=== PATIENT | female | born 1965 | race Caucasian/White ===

== ENCOUNTER 2020-06-28 11:23 | Outpatient (REF) | payer OTHER, SELFPAY ==
[2020-06-28 11:50] LABS: COVID-19 Test Negative (Negative)
== END 2020-06-28 11:24 | disposition home or self-care (01) ==
LOC: HO.LAB 11:23
PROVIDERS: Visit Provider Internal Medicine
DX: Z20.828 Contact with and (suspected) exposure to other viral communicable diseases (principal)
CPT/HCPCS: 87635

== ENCOUNTER 2020-08-03 06:21 | Outpatient (REF) | payer OTHER, SELFPAY | END 2020-08-03 06:22 | disposition home or self-care (01) | LOC: HO.LAB 06:21 | PROVIDERS: Visit Provider Internal Medicine | DX: Z20.828 Contact with and (suspected) exposure to other viral communicable diseases (principal) | CPT/HCPCS: C9803; U0003 ==

== ENCOUNTER 2020-08-16 11:28 | Outpatient (REF) | payer OTHER, SELFPAY ==
[2020-08-16 13:51] LABS: COVID-19 Test Negative (Negative)
== END 2020-08-16 11:29 | disposition home or self-care (01) ==
LOC: HO.EMPCOV 11:28
PROVIDERS: Visit Provider Internal Medicine
DX: Z20.828 Contact with and (suspected) exposure to other viral communicable diseases (principal)
CPT/HCPCS: 87635; C9803

== ENCOUNTER 2020-10-10 07:47 | Outpatient (REF) | payer OTHER, SELFPAY ==
[2020-10-10 08:05] LABS: COVID-19 Test Negative (Negative)
== END 2020-10-10 07:48 | disposition home or self-care (01) ==
LOC: HO.EMPCOV 07:47
PROVIDERS: Visit Provider Internal Medicine
DX: Z20.822 Contact with and (suspected) exposure to COVID-19 (principal)
CPT/HCPCS: 36415; 87635; C9803

== ENCOUNTER 2021-10-22 00:56 | Inpatient (IN) | payer OTHER, SELFPAY ==
[2021-10-22] VITALS (18 sets, daily range): BP systolic 96–176; BP diastolic 54–102; PULSE 72–120; RESP 18–28; TEMP 36.7–38.3; O2SAT 92–98; BMI 34.9
--- NOTE | 2021-10-22 01:08 | PC.NURSE ---
sports instructor notified that pt fits sepsis criteria.
[2021-10-22] MEDS: Ondansetron ODT 4 MG TAB.RAPDIS TRANSLINGU (01:10)
[2021-10-22] MEDS: Acetaminophen 325 MG TABLET 650 MG PO ×2 (01:16→17:25)
[2021-10-22 01:36] LABS: COVID-19 Test Negative (Negative)
[2021-10-22 01:52] LABS: MANUAL DIFF FLAG NO
[2021-10-22 01:55] LABS: Basophils Percent Auto 0.1 % (0-2); Eosinophils Percent Auto 0.4 % (0-4); Hematocrit 41.1 % (37.0-47.0); Hemoglobin 14.2 g/dl (12.0-16.0); Imm Gran Abs Auto 0.03 X10*3/uL (0.00-0.03); Imm Gran Pct Auto 0.3 % (0.0-0.4); Lymphocytes Absolute Auto 0.7 X10*3/uL (1.2-4.9); Lymphocytes Percent Auto 7.2 % (20-40); Mean Corpuscular HGB Conc 34.5 g/dl (31.0-35.0); Mean Corpuscular Hemoglobin 27.7 pg (27.0-33.0); Mean Corpuscular Volume 80.3 fL (80.0-98.0); Mean Platelet Volume 9.6 fL (9.4-12.3); Monocytes Absolute Auto 0.6 X10*3/uL (0.1-1.2); Monocytes Percent Auto 6.6 % (2-11); Neutrophils Absolute Auto 8.2 x10*3/uL (2.0-8.3); Neutrophils Percent Auto 85.4 % (45-73); Platelet Count 100 X10*3/uL (160-400); Red Blood Count 5.12 X10*6/uL (4.20-5.50); Red Cell Distribution Width 15.2 % (11.0-16.0); White Blood Count 9.6 X10*3/uL (4.8-10.8)
[2021-10-22] MEDS: oxyCODONE HCl Immed Release 5 MG TABLET 10 MG PO (02:04)
[2021-10-22] MEDS: Ketorolac Tromethamine 15 MG/ML VIAL IVPUSH (02:04)
[2021-10-22 02:05] LABS: Lactic Acid 1.4 mmol/L (0.5-2.0)
[2021-10-22 02:10] LABS: Alanine Aminotransferase 27 U/L (0-31); Albumin Level 3.1 g/dL (3.5-5.0); Alkaline Phosphatase 176 U/L (39-117); Anion Gap 11 (12-20); Aspartate Amino Transferase 50 U/L (5-31); Bilirubin Total 1.8 mg/dL (0.0-1.0); Blood Urea Nitrogen 5 mg/dL (9-16); Calcium 8.6 mg/dL (8.4-10.2); Carbon Dioxide 20 mmol/L (22-29); Chloride 107 mmol/L (96-108); Creatinine Clr Calc Pharmacy 104.6; Estimated Glomerular Filt Rate > 60; Glucose Random 114 mg/dL (60-115); Potassium 3.3 mmol/L (3.3-5.1); Sodium 135 mmol/L (135-145); Total Protein 7.5 g/dL (6.5-8.0)
--- NOTE | 2021-10-22 02:43 | ED.GENADULT ---
HPI - General Adult General Chief complaint: Skin/Abscess/Foreign Body Stated complaint: general medical Time Seen by Provider: 10/22/21 01:20 Source: patient Mode of arrival: ambulatory Limitations: no limitations History of Present Illness HPI narrative: 55-year-old female who presents emergency department for evaluation of possible cellulitis of her abdominal wall. Patient states that she has had at least 16 admissions over the last 10 years for abdominal wall cellulitis. She states that her symptoms often, suddenly. She states she was feeling well until 21:30 hours when she developed chills. She took some Tylenol. She states that around 23:00 hours she felt hot but did not have a thermometer. She then developed uncontrollable shaking chills. She then noted pain in her abdomen. She describes the pain as a constant, soreness with a tingling, burning, viral like sensation over her skin which is 9/10 at its worst. She then looked at her abdomen and she had developed new erythema with increased warmth over her skin. She states that her cellulitis are most likely caused by her psoriasis. She states that she has seen at an infectious disease doctor and an flight engineer helicopter with a negative workup. She states she has had sepsis in the past as well. Onset (ago): hour(s) (3) Location: abdomen Radiation: non-radiation Severity: severe Severity scale (1-10): 9 Quality: burning and other (Tingling, fire sensation) Pain Consistency: constant Relieving factors: none Exacerbating factors: none Associated symptoms: rash Treatments prior to arrival: none Related Data Allergies Allergy/AdvReac Type Severity Reaction Status Date / Time Penicillins Allergy Unknown Verified 10/22/21 01:07 Review of Systems Review of Systems: Yes all other systems are reviewed and are negative [facility] Past Medical History Medical History (Updated 10/22/21 @ 03:08 by Naeem Saenz MD) Cellulitis Psoriasis Social History Social History Advance Directives: No Patient : No Physical Exam ED Vital Signs: Vital Signs - 24 hr 10/22/21 01:00 10/22/21 01:15 10/22/21 02:11 Temperature 100.7 F H 101 F H Pulse Rate 120 H 104 H Respiratory Rate 20 18 Blood Pressure 176/102 H 169/98 H Pulse Oximetry 97 96 10/22/21 02:20 10/22/21 02:29 10/22/21 03:04 Temperature 99.9 F 99 F Pulse Rate 104 H 102 H Respiratory Rate 18 20 Blood Pressure 161/89 H 153/88 H Pulse Oximetry 96 95 10/22/21 04:00 10/22/21 04:28 Temperature Pulse Rate 99 99 Respiratory Rate 20 18 Blood Pressure 113/64 106/62 Pulse Oximetry 95 93 BMI result Body Mass Index 34.9 Const Other: Awake, alert, female patient, very pleasant and cooperative, she is diaphoretic, she does appear to be anxious, she answers all questions appropriately [facility] Head: Yes normal to inspection, Yes normocephalic and Yes atraumatic Ears: external ears normal General nose exam: Normal external nose present Face and sinus: Yes normal facial exam Mouth: Normal oral and palatal mucosa present Throat: Yes posterior oropharynx normal Eyes General: appearance normal, both eyes and all related structures Pupils: Equal, round and reactive pupils present Neck Neck: Yes normal visual inspection, Yes no lymphadenopathy, Yes trachea midline and Yes supple Chest Chest palpation & inspection: normal inspection of the chest and normal palpation of entire chest wall Resp Effort & Inspection: normal respiratory effort and able to speak in complete sentences Auscultation: clear to auscultation bilaterally Cardio Rate: regular rate Rhythm: regular rhythm Heart sounds: S1 normal heart sound present, S2 normal heart sound present and no murmurs GI Inspection: Yes normal to inspection Palpation (GI): Soft to palpation, Tenderness to palpation present (GI) (Moderate diffuse tenderness) and no guarding Auscultation: normal bowel sounds General: Yes no CVA tenderness Back/Spine/Pelvis Back: no CVA tenderness Skin Other: The patient has erythema that is warm to the touch and does marissa slightly over her entire anterior abdomen, there is a well-demarcated line just below the breasts, there has 2 patches erythema over the patient's breasts medially that the patient states is more consistent with her psoriasis. Neuro Cranial nerves: Yes CN's II-XII intact bilaterally and Yes Equal, round and reactive pupils present Cognition (Neuro): normal cognition Motor exam (neuro): 5/5 motor strength present throughout Extrem General: Yes normal to inspection Psych Appearance: grossly normal Speech and movement: Normal speech and movement present Affect: normal affect Attitude: cooperative Thought process: Normal thought process present Thought content: Normal thought content present Course Course Course Narrative: 55-year-old female with history of recurrent cellulitis of her abdominal wall possibly secondary to her psoriasis who presents emergency department for evaluation sudden onset subjective fever at 21:30 hours with sudden onset shaking chills (rigors) at 23:00 hours with diffuse erythema but then developed over her abdominal wall. Patient states that she has had at least 16 episodes abdominal wall cellulitis in the past with multiple hospitalizations and several episodes of sepsis. Patient's vital signs on presentation did meet SIRS criteria with a pulse of 120 and a temperature of 100.7 degrees F. patient had no hypotensive with a blood pressure of 176/102 and O2 saturation of 97% on room air. Physical examination did reveal diffuse erythema with increased warmth over her abdominal wall consistent with cellulitis. She has 2 patches of erythema on her lower breasts which may be consistent with her psoriasis and this could be the source for her cellulitis. Patient was ordered to get a normal saline fluid bolus of 30 cc/kilogram based on her ideal weight (BMI 34.9). Patient was also ordered to get Ancef 2 g IV and vancomycin 1250 mg IV. Patient's pain was treated with Tylenol 650 mg orally, oxycodone 10 mg orally and Zofran 4 mg IV for her nausea. I will discuss admission with the covering hospitalist. Medical Decision Making Lab Data Result diagrams: 10/22/21 01:47 10/22/21 01:47 Labs: Lab Results 10/22/21 10/22/21 10/22/21 Range/Units 01:14 01:47 01:47 WBC 9.6 (4.8-10.8) X10*3/uL RBC 5.12 (4.20-5.50) X10*6/uL Hgb 14.2 (12.0-16.0) g/dl Hct 41.1 (37.0-47.0) % MCV 80.3 (80.0-98.0) fL MCH 27.7 (27.0-33.0) pg MCHC 34.5 (31.0-35.0) g/dl RDW 15.2 (11.0-16.0) % Plt Count 100 L (160-400) X10*3/uL MPV 9.6 (9.4-12.3) fL Immature Gran % (Auto) 0.3 (0.0-0.4) % Neut % (Auto) 85.4 H (45-73) % Lymph % (Auto) 7.2 L (20-40) % [place] % (Auto) 6.6 (2-11) % Eos % (Auto) 0.4 (0-4) % Baso % (Auto) 0.1 (0-2) % Lymph # (Auto) 0.7 L (1.2-4.9) X10*3/uL [place] # (Auto) 0.6 (0.1-1.2) X10*3/uL Eos # (Auto) 0.0 (0.0-0.4) X10*3/uL Baso # (Auto) 0.0 (0.0-0.2) X10*3/uL Abs Immat Gran (auto) 0.03 (0.00-0.03) X10*3/uL Absolute Neuts (auto) 8.2 (2.0-8.3) x10*3/uL Absolute Nucleated RBC 0.000 (0.0-0.012) X10*3/uL Nucleated RBC % (auto) 0.0 (0.0-0.2) /100WBC Sodium 135 (135-145) mmol/L Potassium 3.3 (3.3-5.1) mmol/L Chloride 107 (96-108) mmol/L Carbon Dioxide 20 L (22-29) mmol/L Anion Gap 11 L (12-20) BUN 5 L (9-16) mg/dL Creatinine 0.71 (0.5-1.4) mg/dL Estim Creat Clear Calc 104.6 Estimated GFR > 60 Random Glucose 114 (60-115) mg/dL Lactic Acid (0.5-2.0) mmol/L Calcium 8.6 (8.4-10.2) mg/dL Total Bilirubin 1.8 H (0.0-1.0) mg/dL AST 50 H (5-31) U/L ALT 27 (0-31) U/L Alkaline Phosphatase 176 H (39-117) U/L Total Protein 7.5 (6.5-8.0) g/dL Albumin 3.1 L (3.5-5.0) g/dL COVID-19 ([facility]) Negative (Negative) COVID-19 Clin Com See Note 10/22/21 Range/Units 01:47 WBC (4.8-10.8) X10*3/uL RBC (4.20-5.50) X10*6/uL Hgb (12.0-16.0) g/dl Hct (37.0-47.0) % MCV (80.0-98.0) fL MCH (27.0-33.0) pg MCHC (31.0-35.0) g/dl RDW (11.0-16.0) % Plt Count (160-400) X10*3/uL MPV (9.4-12.3) fL Immature Gran % (Auto) (0.0-0.4) % Neut % (Auto) (45-73) % Lymph % (Auto) (20-40) % [place] % (Auto) (2-11) % Eos % (Auto) (0-4) % Baso % (Auto) (0-2) % Lymph # (Auto) (1.2-4.9) X10*3/uL [place] # (Auto) (0.1-1.2) X10*3/uL Eos # (Auto) (0.0-0.4) X10*3/uL Baso # (Auto) (0.0-0.2) X10*3/uL Abs Immat Gran (auto) (0.00-0.03) X10*3/uL Absolute Neuts (auto) (2.0-8.3) x10*3/uL Absolute Nucleated RBC (0.0-0.012) X10*3/uL Nucleated RBC % (auto) (0.0-0.2) /100WBC Sodium (135-145) mmol/L Potassium (3.3-5.1) mmol/L Chloride (96-108) mmol/L Carbon Dioxide (22-29) mmol/L Anion Gap (12-20) BUN (9-16) mg/dL Creatinine (0.5-1.4) mg/dL Estim Creat Clear Calc Estimated GFR Random Glucose (60-115) mg/dL Lactic Acid 1.4 (0.5-2.0) mmol/L Calcium (8.4-10.2) mg/dL Total Bilirubin (0.0-1.0) mg/dL AST (5-31) U/L ALT (0-31) U/L Alkaline Phosphatase (39-117) U/L Total Protein (6.5-8.0) g/dL Albumin (3.5-5.0) g/dL COVID-19 ([facility]) (Negative) COVID-19 Clin Com Discharge Plan Discharge Clinical Impression: Cellulitis, Fever, Rigor Patient Disposition: Admitted As Inpatient
[2021-10-22] MEDS: vancomycin HCL 1,250 MG in 0.9 % Sodium Chloride 250 ML 166.67 MG IV (02:57)
--- NOTE | 2021-10-22 06:19 | PM.IMHP ---
History of Present Illness Date of Service: 10/22/21 Chief Complaint: Abdominal wall cellulitis This is a 55-year-old female with past medical history of psoriasis who presents to the hospital with complaints of chills, abdominal wall cellulitis. Patient reports history of abdominal wall cellulitis, she reports that around 21:00 she started developing chills, and 2 hours later her whole abdomen became red, and warm therefore she decided to come to the hospital. She otherwise denies any fever, no abdominal pain, she has had nausea vomiting, no diarrhea constipation, no urinary symptoms and no lower extremity edema. On arrival to the ED patient's vitals are significant for temp of a 100.7 degrees, heart rate of 120, blood pressure 176/102, Labs are significant for WBC count 9.6, BUN of 5, total bili of 1.8, AST of 50, alk-phos of 176, otherwise unremarkable. Patient will be admitted for further management Review of Systems Review of Systems: Yes all other systems are reviewed and are negative REPLACED BY [facility] Medical History (Updated 10/22/21 @ 06:24 by Yee Mohan MD) Cellulitis Psoriasis Family History (Updated 10/22/21 @ 06:22 by Yee Mohan MD) Other No family history of coronary artery disease Surgical History (Updated 10/22/21 @ 06:23 by Yee Mohan MD) History of cholecystectomy Hx of breast reduction, elective Social History (Updated 10/22/21 @ 06:23 by Yee Mohan MD) Alcohol intake: never Patient Tobacco Use Status: Never used Tobacco Use of substances other than those prescribed or required for medical reasons: No Advance Directives: No Patient : No Meds Allergies Allergy/AdvReac Type Severity Reaction Status Date / Time Penicillins Allergy Unknown Verified 10/22/21 01:07 Active Medications: Current Medications Acetaminophen (Acetaminophen 325 Mg Tablet) 650 mg PO Q6H PRN PRN Reason: Pain, Mild (Pain Scale 1-3) Enoxaparin Sodium (Enoxaparin Sodium 40 Mg/0.4 Ml Syringe) 40 mg SUBCUT Q24H [facility] Cefazolin Sodium/Dextrose (Ancef) 2 gm in 50 mls @ 100 mls/hr IV Q8H [facility] Ondansetron HCl (Ondansetron Hcl 4 Mg/2 Ml Vial) 4 mg IVPUSH Q8H PRN PRN Reason: Nausea and Vomiting Oxycodone HCl (Oxycodone Hcl Immed Release 5 Mg Tablet) 5 mg PO Q6H PRN PRN Reason: Pain, Severe (Pain Scale 7-10) Pharmacy Consult (Consult Rx Vancomycin Dosing) 1 each MISCELLANE DAILY PRN PRN Reason: Consult order Sodium Chloride (0.9 % Sodium Chloride Flush 3 Ml Syringe) 3 ml IVFLUSH QSHIFT [facility] Home Medications Medication Instructions Recorded Confirmed Last Taken Type guselkumab 100 mg/mL subcutaneous 100 mg SUBCUT 10/22/21 Unknown History auto-injector (Tremfya) Physical Exam Vital Signs and Narrative: Vital Signs: Last Vital Signs Temp 98.1 F 10/22/21 05:58 Pulse 96 10/22/21 05:58 Resp 18 10/22/21 05:58 BP 114/63 10/22/21 05:58 Pulse Ox 95 10/22/21 05:58 BMI result Body Mass Index 34.9 Const: General: cooperative and no acute distress Orientation/consciousness: patient oriented x3 Eyes: General: appearance normal, both eyes and all related structures Pupils: Equal, round and reactive pupils present Resp: Effort & Inspection: normal respiratory effort Auscultation: clear to auscultation bilaterally Cardio: Rate: regular rate Rhythm: regular rhythm GI: Other: Significant diffuse Abdominal wall tenderness, erythema, warmth, Palpation (GI): Soft to palpation Auscultation: normal bowel sounds Skin: General skin exam: no rashes or lesions noted Neuro: General: patient oriented x3 Cranial nerves: Yes Equal, round and reactive pupils present Cognition (Neuro): normal cognition Extrem: General: Yes normal to inspection and Yes no pedal edema Results Labs CBC and Chem 7: 10/22/21 01:47 10/22/21 01:47 Labs: Laboratory Results - last 24 hr 10/22/21 10/22/21 10/22/21 01:14 01:47 01:47 MCV 80.3 MCH 27.7 MCHC 34.5 RDW 15.2 Plt Count 100 L MPV 9.6 Immature Gran % (Auto) 0.3 Neut % (Auto) 85.4 H Lymph % (Auto) 7.2 L [place] % (Auto) 6.6 Eos % (Auto) 0.4 Baso % (Auto) 0.1 Lymph # (Auto) 0.7 L [place] # (Auto) 0.6 Eos # (Auto) 0.0 Baso # (Auto) 0.0 Abs Immat Gran (auto) 0.03 Absolute Neuts (auto) 8.2 Absolute Nucleated RBC 0.000 Nucleated RBC % (auto) 0.0 Anion Gap 11 L Estim Creat Clear Calc 104.6 Estimated GFR > 60 Random Glucose 114 Lactic Acid Calcium 8.6 Total Bilirubin 1.8 H AST 50 H ALT 27 Alkaline Phosphatase 176 H Total Protein 7.5 Albumin 3.1 L COVID-19 ([facility]) Negative COVID-19 Clin Com See Note 10/22/21 01:47 MCV MCH MCHC RDW Plt Count MPV Immature Gran % (Auto) Neut % (Auto) Lymph % (Auto) [place] % (Auto) Eos % (Auto) Baso % (Auto) Lymph # (Auto) [place] # (Auto) Eos # (Auto) Baso # (Auto) Abs Immat Gran (auto) Absolute Neuts (auto) Absolute Nucleated RBC Nucleated RBC % (auto) Anion Gap Estim Creat Clear Calc Estimated GFR Random Glucose Lactic Acid 1.4 Calcium Total Bilirubin AST ALT Alkaline Phosphatase Total Protein Albumin COVID-19 ([facility]) COVID-19 Clin Com Assessment and Plan (1) SIRS (systemic inflammatory response syndrome): Status: Acute (2) Cellulitis: Qualifiers: Site of cellulitis: trunk Site of cellulitis of trunk: abdominal wall Qualified Code(s): L03.311 - Cellulitis of abdominal wall Status: Acute Plan 55-year-old female with past medical history of psoriasis presents to the hospital with complaints of abdominal wall redness found to have abdominal cellulitis # SIRS - has tachycardia, tachypnea, likely secondary to abdominal wall cellulitis - normal lactic acid, no leukocytosis - will treat with IV antibiotics - follow cultures # abdominal wall cellulitis - acute - diffuse - given the large area of cellulitis as well as it significant progress over the past few hours, patient will be admitted and treated with IV antibiotics - follow cultures # psoriasis - continue home Tremfya # insomnia - patient reports that she becomes insomniac at the hospital and request something for sleep hospital - Amadeo [email or web address] ordered DVT prophylaxis: Lovenox Quality Stroke Does the patient have a stroke diagnosis?: No VTE Prior VTE?: No VTE Risk Level:: Medical - moderate - high VTE Device Contraindication: Treatment Not Indicated VTE Drug Contraindication: N/A - Med Ordered
[2021-10-22] MEDS: Enoxaparin Sodium 40 MG/0.4 ML SYRINGE SUBCUT (06:50)
[2021-10-22] MEDS: oxyCODONE HCl Immed Release 5 MG TABLET PO ×2 (06:55→15:51)
[2021-10-22 07:19] LABS: Basophils Percent Auto 0.1 % (0-2); Eosinophils Percent Auto 0.1 % (0-4); Hematocrit 37.5 % (37.0-47.0); Hemoglobin 12.9 g/dl (12.0-16.0); Imm Gran Abs Auto 0.05 X10*3/uL (0.00-0.03); Imm Gran Pct Auto 0.5 % (0.0-0.4); Lymphocytes Absolute Auto 0.5 X10*3/uL (1.2-4.9); Lymphocytes Percent Auto 4.9 % (20-40); MANUAL DIFF FLAG SCAN; Mean Corpuscular HGB Conc 34.4 g/dl (31.0-35.0); Mean Corpuscular Volume 81.5 fL (80.0-98.0); Mean Platelet Volume 9.8 fL (9.4-12.3); Monocytes Absolute Auto 0.4 X10*3/uL (0.1-1.2); Monocytes Percent Auto 4.3 % (2-11); Neutrophils Absolute Auto 9.1 x10*3/uL (2.0-8.3); Neutrophils Percent Auto 90.1 % (45-73); Platelet Count 89 X10*3/uL (160-400); Red Cell Distribution Width 15.3 % (11.0-16.0); SCAN SMEAR FLAG 1; White Blood Count 10.1 X10*3/uL (4.8-10.8)
[2021-10-22 07:37] LABS: SLIDE REVIEW VERIFIED
[2021-10-22 07:39] LABS: Anion Gap 9 (12-20); Blood Urea Nitrogen 6 mg/dL (9-16); Carbon Dioxide 21 mmol/L (22-29); Chloride 109 mmol/L (96-108); Creatinine Clr Calc Pharmacy 103.1; Estimated Glomerular Filt Rate > 60; Glucose Random 158 mg/dL (60-115); Potassium 3.4 mmol/L (3.3-5.1); Sodium 136 mmol/L (135-145)
--- NOTE | 2021-10-22 08:37 | PHA.MEDREC ---
Pharmacy Consult ? Medication Reconciliation Pharmacy has completed the medication reconciliation. SPOKE WITH PT. SHE IS OVERDUE FOR HER TREMFYA. SHE IS WAITING FOR IT TO COME IN
--- NOTE | 2021-10-22 09:42 | PHA.PROG ---
Admission Date/Time: October 22, 2021 05:17 Indication: Weight in k.254 kg Adjusted body weight in K.3 KG [place] body weight in K KG Obesity Dosing Indication % IBW: Serum Creatinine - Last 168 Hours 10/22/21 10/22/21 01:47 07:01 Creatinine 0.71 0.72 Estimated CrCl and GFR - Last 168 Hours 10/22/21 10/22/21 01:47 07:01 Estim Creat Clear Calc 104.6 103.1 Estimated GFR > 60 > 60 Vancomycin Loading Dose: 1250 MG Current Vancomycin Dosing Regimen:1000 MG Q12 Vancomycin Monitoring using AUC goal of 400 - 600 range with trough as surrogate marker: 518, 15.2 TROUGH Date and Time for next Vancomycin Level to be drawn:10/23@1300 Pharmacist Comments on Vancomycin Plan:used obese model since pt is 20% > than ideal body weight Vancomycin dosing will take advantage of Motion [employer] as a clinical decision support tool that uses Bayesian modeling to calculate individual patient's pharmacokinetic parameters and forecast the patient's drug concentration time course with the target goal AUC 24 range of 400 - 600 mg/L/hr.
--- NOTE | 2021-10-22 10:16 | MHC.CM.PN ---
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 D/C PLAN: HOME W/NO SERVICES W/BF FOR TRANSPORT.
[2021-10-22] MEDS: ceFAZolin Sodium/Dextrose,Iso 2 GM/50 ML PIGGYBACK IV ×2 (10:38→18:49)
[2021-10-22] MEDS: Lactated Ringers 1,000 ML 100 ML IVCONT ×2 (12:05→20:16)
--- NOTE | 2021-10-22 12:09 | PC.NURSE ---
patient a&ox3, vitals stable, library monitor nsr 80s, ivf started per order, pt states she hs 7/10 pain-refusing tylenol for pain at this time, call jorge within reach, will continue to monitor.
--- NOTE | 2021-10-22 13:17 | PM.EVENT ---
Event Note Date of Service: 10/23/21 Event Note: This patient is seen and examined this morning by hospitalist service. fevers and tachycardia improving mild tachypnea Physical exam: Unchanged from H&P. Agree with the plan in addition: patient has reccurrent abd wall cellulitis sirs/abd wall cellulitis -added vanco/cefzolin moniter vanco trough Id eval
[2021-10-22] MEDS: vancomycin HCL 1,000 MG in 0.9 % Sodium Chloride 250 ML 270 MG IV (15:37)
--- NOTE | 2021-10-22 15:52 | PC.NURSE ---
pt a&ox3, vss, pt requesting pain meds (04/18 pain), medicated per provider order.
--- NOTE | 2021-10-22 17:26 | PC.NURSE ---
pt medicated per order
--- NOTE | 2021-10-22 19:47 | PC.NURSE ---
pt requested gabriel winkler around 2300.
[2021-10-22] MEDS: ondansetron HCL 4 MG/2 ML VIAL IVPUSH (20:17)
--- NOTE | 2021-10-22 20:50 | PC.NURSE ---
floor to call back to get report
--- NOTE | 2021-10-22 21:15 | PC.NURSE ---
report given to floor pt to be transported by tech
[2021-10-22] MEDS: 0.9 % Sodium Chloride Flush 3 ML SYRINGE IVFLUSH (23:28)
[2021-10-22] MEDS: Zolpidem Tartrate 5 MG TABLET PO (23:31)
[2021-10-23] VITALS: BP 94/55; PULSE 72; RESP 18; TEMP 36.4; O2SAT 94
[2021-10-23] MEDS: ceFAZolin Sodium/Dextrose,Iso 2 GM/50 ML PIGGYBACK IV ×3 (01:57→19:23)
[2021-10-23] MEDS: vancomycin HCL 1,000 MG in 0.9 % Sodium Chloride 250 ML 270 MG IV (03:49)
[2021-10-23 04:00] VITALS: BP 100/57; PULSE 66; RESP 18; TEMP 36.3; O2SAT 97
[2021-10-23] MEDS: Enoxaparin Sodium 40 MG/0.4 ML SYRINGE SUBCUT (05:38)
[2021-10-23 06:07] LABS: Anion Gap 7 (12-20); Blood Urea Nitrogen 9 mg/dL (9-16); Calcium 7.5 mg/dL (8.4-10.2); Carbon Dioxide 24 mmol/L (22-29); Chloride 109 mmol/L (96-108); Creatinine Clr Calc Pharmacy 100.3; Estimated Glomerular Filt Rate > 60; Glucose Random 87 mg/dL (60-115); Potassium 3.4 mmol/L (3.3-5.1); Sodium 137 mmol/L (135-145)
[2021-10-23 07:39] VITALS: BP 100/54; PULSE 75; RESP 20; TEMP 36.9; O2SAT 93
[2021-10-23 08:20] LABS: Alanine Aminotransferase 20 U/L (0-31); Albumin Level 2.5 g/dL (3.5-5.0); Alkaline Phosphatase 106 U/L (39-117); Aspartate Amino Transferase 45 U/L (5-31); Bilirubin Direct 0.6 mg/dL (0.0-0.5)
[2021-10-23] MEDS: 0.9 % Sodium Chloride Flush 3 ML SYRINGE IVFLUSH (08:25)
[2021-10-23 11:34] VITALS: BP 127/64; PULSE 79; RESP 20; TEMP 36.9; O2SAT 95
--- NOTE | 2021-10-23 12:52 | HO.PM.IMPN ---
Subjective Subjective Date of Service: 10/23/21 Interval History: abd wall cellulitis Review of Systems Denies any chest pain or shortness of breath fever or chills or nausea vomiting. still has significant abdominal soreness in cellulitis area. Physical Exam Vital Signs: Vital Signs: Last Vital Signs Temp 98.4 F 10/23/21 11:34 Pulse 79 10/23/21 11:34 Resp 20 10/23/21 11:34 BP 127/64 10/23/21 11:34 Pulse Ox 95 10/23/21 11:34 BMI result Body Mass Index 34.9 Appearance: Alert.? Oriented X3.? not in distress.? Eyes: Pupils equal, round and reactive to light.? Sclera nonicteric.? ENT: Pharynx normal.? Moist mucous membranes. cvs: rrr, [id number] , no murmur res: clear to auscultation ,no rhonchii or wheezing abd: no rebound or guarding , significant soreness and redness of mid to lower abdomen, bs present. ext pulses present , no cyanosis . neuro: axo3 , nonfocal. Objective Data Active Medications Acetaminophen (Acetaminophen 325 Mg Tablet) 650 mg PO Q6H PRN PRN Reason: Pain, Mild (Pain Scale 1-3) Last Admin: 10/22/21 17:25 Dose: 650 mg Documented by: ATIF Enoxaparin Sodium (Enoxaparin Sodium 40 Mg/0.4 Ml Syringe) 40 mg SUBCUT Q24H [facility] Last Admin: 10/23/21 05:38 Dose: 40 mg Documented by: PIA Cefazolin Sodium/Dextrose (Ancef) 2 gm in 50 mls @ 100 mls/hr IV Q8H [facility] Last Infusion: 10/23/21 10:25 Dose: 0 mls/hr Documented by: TATIANA Vancomycin HCl 1,000 mg/ (Sodium Chloride) 270 mls @ 270 mls/hr IV Q12H [facility] Last Infusion: 10/23/21 05:08 Dose: 0 mls/hr Documented by: PIA Lactated Ringer's (Lr) 1,000 mls @ 100 mls/hr IVCONT .Q10H [facility] Last Admin: 10/22/21 20:16 Dose: 100 mls/hr Documented by: ATIF Ondansetron HCl (Ondansetron Hcl 4 Mg/2 Ml Vial) 4 mg IVPUSH Q8H PRN PRN Reason: Nausea and Vomiting Last Admin: 10/22/21 20:17 Dose: 4 mg Documented by: ATIF Oxycodone HCl (Oxycodone Hcl Immed Release 5 Mg Tablet) 5 mg PO Q6H PRN PRN Reason: Pain, Severe (Pain Scale 7-10) Last Admin: 10/22/21 15:51 Dose: 5 mg Documented by: ATIF Pharmacy Consult (Consult Rx Vancomycin Dosing) 1 each MISCELLANE DAILY PRN PRN Reason: Consult order Pharmacy Consult (Consult Rx Vancomycin Dosing) 1 each MISCELLANE DAILY PRN PRN Reason: Consult order Sodium Chloride (0.9 % Sodium Chloride Flush 3 Ml Syringe) 3 ml IVFLUSH [facility] Last Admin: 10/23/21 08:25 Dose: 3 ml Documented by: TATIANA Zolpidem Tartrate (Zolpidem Tartrate 5 Mg Tablet) 5 mg PO BEDTIME PRN PRN Reason: Insomnia Last Admin: 10/22/21 23:31 Dose: 5 mg Documented by: PIA Labs CBC & Chem 7: 10/22/21 07:01 10/23/21 05:16 Labs: Laboratory Results - last 24 hr 10/23/21 05:16 Anion Gap 7 L Estim Creat Clear Calc 100.3 Estimated GFR > 60 Random Glucose 87 Calcium 7.5 L D Total Bilirubin 1.0 Direct Bilirubin 0.6 H AST 45 H ALT 20 Alkaline Phosphatase 106 D Total Protein 6.0 L Albumin 2.5 L Microbiology Microbiology Results: Microbiology 10/22/21 02:01 Blood Culture - Preliminary Blood - Venous No growth after 24 hours. 10/22/21 01:47 Blood Culture - Preliminary Blood - Venous No growth after 24 hours. Assessment and Plan (1) Cellulitis: Status: Acute Plan 55-year-old female with past medical history of psoriasis presents to the hospital with complaints of abdominal wall redness found to have abdominal cellulitis 1. SIRS: seems improved. - has tachycardia, tachypnea seems improved likely secondary to abdominal wall cellulitis - normal lactic acid, no leukocytosis continue with IV antibiotics - follow cultures 2. abdominal wall cellulitis - acute, diffuse - given the large area of cellulitis as well as it significant progress over the past few hours, patient will be admitted and treated with IV antibiotics blod cultures fu continue vanco and cefzolin day2 id eval 3. psoriasis- continue home Tremfya. 4. insomnia - patient reports that she becomes insomniac at the hospital and request something for sleep [facility] - Amadeo hayes ordered DVT prophylaxis: Lovenox Quality Stroke Does the patient have a stroke diagnosis?: No VTE Prior VTE?: No VTE Risk Level:: Medical - moderate - high VTE Device Contraindication: Treatment Not Indicated VTE Drug Contraindication: N/A - Med Ordered
[2021-10-23 13:27] LABS: Vancomycin Trough 9.4 mcg/mL (10.0-20.0)
[2021-10-23] MEDS: Lactated Ringers 1,000 ML 100 ML IVCONT ×2 (13:49→23:58)
--- NOTE | 2021-10-23 14:26 | HE.PHANOTE ---
VANCOMYCIN DOSING ADDENDUM BASED ON TROUGH OF 9.4 DOSE INCREASED TO [id number]. NEXT TROUGH 10/23 @ 1300
[2021-10-23] MEDS: vancomycin HCL 1,250 MG in 0.9 % Sodium Chloride 250 ML 166.67 MG IV (15:21)
[2021-10-23] MEDS: oxyCODONE HCl Immed Release 5 MG TABLET PO ×2 (15:31→22:57)
[2021-10-23 16:00] VITALS: BP 117/66; PULSE 83; RESP 18; TEMP 37.2; O2SAT 94
--- NOTE | 2021-10-23 16:07 | W.PM.IDCN ---
History of Present Illness Data of Consult Service Date: 10/23/21 Requesting physician: Michelle Chavez Primary Care Provider: Eliseo Cast III, MD HPI Reason for consult: sepsis,skin source She presents with chills two nights ago and abdominal discomfort and axillary swelling. She had this happen at 1045 pm About 1115 pm after taking Tylenol she noticed abdominal redness and swelling. She has psoriasis and takes Tremfya and missed last dose. She has long history of psoriasis and abdominal cellulitis,recurrent and hasnt had one in twenty one months. I have seen her and she has seen Dermatology and had rather nonrevealing skin biopsy as well. Review of Systems Review of Systems: Yes all other systems are reviewed and are negative [facility] Past Medical History Medical History Cellulitis Psoriasis Family History Family History Other No family history of coronary artery disease Family history: reviewed and not pertinent Surgical History Surgical History History of cholecystectomy Hx of breast reduction, elective Social History Social History Household Members: Significant Other Housing: House Do you presently have visiting nurse or other home services: No Alcohol intake: never Patient Tobacco Use Status: Never used Tobacco service: No Current occupational status: employed Meds Allergies Allergy/AdvReac Type Severity Reaction Status Date / Time Penicillins Allergy Unknown Verified 10/22/21 01:07 Active Medications: Current Medications Acetaminophen (Acetaminophen 325 Mg Tablet) 650 mg PO Q6H PRN PRN Reason: Pain, Mild (Pain Scale 1-3) Last Admin: 10/22/21 17:25 Dose: 650 mg Documented by: Enoxaparin Sodium (Enoxaparin Sodium 40 Mg/0.4 Ml Syringe) 40 mg SUBCUT Q24H [facility] Last Admin: 10/23/21 05:38 Dose: 40 mg Documented by: Cefazolin Sodium/Dextrose (Ancef) 2 gm in 50 mls @ 100 mls/hr IV Q8H [facility] Last Infusion: 10/23/21 10:25 Dose: Infused Documented by: Lactated Ringer's (Lr) 1,000 mls @ 100 mls/hr IVCONT .Q10H [facility] Last Admin: 10/23/21 13:49 Dose: 100 mls/hr Documented by: Vancomycin HCl 1,250 mg/ (Sodium Chloride) 250 mls @ 166.667 mls/hr IV Q12H [facility] Last Admin: 10/23/21 15:21 Dose: 166.67 mls/hr Documented by: Ondansetron HCl (Ondansetron Hcl 4 Mg/2 Ml Vial) 4 mg IVPUSH Q8H PRN PRN Reason: Nausea and Vomiting Last Admin: 10/22/21 20:17 Dose: 4 mg Documented by: Oxycodone HCl (Oxycodone Hcl Immed Release 5 Mg Tablet) 5 mg PO Q6H PRN PRN Reason: Pain, Severe (Pain Scale 7-10) Last Admin: 10/23/21 15:31 Dose: 5 mg Documented by: Pharmacy Consult (Consult Rx Vancomycin Dosing) 1 each MISCELLANE DAILY PRN PRN Reason: Consult order Pharmacy Consult (Consult Rx Vancomycin Dosing) 1 each MISCELLANE DAILY PRN PRN Reason: Consult order Sodium Chloride (0.9 % Sodium Chloride Flush 3 Ml Syringe) 3 ml IVFLUSH QSHIFT [facility] Last Admin: 10/23/21 15:28 Dose: Not Given Documented by: Zolpidem Tartrate (Zolpidem Tartrate 5 Mg Tablet) 5 mg PO BEDTIME PRN PRN Reason: Insomnia Last Admin: 10/22/21 23:31 Dose: 5 mg Documented by: Home Medications Medication Instructions Recorded Confirmed Last Taken Type guselkumab 100 mg/mL subcutaneous 100 mg SUBCUT [id number] 10/22/21 10/22/21 Unknown History auto-injector (Tremfya) Physical Exam Vital Signs: Vital Signs: Last Vital Signs Temp 98.4 F 10/23/21 11:34 Pulse 79 10/23/21 11:34 Resp 20 10/23/21 11:34 BP 127/64 10/23/21 11:34 Pulse Ox 95 10/23/21 11:34 BMI result Body Mass Index 34.9 Const: General: cooperative HENMT: Head: Yes normal to inspection Mouth: Normal oral and palatal mucosa present Eyes: General: appearance normal, both eyes and all related structures Pupils: Equal, round and reactive pupils present Resp: Effort & Inspection: normal respiratory effort Cardio: Rate: regular rate Rhythm: regular rhythm GI: Palpation (GI): Soft to palpation and Tenderness to palpation present (GI) (redness across abdomen) Neuro: Cranial nerves: Yes Equal, round and reactive pupils present Results Labs CBC & Chem 7: 10/22/21 07:01 10/23/21 05:16 Labs: BMP 10/23/21 05:16 Sodium 137 Potassium 3.4 Chloride 109 H Carbon Dioxide 24 BUN 9 Creatinine 0.74 Calcium 7.5 L D Liver Function 10/23/21 Range/Units 05:16 Total Bilirubin 1.0 (0.0-1.0) mg/dL Direct Bilirubin 0.6 H (0.0-0.5) mg/dL AST 45 H (5-31) U/L ALT 20 (0-31) U/L Alkaline Phosphatase 106 D (39-117) U/L Albumin 2.5 L (3.5-5.0) g/dL Microbiology Microbiology Results: Microbiology 10/22/21 02:01 Blood - Venous Blood Culture - Preliminary No growth after 24 hours. 10/22/21 01:47 Blood - Venous Blood Culture - Preliminary No growth after 24 hours. Assessment and Plan (1) Sepsis: Status: Acute There is erythema and possibly staph or strep She has no inciting factor and psoriasis is unremarkable (2) Cellulitis: Qualifiers: Site of cellulitis: trunk Site of cellulitis of trunk: abdominal wall Qualified Code(s): L03.311 - Cellulitis of abdominal wall Status: Acute Plan Await blood cultures Two or three days of Vancomycin and Kefzol and probably home with Doxycycline or Keflex for a week Follow Dermatology
[2021-10-23 20:00] VITALS: BP 145/80; PULSE 81; RESP 18; TEMP 36.6; O2SAT 91
[2021-10-23] MEDS: Zolpidem Tartrate 5 MG TABLET PO (22:57)
[2021-10-24] VITALS: BP 148/84; PULSE 83; RESP 14; TEMP 36.9; O2SAT 95
[2021-10-24] MEDS: ceFAZolin Sodium/Dextrose,Iso 2 GM/50 ML PIGGYBACK IV ×2 (02:38→08:45)
[2021-10-24] MEDS: vancomycin HCL 1,250 MG in 0.9 % Sodium Chloride 250 ML 166.67 MG IV (03:10)
[2021-10-24 04:00] VITALS: BP 158/75; PULSE 80; RESP 20; TEMP 36.3; O2SAT 92
[2021-10-24] MEDS: Enoxaparin Sodium 40 MG/0.4 ML SYRINGE SUBCUT (05:59)
[2021-10-24 06:17] LABS: Anion Gap 9 (12-20); Blood Urea Nitrogen 6 mg/dL (9-16); Calcium 7.8 mg/dL (8.4-10.2); Carbon Dioxide 25 mmol/L (22-29); Chloride 109 mmol/L (96-108); Creatinine Clr Calc Pharmacy 107.6; Estimated Glomerular Filt Rate > 60; Glucose Random 108 mg/dL (60-115); Potassium 3.2 mmol/L (3.3-5.1); Sodium 140 mmol/L (135-145)
[2021-10-24 07:38] VITALS: BP 121/59; PULSE 77; RESP 18; TEMP 37.2; O2SAT 94
[2021-10-24] MEDS: ondansetron HCL 4 MG/2 ML VIAL IVPUSH (08:45)
[2021-10-24] MEDS: 0.9 % Sodium Chloride Flush 3 ML SYRINGE IVFLUSH (08:45)
--- NOTE | 2021-10-24 11:01 | P.DS_ITS ---
DS: Providers Provider Date of Service: 10/24/21 Date of admission: 10/22/21 05:17 Primary care physician: Eliseo Cast III, MD Consults: 10/22/21 10:51 Consult to Infectious Diseases Routine Consulting Provider: Ciarra Olivo Reason for consultation: sirs sec to abd wall celulitis Has provider been notified: No DS: Diagnosis Discharge Diagnosis (1) Sepsis: Status: Acute (2) Cellulitis: Status: Acute DS: Summary Hospital Course Hospital Course: Chief Complaint: Abdominal wall cellulitis This is a 55-year-old female with past medical history of psoriasis who presents to the hospital with complaints of chills, abdominal wall cellulitis.? Patient reports history of abdominal wall cellulitis, she reports that around 21:00 she started developing chills, and 2 hours later her whole abdomen became red, and warm therefore she decided to come to the hospital.? She otherwise denies any fever, no abdominal pain, she has had nausea vomiting, no diarrhea constipation, no urinary symptoms and no lower extremity edema.? On arrival to the ED patient's vitals are significant for temp of a 100.7 degrees, heart rate of 120, blood pressure 176/102, Labs are significant for WBC count 9.6, BUN of 5, total bili of 1.8, AST of 50, alk-phos of 176, otherwise unremarkable.? Patient will be admitted for further management. Hospital course: Patient was treated for abdominal wall cellulitis with IV Vancomycin and Kefzol with over 2 days with improvment, she was seen by ID and recommended to transitioned to oral Doxycyline once improved. Blood cultures are negative, Cellulitis has signficantly improved and therefore will change to oral Doxycyline one 1 week and to follow up with Dermatology on outpatient basis. . psoriasis- to notify treating provider of recent infection before resuming Tremfya. Time Spent with Patient Time attestation: Total time spent providing and/or coordinating discharge services: Discharge coordination time: Greater than 30 minutes Quality: Stroke Does the patient have a stroke diagnosis?: No Physical Exam Vital Signs: Vital Signs: Last Vital Signs Temp 98.9 F 10/24/21 07:38 Pulse 77 10/24/21 07:38 Resp 18 10/24/21 07:38 BP 121/59 L 10/24/21 07:38 Pulse Ox 94 10/24/21 07:38 BMI result Body Mass Index 34.9 Const: Other: General: AO X 3, no acute distress Resp: normal effort Skin: Minimal redness of lower abdomen, n tenderness Neuro: motor grossly intact Psych: appropriate affect DS: Data Data Completed and Pending Labs on day of discharge: Laboratory Results - last 24 hr 10/23/21 10/24/21 12:56 05:26 Sodium 140 Potassium 3.2 L Chloride 109 H Carbon Dioxide 25 Anion Gap 9 L BUN 6 L Creatinine 0.69 Estim Creat Clear Calc 107.6 Estimated GFR > 60 Random Glucose 108 Calcium 7.8 L Vancomycin Trough 9.4 L Preliminary micro results at discharge 10/22/21 02:01 Blood Culture - Preliminary Blood - Venous No growth after 48 hours. 10/22/21 01:47 Blood Culture - Preliminary Blood - Venous No growth after 48 hours. Discharge Plan Discharge Anticipated Discharge Date/Time: 10/24/21 10:58 Patient Disposition: Home, Self-Care Discharge Diagnosis: Abdominal wall cellulitis Referrals: Eliseo Cast III, MD [Primary Care Provider] - 1 Week Discharge Medications: New doxycycline hyclate 100 mg tablet 100 mg PO BID 14 Days Qty: 13 0RF Continued Tremfya 100 mg/mL auto-injector 100 mg subcut [id number] Rx Instructions: 1 dose every 8 weeks (PT IS OVERDUE TODAY 10/22/21) Discharge Orders: Discharge Order (Routine); Ordered 10/24/21 Ordered By: Fabien Capellan Diet: advance to usual diet Activity on Discharge: As tolerated Stand Alone Forms: Patient Portal Discharge page Care Plan Goals: Full recovery from Cellulitis Health Concerns: Cellulitis of abdominal wall Plan of Treatment: Take Doxycyline as recommended and follow up with your Doctor in a week. Tell your Psoriasis doctor that you have been sick in the hospital with abdominal wall infection before restarting Tremfya--it may be better to wait until after infection is all resolved. 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
--- NOTE | 2021-10-24 11:20 | MHC.CM.PN ---
PATIENT IS DC TO HOME - SELF CARE SHE IS NOT INTERESTED IN COMPLETING A HCP RN AWARE OF PLAN.
[2021-10-24 11:31] VITALS: BP 148/79; PULSE 80; RESP 18; TEMP 36.4; O2SAT 97
[2021-10-24 13:45] LABS: Vancomycin Trough 12.1 mcg/mL (10.0-20.0)
== END 2021-10-24 15:00 | disposition home or self-care (01) | DRG 872 ==
LOC: HO.ED 03:24 → HO.EDOVER 05:46 → HO.S3 20:32
PROVIDERS: Internal Medicine; Admitting Provider Internal Medicine; Emergency Provider Emergency Medicine Emergency Medical Services; PCP Internal Medicine; Visit Provider Internal Medicine
DX: A41.9 Sepsis, unspecified organism (principal); L03.311 Cellulitis of abdominal wall; G47.00 Insomnia, unspecified; L40.9 Psoriasis, unspecified; Z20.822 Contact with and (suspected) exposure to COVID-19; Z88.0 Allergy status to penicillin; Z79.899 Other long term (current) drug therapy
CPT/HCPCS: 36415; 80048; 80053; 80076; 80202; 83605; 85025; 87040; 87635; 96365; 96367; 96375; 99285; J0690; J1650; J1885; J2405; J3370

== ENCOUNTER 2021-10-31 18:53 | Inpatient (IN) | payer OTHER, SELFPAY ==
[2021-10-31 19:10] VITALS: BP 178/93; PULSE 92; RESP 22; TEMP 36.6; O2SAT 98; BMI 36.1
[2021-10-31] MEDS: LORazepam 1 MG TABLET 2 MG PO (19:33)
[2021-10-31 19:45] VITALS: BP 165/94; PULSE 87; RESP 16; TEMP 37.1; O2SAT 98
[2021-10-31] MEDS: vancomycin HCL 1,250 MG in 0.9 % Sodium Chloride 250 ML 166.67 MG IV (20:00)
[2021-10-31 20:36] LABS: Basophils Percent Auto 0.2 % (0-2); Eosinophils Absolute Auto 0.1 X10*3/uL (0.0-0.4); Hematocrit 42.7 % (37.0-47.0); Imm Gran Abs Auto 0.03 X10*3/uL (0.00-0.03); Imm Gran Pct Auto 0.3 % (0.0-0.4); MANUAL DIFF FLAG SCAN; Neutrophils Percent Auto 86.7 % (45-73); PLT CLUMP 1; Red Cell Distribution Width 15.5 % (11.0-16.0); SCAN SMEAR FLAG 1
[2021-10-31 20:38] LABS: Hemoglobin 14.7 g/dl (12.0-16.0); Lymphocytes Absolute Auto 0.9 X10*3/uL (1.2-4.9); Mean Corpuscular HGB Conc 34.4 g/dl (31.0-35.0); Mean Corpuscular Hemoglobin 28.1 pg (27.0-33.0); Mean Corpuscular Volume 81.6 fL (80.0-98.0); Mean Platelet Volume 10.2 fL (9.4-12.3); Monocytes Absolute Auto 0.4 X10*3/uL (0.1-1.2); Monocytes Percent Auto 3.8 % (2-11); Neutrophils Absolute Auto 9.7 x10*3/uL (2.0-8.3); Red Blood Count 5.23 X10*6/uL (4.20-5.50)
[2021-10-31] MEDS: Ketorolac Tromethamine 15 MG/ML VIAL IVPUSH (20:38)
[2021-10-31] MEDS: oxyCODONE HCl Immed Release 5 MG TABLET 10 MG PO (20:38)
[2021-10-31] MEDS: 0.9 % Sodium Chloride 1,000 ML 999 ML IV (20:39)
[2021-10-31 20:58] LABS: Alanine Aminotransferase 24 U/L (0-31); Albumin Level 3.4 g/dL (3.5-5.0); Alkaline Phosphatase 176 U/L (39-117); Anion Gap 13 (12-20); Aspartate Amino Transferase 52 U/L (5-31); Bilirubin Total 2.1 mg/dL (0.0-1.0); Blood Urea Nitrogen 7 mg/dL (9-16); C Reactive Protein 0.79 mg/dL (< or = 0.50); Calcium 9.1 mg/dL (8.4-10.2); Carbon Dioxide 21 mmol/L (22-29); Chloride 109 mmol/L (96-108); Creatinine Clr Calc Pharmacy 106.4; Estimated Glomerular Filt Rate > 60; Glucose Random 91 mg/dL (60-115); Lipase 88 U/L (8-78); Potassium 3.6 mmol/L (3.3-5.1); Sodium 139 mmol/L (135-145); Total Protein 8.2 g/dL (6.5-8.0)
[2021-10-31 20:59] LABS: Platelet Count 124 X10*3/uL (160-400); SLIDE REVIEW VERIFIED; White Blood Count 11.2 X10*3/uL (4.8-10.8)
--- NOTE | 2021-10-31 21:11 | ED_ITS ---
HPI - Skin/Abscess/Foreign Bdy General Chief complaint: Abdominal Pain Stated complaint: abd wall cellulitis Time Seen by Provider: 10/31/21 19:21 Source: patient Mode of arrival: ambulatory Limitations: no limitations History of Present Illness HPI narrative: 55-year-old female who presents emergency department for evaluation of pain, redness and possible cellulitis of her abdominal wall. The patient has had mu ltiple episodes of abdominal wall cellulitis. She was recently admitted on 10/22/2021 until 10/24/2021 for abdominal wall cellulitis treated with vancomycin and cefazolin IV. She was discharged home on doxycycline twice a day. She states she completed the doxycycline yesterday. She states that today she took a shower between 15 30 and 16:00 hours. When she got out of the shower she developed shaking chills. She then developed redness of her abdominal wall which rapidly spreading cover the entire abdomen. At 16:30 hours she states that she had a temperature of 101 degrees F took some Tylenol orally. She states that the rash is painful. She describes the pain as a constant, stinging sensation which is 9/10. The patient does have a history of psoriasis underneath her breasts. She was taking the biologic agent Tremfia which was an ejection every 8 weeks however she states that she is overdue for this injection and did not receive her last dose. Related Data Home Medications Medication Instructions Recorded Confirmed guselkumab 100 mg/mL subcutaneous 100 mg SUBCUT [id number] 10/22/21 10/22/21 auto-injector (Tremfya) Previous Rx's Medication Instructions Recorded doxycycline hyclate 100 mg tablet 100 mg PO BID 14 Days #13 tab 10/24/21 ondansetron 4 mg disintegrating 4 mg PO Q8H PRN 4 Days #12 tab 10/24/21 tablet Allergies Allergy/AdvReac Type Severity Reaction Status Date / Time Penicillins Allergy Unknown Verified 10/31/21 19:10 Review of Systems Review of Systems: Yes all other systems are reviewed and are negative [facility] Past Medical History [facility] Narrative: Past medical history: Multiple episodes of abdominal cellulitis, psoriasis, fatty liver. Past surgical history: Panniculectomy secondary to psoriasis, breast reduction secondary to psoriasis, cholecystectomy. Social history: She denies tobacco, alcohol and drug use. Medical History Cellulitis Psoriasis Surgical History History of cholecystectomy Hx of breast reduction, elective Family History Family History Other No family history of coronary artery disease Social History Social History Household Members: Significant Other Housing: House Do you presently have visiting nurse or other home services: No Alcohol intake: never Patient Tobacco Use Status: Never used Tobacco Advance Directives: No Advance Directives Information Provided: No service: No Current occupational status: employed Physical Exam Vital Signs: Vital Signs: Last Vital Signs Temp 98.8 F 10/31/21 19:45 Pulse 87 10/31/21 19:45 Resp 16 10/31/21 19:45 BP 165/94 H 10/31/21 19:45 Pulse Ox 98 10/31/21 19:45 BMI result Body Mass Index 36.1 Const: Other: Awake, alert, female patient, very pleasant cooperative, patient appears to be very anxious, she is also in distress secondary to the pain in her abdomen caused by her cellulitis. HENMT: Head: Yes normal to inspection, Yes normocephalic and Yes atraumatic Ears: external ears normal General nose exam: Normal external nose present Face and sinus: Yes normal facial exam Mouth: Normal oral and palatal mucosa present Throat: Yes posterior oropharynx normal Eyes: General: appearance normal, both eyes and all related structures Pupils: Equal, round and reactive pupils present Neck: Neck: Yes normal visual inspection, Yes no lymphadenopathy, Yes trachea midline and Yes supple Chest: Chest palpation & inspection: normal inspection of the chest and normal palpation of entire chest wall Resp: Effort & Inspection: normal respiratory effort and able to speak in complete sentences Auscultation: clear to auscultation bilaterally Cardio: Rate: regular rate Rhythm: regular rhythm Heart sounds: S1 normal heart sound present, S2 normal heart sound present and no murmurs GI: Inspection: Yes other (Extensive cellulitis see skin exam) Palpation (GI): Soft to palpation, Tenderness to palpation present (GI) (Mild diffuse tenderness) and no guarding Auscultation: normal bowel sounds : General: Yes no CVA tenderness Back/Spine/Pelvis: Back: no CVA tenderness Skin: Other: The patient has chronic lesions underneath her breast which are consistent with her psoriasis. She also has erythema from her upper to lower abdomen which is warm to the touch she is consistent with cellulitis. This is similar to her previous exam when she was recently admitted. Neuro: Cranial nerves: Yes CN's II-XII intact bilaterally and Yes Equal, round and reactive pupils present Cognition (Neuro): normal cognition Motor exam (neuro): 5/5 motor strength present throughout Extrem: General: Yes normal to inspection Psych: Appearance: grossly normal Speech and movement: Normal speech and movement present Affect: normal affect Attitude: cooperative Thought process: Normal thought process present Thought content: Normal thought content present Course Course Course Narrative: 55-year-old male with a history of recurrent cellulitis to abdominal wall, possibly secondary to her psoriasis who presents emergency department for evaluation of shaking chills, fever at home of 101 degrees F and rapidly progressive rash over her abdomen. Patient was recently hospitalized from 10/22/2021 until 10/24/2021 for similar presentation in treated with cefazolin and vancomycin IV. She was discharged home with doxycycline twice a day and completed her course yesterday. Vital signs revealed an elevated blood pressure of 164/94, otherwise were unremarkable. Abdominal exam is consistent with recur rence of her cellulitis. Laboratory evaluation was ordered. Patient was ordered to get vancomycin and cefazolin IV. She is also ordered to get normal saline x1 L. The patient was very anxious on presentation was given Ativan 2 mg orally, Tylenol 975 mg and oxycodone 10 mg orally for her pain . 2121: Patient's laboratory [place] [address]. Low platelet count of a 442179 which is chronic patient has an elevated AST and ALT which is most likely secondary to her fatty liver. Bilirubin is elevated 2.1 but I believe that this is chronic and not related to sepsis. Patient's lactic acid was not elevated at 1.0. I will discuss admission with the covering hospitalist. MDM - Skin/Abscess/Foreign Bdy Lab Data Result diagrams: 10/31/21 20:21 10/31/21 20:21 Labs: Lab Results 10/31/21 10/31/21 10/31/21 Range/Units 20:21 20:21 20:21 WBC 11.2 H (4.8-10.8) X10*3/uL RBC 5.23 (4.20-5.50) X10*6/uL Hgb 14.7 (12.0-16.0) g/dl Hct 42.7 (37.0-47.0) % MCV 81.6 (80.0-98.0) fL MCH 28.1 (27.0-33.0) pg MCHC 34.4 (31.0-35.0) g/dl RDW 15.5 (11.0-16.0) % Plt Count 124 L D (160-400) X10*3/uL MPV 10.2 (9.4-12.3) fL Immature Gran % (Auto) 0.3 (0.0-0.4) % Neut % (Auto) 86.7 H (45-73) % Lymph % (Auto) 8.0 L (20-40) % [place] % (Auto) 3.8 (2-11) % Eos % (Auto) 1.0 (0-4) % Baso % (Auto) 0.2 (0-2) % Lymph # (Auto) 0.9 L (1.2-4.9) X10*3/uL [place] # (Auto) 0.4 (0.1-1.2) X10*3/uL Eos # (Auto) 0.1 (0.0-0.4) X10*3/uL Baso # (Auto) 0.0 (0.0-0.2) X10*3/uL Abs Immat Gran (auto) 0.03 (0.00-0.03) X10*3/uL Absolute Neuts (auto) 9.7 H (2.0-8.3) x10*3/uL Absolute Nucleated RBC 0.000 (0.0-0.012) X10*3/uL Nucleated RBC % (auto) 0.0 (0.0-0.2) /100WBC Smear Tech's Comments VERIFIED Sodium 139 (135-145) mmol/L Potassium 3.6 (3.3-5.1) mmol/L Chloride 109 H (96-108) mmol/L Carbon Dioxide 21 L (22-29) mmol/L Anion Gap 13 (12-20) BUN 7 L (9-16) mg/dL Creatinine 0.71 (0.5-1.4) mg/dL Estim Creat Clear Calc 106.4 Estimated GFR > 60 Random Glucose 91 (60-115) mg/dL Lactic Acid 1.0 (0.5-2.0) mmol/L Calcium 9.1 D (8.4-10.2) mg/dL Total Bilirubin 2.1 H (0.0-1.0) mg/dL AST 52 H (5-31) U/L ALT 24 (0-31) U/L Alkaline Phosphatase 176 H D (39-117) U/L C-Reactive Protein 0.79 H (< or = 0.50) mg/dL Total Protein 8.2 H D (6.5-8.0) g/dL Albumin 3.4 L D (3.5-5.0) g/dL Lipase 88 H (8-78) U/L Discharge Plan Discharge Prescriptions: No Action Tremfya 100 mg/mL auto-injector 100 mg subcut [id number] 0RF Rx Instructions: 1 dose every 8 weeks (PT IS OVERDUE TODAY 10/22/21) doxycycline hyclate 100 mg tablet 100 mg PO BID 14 Days Qty: 13 0RF ondansetron 4 mg tablet,disintegrating 4 mg PO Q8H PRN (Reason: nausea and vomiting) 4 Days Qty: 12 0RF
--- NOTE | 2021-10-31 21:12 | PHA.MEDREC ---
Pharmacy Consult ? Medication Reconciliation Pharmacy has completed the medication reconciliation.
[2021-10-31 21:19] LABS: Erythrocyte Sedimentation Rate 26 MM/HR (0-20)
[2021-10-31 21:30] LABS: Bilirubin Direct 0.9 mg/dL (0.0-0.5)
--- NOTE | 2021-10-31 22:10 | PM.IMHP ---
History of Present Illness Date of Service: 10/31/21 Chief Complaint: abd cellulitis This is a 55-year-old female with past medical history of psoriasis on a biologic who presents to the hospital with complaints of chills, and abdominal wall cellulitis. Patient has had over 18 episodes of recurrent cellulitis on her abdomen. She was recently discharged from the hospital on 10/24 after being managed for cellulitis of the abdominal wall. She was discharged on doxycycline. She reports she completed her course the day prior to presentation, but developed symptoms immediately the day after. She is complaining of abdominal wall redness, significant pain, and warmth. She reports a fever of 101 at home. She denies having any chest pain, no nausea or vomiting, no diarrhea constipation, no urinary symptoms and no lower extremity edema. Of note patient was also evaluated by Infectious Disease on previous admission in only recommended to be on doxycycline. Which patient completed. On arrival to the ED patient hemodynamically stable with no significant abnormal vitals Labs are significant for WBC count of 11.2, ESR of 26, total bili of 2.1, direct of 0.9, AST of 52, alk-phos of 176, CRP of 0.79, patient has significant cellulitis of abdominal wall and will be admitted for treatment with IV antibiotics Review of Systems Review of Systems: Yes all other systems are reviewed and are negative [facility] Medical History Cellulitis Fever Psoriasis Rigor Family History Other No family history of coronary artery disease Surgical History History of cholecystectomy Hx of breast reduction, elective Social History Household Members: Significant Other Housing: House Do you presently have visiting nurse or other home services: No Alcohol intake: never Patient Tobacco Use Status: Never used Tobacco Advance Directives: No Advance Directives Information Provided: No service: No Current occupational status: employed Meds Allergies Allergy/AdvReac Type Severity Reaction Status Date / Time Penicillins Allergy Unknown Verified 10/31/21 19:10 Active Medications: Current Medications Acetaminophen (Acetaminophen 325 Mg Tablet) 650 mg PO Q6H PRN PRN Reason: Pain, Mild (Pain Scale 1-3) Docusate Sodium (Docusate Sodium 100 Mg Capsule) 100 mg PO DAILY PRN PRN Reason: Constipation Enoxaparin Sodium (Enoxaparin Sodium 40 Mg/0.4 Ml Syringe) 40 mg SUBCUT Q24H [facility] Vancomycin HCl 1,250 mg/ (Sodium Chloride) 250 mls @ 166.667 mls/hr IV Q12H [facility] Ondansetron HCl (Ondansetron Hcl 4 Mg/2 Ml Vial) 4 mg IVPUSH Q8H PRN PRN Reason: Nausea and Vomiting Oxycodone HCl (Oxycodone Hcl Immed Release 5 Mg Tablet) 5 mg PO Q6H PRN PRN Reason: Pain, Severe (Pain Scale 7-10) Pharmacy Consult (Consult Rx Perform Med Rec) 1 each MISCELLANE ONCE PRN PRN Reason: Consult order Pharmacy Consult (Consult Rx Vancomycin Dosing) 1 each MISCELLANE DAILY PRN PRN Reason: Consult order Sodium Chloride (0.9 % Sodium Chloride Flush 3 Ml Syringe) 3 ml IVFLUSH QSHIFT [facility] Home Medications Medication Instructions Recorded Confirmed Last Taken Type guselkumab 100 mg/mL subcutaneous 100 mg SUBCUT [id number] 10/22/21 10/31/21 Unknown History auto-injector (Tremfya) Physical Exam Vital Signs and Narrative: Vital Signs: Last Vital Signs Temp 98.8 F 10/31/21 19:45 Pulse 87 10/31/21 19:45 Resp 16 10/31/21 19:45 BP 165/94 H 10/31/21 19:45 Pulse Ox 98 10/31/21 19:45 BMI result Body Mass Index 36.1 Const: General: cooperative and no acute distress Orientation/consciousness: patient oriented x3 Eyes: General: appearance normal, both eyes and all related structures Pupils: Equal, round and reactive pupils present Resp: Effort & Inspection: normal respiratory effort Auscultation: clear to auscultation bilaterally Cardio: Rate: regular rate Rhythm: regular rhythm GI: Other: no rebound or guarding, diffuse abdominal tenderness Palpation (GI): Soft to palpation Auscultation: normal bowel sounds Skin: Other: significant abdominal wall tenderness diffuse, erythema, warmth, General skin exam: no rashes or lesions noted Neuro: General: patient oriented x3 Cranial nerves: Yes Equal, round and reactive pupils present Cognition (Neuro): normal cognition Extrem: General: Yes normal to inspection and Yes no pedal edema Results Labs CBC and Chem 7: 10/31/21 20:21 10/31/21 20:21 Labs: Laboratory Results - last 24 hr 10/31/21 10/31/21 10/31/21 20:21 20:21 20:21 MCV 81.6 MCH 28.1 MCHC 34.4 RDW 15.5 Plt Count 124 L D MPV 10.2 Immature Gran % (Auto) 0.3 Neut % (Auto) 86.7 H Lymph % (Auto) 8.0 L [place] % (Auto) 3.8 Eos % (Auto) 1.0 Baso % (Auto) 0.2 Lymph # (Auto) 0.9 L [place] # (Auto) 0.4 Eos # (Auto) 0.1 Baso # (Auto) 0.0 Abs Immat Gran (auto) 0.03 Absolute Neuts (auto) 9.7 H Absolute Nucleated RBC 0.000 Nucleated RBC % (auto) 0.0 Smear Tech's Comments VERIFIED ESR 26 H Anion Gap 13 Estim Creat Clear Calc 106.4 Estimated GFR > 60 Random Glucose 91 Lactic Acid Calcium 9.1 D Total Bilirubin 2.1 H Direct Bilirubin 0.9 H AST 52 H ALT 24 Alkaline Phosphatase 176 H D C-Reactive Protein 0.79 H Total Protein 8.2 H D Albumin 3.4 L D Lipase 88 H 10/31/21 20:21 MCV MCH MCHC RDW Plt Count MPV Immature Gran % (Auto) Neut % (Auto) Lymph % (Auto) [place] % (Auto) Eos % (Auto) Baso % (Auto) Lymph # (Auto) [place] # (Auto) Eos # (Auto) Baso # (Auto) Abs Immat Gran (auto) Absolute Neuts (auto) Absolute Nucleated RBC Nucleated RBC % (auto) Smear Tech's Comments ESR Anion Gap Estim Creat Clear Calc Estimated GFR Random Glucose Lactic Acid 1.0 Calcium Total Bilirubin Direct Bilirubin AST ALT Alkaline Phosphatase C-Reactive Protein Total Protein Albumin Lipase Assessment and Plan (1) Abdominal wall cellulitis: Status: Acute Plan 55-year-old female with past medical history of psoriasis presents to the hospital with complaints of abdominal wall redness found to have abdominal cellulites # abdominal wall cellulitis - recurrent , with reported over 15 episodes - acute - diffuse - given the large area of cellulitis as well as it significant progress over the past few hours, patient will be admitted and treated with IV antibiotics - follow cultures - ID consulted # psoriasis - continue home Tremfya DVT ppx: lovenox Quality Stroke Does the patient have a stroke diagnosis?: No VTE Prior VTE?: No VTE Risk Level:: Medical - moderate - high VTE Device Contraindication: Treatment Not Indicated VTE Drug Contraindication: N/A - Med Ordered
[2021-10-31 22:31] LABS: COVID-19 Test Negative (Negative)
--- NOTE | 2021-10-31 22:34 | PHA.PROG ---
Admission Date/Time: October 31, 2021 22:02 Indication: SKIN/SKIN STRUCTURE INFECTION Weight in k.43 kg Adjusted body weight in K.6 KG [place] body weight in K KG Obesity Dosing Indication % IBW: Serum Creatinine - Last 168 Hours 10/31/21 20:21 Creatinine 0.71 Estimated CrCl and GFR - Last 168 Hours 10/31/21 20:21 Estim Creat Clear Calc 106.4 Estimated GFR > 60 Vancomycin Loading Dose: 1250 ( DOSED IN ED) Current Vancomycin Dosing Regimen: 1000 MG Q12H Vancomycin Monitoring using AUC goal of 400 - 600 range with trough as surrogate marker: PREDICTED AUC 503, TROUGH 14.5 Date and Time for next Vancomycin Level to be drawn: 11/02/21 @0600 Pharmacist Comments on Vancomycin Plan: OBESITY MODEL Vancomycin dosing will take advantage of [employer] as a clinical decision support tool that uses Bayesian modeling to calculate individual patient's pharmacokinetic parameters and forecast the patient's drug concentration time course with the target goal AUC 24 range of 400 - 600 mg/L/hr.
[2021-11-01] VITALS (7 sets, daily range): BP systolic 112–149; BP diastolic 57–86; PULSE 70–83; RESP 12–24; TEMP 36.7–37.2; O2SAT 93–99
--- NOTE | 2021-11-01 | ECG_ITS ---
Test Reason : CHEST PAIN Blood Pressure : / mmHG Vent. Rate : 068 BPM Atrial Rate : 068 BPM P-R Int : 138 ms QRS Dur : 106 ms QT Int : 414 ms P-R-T Axes : 002 003 -04 degrees QTc Int : 440 ms Normal sinus rhythm Nonspecific T wave abnormality Abnormal ECG No previous ECGs available Referred By: Yee Mohan Electronically Signed By:MADI GONG
[2021-11-01] MEDS: Enoxaparin Sodium 40 MG/0.4 ML SYRINGE SUBCUT (00:30)
--- NOTE | 2021-11-01 02:27 | PC.NURSE ---
pt sleeping in NAD. pt awaiting for further order, will continue to monitor pt.
--- NOTE | 2021-11-01 04:19 | PC.NURSE ---
PT SLEEPING IN NAD, NO CHG IN PT'S CONDITION.
[2021-11-01 07:21] LABS: MANUAL DIFF FLAG NO
[2021-11-01 07:28] LABS: Basophils Percent Auto 0.1 % (0-2); Eosinophils Absolute Auto 0.1 X10*3/uL (0.0-0.4); Eosinophils Percent Auto 1.3 % (0-4); Hematocrit 37.6 % (37.0-47.0); Hemoglobin 12.8 g/dl (12.0-16.0); Imm Gran Abs Auto 0.02 X10*3/uL (0.00-0.03); Imm Gran Pct Auto 0.3 % (0.0-0.4); Lymphocytes Percent Auto 13.7 % (20-40); Mean Corpuscular Hemoglobin 28.2 pg (27.0-33.0); Mean Corpuscular Volume 82.8 fL (80.0-98.0); Mean Platelet Volume 10.1 fL (9.4-12.3); Monocytes Absolute Auto 0.4 X10*3/uL (0.1-1.2); Monocytes Percent Auto 6.2 % (2-11); Neutrophils Absolute Auto 5.5 x10*3/uL (2.0-8.3); Neutrophils Percent Auto 78.4 % (45-73); Platelet Count 101 X10*3/uL (160-400); Red Blood Count 4.54 X10*6/uL (4.20-5.50); Red Cell Distribution Width 15.6 % (11.0-16.0)
[2021-11-01 07:48] LABS: Anion Gap 9 (12-20); Blood Urea Nitrogen 9 mg/dL (9-16); Carbon Dioxide 22 mmol/L (22-29); Chloride 111 mmol/L (96-108); Creatinine Clr Calc Pharmacy 114.4; Estimated Glomerular Filt Rate > 60; Glucose Random 95 mg/dL (60-115); Potassium 3.6 mmol/L (3.3-5.1); Sodium 138 mmol/L (135-145)
[2021-11-01] MEDS: vancomycin HCL 1,000 MG in 0.9 % Sodium Chloride 250 ML 270 MG IV ×2 (08:08→20:42)
[2021-11-01] MEDS: 0.9 % Sodium Chloride Flush 3 ML SYRINGE IVFLUSH (08:09)
--- NOTE | 2021-11-01 08:17 | PHA.PROG ---
Admission Date/Time: October 31, 2021 22:02 Indication: Abdominal Wall Cellulitis Weight in k.43 kg Adjusted body weight in K.6 KG [place] body weight in K KG Obesity Dosing Indication % IBW:172% Serum Creatinine - Last 168 Hours 10/31/21 11/01/21 20:21 06:55 Creatinine 0.71 0.66 Estimated CrCl and GFR - Last 168 Hours 10/31/21 11/01/21 20:21 06:55 Estim Creat Clear Calc 106.4 114.4 Estimated GFR > 60 > 60 Vancomycin Loading Dose: 1250 mg Current Vancomycin Dosing Regimen: 1000 mg Q12H Date and Time for next Vancomycin Level to be drawn: 11/02 @ 0600 Pharmacist Comments on Vancomycin Plan: Renal function is stabled Expected AUC 469 with a trough if 13.2. Continue same regimen Trough to be drawn before 4th dose Pharmacy will continue to monitor renal function daily Ketty Almazan PharmD Vancomycin dosing will take advantage of [employer] as a clinical decision support tool that uses Bayesian modeling to calculate individual patient's pharmacokinetic parameters and forecast the patient's drug concentration time course with the target goal AUC 24 range of 400 - 600 mg/L/hr.
--- NOTE | 2021-11-01 09:11 | MHC.CM.PN ---
Patient lives in an apartment with her Significant Other/Helio and her adult Son and she is functionally independent and working. Home/no services vs new VNA(Cellulitis) is the goal for dc and CM has initiated and will follow for dc planning. Patient has received the [employer] covid vax and Moderna Booster. Patient's PCP is DR. Eliseo Cast.
--- NOTE | 2021-11-01 13:04 | PC.NURSE ---
Pt A&Ox3, pain 12/17, refused pain medication at this time, states Ill deal with it, it upsets my stomach even offered Tylenol. Pt is aware pain medication is available if she would like it. Call jorge within reach. Will continue to monitor.
--- NOTE | 2021-11-01 14:31 | HO.PM.IMPN ---
Subjective Subjective Date of Service: 11/01/21 Interval History: abd wall cellulitis Review of Systems seems erythema and pain similar to yesterday Denies any chest pain or shortness of breath or fever or chills or cough or phlegm. Physical Exam Vital Signs: Vital Signs: Last Vital Signs Temp 98.8 F 11/01/21 11:20 Pulse 78 11/01/21 13:12 Resp 16 11/01/21 13:12 BP 124/70 11/01/21 13:12 Pulse Ox 98 11/01/21 13:12 BMI result Body Mass Index 36.1 Appearance: Alert.? Oriented X3.? not in distress.? Eyes: Pupils equal, round and reactive to light.? Sclera nonicteric.? ENT: Pharynx normal.? Moist mucous membranes. cvs: rrr, [id number] , no murmur res: clear to auscultation ,no rhonchii or wheezing abd: no rebound or guarding , erythema significant specially in the lower abdominal area similar to last admission bs present. ext pulses present , no cyanosis . neuro: axo3 , nonfocal. Objective Data Active Medications Acetaminophen (Acetaminophen 325 Mg Tablet) 650 mg PO Q6H PRN PRN Reason: Pain, Mild (Pain Scale 1-3) Docusate Sodium (Docusate Sodium 100 Mg Capsule) 100 mg PO DAILY PRN PRN Reason: Constipation Enoxaparin Sodium (Enoxaparin Sodium 40 Mg/0.4 Ml Syringe) 40 mg SUBCUT Q24H [facility] Last Admin: 11/01/21 00:30 Dose: 40 mg Documented by: JAMES Vancomycin HCl 1,000 mg/ (Sodium Chloride) 270 mls @ 270 mls/hr IV Q12H [facility] Last Infusion: 11/01/21 09:11 Dose: 0 mls/hr Documented by: BRUNO Ondansetron HCl (Ondansetron Hcl 4 Mg/2 Ml Vial) 4 mg IVPUSH Q8H PRN PRN Reason: Nausea and Vomiting Oxycodone HCl (Oxycodone Hcl Immed Release 5 Mg Tablet) 5 mg PO Q6H PRN PRN Reason: Pain, Severe (Pain Scale 7-10) Pharmacy Consult (Consult Rx Perform Med Rec) 1 each MISCELLANE ONCE PRN PRN Reason: Consult order Pharmacy Consult (Consult Rx Vancomycin Dosing) 1 each MISCELLANE DAILY PRN PRN Reason: Consult order Sodium Chloride (0.9 % Sodium Chloride Flush 3 Ml Syringe) 3 ml IVFLUSH QSHIFT [facility] Last Admin: 11/01/21 08:09 Dose: 3 ml Documented by: BRUNO Labs CBC & Chem 7: 11/01/21 06:55 11/01/21 06:55 Labs: Laboratory Results - last 24 hr 10/31/21 10/31/21 10/31/21 20:21 20:21 20:21 MCV 81.6 MCH 28.1 MCHC 34.4 RDW 15.5 Plt Count 124 L D MPV 10.2 Immature Gran % (Auto) 0.3 Neut % (Auto) 86.7 H Lymph % (Auto) 8.0 L [place] % (Auto) 3.8 Eos % (Auto) 1.0 Baso % (Auto) 0.2 Lymph # (Auto) 0.9 L [place] # (Auto) 0.4 Eos # (Auto) 0.1 Baso # (Auto) 0.0 Abs Immat Gran (auto) 0.03 Absolute Neuts (auto) 9.7 H Absolute Nucleated RBC 0.000 Nucleated RBC % (auto) 0.0 Smear Tech's Comments VERIFIED ESR 26 H Anion Gap 13 Estim Creat Clear Calc 106.4 Estimated GFR > 60 Random Glucose 91 Lactic Acid Calcium 9.1 D Total Bilirubin 2.1 H Direct Bilirubin 0.9 H AST 52 H ALT 24 Alkaline Phosphatase 176 H D C-Reactive Protein 0.79 H Total Protein 8.2 H D Albumin 3.4 L D Lipase 88 H COVID-19 ([facility]) COVID-19 Clin Com 10/31/21 10/31/21 11/01/21 20:21 22:10 06:55 MCV 82.8 MCH 28.2 MCHC 34.0 RDW 15.6 Plt Count 101 L MPV 10.1 Immature Gran % (Auto) 0.3 Neut % (Auto) 78.4 H Lymph % (Auto) 13.7 L [place] % (Auto) 6.2 Eos % (Auto) 1.3 Baso % (Auto) 0.1 Lymph # (Auto) 1.0 L [place] # (Auto) 0.4 Eos # (Auto) 0.1 Baso # (Auto) 0.0 Abs Immat Gran (auto) 0.02 Absolute Neuts (auto) 5.5 Absolute Nucleated RBC 0.000 Nucleated RBC % (auto) 0.0 Smear Tech's Comments ESR Anion Gap Estim Creat Clear Calc Estimated GFR Random Glucose Lactic Acid 1.0 Calcium Total Bilirubin Direct Bilirubin AST ALT Alkaline Phosphatase C-Reactive Protein Total Protein Albumin Lipase COVID-19 ([facility]) Negative COVID-19 Clin Com See Note 11/01/21 06:55 MCV MCH MCHC RDW Plt Count MPV Immature Gran % (Auto) Neut % (Auto) Lymph % (Auto) [place] % (Auto) Eos % (Auto) Baso % (Auto) Lymph # (Auto) [place] # (Auto) Eos # (Auto) Baso # (Auto) Abs Immat Gran (auto) Absolute Neuts (auto) Absolute Nucleated RBC Nucleated RBC % (auto) Smear Tech's Comments ESR Anion Gap 9 L Estim Creat Clear Calc 114.4 Estimated GFR > 60 Random Glucose 95 Lactic Acid Calcium 8.0 L D Total Bilirubin Direct Bilirubin AST ALT Alkaline Phosphatase C-Reactive Protein Total Protein Albumin Lipase COVID-19 ([facility]) COVID-19 Clin Com Assessment and Plan (1) Abdominal wall cellulitis: Status: Acute Plan 55-year-old female with past medical history of psoriasis presents to the hospital with complaints of abdominal wall redness found to have abdominal cellulites 1. abdominal wall cellulitis - recurrent , with reported over 15 episodes - acute - diffuse - given the large area of cellulitis as well as it significant progress over the past few hours, patient will be admitted and treated with IV antibiotics-vanco and zosyn vanco trough - follow cultures - ID consulted 2.psoriasis - continue home Tremfya DVT ppx: lovenox Quality Stroke Does the patient have a stroke diagnosis?: No VTE Prior VTE?: No VTE Risk Level:: Medical - moderate - high VTE Device Contraindication: Treatment Not Indicated VTE Drug Contraindication: N/A - Med Ordered
--- NOTE | 2021-11-01 16:37 | W.PM.IDCN ---
History of Present Illness Data of Consult Service Date: 11/01/21 Requesting physician: Michelle Chavez Primary Care Provider: Eliseo Cast III, MD HPI Reason for consult: recurrent redness abdomen She presents with recurrent redness of abdomen and fever. She was admitted 10/22-10/24 for similar problem. She received Vancomycin and then six days of po Doxycycline. She took last dose Doxycycline two days ago and then yesterday morning redness reappeared with fever. Review of Systems Review of Systems: Yes all other systems are reviewed and are negative PMF Past Medical History Medical History Cellulitis Fever Psoriasis Rigor Family History Family History Other No family history of coronary artery disease Family history: reviewed and not pertinent Surgical History Surgical History History of cholecystectomy Hx of breast reduction, elective Social History Social History Household Members: Family Housing: House Do you presently have visiting nurse or other home services: No Alcohol intake: never Patient Tobacco Use Status: Never used Tobacco service: No Current occupational status: employed Meds Allergies Allergy/AdvReac Type Severity Reaction Status Date / Time Penicillins Allergy Unknown Verified 10/31/21 19:10 Active Medications: Current Medications Acetaminophen (Acetaminophen 325 Mg Tablet) 650 mg PO Q6H PRN PRN Reason: Pain, Mild (Pain Scale 1-3) Docusate Sodium (Docusate Sodium 100 Mg Capsule) 100 mg PO DAILY PRN PRN Reason: Constipation Enoxaparin Sodium (Enoxaparin Sodium 40 Mg/0.4 Ml Syringe) 40 mg SUBCUT Q24H [facility] Last Admin: 11/01/21 00:30 Dose: 40 mg Documented by: Vancomycin HCl 1,000 mg/ (Sodium Chloride) 270 mls @ 270 mls/hr IV Q12H [facility] Last Infusion: 11/01/21 09:11 Dose: Infused Documented by: Ondansetron HCl (Ondansetron Hcl 4 Mg/2 Ml Vial) 4 mg IVPUSH Q8H PRN PRN Reason: Nausea and Vomiting Oxycodone HCl (Oxycodone Hcl Immed Release 5 Mg Tablet) 5 mg PO Q6H PRN PRN Reason: Pain, Severe (Pain Scale 7-10) Pharmacy Consult (Consult Rx Perform Med Rec) 1 each MISCELLANE ONCE PRN PRN Reason: Consult order Pharmacy Consult (Consult Rx Vancomycin Dosing) 1 each MISCELLANE DAILY PRN PRN Reason: Consult order Sodium Chloride (0.9 % Sodium Chloride Flush 3 Ml Syringe) 3 ml IVFLUSH [facility] Last Admin: 11/01/21 08:09 Dose: 3 ml Documented by: Home Medications Medication Instructions Recorded Confirmed Last Taken Type guselkumab 100 mg/mL subcutaneous 100 mg SUBCUT [id number] 10/22/21 10/31/21 Unknown History auto-injector (Jaret) Physical Exam Vital Signs: Vital Signs: Last Vital Signs Temp 98.8 F 11/01/21 11:20 Pulse 78 11/01/21 13:12 Resp 16 11/01/21 13:12 BP 124/70 11/01/21 13:12 Pulse Ox 98 11/01/21 13:12 BMI result Body Mass Index 36.1 Const: General: cooperative HENMT: Head: Yes normal to inspection Mouth: Normal oral and palatal mucosa present Resp: Effort & Inspection: normal respiratory effort Cardio: Rate: regular rate Rhythm: regular rhythm GI: Palpation (GI): Soft to palpation, Tenderness to palpation present (GI) and Other GI palpation findings present (redness around abdomen) Skin: General skin exam: no rashes or lesions noted Results Labs CBC & Chem 7: 11/01/21 06:55 11/04/21 05:47 Labs: Short CBC 10/31/21 11/01/21 Range/Units 20:21 06:55 WBC 11.2 H 7.0 (4.8-10.8) X10*3/uL Hgb 14.7 12.8 (12.0-16.0) g/dl Hct 42.7 37.6 (37.0-47.0) % Plt Count 124 L D 101 L (160-400) X10*3/uL BMP 10/31/21 11/01/21 20:21 06:55 Sodium 139 138 Potassium 3.6 3.6 Chloride 109 H 111 H Carbon Dioxide 21 L 22 BUN 7 L 9 Creatinine 0.71 0.66 Calcium 9.1 D 8.0 L D Liver Function 10/31/21 Range/Units 20:21 Total Bilirubin 2.1 H (0.0-1.0) mg/dL Direct Bilirubin 0.9 H (0.0-0.5) mg/dL AST 52 H (5-31) U/L ALT 24 (0-31) U/L Alkaline Phosphatase 176 H D (39-117) U/L Albumin 3.4 L D (3.5-5.0) g/dL Assessment and Plan (1) Abdominal wall cellulitis: Status: Acute She has redness ,possibly still cellulitis,staph or strep. She may have some psoriasis contribution (2) Cellulitis: Status: Acute Plan Vancomycin for two to three weeks IV through PICC line at home if causes resolution of symptoms here and consider po prevention possibly after
[2021-11-01] MEDS: oxyCODONE HCl Immed Release 5 MG TABLET PO (18:30)
[2021-11-01] MEDS: Zolpidem Tartrate 5 MG TABLET PO (23:06)
[2021-11-02] MEDS: 0.9 % Sodium Chloride Flush 3 ML SYRINGE IVFLUSH ×2 (00:16→21:31)
[2021-11-02 00:51] VITALS: BP 140/76; PULSE 73; RESP 18; O2SAT 99
[2021-11-02 06:08] VITALS: BP 126/71; PULSE 70; RESP 14; O2SAT 90
[2021-11-02 07:46] LABS: Creatinine Clr Calc Pharmacy 116.2; Estimated Glomerular Filt Rate > 60
[2021-11-02 07:48] LABS: Anion Gap 10 (12-20); Blood Urea Nitrogen 8 mg/dL (9-16); Calcium 7.9 mg/dL (8.4-10.2); Carbon Dioxide 22 mmol/L (22-29); Chloride 109 mmol/L (96-108); Creatinine Clr Calc Pharmacy 111.1; Estimated Glomerular Filt Rate > 60; Glucose Random 102 mg/dL (60-115); Potassium 3.5 mmol/L (3.3-5.1); Sodium 137 mmol/L (135-145)
[2021-11-02 08:00] LABS: Vancomycin Trough 6.9 mcg/mL (10.0-20.0)
--- NOTE | 2021-11-02 08:30 | PHA.PROG ---
Admission Date/Time: October 31, 2021 22:02 Indication: Abdominal Wall Cellulitis Weight in k.43 kg Adjusted body weight in K.6 KG [place] body weight in K KG Obesity Dosing Indication % IBW:172% Serum Creatinine - Last 168 Hours 10/31/21 11/01/21 11/02/21 20:21 06:55 07:20 Creatinine 0.71 0.66 0.65 11/02/21 07:20 Creatinine 0.68 Estimated CrCl and GFR - Last 168 Hours 10/31/21 11/01/21 11/02/21 20:21 06:55 07:20 Estim Creat Clear Calc 106.4 114.4 116.2 Estimated GFR > 60 > 60 > 60 11/02/21 07:20 Estim Creat Clear Calc 111.1 Estimated GFR > 60 Vancomycin Loading Dose: 1250 mg (12mg/kg) Current Vancomycin Dosing Regimen: 1000 mg Q12H Vancomycin Trough 6.9 mcg/mL (10.0-20.0) L 11/02/21 07:20 Pharmacist Comments on Vancomycin Plan: Renal function is stabled Tough is subtheraputic at 6.9. If regimen was continue the AUC would be < 400 Will increase vanco to 1500 mg Q12H. Expected AUC 506. Will give 2 dose then re-evaluate will a trough to morning. Patient is obese therefore vancomycin may be absorbed in the tissues. Dose may need to be decrease tomorrow. Pharmacy will continue to monitor renal function daily. Ketty Almazan, Jaclyn Vancomycin dosing will take advantage of [employer] as a clinical decision support tool that uses Bayesian modeling to calculate individual patient's pharmacokinetic parameters and forecast the patient's drug concentration time course with the target goal AUC 24 range of 400 - 600 mg/L/hr.
[2021-11-02] MEDS: vancomycin HCL 1,500 MG in 0.9 % Sodium Chloride 500 ML 333.33 MG IV (08:42)
[2021-11-02 09:55] VITALS: BP 124/64; PULSE 68; RESP 17; TEMP 36.5; O2SAT 98
--- NOTE | 2021-11-02 13:47 | PC.NURSE ---
Pt resting in hospital bed, IV wrapped so pt could shower today. Pt offering no complaints of pain or discomfort at this time. Pt ambulates independently around the unit. at bedside at this time. Call jorge and belongings within reach.
--- NOTE | 2021-11-02 17:15 | P.PNIM_ITS ---
Subjective Subjective Date of Service: 11/02/21 Interval History: abd cellulitis Review of Systems still has abd soarness and erythema most on lateral sides , denies any shortness of breath or fever chills or cough or phlegm or nausea vomiting Physical Exam Vital Signs: Vital Signs: Last Vital Signs Temp 97.7 F 11/02/21 09:55 Pulse 68 11/02/21 09:55 Resp 17 11/02/21 09:55 BP 124/64 11/02/21 09:55 Pulse Ox 98 11/02/21 09:55 BMI result Body Mass Index 36.1 Appearance: Alert.? Oriented X3.? not in distress.? Eyes: Pupils equal, round and reactive to light.? Sclera nonicteric.? ENT: Pharynx normal.? Moist mucous membranes. cvs: rrr, [id number] , no murmur res: clear to auscultation ,no rhonchii or wheezing abd: no rebound or guarding , erythema significant -please see above. ext pulses present , no cyanosis . neuro: axo3 , nonfocal. Objective Data Active Medications Acetaminophen (Acetaminophen 325 Mg Tablet) 650 mg PO Q6H PRN PRN Reason: Pain, Mild (Pain Scale 1-3) Docusate Sodium (Docusate Sodium 100 Mg Capsule) 100 mg PO DAILY PRN PRN Reason: Constipation Enoxaparin Sodium (Enoxaparin Sodium 40 Mg/0.4 Ml Syringe) 40 mg SUBCUT Q24H [facility] Last Admin: 11/01/21 20:41 Dose: Not Given Documented by: TORSTEN Non-Admin Reason: Patient Refused Vancomycin HCl 1,500 mg/ (Sodium Chloride) 500 mls @ 333.333 mls/hr IV Q12H [facility] Last Infusion: 11/02/21 10:32 Dose: 0 mls/hr Documented by: ESTRELLA Ondansetron HCl (Ondansetron Hcl 4 Mg/2 Ml Vial) 4 mg IVPUSH Q8H PRN PRN Reason: Nausea and Vomiting Oxycodone HCl (Oxycodone Hcl Immed Release 5 Mg Tablet) 5 mg PO Q6H PRN PRN Reason: Pain, Severe (Pain Scale 7-10) Last Admin: 11/01/21 18:30 Dose: 5 mg Documented by: JOSE L Pharmacy Consult (Consult Rx Perform Med Rec) 1 each MISCELLANE ONCE PRN PRN Reason: Consult order Pharmacy Consult (Consult Rx Vancomycin Dosing) 1 each MISCELLANE DAILY PRN PRN Reason: Consult order Sodium Chloride (0.9 % Sodium Chloride Flush 3 Ml Syringe) 3 ml IVFLUSH QSHIFT [facility] Last Admin: 11/02/21 15:41 Dose: Not Given Documented by: ESTRELLA Non-Admin Reason: Med Not Available Labs CBC & Chem 7: 11/01/21 06:55 11/02/21 07:20 Labs: Laboratory Results - last 24 hr 11/02/21 11/02/21 11/02/21 07:20 07:20 07:20 Anion Gap 10 L Estim Creat Clear Calc 116.2 111.1 Estimated GFR > 60 > 60 Random Glucose 102 Calcium 7.9 L Vancomycin Trough 6.9 L Microbiology Microbiology Results: Microbiology 10/31/21 20:21 Blood Culture - Preliminary Blood - Venous No growth after 24 hours. 10/31/21 20:21 Blood Culture - Preliminary Blood - Venous No growth after 24 hours. Assessment and Plan (1) Abdominal wall cellulitis: Status: Acute Plan 55-year-old female with past medical history of psoriasis presents to the hospital with complaints of abdominal wall redness found to have abdominal cellulites 1. abdominal wall cellulitis - recurrent , with reported over 15 episodes - acute - diffuse - given the large area of cellulitis as well as it significant progress over the past few hours, patient will be admitted and treated with IV antibiotics-vanco and zosyn vanco trough-6.9 today - follow cultures blood neg @ 24 hrs - ID consulted: May need 2-3 week of IV vanco, plan is to put PICC line once the blood culture negative at 48 hour. 2.psoriasis - continue home Tremfya DVT ppx: lovenox Quality Stroke Does the patient have a stroke diagnosis?: No VTE Prior VTE?: No VTE Risk Level:: Medical - moderate - high VTE Device Contraindication: Treatment Not Indicated VTE Drug Contraindication: N/A - Med Ordered
[2021-11-02 20:00] VITALS: BP 166/87; PULSE 78; RESP 17; TEMP 36.6; O2SAT 97
[2021-11-02] MEDS: vancomycin HCL 1,500 MG in 0.9 % Sodium Chloride 500 ML 333 MG IV (21:30)
[2021-11-02] MEDS: Zolpidem Tartrate 5 MG TABLET PO (21:58)
[2021-11-03] VITALS (7 sets, daily range): BP systolic 141–167; BP diastolic 76–92; PULSE 70–84; RESP 17–18; TEMP 36.8–37.1; O2SAT 95–97
[2021-11-03 06:49] LABS: Vancomycin Trough 13.9 mcg/mL (10.0-20.0)
[2021-11-03 06:57] LABS: Anion Gap 8 (12-20); Blood Urea Nitrogen 5 mg/dL (9-16); Calcium 7.7 mg/dL (8.4-10.2); Carbon Dioxide 23 mmol/L (22-29); Chloride 111 mmol/L (96-108); Creatinine Clr Calc Pharmacy 114.4; Estimated Glomerular Filt Rate > 60; Glucose Random 94 mg/dL (60-115); Potassium 3.4 mmol/L (3.3-5.1); Sodium 139 mmol/L (135-145)
--- NOTE | 2021-11-03 07:25 | HE.PHANOTE ---
Vancomycin dosing addendum Trough is 13.9mg/L on 11/03/21@0600, renal function stable. Next trough to be drawn 11/04/21@0600 after two more doses.
[2021-11-03] MEDS: vancomycin HCL 1,500 MG in 0.9 % Sodium Chloride 500 ML 333 MG IV (07:38)
[2021-11-03] MEDS: 0.9 % Sodium Chloride Flush 3 ML SYRINGE IVFLUSH ×2 (07:38→20:22)
[2021-11-03 09:50] LABS: INTERNATIONAL NORM RATIO 1.3 (0.9-1.1); Prothrombin Time 15.1 SEC (9.9-13.0)
[2021-11-03] MEDS: LORazepam 2 MG/ML VIAL 1 MG IVPUSH (10:42)
--- NOTE | 2021-11-03 11:36 | P.DS_ITS ---
DS: Providers Provider Date of Service: 11/03/21 Date of admission: 10/31/21 22:02 Primary care physician: Eliseo Cast III, MD Consults: 10/31/21 22:08 Consult to Infectious Diseases Routine Consulting Provider: Ciarra Olivo Reason for consultation: recurrent cellulitis Has provider been notified: No DS: Diagnosis Discharge Diagnosis (1) Abdominal wall cellulitis: Status: Acute DS: Summary Hospital Course Hospital Course: 55-year-old female with past medical history of psoriasis? on a biologic who presents to the hospital with complaints of chills,? and abdominal wall cellulitis.? Patient has had over 18 episodes of recurrent cellulitis on her abdomen.? She was recently discharged from the hospital on 10/24 after being managed for cellulitis of the abdominal wall.? She was discharged on doxycycline.? She reports she completed her course the day prior to presentation, but developed symptoms immediately the day after.? She is complaining of abdominal wall redness, significant pain, and warmth.? She? reports a fever of 101 at home.? She denies having any chest pain, no nausea or vomiting, no diarrhea constipation, no urinary symptoms and no lower extremity edema. ? Of note patient was also evaluated by Infectious Disease on previous admission in only recommended to be on doxycycline.? Which patient completed. ? On arrival to the ED patient hemodynamically stable with no significant abnormal vitals Labs are significant for WBC count of 11.2, ESR of 26, total bili of 2.1, direct of 0.9, AST of 52, alk-phos of 176, CRP of 0.79, ?patient has significant cellulitis of abdominal wall and will be admitted for treatment with IV antibiotics. Hospital course: Patient came to the hospital because of abdominal cellulitis, patient had multiple recurrent episodes of cellulitis. Was recently discharged on p.o. antibiotic but failed are p.o. antibiotics-with IV antibiotics now seems to be improving, seen by infectious disease and recommended 3 weeks of IV antibiotics- switched from vancomycin to daptomycin due to easy use -end date 11/21. Monitor vanco trough, CBC, LFT, BMP Q weekly while on IV antibiotics, next lab check should be coming Saturday on . Further management out patiently with PCP. Above management discussed with the patient in detail length she understand and in agreement with the above plan, time spent 50 minutes and 50% time spent on counseling. Significant findings: As above. Procedures performed: None. Treatment and response: As above. Complications: None. Time Spent with Patient Time attestation: Total time spent providing and/or coordinating discharge services: Discharge coordination time: Greater than 30 minutes Quality: Stroke Does the patient have a stroke diagnosis?: No Physical Exam Vital Signs: Vital Signs: Last Vital Signs Temp 98.3 F 11/03/21 07:42 Pulse 72 11/03/21 07:42 Resp 17 11/03/21 07:42 BP 148/82 H 11/03/21 07:42 Pulse Ox 97 11/03/21 07:42 BMI result Body Mass Index 36.1 Appearance: Alert.? Oriented X3.? not in distress.? Eyes: Pupils equal, round and reactive to light.? Sclera nonicteric.? ENT: Pharynx normal.? Moist mucous membranes. cvs: rrr, [id number] . res: clear to auscultation ,no rhonchii or wheezing abd: no rebound or guarding ,nt, bs present. ext pulses present , no cyanosis ,Gait well balanced well coordinated. neuro: axo3 , nonfocal. DS: Data Data Completed and Pending Labs on day of discharge: Laboratory Results - last 24 hr 11/03/21 11/03/21 11/03/21 06:03 06:03 06:03 PT INR Sodium 139 Potassium 3.4 Chloride 111 H Carbon Dioxide 23 Anion Gap 8 L BUN 5 L Creatinine Cancelled 0.66 Estim Creat Clear Calc Cancelled 114.4 Estimated GFR Cancelled > 60 Random Glucose 94 Calcium 7.7 L Vancomycin Trough 13.9 11/03/21 09:15 PT 15.1 H INR 1.3 H Sodium Potassium Chloride Carbon Dioxide Anion Gap BUN Creatinine Estim Creat Clear Calc Estimated GFR Random Glucose Calcium Vancomycin Trough Preliminary micro results at discharge 10/31/21 20:21 Blood Culture - Preliminary Blood - Venous No growth after 48 hours. 10/31/21 20:21 Blood Culture - Preliminary Blood - Venous No growth after 48 hours. Discharge Plan Discharge Patient Disposition: Home Health Service Discharge Diagnosis: abd cellulitis Referrals: [facility] [Other] - 1 Day ([facility] WILL PROVIDE NURSING AND START OF CARE WILL BE Saturday. A NURSE WILL BE REACHING OUT TO YOU TO SET UP THE TIME. ) Eliseo Cast III, MD [Primary Care Provider] - 1 Week Discharge Medications: New daptomycin 500 mg Recon Soln 440 mg IV Q24H Qty: 18 0RF Continued Tremfya 100 mg/mL auto-injector 100 mg subcut [id number] Rx Instructions: 1 dose every 8 weeks (PT IS OVERDUE TODAY 10/31/21) ondansetron 4 mg tablet,disintegrating 4 mg PO Q8H PRN (Reason: nausea and vomiting) 4 Days Qty: 12 0RF Discontinued doxycycline hyclate 100 mg tablet 100 mg PO BID 14 Days Qty: 13 0RF Discharge Orders: Discharge Order (Routine); Ordered 11/04/21 Ordered By: Michelle Chavez Diet: advance to usual diet Activity on Discharge: As tolerated Stand Alone Forms: Patient Portal Discharge page, Work/School Release Other Ambulatory Orders: Basic Metabolic Panel (Routine) Timeframe: [id number] Facility: [facility] - Location: Laboratory Ordered By: Michelle Chavez Complete Blood Count no Diff (Routine) Timeframe: 20211106 Facility: [facility] - Location: Laboratory Ordered By: Michelle Chavez Creatine Kinase Total (Routine) Timeframe: 20211106 Facility: [facility] - Location: Laboratory Ordered By: Michelle Chavez Liver Panel (Routine) Timeframe: 20211106 Facility: [facility] - Location: Laboratory Ordered By: Michelle Chavez Care Plan Goals: Patient came to the hospital because of abdominal cellulitis, patient had multiple recurrent episodes of cellulitis. Was recently discharged on p.o. antibiotic but failed are p.o. antibiotics-with IV antibiotics now seems to be improving, seen by infectious disease and recommended 3 weeks of IV vancomycin. Vanco trough is today 13.6 Monitor vanco trough, CBC, LFT, BMP , cpk Q weekly while on IV antibiotics, next lab check should be coming Saturday on . Further management out patiently with PCP. Health Concerns: As above. Plan of Treatment: As above. Assessment: As above.
--- NOTE | 2021-11-03 12:30 | HO.PICC ---
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 Following completion of Williams Protocol the skin and soft tissues were anesthetized with 1% Lidocaine plain. Using ultrasound guidance, BASILIC vein access was obtained IN SINGLE ATTEMPT BY THIS RN. Over an 0.018 wire through peel-away sheath, a SINGLE LUMEN, 4-BAHAMIAN, PASV PICC line was positioned. Catheter length is 47 CM internal length, 0 CM external length, for a total trimmed length of 47 CM. The procedure was performed in S-272. Tip verification was performed by Cindy Medellin with Gia 3CG. Tip located in SVC. Ultrasound was used to document vein patency and for needle entry. A formal ultrasound picture and cardiac rhythm strip was recorded. [facility] Mounter has released the line for use and it is currently dressed with a StatLock, Tegaderm, and CHG disc. Verification has been performed for blood return and line patency. Arm Circumference: 33 CM Equipment: [employer] POWERPICC SOLO Catheter Type: SINGLE LUMEN, 4-BAHAMIAN, PASV Lot #: [id number]
--- NOTE | 2021-11-03 12:43 | MHC.CM.PN ---
PT CLEARED FOR D/C HOME W/IV ABX HOWEVER CM STILL WORKING ON [facility] AND [facility] REFERRALS, CM AWAITING TO HEAR IF [facility] IS COVERED BY INSURANCE THEY CAN PROVIDE A NURSE FOR IV ABX IF THAT IS THE ONLY NURSING NEED PT HAS, CM CONFIRMED W/HOSPITALIST [facility] IS NEEDED FOR IV ABX ONLY. CM AWAITING RESPONSE FROM [facility].
--- NOTE | 2021-11-03 13:32 | HO.PM.IMPN ---
Subjective Subjective Date of Service: 11/03/21 Interval History: Abdominal cellulitis Review of Systems Seems improved Denies any chest pain shortness breath or abdominal pain or fever chills Physical Exam Vital Signs: Vital Signs: Last Vital Signs Temp 98.2 F 11/03/21 12:00 Pulse 75 11/03/21 12:00 Resp 18 11/03/21 12:00 BP 167/82 H 11/03/21 12:00 Pulse Ox 95 11/03/21 12:00 BMI result Body Mass Index 36.1 Appearance: Alert.? Oriented X3.? not in distress.? Eyes: Pupils equal, round and reactive to light.? Sclera nonicteric.? ENT: Pharynx normal.? Moist mucous membranes. cvs: rrr, [id number] . res: clear to auscultation ,no rhonchii or wheezing abd: no rebound or guarding ,nt, bs present. ext pulses present , no cyanosis ,Gait well balanced well coordinated. neuro: axo3 , nonfocal. Objective Data Active Medications Acetaminophen (Acetaminophen 325 Mg Tablet) 650 mg PO Q6H PRN PRN Reason: Pain, Mild (Pain Scale 1-3) Docusate Sodium (Docusate Sodium 100 Mg Capsule) 100 mg PO DAILY PRN PRN Reason: Constipation Enoxaparin Sodium (Enoxaparin Sodium 40 Mg/0.4 Ml Syringe) 40 mg SUBCUT Q24H [facility] Last Admin: 11/02/21 21:30 Dose: Not Given Documented by: PIA Non-Admin Reason: Patient Refused Vancomycin HCl 1,500 mg/ (Sodium Chloride) 500 mls @ 333.333 mls/hr IV Q12H [facility] Last Infusion: 11/03/21 09:50 Dose: 0 mls/hr Documented by: JOSELIN Ondansetron HCl (Ondansetron Hcl 4 Mg/2 Ml Vial) 4 mg IVPUSH Q8H PRN PRN Reason: Nausea and Vomiting Oxycodone HCl (Oxycodone Hcl Immed Release 5 Mg Tablet) 5 mg PO Q6H PRN PRN Reason: Pain, Severe (Pain Scale 7-10) Last Admin: 11/01/21 18:30 Dose: 5 mg Documented by: JOSE L Pharmacy Consult (Consult Rx Perform Med Rec) 1 each MISCELLANE ONCE PRN PRN Reason: Consult order Pharmacy Consult (Consult Rx Vancomycin Dosing) 1 each MISCELLANE DAILY PRN PRN Reason: Consult order Sodium Chloride (0.9 % Sodium Chloride Flush 3 Ml Syringe) 3 ml IVFLUSH QSHIFT [facility] Last Admin: 11/03/21 07:38 Dose: 3 ml Documented by: JOSELIN Sodium Chloride (0.9 % Sodium Chloride Flush 10 Ml Syringe) 5 ml IVFLUSH TID [facility] Zolpidem Tartrate (Zolpidem Tartrate 5 Mg Tablet) 5 mg PO BEDTIME PRN PRN Reason: Insomnia Last Admin: 11/02/21 21:58 Dose: 5 mg Documented by: PIA Labs CBC & Chem 7: 11/01/21 06:55 11/03/21 06:03 Labs: Laboratory Results - last 24 hr 11/03/21 11/03/21 11/03/21 06:03 06:03 06:03 PT INR Anion Gap 8 L Estim Creat Clear Calc Cancelled 114.4 Estimated GFR Cancelled > 60 Random Glucose 94 Calcium 7.7 L Vancomycin Trough 13.9 11/03/21 09:15 PT 15.1 H INR 1.3 H Anion Gap Estim Creat Clear Calc Estimated GFR Random Glucose Calcium Vancomycin Trough Microbiology Microbiology Results: Microbiology 10/31/21 20:21 Blood Culture - Preliminary Blood - Venous No growth after 48 hours. 10/31/21 20:21 Blood Culture - Preliminary Blood - Venous No growth after 48 hours. Assessment and Plan (1) Abdominal wall cellulitis: Status: Acute Plan 55-year-old female with past medical history of psoriasis presents to the hospital with complaints of abdominal wall redness found to have abdominal cellulites 1. abdominal wall cellulitis - recurrent , with reported over 15 episodes - acute - diffuse - given the large area of cellulitis as well as it significant progress over the past few hours, patient will be admitted and treated with IV antibiotics-vanco and zosyn vanco trough-13.6 today - follow cultures blood neg @ 24 hrs - ID consulted:? May need 2-3 week of IV vanco, plan is to put PICC line once the blood culture negative at 48 hour. PICC line placed, patient daptomycin home delivery needs to be arranged with [facility]-possible in the morning. 2.psoriasis - continue home Tremfya DVT ppx: lovenox Quality Stroke Does the patient have a stroke diagnosis?: No VTE Prior VTE?: No VTE Risk Level:: Medical - moderate - high VTE Device Contraindication: Treatment Not Indicated VTE Drug Contraindication: N/A - Med Ordered
--- NOTE | 2021-11-03 14:08 | MHC.CM.PN ---
Addendum entered by Esme Moyer RN 11/03/21 15:25: PT WILL NEED RETURN TO WORK NOTE. Addendum entered by Esme Moyer RN 11/03/21 15:21: LIAISON FROM [facility] IN TO DO TEACH W/PT TODAY AND PT DID VERY WELL, NO CONCERNS. Original Note: DUE TO NSG AVAILABILITY PT WILL D/C TOMORROW MORNING AFTER DOSE OF DAPTOMYCIN W/[facility] FOR HIS AND [facility] WILL PROVIDE NSG FOR PT WELL.
[2021-11-03] MEDS: 0.9 % Sodium Chloride Flush 10 ML SYRINGE 5 ML IVFLUSH ×2 (15:26→20:21)
[2021-11-03] MEDS: Zolpidem Tartrate 5 MG TABLET PO (22:34)
[2021-11-04 04:00] VITALS: BP 145/81; PULSE 79; RESP 18; TEMP 36.8; O2SAT 96
[2021-11-04 06:52] LABS: Creatinine Clr Calc Pharmacy 114.4; Estimated Glomerular Filt Rate > 60
[2021-11-04 06:57] LABS: Vancomycin Trough 5.6 mcg/mL (10.0-20.0)
[2021-11-04 07:52] VITALS: BP 142/81; PULSE 74; RESP 18; TEMP 36.6; O2SAT 95
--- NOTE | 2021-11-04 08:58 | MHC.CM.PN ---
Addendum entered by Yaneth Dorantes 11/04/21 11:53: CM SPOKE TO CATIE AT [facility], SHE CONFIRMS THEY PLAN TO SEE PT TOMORROW AND DELIVER ALL SUPPLIES/MEDS AT THAT TIME. SHE ALSO ASKED THAT PTS CK LABS BE FAXED TO HER AT [phone]. LABS FAXED PT WILL BE DISCHARGED THIS AFTERNOON FOLLOWING ADMINISTRATION OF HER IV MEDS FAMILY TO TRANSPORT Original Note: PER CM NOTES, PT TO DC HOME TODAY WITH [facility] SUPPLIES/MEDS AND NURSING SERVICES. MESSAGE SENT TO [facility] TO CONFIRM DC AND PLAN. AWAITING RESPONSE
[2021-11-04 12:00] VITALS: BP 134/85; PULSE 78; RESP 18; TEMP 37.1; O2SAT 95
[2021-11-04] MEDS: 0.9 % Sodium Chloride Flush 10 ML SYRINGE 5 ML IVFLUSH (14:57)
== END 2021-11-04 16:47 | disposition home health service (06) | DRG 603 ==
LOC: HO.ED 19:22 → HO.EDOVER 11-01 07:12 → HO.S3 11-02 19:34
PROVIDERS: Admitting Provider Internal Medicine; Emergency Provider Emergency Medicine Emergency Medical Services; PCP Internal Medicine; Visit Provider Internal Medicine
DX: L03.311 Cellulitis of abdominal wall (principal); L40.9 Psoriasis, unspecified; Z91.14 Patient's other noncompliance with medication regimen; Z20.822 Contact with and (suspected) exposure to COVID-19; Z88.0 Allergy status to penicillin; Z79.899 Other long term (current) drug therapy
CPT/HCPCS: 36415; 36573; 80048; 80053; 80202; 82248; 82550; 82565; 83605; 83690; 85025; 85610; 85652; 86140; 87040; 87635; 93005; 96361; 96374; 96375; 99285; C1751; J0690; J0878; J1650; J1885; J2060; J3370

== ENCOUNTER 2022-03-04 05:49 | Inpatient (IN) | payer OTHER, SELFPAY ==
[2022-03-04] VITALS (14 sets, daily range): BP systolic 110–144; BP diastolic 41–84; PULSE 99–115; RESP 16–109; TEMP 36.9–37.6; O2SAT 95–100; BMI 36.0
--- NOTE | ~2022-03-04 | XR_ITS ---
EXAMINATION: XR CHEST CLINICAL INFORMATION: Triple-lumen catheter placement. COMPARISON: Chest radiograph earlier today. TECHNIQUE: Frontal view of the chest was obtained. FINDINGS: Left IJ triple-lumen catheter has its tip in the SVC. No pneumothorax is seen. Exam is otherwise unremarkable. No infiltrates, effusions or lung masses. XR/XR chest 1V IMPRESSION: Triple-lumen catheter with tip in SVC.
--- NOTE | ~2022-03-04 | XR_ITS ---
EXAMINATION: XR CHEST CLINICAL INFORMATION: Chest pain. COMPARISON: Chest done on 02/24/2016. TECHNIQUE: Frontal view of the chest was obtained. FINDINGS: No significant abnormality is noted involving the heart, lungs, mediastinum, bony thorax or soft tissues. XR/XR chest 1V IMPRESSION: Unremarkable examination.
--- NOTE | ~2022-03-04 | CT_ITS ---
EXAMINATION: CT ABDOMEN AND PELVIS WITHOUT CONTRAST CLINICAL INFORMATION: Abdominal pain. Vomiting blood. COMPARISON: None TECHNIQUE: Multidetector volumetric imaging was performed from the superior aspect of the liver through the pubic symphysis. Sagittal and coronal reformatted images were obtained on the technologist's workstation. This CT examination was performed using dose optimization techniques as appropriate, variously including the following: *Automated exposure control *Adjustment of mA and/or kV according to patient size (this includes techniques or standardized protocols for targeted exams where dose is matched to indication/reason for exam; i.e. extremities or head) *Use of iterative reconstruction technique DLP: 908 mGy-cm FINDINGS: LUNG BASES: Mild bibasilar atelectasis. Normal heart size. No pericardial or pleural effusion. LIVER, GALLBLADDER, AND BILIARY TREE: There is nodular contour to the surface of the liver, raising concern for cirrhosis. No obvious lesion is evident on this noncontrast study. No intrahepatic biliary duct dilatation. Status postcholecystectomy. The CBD is not dilated. PANCREAS: Unremarkable. No significant inflammatory changes seen. SPLEEN: Measures 12.3 cm transverse. No focal lesions. ADRENAL GLANDS: Unremarkable. KIDNEYS AND URETERS: No renal or ureteral calculi. No hydronephrosis. BLADDER: Nondistended, not evaluated. GASTROINTESTINAL TRACT: The distal esophagus is nondistended. No significant hiatal hernia is appreciated. Stomach is distended. There is heterogeneous density of the contents within the stomach, with intermingled air. This could reflect complex contents, with hemorrhagic/blood products as part of the contents are not excluded. There is nondependent air along the anterior wall of the stomach. Areas of ulceration cannot be excluded. Limited evaluation of the stomach wall thickness in this noncontrast study. No dilated small bowel loops. Sigmoid diverticulosis. No findings to suggest definite diverticulitis. Nonobstructive bowel gas pattern. Appendix appears unremarkable. No free fluid. No free air. Surgical clip in the left lower abdomen. ABDOMINAL WALL: No significant hernia is appreciated. LYMPH NODES: No bulky lymphadenopathy seen. There are subcentimeter retroperitoneal lymph nodes. VASCULAR: Normal caliber aorta. PELVIC VISCERA: Uterus is anteverted, appearing bulky, with lobulated contour of the fundus, which could represent an indeterminate exophytic lesions. No adnexal masses appreciated. OSSEOUS STRUCTURES: No evidence of acute or suspicious osseous abnormality. Mild degenerative changes spine. CT/CT abdomen pelvis wo con IMPRESSION: 1. Stomach is distended, with heterogeneous density of the contents of the stomach, which could represent complex contents, with hemorrhagic/blood products as part of the contents are not excluded. Evaluation is limited in this noncontrast study. Gastric ulcers/lesions cannot be excluded. Further evaluation with follow-up CT with contrast, endoscopy, upper GI series as clinically warranted. 2. Nodular contour of the liver suggesting cirrhosis. Further evaluation with MRI as clinically warranted. 3. Status postcholecystectomy. 4. Sigmoid diverticulosis without diverticulitis. 5. Slightly bulky uterus, with nodular contour raising the possibility of lesions. This can be further evaluated with pelvic ultrasound. Fleischner guidelines were followed.
--- NOTE | 2022-03-04 07:10 | ECG_ITS ---
Test Reason : NAUSEA/VOMITTIING Blood Pressure : / mmHG Vent. Rate : 099 BPM Atrial Rate : 099 BPM P-R Int : 106 ms QRS Dur : 096 ms QT Int : 392 ms P-R-T Axes : -14 -02 012 degrees QTc Int : 503 ms Sinus rhythm with short RI Prolonged QT Abnormal ECG When compared with ECG of 01-NOV-2021 21:46, RI interval has decreased Nonspecific T wave abnormality no longer evident in Lateral leads QT has lengthened Referred By: Naeem Saenz Electronically Signed By:JAD PEARSON MD
--- NOTE | 2022-03-04 07:12 | ED.NAVMDI ---
HPI - Nausea/Vomiting/Diarrhea General Chief complaint: Nausea/Vomiting/Diarrhea Stated complaint: n/v weakness Time Seen by Provider: 03/04/22 08:10 Source: patient and other (Fiancee) Mode of arrival: EMS Limitations: no limitations History of Present Illness HPI Narrative: 56-year-old female who presents emergency department for evaluation of abdominal pain nausea, vomiting, weakness and syncope. The patient states she has been sick for 2 days. She states that she has had constant nausea with multiple episodes of vomiting. She complains lower abdominal/suprapubic abdominal pain. She describes the pain as a pressure pain that makes her nauseous and causes her to vomit. She states that when she vomits the pain is relieved. She states that the pain is 6/10 at its worst. She states that over the past 2 days whenever she vomits she passes out. She apparently has passed out 3 times. She also complains of fever, chills, rhinorrhea, palpitations and a nonproductive cough. She denied frequency but has noted some slight dysuria at the end of urination. The patient called an ambulance and EN route she did vomit and there was bright red blood in the emesis. MD elicited complaint: nausea, vomiting and diarrhea Onset (ago): day(s) (2) Description of vomiting: watery and bloody (Just prior to coming to the emergency depart) Associated nausea: Yes Associated abdominal pain: Yes Location of pain: RLQ, LLQ and suprapubic Pain consistency: constant Severity: moderate Pain scale (0-10): 6 Quality: cramping (Associated with nausea) Exacerbating factors: eating Relieving factors: none Associated symptoms: cough (Nonproductive), fever/chills, nausea/vomiting, weakness, fatigue and other (Syncope x3 after vomiting) Treatment prior to arrival: other (Zofran ODT with no relief) Related Data Home Medications Medication Instructions Recorded Confirmed guselkumab 100 mg/mL subcutaneous 100 mg subcut [id number] 10/22/21 10/31/21 auto-injector (Tremfya) norethindrone (contraceptive) 0.35 1 tab PO DAILY 03/04/22 mg tablet Allergies Allergy/AdvReac Type Severity Reaction Status Date / Time Penicillins Allergy Unknown Verified 10/31/21 19:10 Review of Systems Review of Systems: Yes all other systems are reviewed and are negative Gastrointestinal: Gastrointestinal: Reports nausea [facility] Past Medical History [facility] Narrative: Past medical history: Reviewed below, patient also has had recurrent lower abdominal wall cellulitis requiring hospitalization. Social history: She denies tobacco, alcohol and drug use. Medical History Cellulitis Fever Psoriasis Rigor Surgical History History of cholecystectomy Hx of breast reduction, elective Family History Family History Other No family history of coronary artery disease Social History Social History Household Members: Family Housing: House Do you presently have visiting nurse or other home services: No Alcohol intake: never Patient Tobacco Use Status: Never used Tobacco Advance Directives: Yes Advance Directives on File: Yes Advance Directives Date on File: 11/01/21 service: No Current occupational status: employed Physical Exam Vital Signs: Vital Signs: Last Vital Signs Temp 98.6 F 03/04/22 05:57 Pulse 107 H 03/04/22 08:16 Resp 18 03/04/22 08:16 BP 134/76 03/04/22 08:16 Pulse Ox 99 03/04/22 08:16 O2 Del Method 03/04/22 08:16 BMI result Body Mass Index 36.0 Const: Other: Lethargic but able to answer questions, pleasant and cooperative, has nausea with dry heaves while I was examining her, there is small amount of red blood in the emesis bag that was given to her by the paramedics HEENT: Head: Yes normal to inspection, Yes normocephalic and Yes atraumatic Ears: external ears normal General nose exam: Normal external nose present Face and sinus: Yes normal facial exam Mouth: Normal oral and palatal mucosa present Throat: Yes posterior oropharynx normal Eyes: General: appearance normal, both eyes and all related structures Pupils: Equal, round and reactive pupils present Neck: Neck: Yes normal visual inspection, Yes no lymphadenopathy, Yes trachea midline and Yes supple Chest: Chest palpation & inspection: normal inspection of the chest and normal palpation of entire chest wall Resp: Effort & Inspection: normal respiratory effort and able to speak in complete sentences Auscultation: clear to auscultation bilaterally Cardio: Rate: regular rate Rhythm: regular rhythm Heart sounds: S1 normal heart sound present, S2 normal heart sound present and no murmurs GI: Other: Patient's abdomen is obese, the skin of the abdominal wall is normal with no evidence of cellulitis, the patient has mild epigastric tenderness and moderate lower abdominal tenderness with increased tenderness over the suprapubic area, she has normoactive bowel sounds : General: Yes no CVA tenderness Back/Spine/Pelvis: Back: no CVA tenderness Skin: General skin exam: no rashes or lesions noted Neuro: Cranial nerves: Yes CN's II-XII intact bilaterally and Yes Equal, round and reactive pupils present Cognition (Neuro): normal cognition Motor exam (neuro): 5/5 motor strength present throughout Extrem: General: Yes normal to inspection Psych: Appearance: grossly normal Speech and movement: Normal speech and movement present Affect: normal affect Attitude: cooperative Thought process: Normal thought process present Thought content: Normal thought content present Course Course Course Narrative: 56-year-old female who was been sick for approximately 2 days who presents emergency department for evaluation of nausea, vomiting, cough, abdominal pain, fatigue and several episodes of syncope after vomiting. Initial vital signs revealed an elevated pulse of 100 for an elevated respiratory rate of 24 otherwise were normal. Examination did reveal lethargic appearing woman but she was able to answer all questions. She does have epigastric and lower abdominal tenderness. I ordered a laboratory evaluation to CBC, BMP, liver panel, troponin, lactate, blood cultures x2, urinalysis, lipase. I will also obtain an EKG and a chest x-ray. Patient's nausea, vomiting abdominal pain was treated with Reglan 10 mg IV, Benadryl 50 mg IV and Toradol 15 mg IV. Patient was ordered to get normal saline x1 L. 0944: This patient was also seen by the nurse practitioner, Jada Gregory assumed care of the patient. MDM - Nausea/Vomiting/Diarrhea Lab Data Result diagrams: 03/04/22 07:36 03/04/22 07:35 Labs: Lab Results 03/04/22 03/04/22 03/04/22 Range/Units 07:35 07:35 07:36 WBC 10.1 (4.8-10.8) X10*3/uL RBC 2.88 L D (4.20-5.50) X10*6/uL Hgb 6.4 L* D (12.0-16.0) g/dl Hct 21.3 L D (37.0-47.0) % MCV 74.0 L (80.0-98.0) fL MCH 22.2 L (27.0-33.0) pg MCHC 30.0 L (31.0-35.0) g/dl RDW 17.9 H (11.0-16.0) % Plt Count 209 D (160-400) X10*3/uL MPV 9.9 (9.4-12.3) fL Immature Gran % (Auto) 0.4 (0.0-0.4) % Neut % (Auto) 78.2 H (45-73) % Lymph % (Auto) 17.7 L (20-40) % [place] % (Auto) 3.5 (2-11) % Eos % (Auto) 0.1 (0-4) % Baso % (Auto) 0.1 (0-2) % Lymph # (Auto) 1.8 (1.2-4.9) X10*3/uL [place] # (Auto) 0.4 (0.1-1.2) X10*3/uL Eos # (Auto) 0.0 (0.0-0.4) X10*3/uL Baso # (Auto) 0.0 (0.0-0.2) X10*3/uL Abs Immat Gran (auto) 0.04 H (0.00-0.03) X10*3/uL Absolute Neuts (auto) 7.9 (2.0-8.3) x10*3/uL Absolute Nucleated RBC 0.000 (0.0-0.012) X10*3/uL Nucleated RBC % (auto) 0.0 (0.0-0.2) /100WBC PT (9.9-13.0) SEC INR (0.9-1.1) Sodium 139 (135-145) mmol/L Potassium 4.0 (3.3-5.1) mmol/L Chloride 113 H (96-108) mmol/L Carbon Dioxide 17 L (22-29) mmol/L Anion Gap 13 (12-20) BUN 25 H D (9-16) mg/dL Creatinine 0.77 (0.5-1.4) mg/dL Estim Creat Clear Calc 93.5 Estimated GFR > 60 Random Glucose 152 H (60-115) mg/dL Lactic Acid (0.5-2.0) mmol/L Calcium 7.5 L (8.4-10.2) mg/dL Total Bilirubin (0.0-1.0) mg/dL Direct Bilirubin (0.0-0.5) mg/dL AST (5-31) U/L ALT (0-31) U/L Alkaline Phosphatase (39-117) U/L Troponin I High Sens 27.9 H (<3.5-17.0) ng/L Total Protein (6.5-8.0) g/dL Albumin (3.5-5.0) g/dL Lipase 45 (8-78) U/L COVID-19 ([facility]) (Negative) COVID-19 Clin Com Influenza Type A (NARINDER) (Negative) Influenza Type B (NARINDER) (Negative) Influenza A & B Note 03/04/22 03/04/22 03/04/22 Range/Units 07:36 07:36 08:09 WBC (4.8-10.8) X10*3/uL RBC (4.20-5.50) X10*6/uL Hgb (12.0-16.0) g/dl Hct (37.0-47.0) % MCV (80.0-98.0) fL MCH (27.0-33.0) pg MCHC (31.0-35.0) g/dl RDW (11.0-16.0) % Plt Count (160-400) X10*3/uL MPV (9.4-12.3) fL Immature Gran % (Auto) (0.0-0.4) % Neut % (Auto) (45-73) % Lymph % (Auto) (20-40) % [place] % (Auto) (2-11) % Eos % (Auto) (0-4) % Baso % (Auto) (0-2) % Lymph # (Auto) (1.2-4.9) X10*3/uL [place] # (Auto) (0.1-1.2) X10*3/uL Eos # (Auto) (0.0-0.4) X10*3/uL Baso # (Auto) (0.0-0.2) X10*3/uL Abs Immat Gran (auto) (0.00-0.03) X10*3/uL Absolute Neuts (auto) (2.0-8.3) x10*3/uL Absolute Nucleated RBC (0.0-0.012) X10*3/uL Nucleated RBC % (auto) (0.0-0.2) /100WBC PT 19.2 H (9.9-13.0) SEC INR 1.7 H (0.9-1.1) Sodium (135-145) mmol/L Potassium (3.3-5.1) mmol/L Chloride (96-108) mmol/L Carbon Dioxide (22-29) mmol/L Anion Gap (12-20) BUN (9-16) mg/dL Creatinine (0.5-1.4) mg/dL Estim Creat Clear Calc Estimated GFR Random Glucose (60-115) mg/dL Lactic Acid 4.0 H* (0.5-2.0) mmol/L Calcium (8.4-10.2) mg/dL Total Bilirubin 1.4 H (0.0-1.0) mg/dL Direct Bilirubin 0.7 H (0.0-0.5) mg/dL AST 28 D (5-31) U/L ALT 16 (0-31) U/L Alkaline Phosphatase 98 D (39-117) U/L Troponin I High Sens (<3.5-17.0) ng/L Total Protein 5.7 L D (6.5-8.0) g/dL Albumin 2.4 L D (3.5-5.0) g/dL Lipase (8-78) U/L COVID-19 ([facility]) (Negative) COVID-19 Clin Com Influenza Type A (NARINDER) (Negative) Influenza Type B (NARINDER) (Negative) Influenza A & B Note 03/04/22 03/04/22 Range/Units 08:50 08:50 WBC (4.8-10.8) X10*3/uL RBC (4.20-5.50) X10*6/uL Hgb (12.0-16.0) g/dl Hct (37.0-47.0) % MCV (80.0-98.0) fL MCH (27.0-33.0) pg MCHC (31.0-35.0) g/dl RDW (11.0-16.0) % Plt Count (160-400) X10*3/uL MPV (9.4-12.3) fL Immature Gran % (Auto) (0.0-0.4) % Neut % (Auto) (45-73) % Lymph % (Auto) (20-40) % [place] % (Auto) (2-11) % Eos % (Auto) (0-4) % Baso % (Auto) (0-2) % Lymph # (Auto) (1.2-4.9) X10*3/uL [place] # (Auto) (0.1-1.2) X10*3/uL Eos # (Auto) (0.0-0.4) X10*3/uL Baso # (Auto) (0.0-0.2) X10*3/uL Abs Immat Gran (auto) (0.00-0.03) X10*3/uL Absolute Neuts (auto) (2.0-8.3) x10*3/uL Absolute Nucleated RBC (0.0-0.012) X10*3/uL Nucleated RBC % (auto) (0.0-0.2) /100WBC PT (9.9-13.0) SEC INR (0.9-1.1) Sodium (135-145) mmol/L Potassium (3.3-5.1) mmol/L Chloride (96-108) mmol/L Carbon Dioxide (22-29) mmol/L Anion Gap (12-20) BUN (9-16) mg/dL Creatinine (0.5-1.4) mg/dL Estim Creat Clear Calc Estimated GFR Random Glucose (60-115) mg/dL Lactic Acid (0.5-2.0) mmol/L Calcium (8.4-10.2) mg/dL Total Bilirubin (0.0-1.0) mg/dL Direct Bilirubin (0.0-0.5) mg/dL AST (5-31) U/L ALT (0-31) U/L Alkaline Phosphatase (39-117) U/L Troponin I High Sens (<3.5-17.0) ng/L Total Protein (6.5-8.0) g/dL Albumin (3.5-5.0) g/dL Lipase (8-78) U/L COVID-19 ([facility]) Negative (Negative) COVID-19 Clin Com See Note Influenza Type A (NARINDER) Negative (Negative) Influenza Type B (NARINDER) Negative (Negative) Influenza A & B Note See Note Discharge Plan Discharge Clinical Impression: Acute gastrointestinal bleeding Patient Disposition: Admitted As Inpatient Prescriptions: No Action norethindrone (contraceptive) 0.35 mg tablet 1 tab PO DAILY Tremfya 100 mg/mL auto-injector 100 mg subcut [id number] Rx Instructions: 1 dose every 8 weeks (PT IS OVERDUE TODAY 10/31/21)
[2022-03-04] MEDS: 0.9 % Sodium Chloride 1,000 ML 999 ML IV ×2 (07:41→09:33)
[2022-03-04] MEDS: Ketorolac Tromethamine 15 MG/ML VIAL IVPUSH (07:57)
[2022-03-04] MEDS: diphenhydrAMINE HCL 50 MG/ML VIAL IVPUSH (07:58)
[2022-03-04] MEDS: Metoclopramide HCl 10 MG/2 ML VIAL IVPUSH ×2 (07:58→13:07)
[2022-03-04 08:02] LABS: Anion Gap 13 (12-20); Blood Urea Nitrogen 25 mg/dL (9-16); Calcium 7.5 mg/dL (8.4-10.2); Carbon Dioxide 17 mmol/L (22-29); Chloride 113 mmol/L (96-108); Creatinine Clr Calc Pharmacy 93.5; Estimated Glomerular Filt Rate > 60; Glucose Random 152 mg/dL (60-115); Lipase 45 U/L (8-78); Sodium 139 mmol/L (135-145)
[2022-03-04 08:08] LABS: Troponin-I High Sensitivity 27.9 ng/L (<3.5-17.0)
[2022-03-04 08:16] LABS: MANUAL DIFF FLAG NO
--- NOTE | 2022-03-04 08:18 | ED_ITS ---
HPI - Nausea/Vomiting/Diarrhea General Chief complaint: Nausea/Vomiting/Diarrhea Stated complaint: n/v weakness Time Seen by Provider: 03/04/22 08:10 Source: patient and other (Fiancee) Mode of arrival: EMS Limitations: no limitations History of Present Illness HPI Narrative: 56-year-old female with a history of psoriasis on a biologic here with reports of the vomiting, abdominal discomfort since Saturday. Patient reports last night she was finally able to hold down some sips of lisa yesenia. Continued intermitte nt vomiting. Today patient tells me she was vomiting coffee ground emesis. No black or bloody stools. Patient reports subjective fevers and chills since Saturday. She reports she has had several episodes of feeling lightheaded and dizzy with loss of consciousness while she has been in the bathroom. She denies any head strike or injuries. Patient is not on any anticoagulation. No aspirin use. No history of GI bleed Description of vomiting: watery and bloody (Just prior to coming to the emergency depart) Associated nausea: Yes Severity: moderate Exacerbating factors: eating Relieving factors: none Associated symptoms: cough (Nonproductive), fever/chills, nausea/vomiting, weakness, fatigue and other (Syncope x3 after vomiting) Related Data Home Medications Medication Instructions Recorded Confirmed guselkumab 100 mg/mL subcutaneous 100 mg subcut [id number] 10/22/21 03/04/22 auto-injector (Tremfya) norethindrone (contraceptive) 0.35 1 tab PO DAILY 03/04/22 03/04/22 mg tablet Allergies Allergy/AdvReac Type Severity Reaction Status Date / Time Penicillins Allergy Unknown Verified 10/31/21 19:10 Review of Systems Review of Systems: Yes all other systems are reviewed and are negative Constitutional: Constitutional: Reports no additional constitutional complaints, Reports body ache(s), Reports chills, Reports fever(s), Denies headache(s) and Denies weakness Eyes: Eyes: Reports no additional eye complaints and Denies change in vision ENT: Reports system reviewed and no additional complaints, except as documented, Reports dizziness, Denies headache(s), Denies nasal congestion, Denies nasal discharge and Denies neck pain Cardiovascular: Cardiovascular: Reports no additional cardiovascular complaints, Denies chest pain, Reports syncope, Denies leg edema and Denies dyspnea Respiratory: Respiratory: Reports no additional respiratory complaints, Denies cough and Denies dyspnea Gastrointestinal: Gastrointestinal: Reports no additional gastrointestinal complaints, Reports abdominal pain, Denies diarrhea, Reports nausea, Reports vomiting and Reports hematemesis Genitourinary: Genitourinary: Reports no additional female genitourinary complaints and Denies urinary incontinence Musculoskeletal: Musculoskeletal: Reports no additional musculoskeletal complaints, Denies back pain, Denies arthralgias, Denies joint swelling, Denies neck pain, Denies numbness and Denies tingling Integumentary/Breasts: Skin/Breast: Reports system reviewed and no additional complaints, except as docu and Denies rash Neurologic: Reports system reviewed and no additional complaints, except as documented, Denies Abnormal speech present, Reports dizziness, Reports syncope, Denies headache(s), Denies numbness, Denies tingling and Denies weakness PMFSH Past Medical History Attestation statement: The following information was validated with the patient. Source: old records reviewed and nursing notes reviewed Medical History Cellulitis Fever Psoriasis Rigor Surgical History History of cholecystectomy Hx of breast reduction, elective Family History Family History Other No family history of coronary artery disease Social History Social History Household Members: Family Housing: House Do you presently have visiting nurse or other home services: No Alcohol intake: never Patient Tobacco Use Status: Never used Tobacco Advance Directives: Yes Advance Directives on File: Yes Advance Directives Date on File: 11/01/21 service: No Current occupational status: employed Physical Exam Vital Signs: Vital Signs: Last Vital Signs Temp 98.6 F 03/04/22 05:57 Pulse 110 H 03/04/22 14:00 Resp 109 H 03/04/22 14:00 BP 122/66 03/04/22 14:00 Pulse Ox 100 03/04/22 14:00 O2 Del Method 03/04/22 14:00 O2 Flow Rate 2 03/04/22 14:00 BMI result Body Mass Index 36.0 Const: General: cooperative, healthy appearing, comfortable and no acute distress Orientation/consciousness: patient oriented x3 Limitations: no limitations HEENT: Other: Pale mucous membranes and perioral area Head: Yes normal to inspection Ears: hearing grossly normal bilaterally General nose exam: Normal external nose present Face and sinus: Yes normal facial exam Mouth: Normal oral and palatal mucosa present Throat: Yes posterior oropharynx normal Eyes: General: appearance normal, both eyes and all related structures Pupils: Equal, round and reactive pupils present Neck: Neck: Yes normal visual inspection and Yes full ROM Chest: Chest palpation & inspection: normal inspection of the chest Resp: Effort & Inspection: normal respiratory effort Auscultation: clear to auscultation bilaterally Cardio: Rate: regular rate Rhythm: regular rhythm Peripheral pulses: Peripheral pulses 2+ throughout GI: Inspection: Yes normal to inspection Palpation (GI): Soft to palpation and Tenderness to palpation present (GI) (Mild diffuse with no rebound or guarding) Auscultation: normal bowel sounds Back/Spine/Pelvis: Thoracic/Lumbar Spine: thoracic and lumbar spine normal to inspection Skin: General skin exam: no rashes or lesions noted Neuro: General: patient oriented x3, no focal motor deficits and normal sensation to monofilament Cranial nerves: Yes Equal, round and reactive pupils present Cognition (Neuro): normal cognition Speech: No Abnormal speech present Gait exam (Neuro): Normal gait present Motor exam (neuro): 5/5 motor strength present throughout Extrem: General: Yes normal to inspection, Yes no pedal edema and Yes no calf tenderness Course Course Course Narrative: 0845-lactic acid is 4.0. This is from dehydration and GI bleed and not from infection. Reevaluation(s) Reevaluation #1: 0900-hemoglobin is 6.4. Hematocrit 21.3. Last CBC October 2021 shows hemoglobin 12.8 hematocrit 37.6. Type and screen ordered. I went to consent the patient for blood and she tells me that she is a [employer] and will not agree to receive blood products. She is aware that she has an upper GI bleed likely and she refuses to accept blood products she may worsen and . Patient is aware she is critically ill. I will speak to GI. I did attempt to do a occult stool test but I was unable to get any stool on stool card. Call out to GI Reevaluation #2: 0930-Spoke to patient again but she is still declining blood products aware she is critically ill. Reevaluation #3: 0940-Spoke to Dr Hoff who will consult on patient. Recommended repeat cbc now. Continue PPI, fluids. Additional Reevaluation(s): 50-spoke to Medicine Dr. Mcgowan. The accepted admission but would like a CT of the abdomen and pelvis. Patient has elevated INR, this is been seen on previous coags. Patient has elevated total bilirubin, direct bilirubin with normal AST and ALT which is been seen on previous chemistries. She has low protein and albumin 0 which is slightly worsened from her baseline but has been seen previously. She denies any history of liver disease. No history of alcohol abuse. 1030-repeat hgb 5.5, hct 17.7. Patient continues to declined transfusion. Both GI and Medicine or updated. GI would like a PPI infusion which was ordered. Will speak to ICU. 2nd IV placed by nursing. VSS. 1100-spoke to Dr. Brown who accepted admission 1220-there will be a delay in the patient having an endoscopy as they are attempting to get equipment and ordered to give the patient an auto blood transfusion. Therefore Dr Hoff is requesting with start Oceotride. The order was placed. However the patient has an ICU bed prior to the medication being available and therefore we did not delay transfer. MDM - Nausea/Vomiting/Diarrhea MDM Narrative Medical decision making narrative: 56-year-old female with a history of psoriasis on a modulator here with reports of intermittent vomiting with subjective fevers and chills since Saturday evening with inability to tolerate p.o.. Patient also reports syncopal episodes which have occurred at home while she has been in the bathroom. Patient is concerned because today she noticed that when she was vomiting the emesis was coffee ground. No black or bloody stools. Does report some generalized abdominal discomfort. Will obtain labs including blood cultures lactic acid, COVID and flu testing, UA, EKG, occult stool Differential Diagnosis Differential diagnosis: Likely gastroenteritis Medical Records Attestation: I reviewed the patient's medical records. Lab Data Attestation: I reviewed the patient's lab results. Result diagrams: 03/04/22 14:37 03/04/22 07:35 Labs: Lab Results 06/26/22 06/26/22 06/26/22 Range/Units 07:35 07:35 07:36 WBC 10.1 (4.8-10.8) X10*3/uL RBC 2.88 L D (4.20-5.50) X10*6/uL Hgb 6.4 L* D (12.0-16.0) g/dl Hct 21.3 L D (37.0-47.0) % MCV 74.0 L (80.0-98.0) fL MCH 22.2 L (27.0-33.0) pg MCHC 30.0 L (31.0-35.0) g/dl RDW 17.9 H (11.0-16.0) % Plt Count 209 D (160-400) X10*3/uL MPV 9.9 (9.4-12.3) fL Immature Gran % (Auto) 0.4 (0.0-0.4) % Neut % (Auto) 78.2 H (45-73) % Lymph % (Auto) 17.7 L (20-40) % [place] % (Auto) 3.5 (2-11) % Eos % (Auto) 0.1 (0-4) % Baso % (Auto) 0.1 (0-2) % Lymph # (Auto) 1.8 (1.2-4.9) X10*3/uL [place] # (Auto) 0.4 (0.1-1.2) X10*3/uL Eos # (Auto) 0.0 (0.0-0.4) X10*3/uL Baso # (Auto) 0.0 (0.0-0.2) X10*3/uL Abs Immat Gran (auto) 0.04 H (0.00-0.03) X10*3/uL Absolute Neuts (auto) 7.9 (2.0-8.3) x10*3/uL Absolute Nucleated RBC 0.000 (0.0-0.012) X10*3/uL Nucleated RBC % (auto) 0.0 (0.0-0.2) /100WBC PT (9.9-13.0) SEC INR (0.9-1.1) Sodium 139 (135-145) mmol/L Potassium 4.0 (3.3-5.1) mmol/L Chloride 113 H (96-108) mmol/L Carbon Dioxide 17 L (22-29) mmol/L Anion Gap 13 (12-20) BUN 25 H D (9-16) mg/dL Creatinine 0.77 (0.5-1.4) mg/dL Estim Creat Clear Calc 93.5 Estimated GFR > 60 Random Glucose 152 H (60-115) mg/dL Lactic Acid (0.5-2.0) mmol/L Lactic Acid F/U @ 2Hr (0.5-2.0) mmol/L Calcium 7.5 L (8.4-10.2) mg/dL Total Bilirubin (0.0-1.0) mg/dL Direct Bilirubin (0.0-0.5) mg/dL AST (5-31) U/L ALT (0-31) U/L Alkaline Phosphatase (39-117) U/L Troponin I High Sens 27.9 H (<3.5-17.0) ng/L Total Protein (6.5-8.0) g/dL Albumin (3.5-5.0) g/dL Lipase 45 (8-78) U/L Urine Color Urine Appearance Urine pH (5.0-8.0) Ur Specific [place] (1.005-1.025) Urine Protein (NEG-TRACE) MG/DL Urine Glucose (UA) (NEG) MG/DL Urine Ketones (NEG) MG/DL Urine Blood (NEG) Urine Nitrite (NEG) Ur Leukocyte Esterase (NEG) Stool Occult Blood (NEGATIVE) COVID-19 (NORA) (Negative) COVID-19 Clin Com Influenza Type A (NARINDER) (Negative) Influenza Type B (NARINDER) (Negative) Influenza A & B Note Blood Type Antibody Screen 03/04/22 03/04/22 03/04/22 Range/Units 07:36 07:36 08:09 WBC (4.8-10.8) X10*3/uL RBC (4.20-5.50) X10*6/uL Hgb (12.0-16.0) g/dl Hct (37.0-47.0) % MCV (80.0-98.0) fL MCH (27.0-33.0) pg MCHC (31.0-35.0) g/dl RDW (11.0-16.0) % Plt Count (160-400) X10*3/uL MPV (9.4-12.3) fL Immature Gran % (Auto) (0.0-0.4) % Neut % (Auto) (45-73) % Lymph % (Auto) (20-40) % [place] % (Auto) (2-11) % Eos % (Auto) (0-4) % Baso % (Auto) (0-2) % Lymph # (Auto) (1.2-4.9) X10*3/uL [place] # (Auto) (0.1-1.2) X10*3/uL Eos # (Auto) (0.0-0.4) X10*3/uL Baso # (Auto) (0.0-0.2) X10*3/uL Abs Immat Gran (auto) (0.00-0.03) X10*3/uL Absolute Neuts (auto) (2.0-8.3) x10*3/uL Absolute Nucleated RBC (0.0-0.012) X10*3/uL Nucleated RBC % (auto) (0.0-0.2) /100WBC PT 19.2 H (9.9-13.0) SEC INR 1.7 H (0.9-1.1) Sodium (135-145) mmol/L Potassium (3.3-5.1) mmol/L Chloride (96-108) mmol/L Carbon Dioxide (22-29) mmol/L Anion Gap (12-20) BUN (9-16) mg/dL Creatinine (0.5-1.4) mg/dL Estim Creat Clear Calc Estimated GFR Random Glucose (60-115) mg/dL Lactic Acid 4.0 H* (0.5-2.0) mmol/L Lactic Acid F/U @ 2Hr (0.5-2.0) mmol/L Calcium (8.4-10.2) mg/dL Total Bilirubin 1.4 H (0.0-1.0) mg/dL Direct Bilirubin 0.7 H (0.0-0.5) mg/dL AST 28 D (5-31) U/L ALT 16 (0-31) U/L Alkaline Phosphatase 98 D (39-117) U/L Troponin I High Sens (<3.5-17.0) ng/L Total Protein 5.7 L D (6.5-8.0) g/dL Albumin 2.4 L D (3.5-5.0) g/dL Lipase (8-78) U/L Urine Color Urine Appearance Urine pH (5.0-8.0) Ur Specific [place] (1.005-1.025) Urine Protein (NEG-TRACE) MG/DL Urine Glucose (UA) (NEG) MG/DL Urine Ketones (NEG) MG/DL Urine Blood (NEG) Urine Nitrite (NEG) Ur Leukocyte Esterase (NEG) Stool Occult Blood (NEGATIVE) COVID-19 (NORA) (Negative) COVID-19 Clin Com Influenza Type A (NARINDER) (Negative) Influenza Type B (NARINDER) (Negative) Influenza A & B Note Blood Type Antibody Screen 03/04/22 03/04/22 03/04/22 Range/Units 08:50 08:50 09:40 WBC (4.8-10.8) X10*3/uL RBC (4.20-5.50) X10*6/uL Hgb (12.0-16.0) g/dl Hct (37.0-47.0) % MCV (80.0-98.0) fL MCH (27.0-33.0) pg MCHC (31.0-35.0) g/dl RDW (11.0-16.0) % Plt Count (160-400) X10*3/uL MPV (9.4-12.3) fL Immature Gran % (Auto) (0.0-0.4) % Neut % (Auto) (45-73) % Lymph % (Auto) (20-40) % [place] % (Auto) (2-11) % Eos % (Auto) (0-4) % Baso % (Auto) (0-2) % Lymph # (Auto) (1.2-4.9) X10*3/uL [place] # (Auto) (0.1-1.2) X10*3/uL Eos # (Auto) (0.0-0.4) X10*3/uL Baso # (Auto) (0.0-0.2) X10*3/uL Abs Immat Gran (auto) (0.00-0.03) X10*3/uL Absolute Neuts (auto) (2.0-8.3) x10*3/uL Absolute Nucleated RBC (0.0-0.012) X10*3/uL Nucleated RBC % (auto) (0.0-0.2) /100WBC PT (9.9-13.0) SEC INR (0.9-1.1) Sodium (135-145) mmol/L Potassium (3.3-5.1) mmol/L Chloride (96-108) mmol/L Carbon Dioxide (22-29) mmol/L Anion Gap (12-20) BUN (9-16) mg/dL Creatinine (0.5-1.4) mg/dL Estim Creat Clear Calc Estimated GFR Random Glucose (60-115) mg/dL Lactic Acid (0.5-2.0) mmol/L Lactic Acid F/U @ 2Hr (0.5-2.0) mmol/L Calcium (8.4-10.2) mg/dL Total Bilirubin (0.0-1.0) mg/dL Direct Bilirubin (0.0-0.5) mg/dL AST (5-31) U/L ALT (0-31) U/L Alkaline Phosphatase (39-117) U/L Troponin I High Sens (<3.5-17.0) ng/L Total Protein (6.5-8.0) g/dL Albumin (3.5-5.0) g/dL Lipase (8-78) U/L Urine Color Urine Appearance Urine pH (5.0-8.0) Ur Specific [place] (1.005-1.025) Urine Protein (NEG-TRACE) MG/DL Urine Glucose (UA) (NEG) MG/DL Urine Ketones (NEG) MG/DL Urine Blood (NEG) Urine Nitrite (NEG) Ur Leukocyte Esterase (NEG) Stool Occult Blood NEGATIVE (NEGATIVE) COVID-19 (NORA) Negative (Negative) COVID-19 Clin Com See Note Influenza Type A (NARINDER) Negative (Negative) Influenza Type B (NARINDER) Negative (Negative) Influenza A & B Note See Note Blood Type Antibody Screen 03/04/22 03/04/22 03/04/22 Range/Units 10:12 10:14 11:06 WBC 11.2 H (4.8-10.8) X10*3/uL RBC 2.38 L (4.20-5.50) X10*6/uL Hgb 5.5 L* (12.0-16.0) g/dl Hct 17.7 L* (37.0-47.0) % MCV 74.4 L (80.0-98.0) fL MCH 23.1 L (27.0-33.0) pg MCHC 31.1 (31.0-35.0) g/dl RDW 17.8 H (11.0-16.0) % Plt Count 195 (160-400) X10*3/uL MPV 10.1 (9.4-12.3) fL Immature Gran % (Auto) 0.6 H (0.0-0.4) % Neut % (Auto) 70.1 (45-73) % Lymph % (Auto) 22.8 (20-40) % [place] % (Auto) 6.3 (2-11) % Eos % (Auto) 0.0 (0-4) % Baso % (Auto) 0.2 (0-2) % Lymph # (Auto) 2.6 (1.2-4.9) X10*3/uL [place] # (Auto) 0.7 (0.1-1.2) X10*3/uL Eos # (Auto) 0.0 (0.0-0.4) X10*3/uL Baso # (Auto) 0.0 (0.0-0.2) X10*3/uL Abs Immat Gran (auto) 0.07 H (0.00-0.03) X10*3/uL Absolute Neuts (auto) 7.9 (2.0-8.3) x10*3/uL Absolute Nucleated RBC 0.000 (0.0-0.012) X10*3/uL Nucleated RBC % (auto) 0.0 (0.0-0.2) /100WBC PT (9.9-13.0) SEC INR (0.9-1.1) Sodium (135-145) mmol/L Potassium (3.3-5.1) mmol/L Chloride (96-108) mmol/L Carbon Dioxide (22-29) mmol/L Anion Gap (12-20) BUN (9-16) mg/dL Creatinine (0.5-1.4) mg/dL Estim Creat Clear Calc Estimated GFR Random Glucose (60-115) mg/dL Lactic Acid (0.5-2.0) mmol/L Lactic Acid F/U @ 2Hr (0.5-2.0) mmol/L Calcium (8.4-10.2) mg/dL Total Bilirubin (0.0-1.0) mg/dL Direct Bilirubin (0.0-0.5) mg/dL AST (5-31) U/L ALT (0-31) U/L Alkaline Phosphatase (39-117) U/L Troponin I High Sens (<3.5-17.0) ng/L Total Protein (6.5-8.0) g/dL Albumin (3.5-5.0) g/dL Lipase (8-78) U/L Urine Color YELLOW Urine Appearance HAZY Urine pH 6.0 (5.0-8.0) Ur Specific [place] 1.025 (1.005-1.025) Urine Protein NEG (NEG-TRACE) MG/DL Urine Glucose (UA) NEG (NEG) MG/DL Urine Ketones NEG (NEG) MG/DL Urine Blood NEG (NEG) Urine Nitrite NEG (NEG) Ur Leukocyte Esterase NEG (NEG) Stool Occult Blood (NEGATIVE) COVID-19 (NORA) (Negative) COVID-19 Clin Com Influenza Type A (NARINDER) (Negative) Influenza Type B (NARINDER) (Negative) Influenza A & B Note Blood Type B Positive Antibody Screen NEGATIVE 03/04/22 Range/Units 11:57 WBC (4.8-10.8) X10*3/uL RBC (4.20-5.50) X10*6/uL Hgb (12.0-16.0) g/dl Hct (37.0-47.0) % MCV (80.0-98.0) fL MCH (27.0-33.0) pg MCHC (31.0-35.0) g/dl RDW (11.0-16.0) % Plt Count (160-400) X10*3/uL MPV (9.4-12.3) fL Immature Gran % (Auto) (0.0-0.4) % Neut % (Auto) (45-73) % Lymph % (Auto) (20-40) % [place] % (Auto) (2-11) % Eos % (Auto) (0-4) % Baso % (Auto) (0-2) % Lymph # (Auto) (1.2-4.9) X10*3/uL [place] # (Auto) (0.1-1.2) X10*3/uL Eos # (Auto) (0.0-0.4) X10*3/uL Baso # (Auto) (0.0-0.2) X10*3/uL Abs Immat Gran (auto) (0.00-0.03) X10*3/uL Absolute Neuts (auto) (2.0-8.3) x10*3/uL Absolute Nucleated RBC (0.0-0.012) X10*3/uL Nucleated RBC % (auto) (0.0-0.2) /100WBC PT (9.9-13.0) SEC INR (0.9-1.1) Sodium (135-145) mmol/L Potassium (3.3-5.1) mmol/L Chloride (96-108) mmol/L Carbon Dioxide (22-29) mmol/L Anion Gap (12-20) BUN (9-16) mg/dL Creatinine (0.5-1.4) mg/dL Estim Creat Clear Calc Estimated GFR Random Glucose (60-115) mg/dL Lactic Acid (0.5-2.0) mmol/L Lactic Acid F/U @ 2Hr 4.2 H* (0.5-2.0) mmol/L Calcium (8.4-10.2) mg/dL Total Bilirubin (0.0-1.0) mg/dL Direct Bilirubin (0.0-0.5) mg/dL AST (5-31) U/L ALT (0-31) U/L Alkaline Phosphatase (39-117) U/L Troponin I High Sens (<3.5-17.0) ng/L Total Protein (6.5-8.0) g/dL Albumin (3.5-5.0) g/dL Lipase (8-78) U/L Urine Color Urine Appearance Urine pH (5.0-8.0) Ur Specific [place] (1.005-1.025) Urine Protein (NEG-TRACE) MG/DL Urine Glucose (UA) (NEG) MG/DL Urine Ketones (NEG) MG/DL Urine Blood (NEG) Urine Nitrite (NEG) Ur Leukocyte Esterase (NEG) Stool Occult Blood (NEGATIVE) COVID-19 (NORA) (Negative) COVID-19 Clin Com Influenza Type A (NARINDER) (Negative) Influenza Type B (NARINDER) (Negative) Influenza A & B Note Blood Type Antibody Screen Imaging Data Chest x-ray: Attestation: I personally reviewed and interpreted this imaging study as follows: Radiologist's impression: [address] [address] XRay Report Signed Patient: Teresa Canela MR#: [id number] : 1965 Acct:[id number] Age/Sex: 56 / F ADM Date: 03/04/22 Loc: HO.ED Attending Dr: Ordering Physician: Naeem Saenz MD Date of Service: 03/04/22 Procedure(s): XR chest 1V Accession Number(s): [id number] cc: Naeem Saenz MD~ EXAMINATION: XR CHEST CLINICAL INFORMATION: Chest pain. COMPARISON: Chest done on 02/24/2016. TECHNIQUE: Frontal view of the chest was obtained. FINDINGS: No significant abnormality is noted involving the heart, lungs, mediastinum, bony thorax or soft tissues. XR/XR chest 1V IMPRESSION: Unremarkable examination. ? CT scan - abdomen: Attestation: I personally reviewed and interpreted this imaging study as follows: Radiologist's impression: [address] [address] [address] Scan Report Signed Patient: Teresa Canela MR#: [id number] : 1965 Acct:[id number] Age/Sex: 56 / F ADM Date: 03/04/22 Loc: HO.ICU 259-[address]: Jaciel Brown MD Ordering Physician: Jessica Palma NP Date of Service: 03/04/22 Procedure(s): CT abdomen pelvis wo con Accession Number(s): [id number] cc: Jessica Palma DIETARY AIDE TEACHER~ EXAMINATION: CT ABDOMEN AND PELVIS WITHOUT CONTRAST? CLINICAL INFORMATION: Abdominal pain. Vomiting blood.? COMPARISON: None? TECHNIQUE: Multidetector volumetric imaging was performed from the superior aspect of the liver through the pubic symphysis. Sagittal and coronal reformatted images were obtained on the technologist's workstation.? This CT examination was performed using dose optimization techniques as appropriate, variously including the following: *Automated exposure control *Adjustment of mA and/or kV according to patient size (this includes techniques or standardized protocols for targeted exams where dose is matched to indication/reason for exam; i.e. extremities or head) *Use of iterative reconstruction technique DLP: 908 mGy-cm FINDINGS: LUNG BASES: Mild bibasilar atelectasis. Normal heart size. No pericardial or pleural effusion.? LIVER, GALLBLADDER, AND BILIARY TREE: There is nodular contour to the surface of the liver, raising concern for cirrhosis. No obvious lesion is evident on this noncontrast study. No intrahepatic biliary duct dilatation. Status postcholecystectomy. The CBD is not dilated.? PANCREAS: Unremarkable. No significant inflammatory changes seen.? SPLEEN: Measures 12.3 cm transverse. No focal lesions.? ADRENAL GLANDS: Unremarkable.? KIDNEYS AND URETERS: No renal or ureteral calculi. No hydronephrosis.? BLADDER: Nondistended, not evaluated.? GASTROINTESTINAL TRACT: The distal esophagus is nondistended. No significant hiatal hernia is appreciated. Stomach is distended. There is heterogeneous density of the contents within the stomach, with intermingled air. This could reflect complex contents, with hemorrhagic/blood products as part of the contents are not excluded. There is nondependent air along the anterior wall of the stomach. Areas of ulceration cannot be excluded. Limited evaluation of the stomach wall thickness in this noncontrast study. No dilated small bowel loops. Sigmoid diverticulosis. No findings to suggest definite diverticulitis. Nonobstructive bowel gas pattern. Appendix appears unremarkable. No free fluid. No free air. Surgical clip in the left lower abdomen. ABDOMINAL WALL: No significant hernia is appreciated.? LYMPH NODES: No bulky lymphadenopathy seen. There are subcentimeter retroperitoneal lymph nodes. VASCULAR: Normal caliber aorta. PELVIC VISCERA: Uterus is anteverted, appearing bulky, with lobulated contour of the fundus, which could represent an indeterminate exophytic lesions. No adnexal masses appreciated.? OSSEOUS STRUCTURES: No evidence of acute or suspicious osseous abnormality. Mild degenerative changes spine.? CT/CT abdomen pelvis wo con IMPRESSION: 1. Stomach is distended, with heterogeneous density of the contents of the stomach, which could represent complex contents, with hemorrhagic/blood products as part of the contents are not excluded. Evaluation is limited in this noncontrast study. Gastric ulcers/lesions cannot be excluded. Further evaluation with follow-up CT with contrast, endoscopy, upper GI series as clinically warranted. ? 2. Nodular contour of the liver suggesting cirrhosis. Further evaluation with MRI as clinically warranted. ? 3. Status postcholecystectomy. ? 4. Sigmoid diverticulosis without diverticulitis. ? 5. Slightly bulky uterus, with nodular contour raising the possibility of lesions. This can be further evaluated with pelvic ultrasound.? ? ECG Data Attestation: I personally reviewed and interpreted this ECG as follows: ECG interpretation date: 03/04/22 ECG interpretation time: 07:46 Interpretation: Sinus rhythm with a rate of 99, normal QRS, prolonged QT 503 Critical Care Time Critical Care Time Critical Care Time: Yes Total Critical Care Time: 90 Attestation: Re-evaluations for blood pressure, patient's symptoms of nausea and abdominal pain. Discussion with GI. Discussion with sheeter operator. Spoke with family Discharge Plan Discharge Clinical Impression: Acute gastrointestinal bleeding, Anemia Patient Disposition: Admitted As Inpatient
[2022-03-04 08:28] LABS: Basophils Percent Auto 0.1 % (0-2); Eosinophils Percent Auto 0.1 % (0-4); Hematocrit 21.3 % (37.0-47.0); Imm Gran Abs Auto 0.04 X10*3/uL (0.00-0.03); Imm Gran Pct Auto 0.4 % (0.0-0.4); Lymphocytes Absolute Auto 1.8 X10*3/uL (1.2-4.9); Lymphocytes Percent Auto 17.7 % (20-40); Mean Corpuscular Hemoglobin 22.2 pg (27.0-33.0); Mean Platelet Volume 9.9 fL (9.4-12.3); Monocytes Absolute Auto 0.4 X10*3/uL (0.1-1.2); Monocytes Percent Auto 3.5 % (2-11); Neutrophils Absolute Auto 7.9 x10*3/uL (2.0-8.3); Neutrophils Percent Auto 78.2 % (45-73); Platelet Count 209 X10*3/uL (160-400); Red Blood Count 2.88 X10*6/uL (4.20-5.50); Red Cell Distribution Width 17.9 % (11.0-16.0); White Blood Count 10.1 X10*3/uL (4.8-10.8)
[2022-03-04 08:32] LABS: Alanine Aminotransferase 16 U/L (0-31); Albumin Level 2.4 g/dL (3.5-5.0); Alkaline Phosphatase 98 U/L (39-117); Aspartate Amino Transferase 28 U/L (5-31); Bilirubin Direct 0.7 mg/dL (0.0-0.5); Bilirubin Total 1.4 mg/dL (0.0-1.0); Total Protein 5.7 g/dL (6.5-8.0)
[2022-03-04 08:50] LABS: Hemoglobin 6.4 g/dl (12.0-16.0)
[2022-03-04 08:58] LABS: INTERNATIONAL NORM RATIO 1.7 (0.9-1.1); Prothrombin Time 19.2 SEC (9.9-13.0)
[2022-03-04 09:13] LABS: COVID-19 Test Negative (Negative); IDNOW Serial# 16C4AD1C; Influenza A Negative (Negative); Influenza B2 Negative (Negative)
--- NOTE | 2022-03-04 09:21 | PC.NURSE ---
pt is a difficult lab draw. Phlebotomy has been called to draw labs.
[2022-03-04] MEDS: Pantoprazole Sodium 40 MG/10 ML VIAL IVPUSH (09:30)
[2022-03-04 09:54] LABS: OBS Int Ctl Valid YES; OBS1 NEGATIVE (NEGATIVE)
--- NOTE | 2022-03-04 10:01 | PHA.MEDREC ---
Pharmacy Consult ? Medication Reconciliation Pharmacy has completed the medication reconciliation. Pt stated that she last got her Tremfya injection in the third week of January. Also stated that she takes her norethindrone 0.35mg tablet when she remembers.
[2022-03-04 10:14] LABS: Reflex Lactate? Lactic Acid Added
[2022-03-04 10:16] LABS: MANUAL DIFF FLAG NO
--- NOTE | 2022-03-04 10:17 | P.CNGI_ITS ---
History of Present Illness Data of Consult Service Date: 03/04/22 Requesting physician: Jessica Palma Primary Care Provider: Unknown Physician HPI Reason for consult: Upper GI bleed 56 YF with a history of psoriasis (on Guelkumab 100 mg every 8 weeks) came to [facility] ED this morning with nausea, vomiting, abdominal discomfort since Saturday.? Pt is a Restoration and is refusing blood transfusions. Pt reports having nausea with 5-6 episodes of dark emesis since yesterday morning followed by upper abdominal discomfort. Pt went to work from 7 am to 3 pm at [employer] since she was unable to find a replacement. She has been taking a sleep aid for the past few days due to difficulty sleeping.l Patient reports last night she was finally able to hold down some sips of lisa yesenia.? Continued intermittent vomiting.? Stool have been dark in color. Description of vomiting: watery and bloody (Just prior to coming to the emergency depart) She had 2 episodes of coffee ground emesis today (one enroute to the hospital).? Her boy friend found her passed out in the bathroom and called EMS. Patient reports subjective fevers and chills since Saturday.? She reports she has had several episodes of feeling lightheaded and dizzy with loss of consciousness while she has been in the bathroom.? She denies any head strike or injuries. Patient is not on any anticoagulation.? No aspirin use.? She admits to taking Alleve last 2-3 days when she had a fever. Pt gives a remote hx of PUD and denies history of GI bleed Associated symptoms: cough (Nonproductive), fever/chills, nausea/vomiting, weakness, fatigue and other (Syncope x3 after vomiting) Pt lives with her boyfriend and has a son in his 20's. Review of Systems Review of Systems: Yes all other systems are reviewed and are negative Constitutional: Constitutional: Reports no additional constitutional complaints, Reports body ache(s), Reports chills, Reports fever(s), Denies headache(s) and Denies weakness Eyes: Eyes: Reports no additional eye complaints and Denies change in vision ENT: Reports system reviewed and no additional complaints, except as documented, Reports dizziness, Denies headache(s), Denies nasal congestion, Denies nasal discharge and Denies neck pain Cardiovascular: Cardiovascular: Reports no additional cardiovascular compl aints, Denies chest pain, Reports syncope, Denies leg edema and Denies dyspnea Respiratory: Respiratory: Reports no additional respiratory complaints, Denies cough and Denies dyspnea Gastrointestinal: Gastrointestinal: Reports no additional gastrointestinal complaints, Reports abdominal pain, Denies diarrhea, Reports nausea, Reports vomiting and Reports hematemesis Genitourinary: Genitourinary: Reports no additional female genitourinary complaints and Denies urinary incontinence Musculoskeletal: Musculoskeletal: Reports no additional musculoskeletal complaints, Denies back pain, Denies arthralgias, Denies joint swelling, Denies neck pain, Denies numbness and Denies tingling Integumentary/Breasts: Skin/Breast: Reports system reviewed and no additional complaints, except as docu and Denies rash Neurologic: Reports system reviewed and no additional complaints, except as documented, Denies Abnormal speech present, Reports dizziness, Reports syncope, Denies headache(s), Denies numbness, Denies tingling and Denies weakness PMFSH Past Medical History Medical History Cellulitis Fever Psoriasis Rigor Family History Family History Other No family history of coronary artery disease Surgical History Surgical History History of cholecystectomy Hx of breast reduction, elective Social History Social History Household Members: Significant Other and Children Housing: Apartment Do you presently have visiting nurse or other home services: No Alcohol intake: never Patient Tobacco Use Status: Never used Tobacco Substance Use Type: Sedatives Advance Directives Date on File: 11/01/21 service: No Current occupational status: employed Meds Allergies Allergy/AdvReac Type Severity Reaction Status Date / Time Penicillins AdvReac Intermediate Unknown Verified 03/04/22 21:15 Active Medications: Current Medications Pharmacy Consult (Consult Rx Perform Med Rec) 1 each MISCELLANE ONCE PRN PRN Reason: Consult order Home Medications Medication Instructions Recorded Confirmed Last Taken Type guselkumab 100 mg/mL subcutaneous 100 mg subcut [id number] 10/22/21 03/04/22 01/24/22 History auto-injector (Tremfya) norethindrone (contraceptive) 0.35 1 tab PO DAILY 03/04/22 03/04/22 Unknown History mg tablet Physical Exam Vital Signs: Vital Signs: Last Vital Signs Temp 98.6 F 03/04/22 05:57 Pulse 107 H 03/04/22 08:16 Resp 18 03/04/22 08:16 BP 134/76 03/04/22 08:16 Pulse Ox 99 03/04/22 08:16 O2 Del Method 03/04/22 08:16 BMI result Body Mass Index 36.0 Const: General: no acute distress, anxious and ill appearing Nutritional Appearance: obese Orientation/consciousness: patient oriented x3 Limitations: no limitations HEENT: Head: Yes normal to inspection Ears: hearing grossly normal bilaterally Mouth: Normal oral and palatal mucosa present Eyes: Sclerae: sclerae normal Pupils: Equal, round and reactive pupils present Neck: Neck: Yes normal visual inspection Chest: Chest palpation & inspection: normal inspection of the chest Resp: Effort & Inspection: normal respiratory effort Auscultation: clear to auscultation bilaterally Cardio: Palpation: normal PMI Rate: regular rate Rhythm: regular rhythm Heart sounds: S1 normal heart sound present, S2 normal heart sound present and no murmurs GI: Inspection: Yes obesity Palpation (GI): Soft to palpation, Tenderness to palpation present (GI) (minimal epigastric tenderness without rebound) and No hepatosplenomegaly present Auscultation: normal bowel sounds Rectal Exam - Female: deferred Skin: General skin exam: no rashes or lesions noted Neuro: General: patient oriented x3, gait normal and moves all extremities Cranial nerves: Yes Equal, round and reactive pupils present Speech: No Abnormal speech present Psych: Appearance: grossly normal Mental Status: mental status grossly normal Results Labs CBC & Chem 7: 03/04/22 22:00 03/04/22 19:36 Labs: Short CBC 03/04/22 Range/Units 07:36 WBC 10.1 (4.8-10.8) X10*3/uL Hgb 6.4 L* D (12.0-16.0) g/dl Hct 21.3 L D (37.0-47.0) % Plt Count 209 D (160-400) X10*3/uL BMP 03/04/22 07:35 Sodium 139 Potassium 4.0 Chloride 113 H Carbon Dioxide 17 L BUN 25 H D Creatinine 0.77 Calcium 7.5 L Liver Function 03/04/22 Range/Units 07:36 Total Bilirubin 1.4 H (0.0-1.0) mg/dL Direct Bilirubin 0.7 H (0.0-0.5) mg/dL AST 28 D (5-31) U/L ALT 16 (0-31) U/L Alkaline Phosphatase 98 D (39-117) U/L Albumin 2.4 L D (3.5-5.0) g/dL Assessment and Plan (1) Acute gastrointestinal bleeding: Status: Acute Plan 56 YF with a history of psoriasis (on Guelkumab 100 mg every 8 weeks) came to [facility] ED this morning with nausea, vomiting, abdominal discomfort since Saturday.? Pt is a Restoration and is refusing blood transfusions. She reports she has had several episodes of feeling lightheaded and dizzy with loss of consciousness while she was in the bathroom.? UGI bleeding likely from PUD, erosive esophagitis, MW tear or UGI AVM. RECOMMENDATIONS: 1. Follow CBC Q 6 hourly 2. IV PPI infusion. 3. Proceed with urgent EGD today. Procedure and potential complications including bleeding, perforation, reaction to anesthetics and aspiration were reviewed with the patient. 4. Since pt is refusing blood transfusions, she can be treated with IV iron infusion after EGD for anemia. ADDENDUM: EGD was performed after making arrangements with the [place] [place] for the intraoperative blood salvage machine ( cell saver ) to be in the operating room. Pt agreed to being transfused her own blood. The machine separates, washes, and concentrates salvaged RBCs. Several steps are involved, including suctioning of shed blood from the surgical field, addition of an anticoagulant, separation and washing of RBCs (to remove the anticoagulant, free hemoglobin molecules, activated thrombogenic substances, and cellular stroma), concentration of the blood, and eventual reinfusion to the patient Procedures Date of Service Date of Service: 03/04/22
[2022-03-04 10:21] LABS: Basophils Percent Auto 0.2 % (0-2); Imm Gran Abs Auto 0.07 X10*3/uL (0.00-0.03); Imm Gran Pct Auto 0.6 % (0.0-0.4); Lymphocytes Absolute Auto 2.6 X10*3/uL (1.2-4.9); Lymphocytes Percent Auto 22.8 % (20-40); Mean Corpuscular HGB Conc 31.1 g/dl (31.0-35.0); Mean Corpuscular Hemoglobin 23.1 pg (27.0-33.0); Mean Corpuscular Volume 74.4 fL (80.0-98.0); Mean Platelet Volume 10.1 fL (9.4-12.3); Monocytes Absolute Auto 0.7 X10*3/uL (0.1-1.2); Monocytes Percent Auto 6.3 % (2-11); Neutrophils Absolute Auto 7.9 x10*3/uL (2.0-8.3); Neutrophils Percent Auto 70.1 % (45-73); Platelet Count 195 X10*3/uL (160-400); Red Blood Count 2.38 X10*6/uL (4.20-5.50); Red Cell Distribution Width 17.8 % (11.0-16.0); White Blood Count 11.2 X10*3/uL (4.8-10.8)
[2022-03-04 10:22] LABS: Appearance Urine HAZY; Color Urine YELLOW; Glucose Urine UA NEG (NEG); Leukocyte Esterase Urine NEG (NEG); Nitrite Urine NEG (NEG); Specific Gravity - Urine 1.025 (1.005-1.025); Urine Blood NEG (NEG); Urine Ketones NEG (NEG); Urine Protein NEG (NEG-TRACE)
[2022-03-04 10:24] LABS: Hematocrit 17.7 % (37.0-47.0); Hemoglobin 5.5 g/dl (12.0-16.0)
--- NOTE | 2022-03-04 10:26 | PC.NURSE ---
Pt H&H low, pt is refusing blood products. Provider aware. will continue to patient education on risk vs benefits of blood products.
[2022-03-04] MEDS: ondansetron HCL 4 MG/2 ML VIAL IVPUSH ×4 (11:14→22:45)
--- NOTE | 2022-03-04 11:17 | P.CONAN_ITS ---
HPI - Anesthesia Eval Consult details Narrative: GI bleeding,Severe acute hemorrhagic anemia PMFSH Active Problems Active Problems: All Active Problems (Updated 03/04/22 @ 09:46 by Naeem Saenz MD) Acute gastrointestinal bleeding (Acute) Abdominal wall cellulitis (Acute) Cellulitis (Acute) Past Medical History Medical History Cellulitis Fever Psoriasis Rigor Family History Family History Other No family history of coronary artery disease Family history of problems with anesthesia: No Surgical History Surgical History History of cholecystectomy Hx of breast reduction, elective History of Problems with Anesthesia: No Social History Social History Household Members: Family Housing: House Do you presently have visiting nurse or other home services: No Alcohol intake: never Patient Tobacco Use Status: Never used Tobacco Advance Directives: Yes Advance Directives on File: Yes Advance Directives Date on File: 11/01/21 service: No Current occupational status: employed Meds Allergies Allergy/AdvReac Type Severity Reaction Status Date / Time Penicillins Allergy Unknown Verified 10/31/21 19:10 Active Medications: Current Medications Pantoprazole Sodium 80 mg/ (Sodium Chloride) 100 mls @ 10 mls/hr IV .Q10H [facility] Pharmacy Consult (Consult Rx Perform Med Rec) 1 each MISCELLANE ONCE PRN PRN Reason: Consult order Home Medications Medication Instructions Recorded Confirmed Last Taken Type guselkumab 100 mg/mL subcutaneous 100 mg subcut [id number] 10/22/21 03/04/22 01/24/22 History auto-injector (Tremfya) norethindrone (contraceptive) 0.35 1 tab PO DAILY 03/04/22 03/04/22 Unknown History mg tablet Exam Exam Date and Time: March 04, 2022 1117 Height,Weight and Vital Signs: Height 5 ft 4 in Weight 95.254 kg Last Vital Signs Temp 98.6 F 03/04/22 05:57 Pulse 110 H 03/04/22 10:00 Resp 25 H 03/04/22 10:00 BP 120/66 03/04/22 10:00 Pulse Ox 97 03/04/22 10:00 O2 Del Method 03/04/22 10:00 Pertinent Lab Results Pertinent Lab Results: Laboratory Tests 03/04/22 03/04/22 03/04/22 07:35 07:35 07:36 WBC 10.1 RBC 2.88 L D Hgb 6.4 L* D Hct 21.3 L D MCV 74.0 L MCH 22.2 L MCHC 30.0 L RDW 17.9 H Plt Count 209 D MPV 9.9 Immature Gran % (Auto) 0.4 Neut % (Auto) 78.2 H Lymph % (Auto) 17.7 L [place] % (Auto) 3.5 Eos % (Auto) 0.1 Baso % (Auto) 0.1 Lymph # (Auto) 1.8 [place] # (Auto) 0.4 Eos # (Auto) 0.0 Baso # (Auto) 0.0 Abs Immat Gran (auto) 0.04 H Absolute Neuts (auto) 7.9 Absolute Nucleated RBC 0.000 Nucleated RBC % (auto) 0.0 PT INR Sodium 139 Potassium 4.0 Chloride 113 H Carbon Dioxide 17 L Anion Gap 13 BUN 25 H D Creatinine 0.77 Estim Creat Clear Calc 93.5 Estimated GFR > 60 Random Glucose 152 H Lactic Acid Calcium 7.5 L Total Bilirubin Direct Bilirubin AST ALT Alkaline Phosphatase Troponin I High Sens 27.9 H Total Protein Albumin Lipase 45 Urine Color Urine Appearance Urine pH Ur Specific [place] Urine Protein Urine Glucose (UA) Urine Ketones Urine Blood Urine Nitrite Ur Leukocyte Esterase Stool Occult Blood COVID-19 (NORA) COVID-19 Clin Com Influenza Type A (NARINDER) Influenza Type B (NARINDER) Influenza A & B Note 03/04/22 03/04/22 03/04/22 07:36 07:36 08:09 WBC RBC Hgb Hct MCV MCH MCHC RDW Plt Count MPV Immature Gran % (Auto) Neut % (Auto) Lymph % (Auto) [place] % (Auto) Eos % (Auto) Baso % (Auto) Lymph # (Auto) [place] # (Auto) Eos # (Auto) Baso # (Auto) Abs Immat Gran (auto) Absolute Neuts (auto) Absolute Nucleated RBC Nucleated RBC % (auto) PT 19.2 H INR 1.7 H Sodium Potassium Chloride Carbon Dioxide Anion Gap BUN Creatinine Estim Creat Clear Calc Estimated GFR Random Glucose Lactic Acid 4.0 H* Calcium Total Bilirubin 1.4 H Direct Bilirubin 0.7 H AST 28 D ALT 16 Alkaline Phosphatase 98 D Troponin I High Sens Total Protein 5.7 L D Albumin 2.4 L D Lipase Urine Color Urine Appearance Urine pH Ur Specific [place] Urine Protein Urine Glucose (UA) Urine Ketones Urine Blood Urine Nitrite Ur Leukocyte Esterase Stool Occult Blood COVID-19 (NORA) COVID-19 Clin Com Influenza Type A (NARINDER) Influenza Type B (NARINDER) Influenza A & B Note 03/04/22 03/04/22 03/04/22 08:50 08:50 09:40 WBC RBC Hgb Hct MCV MCH MCHC RDW Plt Count MPV Immature Gran % (Auto) Neut % (Auto) Lymph % (Auto) [place] % (Auto) Eos % (Auto) Baso % (Auto) Lymph # (Auto) [place] # (Auto) Eos # (Auto) Baso # (Auto) Abs Immat Gran (auto) Absolute Neuts (auto) Absolute Nucleated RBC Nucleated RBC % (auto) PT INR Sodium Potassium Chloride Carbon Dioxide Anion Gap BUN Creatinine Estim Creat Clear Calc Estimated GFR Random Glucose Lactic Acid Calcium Total Bilirubin Direct Bilirubin AST ALT Alkaline Phosphatase Troponin I High Sens Total Protein Albumin Lipase Urine Color Urine Appearance Urine pH Ur Specific [place] Urine Protein Urine Glucose (UA) Urine Ketones Urine Blood Urine Nitrite Ur Leukocyte Esterase Stool Occult Blood NEGATIVE COVID-19 (NORA) Negative COVID-19 Clin Com See Note Influenza Type A (NARINDER) Negative Influenza Type B (NARINDER) Negative Influenza A & B Note See Note 03/04/22 03/04/22 10:12 10:14 WBC 11.2 H RBC 2.38 L Hgb 5.5 L* Hct 17.7 L* MCV 74.4 L MCH 23.1 L MCHC 31.1 RDW 17.8 H Plt Count 195 MPV 10.1 Immature Gran % (Auto) 0.6 H Neut % (Auto) 70.1 Lymph % (Auto) 22.8 [place] % (Auto) 6.3 Eos % (Auto) 0.0 Baso % (Auto) 0.2 Lymph # (Auto) 2.6 [place] # (Auto) 0.7 Eos # (Auto) 0.0 Baso # (Auto) 0.0 Abs Immat Gran (auto) 0.07 H Absolute Neuts (auto) 7.9 Absolute Nucleated RBC 0.000 Nucleated RBC % (auto) 0.0 PT INR Sodium Potassium Chloride Carbon Dioxide Anion Gap BUN Creatinine Estim Creat Clear Calc Estimated GFR Random Glucose Lactic Acid Calcium Total Bilirubin Direct Bilirubin AST ALT Alkaline Phosphatase Troponin I High Sens Total Protein Albumin Lipase Urine Color YELLOW Urine Appearance HAZY Urine pH 6.0 Ur Specific [place] 1.025 Urine Protein NEG Urine Glucose (UA) NEG Urine Ketones NEG Urine Blood NEG Urine Nitrite NEG Ur Leukocyte Esterase NEG Stool Occult Blood COVID-19 (NORA) COVID-19 Clin Com Influenza Type A (NARINDER) Influenza Type B (NARINDER) Influenza A & B Note Airway Mallampati Class: II TM Dist: >3cm Neck ROM: Full Loose/Missing/Broken Teeth: No Heart: RRR Lungs: CTA Assessment and Plan Assessment Anesthesia Assessment: Anesthesia Plan Discussed and Chart Reviewed Final Anesthetic Review Family History of Problems with Anesthesia: No History of Problems with Anesthesia: No NPO: No ASA Class: IV and Emergency Final Preanesthetic Review: No Changes in Pt Med Stat, Meds/Allgs Chart Reviewed and Consent Obtained/Reviewed Patient Risk: High Procedure Risk: Low Anesthetic Plan Anesthetic Plan: MAC: Disposition: Inp. Admit - ICU
[2022-03-04] MEDS: Pantoprazole Sodium 80 MG in 0.9 % Sodium Chloride 80 ML 10 MG IV (12:08)
[2022-03-04 12:40] LABS: ~Lactic Acid-LAB USE ONLY 4.2 mmol/L (0.5-2.0)
[2022-03-04] MEDS: Octreotide Acetate 100 MCG/ML AMPUL IVPUSH (13:33)
[2022-03-04] MEDS: ALBUMIN HUMAN 25% IV (13:46)
[2022-03-04 13:59] LABS: Reflex Lactate? 2 Y
--- NOTE | 2022-03-04 14:40 | P.HPCC_ITS ---
History of Present Illness Date of Service: 03/04/22 Attending physician on admission: Jaciel Brown Chief Complaint: UGI bleed Mrs. Canela was admitted to the ICU with hemorrhagic shock and severe anemia 2? UGI bleed. The patient is a 56 yo F with PMHx of obesity, psoriasis (on Guelkumab 100 mg every 8 weeks).? 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 She was BIBA to the ED this morning b/o nausea, vomiting, abdominal discomfort since Saturday. ?Since yesterday morning, had 5-6 episodes of dark emesis, followed by upper abdominal discomfort.? Last night she was finally able to hold down some sips of lisa yesenia, but has had continued intermittent vomiting.? Stool has been dark in color.? She reports she has had several episodes of feeling lightheaded and dizzy with loss of consciousness while she has been in the bathroom. ?Her boyfriend found her passed out in the bathroom and called EMS.? She had 2 episodes of coffee ground emesis today (one enroute to the hospital). ?The patient also reported subjective fevers and chills since Saturday. The Patient is not on any anticoagulation.? No aspirin use.? She admits to taking Alleve last 2-3 days when she had a fever.? Pt gives a remote hx of PUD and denies history of GI bleed. In the ED she was lethargic, HR was 107, BP 134/76.? She was breathing easy with sat of 99% on room air.? Temperature was 98.6 degrees.? She had some nausea and dry heaves in the ED.? She had mild epigastric and lower abdom tenderness.? Labs notable for hemoglobin of 6.4 (was 12.8 on November 01), white count 10.1, Plat 209K, PT 19/1.7, BUN/creatinine 25/0.7, bicarb 17, potassium 4.0, albumin 2.4, lactic acid 4.? Tbili 1.4, normal transamin. The patient was given a liter of IVF and PPI infusion.? The patient was seen by Dr. Hoff who booked her for EGD F/U Hb was 5.5.? The patient was admitted to ICU while the OR was readied.? On my exam, she was awake but a bit sluggish, able to easily answer any of my questions.? Heart rate was about 110, [id number] rhythm.? Blood pressure was in the 120s.? She was breathing easy with sat of 100% on oxygen 4 L nasal cannula.? Chest was clear to auscultation, with normal expiratory phase.? Heart rate and rhythm are regular, soft heart tones.? I heard no murmur or gallops.? The abdomen is obese, but benign. LABORATORY DATA:? F/U labs at 14:30:? Lactate 4.4, Hb 4.8, CVBG 7.45/28/93%/-3 IMPRESSION: 1. UGI bleed.? Ulcer vs varices vs Jael-Vallejo tear.? I note that the patient was vomiting for three day, but no mention of dark vomitus till today or yesterday.? We?re giving her PPI infusion and octreotide. 2. Hemorrhagic shock. 3. Jahova?s witness.? I spoke to her at some length and told her concretely that she could , and asked her what if she was dying and needed blood.? She told me that she had to abide by her gabriela and even if she was dying, she would not want to be given blood.? But she was willing to take blood from the Cell Saver and she was willing to be given albumin.? She told Dr. Silver (the anesthesiologist) the same thing. 4. Severe anemia.? We?ll give her IV iron, Epo, and supplemental oxygen. 5. Severe hypoalbuminemia. I put a CVL in for access, and her CVP was very low.? Lactate still positive.? Continue vol resusc with 1L crystalloid and 200 cc albumin.? We put a Locke in to monitor u/o.? Imperative to avoid blood draws as much as possible.? (We don?t have pediatric tubes here.)? Prognosis is guarded. ADDENDUM:? At EGD, found a non-obstructing Schatzki's ring at the GE junction; a Grade 2 esoph varix without recent stigmata of bleeding; a 0.5 to 0.7 cm ulcer at the GE junction - likely a lealing MW tear; a 0.6 to 0.8 mm non-bleeding ulcer in the gastric antrum without high risk stigmata for bleeding. ?Overall conclusion is that UGI bleeding was likely from a healing MW tear.? No blood or active bleeding was seen in the UGI tract during EGD. The patient was returned to the ICU clinically stable.? Next lab draw at 9pm.? Continue all the above.? Change PPI to 40mg bid. Critical care time (excluding procedures): 80 minutes. [facility] Past Medical History Medical History Cellulitis Fever Psoriasis Rigor Family History Family History Other No family history of coronary artery disease Surgical History Surgical History History of cholecystectomy Hx of breast reduction, elective Social History Social History Household Members: Family Housing: House Do you presently have visiting nurse or other home services: No Alcohol intake: never Patient Tobacco Use Status: Never used Tobacco Advance Directives Date on File: 11/01/21 service: No Current occupational status: employed Meds Allergies Allergy/AdvReac Type Severity Reaction Status Date / Time Penicillins Allergy Unknown Verified 10/31/21 19:10 Active Medications: Current Medications Acetaminophen (Acetaminophen 325 Mg Tablet) 650 mg PO ONCE ONE Stop: 03/04/22 14:01 Acetaminophen (Acetaminophen 325 Mg Tablet) 650 mg PO Q6H PRN PRN Reason: Pain, aches and/or fevers Stop: 03/06/22 22:00 Diphenhydramine HCl (Diphenhydramine Hcl 25 Mg Tablet) 50 mg PO ONCE ONE Stop: 03/04/22 14:01 Diphenhydramine HCl (Diphenhydramine Hcl 50 Mg/Ml Vial) 50 mg IVPUSH ONCE PRN PRN Reason: REACTION TO IRON DEXTRAN Hydrocortisone Sodium Succinate (Hydrocortisone Sod Succ/Pf 100 Mg Vial) 100 mg IVPUSH ONCE PRN PRN Reason: Reaction to Iron Dextran Pantoprazole Sodium 80 mg/ (Sodium Chloride) 100 mls @ 10 mls/hr IV .Q10H NAEEM Last Admin: 03/04/22 12:08 Dose: 8 mg/hr, 10 mls/hr Octreotide Acetate 500 mcg/ (Sodium Chloride) 501 mls @ 25.05 mls/hr IVCONT .Q20H NAEEM Iron Dextran 1,470 mg/ Sodium (Chloride) 529.4 mls @ 132.35 mls/hr IV ONCE ONE Stop: 03/04/22 17:59 Pharmacy Consult (Consult Rx Perform Med Rec) 1 each MISCELLANE ONCE PRN PRN Reason: Consult order Home Medications Medication Instructions Recorded Confirmed Last Taken Type guselkumab 100 mg/mL subcutaneous 100 mg subcut [id number] 10/22/21 03/04/22 01/24/22 History auto-injector (Tremfya) norethindrone (contraceptive) 0.35 1 tab PO DAILY 03/04/22 03/04/22 Unknown History mg tablet Physical Exam Vital Signs: Vital Signs: Last Vital Signs Temp 98.6 F 03/04/22 05:57 Pulse 110 H 03/04/22 14:00 Resp 109 H 03/04/22 14:00 BP 122/66 03/04/22 14:00 Pulse Ox 100 03/04/22 14:00 O2 Del Method 03/04/22 14:00 O2 Flow Rate 2 03/04/22 14:00 BMI result Body Mass Index 36.0 Results Labs CBC and Chem 7: 03/04/22 14:37 03/04/22 07:35 Labs: Laboratory Results - last 24 hr 03/04/22 03/04/22 03/04/22 07:35 07:35 07:36 MCV 74.0 L MCH 22.2 L MCHC 30.0 L RDW 17.9 H Plt Count 209 D MPV 9.9 Immature Gran % (Auto) 0.4 Neut % (Auto) 78.2 H Lymph % (Auto) 17.7 L Shannon % (Auto) 3.5 Eos % (Auto) 0.1 Baso % (Auto) 0.1 Lymph # (Auto) 1.8 Shannon # (Auto) 0.4 Eos # (Auto) 0.0 Baso # (Auto) 0.0 Abs Immat Gran (auto) 0.04 H Absolute Neuts (auto) 7.9 Absolute Nucleated RBC 0.000 Nucleated RBC % (auto) 0.0 PT INR Anion Gap 13 Estim Creat Clear Calc 93.5 Estimated GFR > 60 Random Glucose 152 H Lactic Acid Lactic Acid F/U @ 2Hr Calcium 7.5 L Total Bilirubin Direct Bilirubin AST ALT Alkaline Phosphatase Troponin I High Sens 27.9 H Total Protein Albumin Lipase 45 Urine Color Urine Appearance Urine pH Ur Specific [place] Urine Protein Urine Glucose (UA) Urine Ketones Urine Blood Urine Nitrite Ur Leukocyte Esterase Stool Occult Blood COVID-19 (NORA) COVID-19 Clin Com Influenza Type A (NARINDER) Influenza Type B (NARINDER) Influenza A & B Note Blood Type Antibody Screen 03/04/22 03/04/22 03/04/22 07:36 07:36 08:09 MCV MCH MCHC RDW Plt Count MPV Immature Gran % (Auto) Neut % (Auto) Lymph % (Auto) Shannon % (Auto) Eos % (Auto) Baso % (Auto) Lymph # (Auto) Shannon # (Auto) Eos # (Auto) Baso # (Auto) Abs Immat Gran (auto) Absolute Neuts (auto) Absolute Nucleated RBC Nucleated RBC % (auto) PT 19.2 H INR 1.7 H Anion Gap Estim Creat Clear Calc Estimated GFR Random Glucose Lactic Acid 4.0 H* Lactic Acid F/U @ 2Hr Calcium Total Bilirubin 1.4 H Direct Bilirubin 0.7 H AST 28 D ALT 16 Alkaline Phosphatase 98 D Troponin I High Sens Total Protein 5.7 L D Albumin 2.4 L D Lipase Urine Color Urine Appearance Urine pH Ur Specific [place] Urine Protein Urine Glucose (UA) Urine Ketones Urine Blood Urine Nitrite Ur Leukocyte Esterase Stool Occult Blood COVID-19 (NORA) COVID-19 Clin Com Influenza Type A (NARINDER) Influenza Type B (NARINDER) Influenza A & B Note Blood Type Antibody Screen 03/04/22 03/04/22 03/04/22 08:50 08:50 09:40 MCV MCH MCHC RDW Plt Count MPV Immature Gran % (Auto) Neut % (Auto) Lymph % (Auto) Shannon % (Auto) Eos % (Auto) Baso % (Auto) Lymph # (Auto) Shannon # (Auto) Eos # (Auto) Baso # (Auto) Abs Immat Gran (auto) Absolute Neuts (auto) Absolute Nucleated RBC Nucleated RBC % (auto) PT INR Anion Gap Estim Creat Clear Calc Estimated GFR Random Glucose Lactic Acid Lactic Acid F/U @ 2Hr Calcium Total Bilirubin Direct Bilirubin AST ALT Alkaline Phosphatase Troponin I High Sens Total Protein Albumin Lipase Urine Color Urine Appearance Urine pH Ur Specific [place] Urine Protein Urine Glucose (UA) Urine Ketones Urine Blood Urine Nitrite Ur Leukocyte Esterase Stool Occult Blood NEGATIVE COVID-19 (NORA) Negative COVID-19 Clin Com See Note Influenza Type A (NARINDER) Negative Influenza Type B (NARINDER) Negative Influenza A & B Note See Note Blood Type Antibody Screen 03/04/22 03/04/22 03/04/22 10:12 10:14 11:06 MCV 74.4 L MCH 23.1 L MCHC 31.1 RDW 17.8 H Plt Count 195 MPV 10.1 Immature Gran % (Auto) 0.6 H Neut % (Auto) 70.1 Lymph % (Auto) 22.8 Shannon % (Auto) 6.3 Eos % (Auto) 0.0 Baso % (Auto) 0.2 Lymph # (Auto) 2.6 Shannon # (Auto) 0.7 Eos # (Auto) 0.0 Baso # (Auto) 0.0 Abs Immat Gran (auto) 0.07 H Absolute Neuts (auto) 7.9 Absolute Nucleated RBC 0.000 Nucleated RBC % (auto) 0.0 PT INR Anion Gap Estim Creat Clear Calc Estimated GFR Random Glucose Lactic Acid Lactic Acid F/U @ 2Hr Calcium Total Bilirubin Direct Bilirubin AST ALT Alkaline Phosphatase Troponin I High Sens Total Protein Albumin Lipase Urine Color YELLOW Urine Appearance HAZY Urine pH 6.0 Ur Specific [place] 1.025 Urine Protein NEG Urine Glucose (UA) NEG Urine Ketones NEG Urine Blood NEG Urine Nitrite NEG Ur Leukocyte Esterase NEG Stool Occult Blood COVID-19 (NORA) COVID-19 Clin Com Influenza Type A (NARINDER) Influenza Type B (NARINDER) Influenza A & B Note Blood Type B Positive Antibody Screen NEGATIVE 03/04/22 11:57 MCV MCH MCHC RDW Plt Count MPV Immature Gran % (Auto) Neut % (Auto) Lymph % (Auto) Shannon % (Auto) Eos % (Auto) Baso % (Auto) Lymph # (Auto) Shannon # (Auto) Eos # (Auto) Baso # (Auto) Abs Immat Gran (auto) Absolute Neuts (auto) Absolute Nucleated RBC Nucleated RBC % (auto) PT INR Anion Gap Estim Creat Clear Calc Estimated GFR Random Glucose Lactic Acid Lactic Acid F/U @ 2Hr 4.2 H* Calcium Total Bilirubin Direct Bilirubin AST ALT Alkaline Phosphatase Troponin I High Sens Total Protein Albumin Lipase Urine Color Urine Appearance Urine pH Ur Specific [place] Urine Protein Urine Glucose (UA) Urine Ketones Urine Blood Urine Nitrite Ur Leukocyte Esterase Stool Occult Blood COVID-19 (NORA) COVID-19 Clin Com Influenza Type A (NARINDER) Influenza Type B (NARINDER) Influenza A & B Note Blood Type Antibody Screen Imaging Radiologist's Impressions: Impressions Chest X-Ray 03/04/22 08:35 IMPRESSION: Unremarkable examination. Critical Care Time Critical Care Time (minutes): 90
[2022-03-04] MEDS: Octreotide Acetate 500 MCG in 0.9 % Sodium Chloride 500 ML 25.05 MCG IVCONT (14:41)
--- NOTE | 2022-03-04 14:41 | P.PCNCC_ITS ---
Procedures Date of Service Date of Service: 03/04/22 Central Line Placement Left IJ: Central Line Comments: PROCEDURE:? Insertion left internal jugular triple lumen central venous catheter. INDICATION:? Hemorrhagic shock, for venous access. ANESTHESIA:? Local. PROCEDURE:? Vascular ultrasound was used to examine the left neck.? A medium sized compressible internal jugular vein was noted, superomedial to the carotid artery. The left neck was widely prepped and draped in full sterile fashion.? Local anesthesia was applied to the IJV insertion site, approached via the medial supraclavicular fossa.? Under US guidance, the IJ vein was cannulated on the 2nd pass of the 18 g thin wall needle, w return of dark, non-pulsatile blood.? The wire was threaded without incident.? The 16cm x 7 [place] triple-lumen CVC was advanced into the vein up to the 15cm nghia via the Seldinger technique without incident.? The CVP was noted to be very low, with blood sucked in through the needle during inspiration. There was good blood return x3.? The catheter was sutured x3 and a Biopatch and dry sterile dressing were applied. Postop chest x-ray showed the line in good position with no pneumothorax.? The patient tolerated the procedure well w no complications. Consent for Procedure: Elective - informed consent obtained
[2022-03-04 14:50] LABS: VBG Base Excess -3.7 mmol/L; VBG HCO3 19 mmol/L (22-26); VBG pCO2 28 mmHg; VBG pH 7.45 (7.32-7.43); VBG pO2 68 mmHg
[2022-03-04 14:53] LABS: Hemoglobin 4.8 g/dl (12.0-16.0)
[2022-03-04 15:23] LABS: Lactic Acid 4.4 mmol/L (0.5-2.0)
--- NOTE | 2022-03-04 15:30 | PM.OP ---
Brief Operative Note Date of Service: 03/04/22 Pre-op diagnosis: UGI bleeding Post-op diagnosis: other (Hiatal hernia, healing Jael-Vallejo tear, Schatzki's ring, gastric ulcer, esophageal varix) Procedure: FLEXIBLE TRANSORAL UPPER GASTROINTESTINAL ENDOSCOPY WITH BIOPSIES ? EGD was performed after making arrangements with the [place] [place] for the intraoperative blood salvage machine to be in the operating room. (commonly referred to as a cell saver ) separates, washes, and concentrates salvaged RBCs. Several steps are involved, including suctioning of shed blood from the surgical field, addition of an anticoagulant, separation and washing of RBCs (to remove the anticoagulant, free hemoglobin molecules, activated thrombogenic substances, and cellular stroma), concentration of the blood, and eventual reinfusion to the patient Consent: Indications for the procedure and potential complications of bleeding, perforation, reaction to medications and missed diagnosis were discussed with the patient and informed consent was obtained. Instrument: Olympus GIF H 190 mid size upper endoscope Monitoring: Vital signs and clinical assessment, continuous EKG monitoring, Pulse oximetry, Carbon Dioxide monitoring and blood pressure monitoring were done throughout the procedure. Procedure: The patient was placed in the left lateral decubitis position and pre-procedure medications were administered and a bite block was placed. The endoscope was inserted into the mouth and advanced under direct vision to the third part of duodenum. A careful inspection was made as the upper endoscope was withdrawn including a retroflexed examination of the proximal stomach; Findings and interventions are described below. Findings: Larynx: Normal Esophagus: GE junction at 34 cms, small hiatal hernia 34 to 37 cms. A non-obstructing Schatzki's ring at the GE junction. A Grade 2 varix without recent stigmata of bleeding from 32 to 34 cms. A 0.5 to 0.7 ulcer at the GE junction - likely a lealing MW tear. No esophagitis or Sales's. Stomach: Mild gastric erythema. A 0.6 to 0.8 mm non-bleeding ulcer in the antrum without high risk stigmata for bleeding. No biopsies were obtained since INR was 1.7 with a low H & H. No gastric varices and grade 2 flap valve on retroflexed examination of the cardia. Duodenum: Normal bulb and descending duodenum Intervention: Biopsies as noted above Impression and Post Procedure Diagnosis: Endoscopy Findings: ESOPHAGUS: A non-obstructing Schatzki's ring at the GE junction. A Grade 2 varix without recent stigmata of bleeding from 32 to 34 cms. A 0.5 to 0.7 ulcer at the GE junction - likely a lealing MW tear. STOMACH: A 0.6 to 0.8 mm non-bleeding ulcer in the antrum without high risk stigmata for bleeding. UGI bleeding likely from a healing MW tear. No blood or active bleeding seen in the UGI tract during EGD. Plan: Octreotide infusion at 50 mcg/m x 72 hrs OK to change PPI infusion to IV PPI twice daily. Check H Pylori antibody, Hep B and C serologies - order placed with with am labs. Abdominal US in the am to check for liver disease. Proceed with IV iron as planned. Patient to schedule a FU appointment in the GI Clinic with Nicholas Hoff M.D after discharge. She will be scheduled for a colonoscopy as an outpatient in 4 to 6 weeks once H& H has improved. Above findings were reviewed with the patient, her boyfriend, brother and son. Surgeon: Nicholas Hoff MD Anesthesia: MAC (Dr Silver) Was an Sales Performance Analyst used for this Procedure?: No Sales Performance Analyst: Liam Walton Estimated blood loss (mL): 0 Pathology: none sent Condition: stable Disposition: ICU
--- NOTE | 2022-03-04 15:43 | P.OP_ITS ---
Operative Note Operative Note Date of Service: 03/04/22 Narrative: Pre-op diagnosis: UGI bleeding Post-op diagnosis:?other (Hiatal hernia, healing Jael-Vallejo tear, Schatzki's ring, gastric ulcer, esophageal varix) Procedure: FLEXIBLE TRANSORAL UPPER GASTROINTESTINAL ENDOSCOPY WITH BIOPSIES ? EGD was performed after making arrangements with the [employer] [place] for the intraoperative blood salvage machine to be in the operating room. (commonly referred to as a cell saver ) separates, washes, and concentrates salvaged RBCs. Several steps are involved, including suctioning of shed blood from the surgical field, addition of an anticoagulant, separation and washing of RBCs (to remove the anticoagulant, free hemoglobin molecules, activated thrombogenic substances, and cellular stroma), concentration of the blood, and eventual reinfusion to the patient Consent:?Indications for the procedure and potential complications of bleeding, perforation, reaction to medications and missed diagnosis were discussed with the patient and informed consent was obtained. Instrument:?Olympus GIF H 190 mid size upper endoscope Monitoring: Vital signs and clinical assessment, continuous EKG monitoring, Pulse oximetry, Carbon Dioxide monitoring and blood pressure monitoring were done throughout the procedure. Procedure:?The patient was placed in the left lateral decubitis position and pre-procedure medications were administered and a bite block was placed. The endoscope was inserted into the mouth and advanced under direct vision to the third part of duodenum. A careful inspection was made as the upper endoscope was withdrawn including a retroflexed examination of the proximal stomach; Findings and interventions are described below. Findings: Larynx:? Normal Esophagus: GE junction at 34 cms, small hiatal hernia 34 to 37 cms. A non- obstructing Schatzki's ring at the GE junction.? A Grade 2 varix without recent stigmata of bleeding from 32 to 34 cms.? A 0.5 to 0.7 ulcer at the GE junction - likely a lealing MW tear.? No esophagitis or Sales's. Stomach: Mild gastric erythema. A 0.6 to 0.8 mm non-bleeding ulcer in the antrum without high risk stigmata for bleeding.? No biopsies were obtained since INR was 1.7 with a low H & H.? No gastric varices and grade 2 flap valve on retroflexed examination of the cardia. Duodenum: Normal bulb and descending duodenum Intervention: Biopsies as noted above Impression and Post Procedure Diagnosis: Endoscopy Findings: ESOPHAGUS: A non-obstructing Schatzki's ring at the GE junction.? A Grade 2 varix without recent stigmata of bleeding from 32 to 34 cms.? A 0.5 to 0.7 ulcer at the GE junction - likely a lealing MW tear. STOMACH: A 0.6 to 0.8 mm non-bleeding ulcer in the antrum without high risk stigmata for bleeding.? UGI bleeding likely from a healing MW tear.? No blood or active bleeding seen in the UGI tract during EGD. Plan: Octreotide infusion at 50 mcg/m x 72 hrs OK to change PPI infusion to IV PPI twice daily. Check H Pylori antibody, Hep B and C serologies - order placed with with am labs. Abdominal US in the am to check for liver disease. Proceed with IV iron as planned. Patient to schedule a FU appointment in the GI Clinic with Nicholas Hoff M.D after discharge.? She will be scheduled for a colonoscopy as an outpatient once H& H has improved. Above findings were reviewed with the patient, her boyfriend, brother and son. Surgeon: Nicholas Hoff MD Anesthesia:?MAC (Dr Silver) Was an Automotive Tire Testing Supervisor used for this Procedure?:?Yes Automotive Tire Testing Supervisor:?Liam Walton Estimated blood loss (mL):?0 Pathology:?none sent Condition:?stable Disposition:?ICU
[2022-03-04] MEDS: Lactated Ringers 1,000 ML 999 ML IV (16:00)
[2022-03-04] MEDS: Iron Dextran Complex 25 MG in 0.9 % Sodium Chloride 50 ML 202 MG IV (16:00)
[2022-03-04 16:03] LABS: Cancel Lactic Acid Canceled
[2022-03-04] MEDS: Lactated Ringers 1,000 ML 60 ML IVCONT (16:06)
[2022-03-04] MEDS: Acetaminophen 325 MG TABLET 650 MG PO (16:17)
[2022-03-04] MEDS: diphenhydrAMINE HCL 25 MG TABLET 50 MG PO (16:18)
[2022-03-04] MEDS: Phytonadione (Vit K1) 10 MG in 0.9 % Sodium Chloride 50 ML 51 MG IV ×2 (16:59→20:20)
[2022-03-04 18:31] LABS: Venous Blood Gas Refer to POC result
[2022-03-04 19:50] LABS: Hemoglobin 4.1 g/dl (12.0-16.0)
[2022-03-04 19:51] LABS: Hematocrit 13.7 % (37.0-47.0)
[2022-03-04 20:11] LABS: Albumin Level 2.9 g/dL (3.5-5.0); Anion Gap 12 (12-20); Blood Urea Nitrogen 31 mg/dL (9-16); Calcium 7.5 mg/dL (8.4-10.2); Carbon Dioxide 21 mmol/L (22-29); Chloride 112 mmol/L (96-108); Creatinine Clr Calc Pharmacy 87.8; Estimated Glomerular Filt Rate > 60; Glucose Random 127 mg/dL (60-115); Magnesium 1.6 mg/dL (1.6-2.6); Phosphorus 3.3 mg/dL (2.7-4.5); Potassium 4.1 mmol/L (3.3-5.1); Sodium 141 mmol/L (135-145)
[2022-03-04 20:19] LABS: Lactic Acid 3.4 mmol/L (0.5-2.0)
--- NOTE | 2022-03-04 20:22 | P.DS_ITS ---
DS: Providers Provider Date of Service: 03/04/22 Date of admission: 03/04/22 12:29 Date of discharge: 03/04/22 Primary care physician: Unknown Physician Admitting clinician: Jaciel Brown Attending physician on admission: Jaciel Brown Consults: 03/04/22 11:37 Consult to Critical Care Stat Consulting Provider: Jaciel Brown Reason for consultation: UGI bleed in Jahova's witness Has provider been notified: Yes Dr. Luis Eduardo Peterson ( OBSTETRICS GYNECOLOGY PHYSICIAN) Attending physician on discharge: Jaciel Brown Discharging clinician: Nader Corbett DS: Transfer Hospital Acceptance Reason for Transfer: Hemorrhagic shock, upper GI bleed patient is a Mormon, refusing transfusion in need of services such as interventional radiology embolization and Cell Saver autologous blood transfusion not available at out facility Name of Facility: [address] Accepting Provider: Dr. Pettit ( Material Handling Warehouse Supervisor ) DS: Diagnosis Discharge Diagnosis (1) Acute gastrointestinal bleeding: Status: Acute DS: Summary Hospital Course Hospital Course: ADMISSION/DISCHARGE DIAGNOSIS 1.??? HEMORRHAGIC SHOCK DUE TO UPPER GI BLEED LIKELY FROM HEALING MARISA-ANDREWS TEAR 2.??? GASTRIC ULCER AND GRADE 2 ESOPHAGEAL VARIX WITHOUT STIGMATA OF BLEEDING 3.??? QUAKER 4.??? SEVERE ANEMIA DUE ACUTE BLOOD LOSS 5.??? SEVERE HYPOALBUMINEMIA 6.??? REACTIVE TACHYCARDIA 7.??? LACTIC ACIDOSIS DUE TO HYPOPERFUSION 8.??? REACTIVE LEUKOCYTOSIS WITHOUT EVIDENCE OF INFECTION 9.??? HYPERCOAGULABLE STATE WITH INR 1.7 STATUS POST VITAMIN K (NOT ON ANTICOAGULATION THERAPY) BUT TAKING NSAIDS Comorbidities and past medical history: Psoriasis Cellulitis Cholecystectomy Elective breast reduction surgery Vital signs at discharge BP 107/55, heart rate 109, respirations 22, O2 sat 99% on 2L HPI/HOSPITAL COURSE: Mrs. Canela was admitted to the ICU with hemorrhagic shock and severe anemia 2? UGI bleed. The patient is a 56 yo F with PMHx of obesity, psoriasis (on Guelkumab 100 mg every 8 weeks).? She is a Mormon.She was BIBA to the ED this morning b/o nausea, vomiting, abdominal discomfort since Saturday. ?Since yesterday morning, had 5-6 episodes of dark emesis, followed by upper abdominal discomfort.? Last night she was finally able to hold down some sips of lisa yesenia, but has had continued intermittent vomiting.? Stool has been dark in color.? She reports she has had several episodes of feeling lightheaded and dizzy with loss of consciousness while she has been in the bathroom. ?Her boyfriend found her passed out in the bathroom and called EMS.? She had 2 episodes of coffee ground emesis today (one enroute to the hospital). ?The patient also reported subjective fevers and chills since Saturday. The Patient is not on any anticoagulation.? No aspirin use.? She admits to taking Aleve last 2-3 days when she had a fever.? Pt gives a remote hx of PUD and denies history of GI bleed. In the ED she was lethargic, HR was 107, BP 134/76.? She was breathing easy with sat of 99% on room air.? Temperature was 98.6 degrees.? She had some nausea and dry heaves in the ED.? She had mild epigastric and lower abdom tenderness.? Labs notable for hemoglobin of 6.4 (was 12.8 on November 01), white count 10.1, Plat 209K, PT 19/1.7, BUN/creatinine 25/0.7, bicarb 17, potassium 4.0, albumin 2.4, lactic acid 4.? Tbili 1.4, normal transamin. The patient was given a liter of IVF and PPI infusion.? The patient was seen by Dr. Hoff who booked her for EGD F/U Hb was 5.5.? The patient was admitted to ICU while the OR was readied.? On initial exam, she was awake but a bit sluggish, able to easily answer any of my questions.? Heart rate was about 110, [id number] rhythm.? Blood pressure was in the 120s.? She was breathing easy with sat of 100% on oxygen 4 L nasal cannula.? Chest was clear to auscultation, with normal expiratory phase.? Heart rate and rhythm are regular, soft heart tones.? I heard no murmur or gallops.? The abdomen is obese, but benign. At 19:00 I received a sign-out from Dr. Brown and during rounds, as I walked close to her room there was that distinct smell of a bloody stooling, nursing personnel was alerted, the patient was noted to be diaphoretic, pale, tachycardic with heart rate of 120, tachypneic with respiratory rate of 28 for the 1st time became hypotensive with blood pressure of 97/42. ?Nursing personnel reports maroon/black large amount of a stooling on the bed. ?By now, the patient had received 200 mL of albumin, Epogen, IV iron, octreotide drip and IV ppi.? Spoke to patient in Mongolian in she reiterated to stick to gabriela and believes therefore no transfusion will be administer under any circumstance unless this is autologous blood, she had agreed however to receive albumin. Patient received 2 g of IV ceftriaxone x1. The patient will be volume resuscitated as needed, the case was discussed with Dr. Brown who also discussed the case with our family medicine resident Dr. Luis Eduardo Peterson; both advised that the patient with continue with ICU supportive care until we were able to transfer the patient as was possible to another hospital where interventional radiology services may be available perhaps for embolization as well as on the spot Cell Saver blood administration; or TIPS procedure capability; neither of these services are available in our facility at this point. Stat H&H done now it is 4.1 and 13.7 respectively down from this morning on admission 6.4 and 21.3 and from her baseline 4 months ago of 14.7 and 42.7 respectively. After discussing the case in looking for placement at 5 different facilities, the patient has been kindly accepted at the [facility] in [place] by the farm facility manager Dr. Pettit, patient will be transported via ALS if this is not possible we might have to fly her, unfortunately given her refusal for blood products the only thing we might be able to use for hemodynamic stability is crystalloids as well as albumin, vasopressors (this last have not been required yet). Upper GI INTRAOPERATIVE FINDINGS Esophagus: GE junction at 34 cms, small hiatal hernia 34 to 37 cms. A non- obstructing Schatzki's ring at the GE junction.? A Grade 2 varix without recent stigmata of bleeding from 32 to 34 cms.? A 0.5 to 0.7 ulcer at the GE junction - likely a lealing MW tear.? No esophagitis or Sales's. Stomach: Mild gastric erythema. A 0.6 to 0.8 mm non-bleeding ulcer in the antrum without high risk stigmata for bleeding.? No biopsies were obtained since INR was 1.7 with a low H & H.? No gastric varices and grade 2 flap valve on retroflexed examination of the cardia. Duodenum: Normal bulb and descending duodenum Intervention: Biopsies as noted above Impression and Post Procedure Diagnosis: Endoscopy Findings: ESOPHAGUS: A non-obstructing Schatzki's ring at the GE junction.? A Grade 2 varix without recent stigmata of bleeding from 32 to 34 cms.? A 0.5 to 0.7 ulcer at the GE junction - likely a lealing MW tear. STOMACH: A 0.6 to 0.8 mm non-bleeding ulcer in the antrum without high risk stigmata for bleeding.? UGI bleeding likely from a healing MW tear.? No blood or active bleeding seen in the UGI tract during EGD. ?CXR IMPRESSION: Unremarkable examination. ? REPEAT CXR POST CENTRAL LINE FINDINGS: Left IJ triple-lumen catheter has its tip in the SVC. No pneumothorax is seen. Exam is otherwise unremarkable. No infiltrates, effusions or lung masses. Triple-lumen catheter with tip in SVC. CT ABDOMEN AND PELVIS WITHOUT CONTRAST IMPRESSION: 1. Stomach is distended, with heterogeneous density of the contents of the stomach, which could represent complex contents, with hemorrhagic/blood products as part of the contents are not excluded. Evaluation is limited in this noncontrast study. Gastric ulcers/lesions cannot be excluded. Further evaluation with follow-up CT with contrast, endoscopy, upper GI series as clinically warranted. 2. Nodular contour of the liver suggesting cirrhosis. Further evaluation with MRI as clinically warranted. 3. Status postcholecystectomy. 4. Sigmoid diverticulosis without diverticulitis. 5. Slightly bulky uterus, with nodular contour raising the possibility of lesions. This can be further evaluated with pelvic ultrasound.? Time Spent with Patient Time attestation: Total time spent providing and/or coordinating discharge services: Discharge coordination time: Greater than 30 minutes Quality: Safe Use of Opioids Does Pt have an Active Cancer Diagnosis on the Problem List?: No Quality: Stroke Does the patient have a stroke diagnosis?: No Physical Exam Vital Signs: Vital Signs: Last Vital Signs Temp 99.7 F 03/04/22 20:00 Pulse 109 H 03/04/22 20:00 Resp 26 H 03/04/22 20:00 BP 123/55 L 03/04/22 20:00 Pulse Ox 98 03/04/22 20:00 O2 Del Method 03/04/22 20:00 O2 Flow Rate 4 03/04/22 20:00 BMI result Body Mass Index 36.0 DS: Data Data Completed and Pending Completed studies during hospitalization [Text1]: Procedures Insertion of Infusion Device into Superior Vena Cava, Percutaneous Approach (10/31/21) Labs on day of discharge: Laboratory Results - last 24 hr 03/04/22 03/04/22 03/04/22 07:35 07:35 07:36 WBC 10.1 RBC 2.88 L D Hgb 6.4 L* D Hct 21.3 L D MCV 74.0 L MCH 22.2 L MCHC 30.0 L RDW 17.9 H Plt Count 209 D MPV 9.9 Immature Gran % (Auto) 0.4 Neut % (Auto) 78.2 H Lymph % (Auto) 17.7 L Sandoval % (Auto) 3.5 Eos % (Auto) 0.1 Baso % (Auto) 0.1 Lymph # (Auto) 1.8 Sandoval # (Auto) 0.4 Eos # (Auto) 0.0 Baso # (Auto) 0.0 Abs Immat Gran (auto) 0.04 H Absolute Neuts (auto) 7.9 Absolute Nucleated RBC 0.000 Nucleated RBC % (auto) 0.0 PT INR VBG pH VBG pCO2 VBG pO2 VBG HCO3 VBG O2 Saturation VBG Base Excess Sodium 139 Potassium 4.0 Chloride 113 H Carbon Dioxide 17 L Anion Gap 13 BUN 25 H D Creatinine 0.77 Estim Creat Clear Calc 93.5 Estimated GFR > 60 Random Glucose 152 H Lactic Acid Lactic Acid F/U @ 2Hr Calcium 7.5 L Phosphorus Magnesium Total Bilirubin Direct Bilirubin AST ALT Alkaline Phosphatase Troponin I High Sens 27.9 H Total Protein Albumin Lipase 45 Urine Color Urine Appearance Urine pH Ur Specific [place] Urine Protein Urine Glucose (UA) Urine Ketones Urine Blood Urine Nitrite Ur Leukocyte Esterase Stool Occult Blood COVID-19 (NORA) COVID-19 Clin Com Influenza Type A (NARINDER) Influenza Type B (NARINDER) Influenza A & B Note Blood Type Antibody Screen 03/04/22 03/04/22 03/04/22 07:36 07:36 08:09 WBC RBC Hgb Hct MCV MCH MCHC RDW Plt Count MPV Immature Gran % (Auto) Neut % (Auto) Lymph % (Auto) Sandoval % (Auto) Eos % (Auto) Baso % (Auto) Lymph # (Auto) [place] # (Auto) Eos # (Auto) Baso # (Auto) Abs Immat Gran (auto) Absolute Neuts (auto) Absolute Nucleated RBC Nucleated RBC % (auto) PT 19.2 H INR 1.7 H VBG pH VBG pCO2 VBG pO2 VBG HCO3 VBG O2 Saturation VBG Base Excess Sodium Potassium Chloride Carbon Dioxide Anion Gap BUN Creatinine Estim Creat Clear Calc Estimated GFR Random Glucose Lactic Acid 4.0 H* Lactic Acid F/U @ 2Hr Calcium Phosphorus Magnesium Total Bilirubin 1.4 H Direct Bilirubin 0.7 H AST 28 D ALT 16 Alkaline Phosphatase 98 D Troponin I High Sens Total Protein 5.7 L D Albumin 2.4 L D Lipase Urine Color Urine Appearance Urine pH Ur Specific [place] Urine Protein Urine Glucose (UA) Urine Ketones Urine Blood Urine Nitrite Ur Leukocyte Esterase Stool Occult Blood COVID-19 (NORA) COVID-19 Clin Com Influenza Type A (NARINDER) Influenza Type B (NARINDER) Influenza A & B Note Blood Type Antibody Screen 03/04/22 03/04/22 03/04/22 08:50 08:50 09:40 WBC RBC Hgb Hct MCV MCH MCHC RDW Plt Count MPV Immature Gran % (Auto) Neut % (Auto) Lymph % (Auto) Sandoval % (Auto) Eos % (Auto) Baso % (Auto) Lymph # (Auto) [place] # (Auto) Eos # (Auto) Baso # (Auto) Abs Immat Gran (auto) Absolute Neuts (auto) Absolute Nucleated RBC Nucleated RBC % (auto) PT INR VBG pH VBG pCO2 VBG pO2 VBG HCO3 VBG O2 Saturation VBG Base Excess Sodium Potassium Chloride Carbon Dioxide Anion Gap BUN Creatinine Estim Creat Clear Calc Estimated GFR Random Glucose Lactic Acid Lactic Acid F/U @ 2Hr Calcium Phosphorus Magnesium Total Bilirubin Direct Bilirubin AST ALT Alkaline Phosphatase Troponin I High Sens Total Protein Albumin Lipase Urine Color Urine Appearance Urine pH Ur Specific [place] Urine Protein Urine Glucose (UA) Urine Ketones Urine Blood Urine Nitrite Ur Leukocyte Esterase Stool Occult Blood NEGATIVE COVID-19 (NORA) Negative COVID-19 Clin Com See Note Influenza Type A (NARINDER) Negative Influenza Type B (NARINDER) Negative Influenza A & B Note See Note Blood Type Antibody Screen 03/04/22 03/04/22 03/04/22 10:12 10:14 11:06 WBC 11.2 H RBC 2.38 L Hgb 5.5 L* Hct 17.7 L* MCV 74.4 L MCH 23.1 L MCHC 31.1 RDW 17.8 H Plt Count 195 MPV 10.1 Immature Gran % (Auto) 0.6 H Neut % (Auto) 70.1 Lymph % (Auto) 22.8 Sandoval % (Auto) 6.3 Eos % (Auto) 0.0 Baso % (Auto) 0.2 Lymph # (Auto) 2.6 Sand[place] # (Auto) 0.7 Eos # (Auto) 0.0 Baso # (Auto) 0.0 Abs Immat Gran (auto) 0.07 H Absolute Neuts (auto) 7.9 Absolute Nucleated RBC 0.000 Nucleated RBC % (auto) 0.0 PT INR VBG pH VBG pCO2 VBG pO2 VBG HCO3 VBG O2 Saturation VBG Base Excess Sodium Potassium Chloride Carbon Dioxide Anion Gap BUN Creatinine Estim Creat Clear Calc Estimated GFR Random Glucose Lactic Acid Lactic Acid F/U @ 2Hr Calcium Phosphorus Magnesium Total Bilirubin Direct Bilirubin AST ALT Alkaline Phosphatase Troponin I High Sens Total Protein Albumin Lipase Urine Color YELLOW Urine Appearance HAZY Urine pH 6.0 Ur Specific [place] 1.025 Urine Protein NEG Urine Glucose (UA) NEG Urine Ketones NEG Urine Blood NEG Urine Nitrite NEG Ur Leukocyte Esterase NEG Stool Occult Blood COVID-19 (NORA) COVID-19 Clin Com Influenza Type A (NARINDER) Influenza Type B (NARINDER) Influenza A & B Note Blood Type B Positive Antibody Screen NEGATIVE 03/04/22 03/04/22 03/04/22 11:57 14:37 14:37 WBC RBC Hgb 4.8 L* Hct 16.0 L* MCV MCH MCHC RDW Plt Count MPV Immature Gran % (Auto) Neut % (Auto) Lymph % (Auto) Sand[place] % (Auto) Eos % (Auto) Baso % (Auto) Lymph # (Auto) [place] # (Auto) Eos # (Auto) Baso # (Auto) Abs Immat Gran (auto) Absolute Neuts (auto) Absolute Nucleated RBC Nucleated RBC % (auto) PT INR VBG pH VBG pCO2 VBG pO2 VBG HCO3 VBG O2 Saturation VBG Base Excess Sodium Potassium Chloride Carbon Dioxide Anion Gap BUN Creatinine Estim Creat Clear Calc Estimated GFR Random Glucose Lactic Acid 4.4 H* Lactic Acid F/U @ 2Hr 4.2 H* Calcium Phosphorus Magnesium Total Bilirubin Direct Bilirubin AST ALT Alkaline Phosphatase Troponin I High Sens Total Protein Albumin Lipase Urine Color Urine Appearance Urine pH Ur Specific [place] Urine Protein Urine Glucose (UA) Urine Ketones Urine Blood Urine Nitrite Ur Leukocyte Esterase Stool Occult Blood COVID-19 (NORA) COVID-19 Clin Com Influenza Type A (NARINDER) Influenza Type B (NARINDER) Influenza A & B Note Blood Type Antibody Screen 03/04/22 03/04/22 03/04/22 14:45 19:36 19:36 WBC RBC Hgb 4.1 L* Hct 13.7 L* MCV MCH MCHC RDW Plt Count MPV Immature Gran % (Auto) Neut % (Auto) Lymph % (Auto) Sand[place] % (Auto) Eos % (Auto) Baso % (Auto) Lymph # (Auto) [place] # (Auto) Eos # (Auto) Baso # (Auto) Abs Immat Gran (auto) Absolute Neuts (auto) Absolute Nucleated RBC Nucleated RBC % (auto) PT INR VBG pH 7.45 H VBG pCO2 28 VBG pO2 68 VBG HCO3 19 L VBG O2 Saturation 93.0 VBG Base Excess -3.7 Sodium 141 Potassium 4.1 Chloride 112 H Carbon Dioxide 21 L Anion Gap 12 BUN 31 H Creatinine 0.82 Estim Creat Clear Calc 87.8 Estimated GFR > 60 Random Glucose 127 H Lactic Acid Lactic Acid F/U @ 2Hr Calcium 7.5 L Phosphorus 3.3 Magnesium 1.6 Total Bilirubin Direct Bilirubin AST ALT Alkaline Phosphatase Troponin I High Sens Total Protein Albumin 2.9 L D Lipase Urine Color Urine Appearance Urine pH Ur Specific [place] Urine Protein Urine Glucose (UA) Urine Ketones Urine Blood Urine Nitrite Ur Leukocyte Esterase Stool Occult Blood COVID-19 (NORA) COVID-19 Clin Com Influenza Type A (NARINDER) Influenza Type B (NARINDER) Influenza A & B Note Blood Type Antibody Screen 03/04/22 19:36 WBC RBC Hgb Hct MCV MCH MCHC RDW Plt Count MPV Immature Gran % (Auto) Neut % (Auto) Lymph % (Auto) [place] % (Auto) Eos % (Auto) Baso % (Auto) Lymph # (Auto) [place] # (Auto) Eos # (Auto) Baso # (Auto) Abs Immat Gran (auto) Absolute Neuts (auto) Absolute Nucleated RBC Nucleated RBC % (auto) PT INR VBG pH VBG pCO2 VBG pO2 VBG HCO3 VBG O2 Saturation VBG Base Excess Sodium Potassium Chloride Carbon Dioxide Anion Gap BUN Creatinine Estim Creat Clear Calc Estimated GFR Random Glucose Lactic Acid 3.4 H* Lactic Acid F/U @ 2Hr Calcium Phosphorus Magnesium Total Bilirubin Direct Bilirubin AST ALT Alkaline Phosphatase Troponin I High Sens Total Protein Albumin Lipase Urine Color Urine Appearance Urine pH Ur Specific [place] Urine Protein Urine Glucose (UA) Urine Ketones Urine Blood Urine Nitrite Ur Leukocyte Esterase Stool Occult Blood COVID-19 (NORA) COVID-19 Clin Com Influenza Type A (NARINDER) Influenza Type B (NARINDER) Influenza A & B Note Blood Type Antibody Screen Discharge Plan Discharge Patient Disposition: Xfer Acute Care Hospital Discharge Diagnosis: HEMORRHAGIC SHOCK UPPER GI BLEED Referrals: Physician,Francie J [Primary Care Provider] - 1 Week Discharge Medications: Discontinued norethindrone (contraceptive) 0.35 mg tablet 1 tab PO DAILY Tremfya 100 mg/mL auto-injector 100 mg subcut [id number] Rx Instructions: 1 dose every 8 weeks (PT IS OVERDUE TODAY 10/31/21) Discharge Orders: Discharge Order (Routine); Ordered 03/04/22 Ordered By: Nader Corbett Activity on Discharge: 30 degrees Stand Alone Forms: Patient Portal Discharge page Care Plan Goals: To tertiary facility Health Concerns: Uncontrollable bleeding hemorrhagic shock Plan of Treatment: Patient will be transferred to the ICU at the [facility] Assessment: As above Discharge Date/Time: 03/04/22 23:00
[2022-03-04] MEDS: cefTRIAXone sodium 2 GM in 0.9 % Sodium Chloride 50 ML IV (21:38)
[2022-03-04 21:41] LABS: Reflex Lactate? Lactic Acid Added
[2022-03-04 22:21] LABS: Hematocrit 12.9 % (37.0-47.0); Hemoglobin 3.9 g/dl (12.0-16.0)
[2022-03-04 23:14] LABS: Cancel Lactic Acid Canceled
--- NOTE | 2022-03-04 23:53 | PC.NURSE ---
Assumed care at 12:00. Patient was alert, fatigued, oriented x4. initially with dry heaving, reglan 10 mg IV x1, then zofran 4 mg IV x1 with good effect, no further nausea or vomiting, but patient did report anxiety about car/air sickness when eventually being due for transfer by life-flight, and was given another dose of IV zofran about 22:40. Patient had TLC placed by MD in afternoon, and then went to the OR for upper endoscopy under MAC, where no active bleeding was found, but a nerissa wharton tear was found along with an esophageal varix and a Schatzki's ring. Patient returned from OR with plan for possible outpatient colonoscopy, but was found to then have recurring dark tarry stools of blackberry jam-like texture x 4 one large and 3 small BMs. Patient was initially kept on clear liquids after surgery but then was kept NPO. Patient with relatively stable vital signs, afebrile, BP was mostly in 110's systolically and had 2 -3 lower values that appeared to be positional, PA aware; Sinus tachycardia in 110's. 100% on 4 LPM, was maintained on 4 LPM per MD and then lowered to 2 LPM per PA. Patient treated as per emar with protonix gtt, octeotride bolus with gtt followed, Iron dextran with protocolized benedryl and tylenol, vitamin K x 2 doses of 10 mg, also had an LR bolus followed by LR continuous at 60 cc per hour. Some vague chills and upper back cramping associated with IV iron, which resolved with tylenol and bendryl. 14 Fr rudd placed. Patient is Adventism and declined blood transfusions, but will accept cell-saver machine infusion of her own blood. Patient is transferred to [facility] via life-flight. Report given to EMS as well as to nurse at ICU at [facility].
== END 2022-03-04 23:00 | disposition short-term general hospital (02) | DRG 368 ==
LOC: HO.ED 10:39 → HO.EDOVER 12:49 → HO.ICU 13:40
PROVIDERS: Internal Medicine Gastroenterology; Nurse Practitioner Family; Physician Assistant Medical; Admitting Provider Anesthesiology; Emergency Provider Emergency Medicine Emergency Medical Services; Visit Provider Anesthesiology
DX: K22.6 Gastro-esophageal laceration-hemorrhage syndrome (principal); R57.8 Other shock; D62 Acute posthemorrhagic anemia; D68.59 Other primary thrombophilia; K25.4 Chronic or unspecified gastric ulcer with hemorrhage; I85.01 Esophageal varices with bleeding; L40.9 Psoriasis, unspecified; E88.09 Other disorders of plasma-protein metabolism, not elsewhere classified; D72.829 Elevated white blood cell count, unspecified; R00.0 Tachycardia, unspecified; E86.0 Dehydration; Z20.822 Contact with and (suspected) exposure to COVID-19; Z88.0 Allergy status to penicillin; Z79.3 Long term (current) use of hormonal contraceptives; E66.9 Obesity, unspecified; K44.9 Diaphragmatic hernia without obstruction or gangrene; K22.2 Esophageal obstruction; Z79.899 Other long term (current) drug therapy
CPT/HCPCS: 36415; 71045; 74176; 80048; 80076; 81003; 82040; 82272; 82803; 83605; 83690; 83735; 84100; 84484; 85014; 85018; 85025; 85610; 86850; 86900; 86901; 87040; 87502; 87635; 93005; 96361; 96365; 96375; 99284; 99285; C1758; J0696; J0885; J1200; J1750; J1885; J2354; J2405; J2765; J3010; J3430; P9047; Q0163

== ENCOUNTER 2022-09-03 18:54 | Observation (INO) | payer MEDICAID, SELFPAY ==
--- NOTE | ~2022-09-03 | IR_ITS ---
PROCEDURE: IR INSERTION OF PICC CLINICAL INFORMATION: Long-term IV antibiotic requirement. COMPARISON: None. TECHNIQUE: Procedure and risks and benefits including bleeding, infection and blood clot were discussed with the patient and informed consent was obtained. All elements of maximal sterile barrier technique followed including use of cap, mask, sterile gown, sterile gloves, a sterile full body drape and hand hygiene. Also followed skin preparation with 2% chlorhexidine for cutaneous antisepsis. The left upper arm and existing midline catheter were prepped and draped in the usual sterile fashion. The skin and soft tissues were anesthetized with 1% lidocaine plain. An 018 wire was advanced through the existing midline into the SVC. Catheter was exchanged for a peel-away sheath. A 4 [place] single lumen PICC line was advanced over the 018 wire. Catheter tip is in the SVC. Catheter length is 45 cm. Fluoroscopy time 0.4 minutes. DAP 58 cGy.cm2 One saved fluoroscopic image. FINDINGS: There is a left upper extremity PICC line with tip projecting over the SVC. IR/IR cvc insert peripheral IMPRESSION: Left upper extremity 4.5 [place] single lumen PICC line placement.
[2022-09-03 18:58] VITALS: BP 145/81; PULSE 74; RESP 18; TEMP 36.8; O2SAT 97; BMI 34.9
--- NOTE | 2022-09-03 19:00 | ED.GENADULT ---
HPI - General Adult General Chief complaint: General Medical Stated complaint: Cellulitis? Time Seen by Provider: 09/03/22 20:58 Related Data Home Medications Medication Instructions Recorded Confirmed folic acid 1 mg tablet 1 tab PO DAILY 09/03/22 09/03/22 nadolol 20 mg tablet 1 tab PO BEDTIME 09/03/22 09/03/22 pantoprazole 40 mg tablet,delayed 1 tab PO BID 09/03/22 09/03/22 release triamcinolone acetonide 0.025 % 1 appl topical DIRECTED PRN 09/03/22 09/03/22 topical ointment Itching diphenhydramine HCl 25 mg capsule 25 mg PO BEDTIME PRN 09/14/22 (Benadryl) Previous Rx's Medication Instructions Recorded vancomycin 1.75 gram/250 mL in 0.9 1.75 g (250 mL) IV Q12H #3,000 mL 09/07/22 % sodium chloride intravenous soln Allergies Allergy/AdvReac Type Severity Reaction Status Date / Time Penicillins AdvReac Intermediate Unknown Verified 03/04/22 21:15 [facility] Past Medical History Medical History Cellulitis Fever Psoriasis Rigor Surgical History History of cholecystectomy Hx of breast reduction, elective Family History Family History Other No family history of coronary artery disease Social History Social History Household Members: Family Housing: Apartment Do you presently have visiting nurse or other home services: No Alcohol intake: never Patient Tobacco Use Status: Never used Tobacco Substance Use Type: Sedatives Advance Directives Date on File: 11/01/21 service: No Current occupational status: employed Physical Exam ED Vital Signs: BMI result Body Mass Index 34.9 Course Course Course Narrative: RmE: patient presents to the ED for abdominal wall redness and pain. patient states pmh of abdominal wall cellulitis. Labs ordered. Patient is not toxic appearing. Medications Administered Discontinued Medications Generic Name Dose Route Start Last Admin Trade Name Freq PRN Reason Stop Dose Admin Heparin Sodium (Porcine) 50 0 units 09/07/22 10:45 12/30/22 11:19 units/ Sodium Chloride 5 ml IVFLUSH 50 unit TID NAEEM Administration Diphenhydramine HCl 25 mg 09/04/22 01:29 09/04/22 01:33 Diphenhydramine Hcl 25 Mg Capsule PO 09/04/22 01:30 25 mg ONCE ONE Administration Diphenhydramine HCl 25 mg 09/04/22 11:43 09/04/22 12:17 Diphenhydramine Hcl 25 Mg Capsule PO 09/04/22 11:44 25 mg ONCE ONE Administration Diphenhydramine HCl 25 mg 09/04/22 22:38 09/04/22 23:23 Diphenhydramine Hcl 50 Mg/Ml Vial IVPUSH 09/04/22 22:39 25 mg ONCE ONE Administration Diphenhydramine HCl 25 mg 09/05/22 11:50 09/07/22 13:03 Diphenhydramine Hcl 50 Mg/Ml Vial IVPUSH 25 mg Q6H PRN Administration Itching Folic Acid 1 mg 09/04/22 09:15 09/07/22 08:43 Folic Acid 1 Mg Tablet PO 1 mg DAILY NAEEM Administration Doxycycline Hyclate 100 mg/ 250 mls @ 166.67 mls/hr 09/03/22 21:26 09/04/22 00:02 Sodium Chloride IV 09/03/22 22:55 Infused ONCE ONE Infusion Vancomycin HCl 2,000 mg in 520 mls @ 260 mls/hr 09/03/22 21:26 09/04/22 11:42 Vancomycin/Ns IV 09/03/22 23:25 Infused ONCE ONE Infusion Sodium Chloride 1,000 mls @ 999 mls/hr 09/03/22 21:28 09/03/22 23:12 Ns IVCONT 09/03/22 22:28 Infused .Q1H1M ONE Infusion Vancomycin HCl 1,000 mg/ 270 mls @ 270 mls/hr 09/04/22 12:00 09/05/22 00:38 Sodium Chloride IV Infused Q12H NAEEM Infusion Vancomycin HCl 1,250 mg/ 250 mls @ 166.667 mls/hr 09/05/22 12:00 09/06/22 12:59 Sodium Chloride IV Not Given Q12H NAEEM Vancomycin HCl 1,000 mg/ 270 mls @ 270 mls/hr 09/06/22 13:00 09/07/22 06:06 Sodium Chloride IV Infused Q8H NAEEM Infusion Vancomycin HCl 1,250 mg/ 250 mls @ 166.667 mls/hr 09/07/22 13:00 09/07/22 14:41 Sodium Chloride IV Infused Q8H NAEEM Infusion Nadolol 20 mg 09/04/22 21:00 09/06/22 20:47 Nadolol 20 Mg Tablet PO 20 mg BEDTIME NAEEM Administration Protocol Omeprazole 20 mg 09/04/22 09:15 09/07/22 04:45 Omeprazole 20 Mg Capsule.Dr PO 20 mg BID@0630,1630 NAEEM Administration Sodium Chloride 3 ml 09/04/22 00:00 09/07/22 08:43 0.9 % Sodium Chloride Flush 3 Ml Syringe IVFLUSH 3 ml QSHIFT NAEEM Administration Trazodone HCl 50 mg 09/07/22 01:22 09/07/22 01:36 Trazodone Hcl 50 Mg Tablet PO 09/07/22 01:23 50 mg ONCE ONE Administration Medical Decision Making Lab Data 09/04/22 05:57 09/07/22 05:25 Labs: Lab Results 09/03/22 09/03/22 09/03/22 Range/Units 19:41 19:41 19:41 WBC 7.7 (4.8-10.8) X10*3/uL RBC 4.63 D (4.20-5.50) X10*6/uL Hgb 14.6 D (12.0-16.0) g/dl Hct 41.2 D (37.0-47.0) % MCV 89.0 (80.0-98.0) fL MCH 31.5 (27.0-33.0) pg MCHC 35.4 H (31.0-35.0) g/dl RDW 14.1 (11.0-16.0) % Plt Count 98 L D (160-400) X10*3/uL MPV 9.8 (9.4-12.3) fL Immature Gran % (Auto) 0.3 (0.0-0.4) % Neut % (Auto) 72.4 (45-73) % Lymph % (Auto) 17.6 L (20-40) % [place] % (Auto) 8.4 (2-11) % Eos % (Auto) 1.0 (0-4) % Baso % (Auto) 0.3 (0-2) % Lymph # (Auto) 1.4 (1.2-4.9) X10*3/uL [place] # (Auto) 0.6 (0.1-1.2) X10*3/uL Eos # (Auto) 0.1 (0.0-0.4) X10*3/uL Baso # (Auto) 0.0 (0.0-0.2) X10*3/uL Abs Immat Gran (auto) 0.02 (0.00-0.03) X10*3/uL Absolute Neuts (auto) 5.6 (2.0-8.3) x10*3/uL Absolute Nucleated RBC 0.000 (0.0-0.012) X10*3/uL Nucleated RBC % (auto) 0.0 (0.0-0.2) /100WBC Smear Tech's Comments VERIFIED ESR 19 (0-20) MM/HR Sodium 137 (135-145) mmol/L Potassium 3.4 (3.3-5.1) mmol/L Chloride 109 H (96-108) mmol/L Carbon Dioxide 21 L (22-29) mmol/L Anion Gap 10 L (12-20) BUN 8 L D (9-16) mg/dL Creatinine 0.67 (0.5-1.4) mg/dL Estim Creat Clear Calc 109.5 Estimated GFR > 60 Random Glucose 98 (60-115) mg/dL Lactic Acid (0.5-2.0) mmol/L Calcium 8.5 D (8.4-10.2) mg/dL Total Bilirubin 4.2 H (0.0-1.0) mg/dL AST 52 H (5-31) U/L ALT 31 (0-31) U/L Alkaline Phosphatase 211 H D (39-117) U/L C-Reactive Protein 1.87 H (< or = 0.50) mg/dL Total Protein 7.1 D (6.5-8.0) g/dL Albumin 3.0 L (3.5-5.0) g/dL Urine Color Urine Appearance Urine pH (5.0-9.0) Ur Specific [place] (1.005-1.025) Urine Protein (Neg-Trace) mg/dL Urine Glucose (UA) (Negative) mg/dL Urine Ketones (Negative) mg/dL Urine Blood (Negative) Urine Nitrite (Negative) Ur Leukocyte Esterase (Negative) Urine RBC (0-2) /HPF Urine WBC (0-5) /HPF Ur Squamous Epith Cells (0-2) /HPF Urine Bacteria (None Seen) Hyaline Casts (0-2) /LPF Influenza Type A (PCR) (Negative) Influenza Type B (PCR) (Negative) RSV RNA Qual (PCR) (Negative) SARS-CoV-2 RNA (RT-PCR) (Negative) 09/03/22 09/03/22 09/03/22 Range/Units 19:42 19:42 19:51 WBC (4.8-10.8) X10*3/uL RBC (4.20-5.50) X10*6/uL Hgb (12.0-16.0) g/dl Hct (37.0-47.0) % MCV (80.0-98.0) fL MCH (27.0-33.0) pg MCHC (31.0-35.0) g/dl RDW (11.0-16.0) % Plt Count (160-400) X10*3/uL MPV (9.4-12.3) fL Immature Gran % (Auto) (0.0-0.4) % Neut % (Auto) (45-73) % Lymph % (Auto) (20-40) % [place] % (Auto) (2-11) % Eos % (Auto) (0-4) % Baso % (Auto) (0-2) % Lymph # (Auto) (1.2-4.9) X10*3/uL [place] # (Auto) (0.1-1.2) X10*3/uL Eos # (Auto) (0.0-0.4) X10*3/uL Baso # (Auto) (0.0-0.2) X10*3/uL Abs Immat Gran (auto) (0.00-0.03) X10*3/uL Absolute Neuts (auto) (2.0-8.3) x10*3/uL Absolute Nucleated RBC (0.0-0.012) X10*3/uL Nucleated RBC % (auto) (0.0-0.2) /100WBC Smear Tech's Comments ESR (0-20) MM/HR Sodium (135-145) mmol/L Potassium (3.3-5.1) mmol/L Chloride (96-108) mmol/L Carbon Dioxide (22-29) mmol/L Anion Gap (12-20) BUN (9-16) mg/dL Creatinine (0.5-1.4) mg/dL Estim Creat Clear Calc Estimated GFR Random Glucose (60-115) mg/dL Lactic Acid 1.1 (0.5-2.0) mmol/L Calcium (8.4-10.2) mg/dL Total Bilirubin (0.0-1.0) mg/dL AST (5-31) U/L ALT (0-31) U/L Alkaline Phosphatase (39-117) U/L C-Reactive Protein (< or = 0.50) mg/dL Total Protein (6.5-8.0) g/dL Albumin (3.5-5.0) g/dL Urine Color Dark Yellow Urine Appearance Cloudy Urine pH 5.5 (5.0-9.0) Ur Specific [place] 1.025 (1.005-1.025) Urine Protein Trace (Neg-Trace) mg/dL Urine Glucose (UA) Negative (Negative) mg/dL Urine Ketones Trace (Negative) mg/dL Urine Blood Small (1+) H (Negative) Urine Nitrite Negative (Negative) Ur Leukocyte Esterase Small (1+) H (Negative) Urine RBC 0-2 (0-2) /HPF Urine WBC 6-10 H (0-5) /HPF Ur Squamous Epith Cells >20 (0-2) /HPF Urine Bacteria 1+ (None Seen) Hyaline Casts 0-2 (0-2) /LPF Influenza Type A (PCR) NEGATIVE (Negative) Influenza Type B (PCR) NEGATIVE (Negative) RSV RNA Qual (PCR) NEGATIVE (Negative) SARS-CoV-2 RNA (RT-PCR) NEGATIVE (Negative) Discharge Plan Discharge Clinical Impression: Abdominal wall cellulitis Patient Disposition: Admitted As Inpatient Interventions: Admission Worksheet (ED) Last Done: 09/04/22 20:20 Discharge Date/Time: 09/04/22 20:20
[2022-09-03 19:51] LABS: Hemoglobin 14.6 g/dl (12.0-16.0); PLT CLUMP 1; SCAN SMEAR FLAG 1
[2022-09-03 19:53] LABS: Basophils Percent Auto 0.3 % (0-2); Eosinophils Absolute Auto 0.1 X10*3/uL (0.0-0.4); Hematocrit 41.2 % (37.0-47.0); Imm Gran Abs Auto 0.02 X10*3/uL (0.00-0.03); Imm Gran Pct Auto 0.3 % (0.0-0.4); Lymphocytes Absolute Auto 1.4 X10*3/uL (1.2-4.9); Lymphocytes Percent Auto 17.6 % (20-40); MANUAL DIFF FLAG SCAN; Mean Corpuscular HGB Conc 35.4 g/dl (31.0-35.0); Mean Corpuscular Hemoglobin 31.5 pg (27.0-33.0); Mean Platelet Volume 9.8 fL (9.4-12.3); Monocytes Absolute Auto 0.6 X10*3/uL (0.1-1.2); Monocytes Percent Auto 8.4 % (2-11); Neutrophils Absolute Auto 5.6 x10*3/uL (2.0-8.3); Neutrophils Percent Auto 72.4 % (45-73); Red Blood Count 4.63 X10*6/uL (4.20-5.50); Red Cell Distribution Width 14.1 % (11.0-16.0)
[2022-09-03 20:04] LABS: Lactic Acid 1.1 mmol/L (0.5-2.0)
[2022-09-03 20:05] LABS: Appearance Urine Cloudy; Color Urine Dark Yellow; Glucose Urine UA Negative (Negative); Leukocyte Esterase Urine Small (1+) (Negative); Nitrite Urine Negative (Negative); PH 5.5 (5.0-9.0); Specific Gravity - Urine 1.025 (1.005-1.025); UMIC TRIGGER UACC YES; Urine Blood Small (1+) (Negative); Urine Ketones Trace mg/dL (Negative); Urine Protein Trace mg/dL (Neg-Trace)
[2022-09-03 20:08] LABS: Alanine Aminotransferase 31 U/L (0-31); Alkaline Phosphatase 211 U/L (39-117); Anion Gap 10 (12-20); Aspartate Amino Transferase 52 U/L (5-31); Bilirubin Total 4.2 mg/dL (0.0-1.0); Blood Urea Nitrogen 8 mg/dL (9-16); C Reactive Protein 1.87 mg/dL (< or = 0.50); Calcium 8.5 mg/dL (8.4-10.2); Carbon Dioxide 21 mmol/L (22-29); Chloride 109 mmol/L (96-108); Creatinine Clr Calc Pharmacy 109.5; Estimated Glomerular Filt Rate > 60; Glucose Random 98 mg/dL (60-115); Potassium 3.4 mmol/L (3.3-5.1); Sodium 137 mmol/L (135-145); Total Protein 7.1 g/dL (6.5-8.0)
[2022-09-03 20:12] LABS: White Blood Count 7.7 X10*3/uL (4.8-10.8)
[2022-09-03 20:13] LABS: Platelet Count 98 X10*3/uL (160-400)
[2022-09-03 20:14] LABS: SLIDE REVIEW VERIFIED
[2022-09-03 20:17] LABS: Bacteria Urine 1+ (None Seen); Hyaline Casts Urine 0-2 /LPF (0-2); RBC Urine 0-2 /HPF (0-2); Squamous Epithelial Cell Urine >20 /HPF (0-2); UACC Culture Trigger YES
[2022-09-03 20:35] LABS: Erythrocyte Sedimentation Rate 19 MM/HR (0-20)
[2022-09-03 20:37] LABS: Influenza A PCR NEGATIVE (Negative); Influenza B PCR NEGATIVE (Negative); Resp Syncy Virus RNA Qual PCR NEGATIVE (Negative); SARS COV2 PCR INHOUSE NEGATIVE (Negative)
--- NOTE | 2022-09-03 21:19 | ED.GENADULT ---
HPI - General Adult General Chief complaint: General Medical Stated complaint: Cellulitis? Time Seen by Provider: 09/03/22 20:58 Source: patient Mode of arrival: ambulatory Limitations: no limitations History of Present Illness HPI narrative: Patient comes to the emergency room complaining of abdominal wall cellulitis. Patient states that she has had 16+ episodes of cellulitis in the abdomen. Patient usually gets admitted since she does not well outpatient. Patient denies any fever chills. Patient states that this morning there was a small patch of erythema in the abdomen and throughout the day it is gradually getting worse. Patient states that the skin in her abdomen is very tender. No abdominal pain. Related Data Allergies Allergy/AdvReac Type Severity Reaction Status Date / Time Penicillins AdvReac Intermediate Unknown Verified 03/04/22 21:15 Review of Systems Review of Systems: Constitutional : No Weight loss, No Fever, No Chills, No Night Sweats, No Fatigue, No Malaise ENT/Mouth : No Hearing loss, No Ear Pain, No Nasal Congestion, No Sinus Pain, No Hoarseness, No sore throat, No Rhinorrhea, No Swallowing Difficulty Eyes: No Eye Pain, No Swelling, No Redness, No Foreign Body, No Discharge, No Vision Changes Cardiovascular : No Chest Pain, No SOB, No Dyspnea on Exertion, No Orthopnea, No Edema, No Palpitations Respiratory : No Cough, No Sputum, No Wheezing, No Smoke Exposure, No Dyspnea Gastrointestinal : No Nausea, No Vomiting, No Diarrhea, No Constipation, No abdominal Pain, No Hematochezia, No Melena Genitourinary : no irregular bleeding, No Dysuria, No Urinary Frequency, No Hematuria, No Urinary Incontinence, No Urgency, No Flank Pain, No Urinary Flow Changes, No Hesitancy Musculoskeletal : No joint pain, No Myalgias, No Joint Swelling Skin : Complaining of the cellulitis in the abdomen Neuro : No Weakness, No Numbness, No Paresthesias, No Loss of Consciousness, No Dizziness, No Headache Psych : No Anxiety/Panic, No Depression, No SI/HI/AH/VH, No Social Issues, Heme/Lymph: No Bruising, No Bleeding,No Lymphadenopathy Endocrine : No Polyuria, No Polydipsia, No Temperature Intolerance PMFSH Past Medical History Medical History Cellulitis Fever Psoriasis Rigor Surgical History History of cholecystectomy Hx of breast reduction, elective Family History Family History Other No family history of coronary artery disease Social History Social History Household Members: Significant Other and Children Housing: Apartment Do you presently have visiting nurse or other home services: No Alcohol intake: never Patient Tobacco Use Status: Never used Tobacco Substance Use Type: Sedatives Advance Directives: Yes Advance Directives on File: Yes Advance Directives Date on File: 11/01/21 service: No Current occupational status: employed Physical Exam ED Vital Signs: Vital Signs - 24 hr 09/03/22 18:58 Temperature 98.3 F Pulse Rate 74 Respiratory Rate 18 Blood Pressure 145/81 H Pulse Oximetry 97 Oxygen Delivery Method Room Air BMI result Body Mass Index 34.9 Const Other: Appearance: Alert. Oriented X3. No acute distress. Eyes: Pupils equal, round and reactive to light. ENT: Pharynx normal. Neck: Normal inspection. Neck supple. No lymph nodes noted. No crepitus CVS: Normal heart rate and rhythm. Pulses normal. Normal S1 and S2 Respiratory: No respiratory distress. Breath sounds normal. No Wheezing. No rales Abdomen: Soft and nontender. No rigidity. No distention. Skin: Skin warm and dry. Extensive erythema throughout the entire abdomen, not going beyond the groin area bilaterally, stops before the breast crease, not going towards the back Extremities: No lower extremity edema. No Lacerations. No Rash Neuro: Oriented X 3. No motor deficit. No sensory deficit. Moving all extremities. No slurred speech. CN 2 through 12 grossly intact Psych: calm, cooperative, normal affect Course Course Course Narrative: I discussed the patient with Dr. Tucker. Although, patient's labs do not look significant, patient has recurrent history of cellulitis in the abdomen, when she gets p.o. antibiotics she ends up coming back to be admitted. At this time, sepsis not suspected. Patient receiving IV antibiotics, doxycycline and vancomycin. Medical Decision Making Differential Diagnosis Differential Diagnoses: The differential diagnosis associated with the presentation includes (Cellulitis, impetigo) Admission/Observation Consideration of admission/observation: Escalation of care including admission/observation considered (Patient has recurrent cellulitis, per her medical history, patient usually does not do well with only p.o. antibiotics, usually requires admission) Consult Healthcare Provider Management of the patient was discussed with: Hospitalist (I discussed the patient with Dr. Tucker, who knows the patient, has previously admitted her for same reason) Lab Data MDM Lab Attestation statement: I reviewed the patient's lab results. Result Diagrams: 09/03/22 19:41 09/03/22 19:41 Labs: Lab Results 09/03/22 09/03/22 09/03/22 Range/Units 19:41 19:41 19:41 WBC 7.7 (4.8-10.8) X10*3/uL RBC 4.63 D (4.20-5.50) X10*6/uL Hgb 14.6 D (12.0-16.0) g/dl Hct 41.2 D (37.0-47.0) % MCV 89.0 (80.0-98.0) fL MCH 31.5 (27.0-33.0) pg MCHC 35.4 H (31.0-35.0) g/dl RDW 14.1 (11.0-16.0) % Plt Count 98 L D (160-400) X10*3/uL MPV 9.8 (9.4-12.3) fL Immature Gran % (Auto) 0.3 (0.0-0.4) % Neut % (Auto) 72.4 (45-73) % Lymph % (Auto) 17.6 L (20-40) % [place] % (Auto) 8.4 (2-11) % Eos % (Auto) 1.0 (0-4) % Baso % (Auto) 0.3 (0-2) % Lymph # (Auto) 1.4 (1.2-4.9) X10*3/uL [place] # (Auto) 0.6 (0.1-1.2) X10*3/uL Eos # (Auto) 0.1 (0.0-0.4) X10*3/uL Baso # (Auto) 0.0 (0.0-0.2) X10*3/uL Abs Immat Gran (auto) 0.02 (0.00-0.03) X10*3/uL Absolute Neuts (auto) 5.6 (2.0-8.3) x10*3/uL Absolute Nucleated RBC 0.000 (0.0-0.012) X10*3/uL Nucleated RBC % (auto) 0.0 (0.0-0.2) /100WBC Smear Tech's Comments VERIFIED ESR 19 (0-20) MM/HR Sodium 137 (135-145) mmol/L Potassium 3.4 (3.3-5.1) mmol/L Chloride 109 H (96-108) mmol/L Carbon Dioxide 21 L (22-29) mmol/L Anion Gap 10 L (12-20) BUN 8 L D (9-16) mg/dL Creatinine 0.67 (0.5-1.4) mg/dL Estim Creat Clear Calc 109.5 Estimated GFR > 60 Random Glucose 98 (60-115) mg/dL Lactic Acid (0.5-2.0) mmol/L Calcium 8.5 D (8.4-10.2) mg/dL Total Bilirubin 4.2 H (0.0-1.0) mg/dL AST 52 H (5-31) U/L ALT 31 (0-31) U/L Alkaline Phosphatase 211 H D (39-117) U/L C-Reactive Protein 1.87 H (< or = 0.50) mg/dL Total Protein 7.1 D (6.5-8.0) g/dL Albumin 3.0 L (3.5-5.0) g/dL Urine Color Urine Appearance Urine pH (5.0-9.0) Ur Specific [place] (1.005-1.025) Urine Protein (Neg-Trace) mg/dL Urine Glucose (UA) (Negative) mg/dL Urine Ketones (Negative) mg/dL Urine Blood (Negative) Urine Nitrite (Negative) Ur Leukocyte Esterase (Negative) Urine RBC (0-2) /HPF Urine WBC (0-5) /HPF Ur Squamous Epith Cells (0-2) /HPF Urine Bacteria (None Seen) Hyaline Casts (0-2) /LPF Influenza Type A (PCR) (Negative) Influenza Type B (PCR) (Negative) RSV RNA Qual (PCR) (Negative) SARS-CoV-2 RNA (RT-PCR) (Negative) 09/03/22 09/03/22 09/03/22 Range/Units 19:42 19:42 19:51 WBC (4.8-10.8) X10*3/uL RBC (4.20-5.50) X10*6/uL Hgb (12.0-16.0) g/dl Hct (37.0-47.0) % MCV (80.0-98.0) fL MCH (27.0-33.0) pg MCHC (31.0-35.0) g/dl RDW (11.0-16.0) % Plt Count (160-400) X10*3/uL MPV (9.4-12.3) fL Immature Gran % (Auto) (0.0-0.4) % Neut % (Auto) (45-73) % Lymph % (Auto) (20-40) % [place] % (Auto) (2-11) % Eos % (Auto) (0-4) % Baso % (Auto) (0-2) % Lymph # (Auto) (1.2-4.9) X10*3/uL [place] # (Auto) (0.1-1.2) X10*3/uL Eos # (Auto) (0.0-0.4) X10*3/uL Baso # (Auto) (0.0-0.2) X10*3/uL Abs Immat Gran (auto) (0.00-0.03) X10*3/uL Absolute Neuts (auto) (2.0-8.3) x10*3/uL Absolute Nucleated RBC (0.0-0.012) X10*3/uL Nucleated RBC % (auto) (0.0-0.2) /100WBC Smear Tech's Comments ESR (0-20) MM/HR Sodium (135-145) mmol/L Potassium (3.3-5.1) mmol/L Chloride (96-108) mmol/L Carbon Dioxide (22-29) mmol/L Anion Gap (12-20) BUN (9-16) mg/dL Creatinine (0.5-1.4) mg/dL Estim Creat Clear Calc Estimated GFR Random Glucose (60-115) mg/dL Lactic Acid 1.1 (0.5-2.0) mmol/L Calcium (8.4-10.2) mg/dL Total Bilirubin (0.0-1.0) mg/dL AST (5-31) U/L ALT (0-31) U/L Alkaline Phosphatase (39-117) U/L C-Reactive Protein (< or = 0.50) mg/dL Total Protein (6.5-8.0) g/dL Albumin (3.5-5.0) g/dL Urine Color Dark Yellow Urine Appearance Cloudy Urine pH 5.5 (5.0-9.0) Ur Specific [place] 1.025 (1.005-1.025) Urine Protein Trace (Neg-Trace) mg/dL Urine Glucose (UA) Negative (Negative) mg/dL Urine Ketones Trace (Negative) mg/dL Urine Blood Small (1+) H (Negative) Urine Nitrite Negative (Negative) Ur Leukocyte Esterase Small (1+) H (Negative) Urine RBC 0-2 (0-2) /HPF Urine WBC 6-10 H (0-5) /HPF Ur Squamous Epith Cells >20 (0-2) /HPF Urine Bacteria 1+ (None Seen) Hyaline Casts 0-2 (0-2) /LPF Influenza Type A (PCR) NEGATIVE (Negative) Influenza Type B (PCR) NEGATIVE (Negative) RSV RNA Qual (PCR) NEGATIVE (Negative) SARS-CoV-2 RNA (RT-PCR) NEGATIVE (Negative) Critical Care Time Critical Care Time Critical Care Time: Yes Total Critical Care Time: 30 Attestation: I have personally provided critical care time. Time includes review of lab data, radiology results, discussion with consultants, and monitoring for potential decompensation. Intervention performed as documented. Discharge Plan Discharge Clinical Impression: Abdominal wall cellulitis Patient Disposition: Admitted As Inpatient
--- NOTE | 2022-09-03 21:47 | PHA.MEDREC ---
Pharmacy Consult ? Medication Reconciliation Pharmacy has completed the medication reconciliation.
--- NOTE | 2022-09-03 22:16 | P.HPHOSP_ITS ---
History of Present Illness Date of Service: 09/03/22 Chief Complaint: abdominal wall cellulitis 56-year-old female with past medical history of recurrent cellulitis as well as recent GI bleed as well as grade 2 Varix presents to the hospital with complaints of abdominal wall cellulitis. patient reports history of recurrent cellulitis requiring IV antibiotics. Symptoms started the day prior, with significant increase that extended throughout her abdominal wall. Patient reports fever, chills, denies any chest pain, shortness of breath, no cough, no abdominal pain nausea or vomiting, no diarrhea constipation, no urinary symptoms and no lower extremity edema On arrival to the ED patient hemodynamically stable no significant abnormal vitals Labs are significant for WBC count of 7.7, hemoglobin 14.6, hematocrit 41.2 normal lactic acid, Review of Systems Review of Systems: Yes all other systems are reviewed and are negative [facility] Medical History Cellulitis Fever Psoriasis Rigor Family History Other No family history of coronary artery disease Surgical History History of cholecystectomy Hx of breast reduction, elective Social History Household Members: Significant Other and Children Housing: Apartment Do you presently have visiting nurse or other home services: No Alcohol intake: never Patient Tobacco Use Status: Never used Tobacco Smoked in Last 30 Days: No Use of substances other than those prescribed or required for medical reasons: No Substance Use Type: Sedatives Advance Directives: Yes Advance Directives on File: Yes Advance Directives Date on File: 11/01/21 service: No Current occupational status: employed Meds Allergies Allergy/AdvReac Type Severity Reaction Status Date / Time Penicillins AdvReac Intermediate Unknown Verified 03/04/22 21:15 Active Medications: Current Medications Doxycycline Hyclate 100 mg/ (Sodium Chloride) 250 mls @ 166.67 mls/hr IV ONCE ONE Stop: 09/03/22 22:55 Last Admin: 09/03/22 22:13 Dose: 166.67 mls/hr Vancomycin HCl (Vancomycin/Ns) 2,000 mg in 520 mls @ 260 mls/hr IV ONCE ONE Stop: 09/03/22 23:25 Sodium Chloride (Ns) 1,000 mls @ 999 mls/hr IVCONT .Q1H1M ONE Stop: 09/03/22 22:28 Last Admin: 09/03/22 21:47 Dose: 999 mls/hr Home Medications Medication Instructions Recorded Confirmed Last Taken Type folic acid 1 mg tablet 1 tab PO DAILY 09/03/22 09/03/22 09/03/22 History nadolol 20 mg tablet 1 tab PO BEDTIME 09/03/22 09/03/22 09/02/22 History pantoprazole 40 mg tablet,delayed 1 tab PO BID 09/03/22 09/03/22 09/03/22 History release triamcinolone acetonide 0.025 % 1 appl topical DIRECTED PRN 09/03/22 09/03/22 Unknown History topical ointment Itching Physical Exam Vital Signs and Narrative: Vital Signs: Last Vital Signs Temp 98.3 F 09/03/22 18:58 Pulse 74 09/03/22 18:58 Resp 18 09/03/22 18:58 BP 145/81 H 09/03/22 18:58 Pulse Ox 97 09/03/22 18:58 O2 Del Method 09/03/22 18:58 BMI result Body Mass Index 34.9 Const: General: cooperative and no acute distress Orientation/consciousn ess: patient oriented x3 Eyes: General: appearance normal, both eyes and all related structures Pupils: Equal, round and reactive pupils present Resp: Effort & Inspection: normal respiratory effort Auscultation: clear to auscultation bilaterally Cardio: Rate: regular rate Rhythm: regular rhythm GI: Palpation (GI): Soft to palpation Auscultation: normal bowel sounds Skin: Other: Extensive abdominal erythema wound, tender to touch Neuro: General: patient oriented x3 Cranial nerves: Yes Equal, round and reactive pupils present Cognition (Neuro): normal cognition Extrem: General: Yes normal to inspection and Yes no pedal edema Results Labs CBC and Chem 7: 09/04/22 05:57 09/04/22 05:57 Labs: Laboratory Results - last 24 hr 09/03/22 09/03/22 09/03/22 19:41 19:41 19:41 MCV 89.0 MCH 31.5 MCHC 35.4 H RDW 14.1 Plt Count 98 L D MPV 9.8 Immature Gran % (Auto) 0.3 Neut % (Auto) 72.4 Lymph % (Auto) 17.6 L [place] % (Auto) 8.4 Eos % (Auto) 1.0 Baso % (Auto) 0.3 Lymph # (Auto) 1.4 [place] # (Auto) 0.6 Eos # (Auto) 0.1 Baso # (Auto) 0.0 Abs Immat Gran (auto) 0.02 Absolute Neuts (auto) 5.6 Absolute Nucleated RBC 0.000 Nucleated RBC % (auto) 0.0 Smear Tech's Comments VERIFIED ESR 19 Anion Gap 10 L Estim Creat Clear Calc 109.5 Estimated GFR > 60 Random Glucose 98 Lactic Acid Calcium 8.5 D Total Bilirubin 4.2 H AST 52 H ALT 31 Alkaline Phosphatase 211 H D C-Reactive Protein 1.87 H Total Protein 7.1 D Albumin 3.0 L Urine Color Urine Appearance Urine pH Ur Specific [place] Urine Protein Urine Glucose (UA) Urine Ketones Urine Blood Urine Nitrite Ur Leukocyte Esterase Urine RBC Urine WBC Ur Squamous Epith Cells Urine Bacteria Hyaline Casts Influenza Type A (PCR) Influenza Type B (PCR) RSV RNA Qual (PCR) SARS-CoV-2 RNA (RT-PCR) 09/03/22 09/03/22 09/03/22 19:42 19:42 19:51 MCV MCH MCHC RDW Plt Count MPV Immature Gran % (Auto) Neut % (Auto) Lymph % (Auto) [place] % (Auto) Eos % (Auto) Baso % (Auto) Lymph # (Auto) [place] # (Auto) Eos # (Auto) Baso # (Auto) Abs Immat Gran (auto) Absolute Neuts (auto) Absolute Nucleated RBC Nucleated RBC % (auto) Smear Tech's Comments ESR Anion Gap Estim Creat Clear Calc Estimated GFR Random Glucose Lactic Acid 1.1 Calcium Total Bilirubin AST ALT Alkaline Phosphatase C-Reactive Protein Total Protein Albumin Urine Color Dark Yellow Urine Appearance Cloudy Urine pH 5.5 Ur Specific [place] 1.025 Urine Protein Trace Urine Glucose (UA) Negative Urine Ketones Trace Urine Blood Small (1+) H Urine Nitrite Negative Ur Leukocyte Esterase Small (1+) H Urine RBC 0-2 Urine WBC 6-10 H Ur Squamous Epith Cells >20 Urine Bacteria 1+ Hyaline Casts 0-2 Influenza Type A (PCR) NEGATIVE Influenza Type B (PCR) NEGATIVE RSV RNA Qual (PCR) NEGATIVE SARS-CoV-2 RNA (RT-PCR) NEGATIVE Assessment and Plan (1) Abdominal wall cellulitis: Status: Acute Plan 56-year-old female with history of abdominal wall cellulitis presents to the hospital with recurrent cellulitis # abdominal wall cellulitis - extensive - history of failed outpatient therapy requiring IV vancomycin and was recently treated with daptomycin ablation for 2 weeks - treat with IV antibiotics - follow cultures # esophageal varices - continue nadolol and pantoprazole DVT prophylaxis: Early ambulation Time Spent With Patient Time: Total time managing care of this patient today ____ minutes. Quality Stroke Does the patient have a stroke diagnosis?: No VTE Prior VTE?: No VTE Risk Level:: Medical - low VTE Device Contraindication: Treatment Not Indicated VTE Drug Contraindication: Treatment Not Indicated
--- NOTE | 2022-09-03 22:17 | PC.NURSE ---
Pt resting comfortably at this time, pt was able to speak with provider, verbalizes understanding that she is being admitted for IV antibiotics. 20G iv placed in left lateral AC without complication, site asymptomatic, secured with tegaderm. NS, and IV Abx initiated per orders. pt alert and cooperative, call jorge within reach, wctm.
--- NOTE | 2022-09-03 22:30 | PHA.PROG ---
Admission Date/Time: September 03, 2022 22:11 Indication: skin Weight in k.254 kg Adjusted body weight in Kg: [place] body weight in Kg: Obesity Dosing Indication % IBW: Serum Creatinine - Last 168 Hours 09/03/22 19:41 Creatinine 0.67 Estimated CrCl and GFR - Last 168 Hours 09/03/22 19:41 Estim Creat Clear Calc 109.5 Estimated GFR > 60 Vancomycin Loading Dose: 2000mg x 1 Current Vancomycin Dosing Regimen: 1000mg Q12H Vancomycin Monitoring using AUC goal of 400 - 600 range with trough as surrogate marker: 489 Date and Time for next Vancomycin Level to be drawn: 09/05/22 @1000 Pharmacist Comments on Vancomycin Plan: Using obese model; will continue to monitor renal function Vancomycin dosing will take advantage of [employer] as a clinical decision support tool that uses Bayesian modeling to calculate individual patient's pharmacokinetic parameters and forecast the patient's drug concentration time course with the target goal AUC 24 range of 400 - 600 mg/L/hr.
--- NOTE | 2022-09-03 22:44 | PC.NURSE ---
report given to NYDIA Mckinney.
[2022-09-04 00:06] VITALS: BP 142/72; PULSE 67; RESP 18; TEMP 36.6; O2SAT 95
--- NOTE | 2022-09-04 01:36 | PC.NURSE ---
Patient janeth jorge felt she might be having an allergic reaction to the Vancomycin neck red and itchy. Vancomycin stopped. notified benhalinal given.
[2022-09-04 04:49] VITALS: BP 113/69; PULSE 68; RESP 16; TEMP 36.8; O2SAT 96
--- NOTE | 2022-09-04 04:50 | PC.NURSE ---
Patient is alert and oriented to her baseline. Denies to be in pain and discomfort. No signs and symptoms of resp distress.
[2022-09-04 06:09] LABS: MANUAL DIFF FLAG NO
[2022-09-04 06:13] VITALS: BP 131/78; PULSE 70; RESP 18; TEMP 36.3
--- NOTE | 2022-09-04 06:33 | PC.NURSE ---
Patient is alert and oriented to her baseline. Denies to be in pain. The itchiness to her neck has resolved. Patient is sleeping peacefully with no signs of respiratory distress
[2022-09-04 06:35] LABS: Basophils Percent Auto 0.5 % (0-2); Eosinophils Absolute Auto 0.1 X10*3/uL (0.0-0.4); Eosinophils Percent Auto 2.9 % (0-4); Hematocrit 38.7 % (37.0-47.0); Hemoglobin 13.5 g/dl (12.0-16.0); Imm Gran Abs Auto 0.01 X10*3/uL (0.00-0.03); Imm Gran Pct Auto 0.3 % (0.0-0.4); Lymphocytes Absolute Auto 1.1 X10*3/uL (1.2-4.9); Lymphocytes Percent Auto 28.5 % (20-40); Mean Corpuscular HGB Conc 34.9 g/dl (31.0-35.0); Mean Corpuscular Hemoglobin 31.2 pg (27.0-33.0); Mean Corpuscular Volume 89.4 fL (80.0-98.0); Mean Platelet Volume 10.2 fL (9.4-12.3); Monocytes Absolute Auto 0.5 X10*3/uL (0.1-1.2); Monocytes Percent Auto 12.6 % (2-11); Neutrophils Absolute Auto 2.1 x10*3/uL (2.0-8.3); Neutrophils Percent Auto 55.2 % (45-73); Platelet Count 79 X10*3/uL (160-400); Red Blood Count 4.33 X10*6/uL (4.20-5.50); White Blood Count 3.8 X10*3/uL (4.8-10.8)
[2022-09-04 06:48] LABS: Anion Gap 10 (12-20); Blood Urea Nitrogen 8 mg/dL (9-16); Calcium 7.9 mg/dL (8.4-10.2); Carbon Dioxide 20 mmol/L (22-29); Chloride 111 mmol/L (96-108); Creatinine Clr Calc Pharmacy 120.3; Estimated Glomerular Filt Rate > 60; Glucose Random 98 mg/dL (60-115); Potassium 3.3 mmol/L (3.3-5.1); Sodium 138 mmol/L (135-145)
[2022-09-04] MEDS: Folic Acid 1 MG TABLET PO (09:40)
[2022-09-04] MEDS: Omeprazole 20 MG CAPSULE.DR PO ×2 (09:40→19:03)
[2022-09-04] MEDS: diphenhydrAMINE HCL 25 MG CAPSULE PO (12:17)
[2022-09-04 12:44] VITALS: BP 128/75; PULSE 66; RESP 16; TEMP 36.8; O2SAT 97
--- NOTE | 2022-09-04 14:56 | P.CNID_ITS ---
History of Present Illness Data of Consult Service Date: 09/04/22 Requesting physician: Michelle Chavez Primary Care Provider: MD HUBER Disla Reason for consult: recurrent abdominal wall cellulitis She presents with abdominal wall cellulitis again. Her last episode was 11/01/2021. She had presented 10/22-10/24 and then given po Doxycycline and then took and returned to ER after worsening This time she noticed abdominal redness bilaterally under breasts and came right in. Review of Systems Review of Systems: Yes all other systems are reviewed and are negative [facility] Past Medical History Medical History Cellulitis Fever Psoriasis Rigor Family History Family History Other No family history of coronary artery disease Family history: reviewed and not pertinent Surgical History Surgical History History of cholecystectomy Hx of breast reduction, elective Social History Social History Household Members: Significant Other and Children Housing: Apartment Do you presently have visiting nurse or other home services: No Alcohol intake: never Patient Tobacco Use Status: Never used Tobacco Smoked in Last 30 Days: No Use of substances other than those prescribed or required for medical reasons: No Substance Use Type: Sedatives Advance Directives: Yes Advance Directives on File: Yes Advance Directives Date on File: 11/01/21 service: No Current occupational status: employed Meds Allergies Allergy/AdvReac Type Severity Reaction Status Date / Time Penicillins AdvReac Intermediate Unknown Verified 03/04/22 21:15 Active Medications: Current Medications Acetaminophen (Acetaminophen 325 Mg Tablet) 650 mg PO Q6H PRN PRN Reason: Pain, Mild (Pain Scale 1-3) Docusate Sodium (Docusate Sodium 100 Mg Capsule) 100 mg PO DAILY PRN PRN Reason: Constipation Folic Acid (Folic Acid 1 Mg Tablet) 1 mg PO DAILY [facility] Last Admin: 09/04/22 09:40 Dose: 1 mg Vancomycin HCl 1,000 mg/ (Sodium Chloride) 270 mls @ 270 mls/hr IV Q12H [facility] Last Admin: 09/04/22 13:23 Dose: 270 mls/hr Nadolol (Nadolol 20 Mg Tablet) 20 mg PO BEDTIME [facility]; Protocol Omeprazole (Omeprazole 20 Mg Capsule.Dr) 20 mg PO BID@0630,1630 [facility] Last Admin: 09/04/22 09:40 Dose: 20 mg Ondansetron HCl (Ondansetron Hcl 4 Mg/2 Ml Vial) 4 mg IVPUSH Q8H PRN PRN Reason: Nausea and Vomiting Pharmacy Consult (Consult Rx Vancomycin Dosing) 1 each MISCELLANE DAILY PRN PRN Reason: Consult order Sodium Chloride (0.9 % Sodium Chloride Flush 3 Ml Syringe) 3 ml IVFLUSH QSHIFT [facility] Last Admin: 09/04/22 09:40 Dose: 3 ml Triamcinolone Acetonide (Triamcinolone Acet 0.025 % Cream 15 Gm Tube) 1 appl TOPICAL BID PRN PRN Reason: Itching Home Medications Medication Instructions Recorded Confirmed Last Taken Type folic acid 1 mg tablet 1 tab PO DAILY 09/03/22 09/03/22 09/03/22 History nadolol 20 mg tablet 1 tab PO BEDTIME 09/03/22 09/03/22 09/02/22 History pantoprazole 40 mg tablet,delayed 1 tab PO BID 09/03/22 09/03/22 09/03/22 Histo ry release triamcinolone acetonide 0.025 % 1 appl topical DIRECTED PRN 09/03/22 09/03/22 Unknown History topical ointment Itching Physical Exam Vital Signs: Vital Signs: Last Vital Signs Temp 98.2 F 09/04/22 12:44 Pulse 66 09/04/22 12:44 Resp 16 09/04/22 12:44 BP 128/75 09/04/22 12:44 Pulse Ox 97 09/04/22 12:44 O2 Del Method 09/04/22 12:44 BMI result Body Mass Index 34.9 Const: General: cooperative HEENT: Head: Yes normal to inspection Face and sinus: Yes normal facial exam Mouth: Normal oral and palatal mucosa present Teeth and gingiva: dentition normal Eyes: General: appearance normal, both eyes and all related structures Pupils: Equal, round and reactive pupils present Resp: Effort & Inspection: normal respiratory effort Cardio: Rate: regular rate Rhythm: regular rhythm GI: Palpation (GI): Soft to palpation and nontender : General: Yes no CVA tenderness Back/Spine/Pelvis: Back: no CVA tenderness Skin: General skin exam: no rashes or lesions noted Neuro: General: moves all extremities Cranial nerves: Yes Equal, round and reactive pupils present Extrem: General: Yes normal to inspection Psych: Appearance: grossly normal Results Labs CBC & Chem 7: 09/04/22 05:57 09/04/22 05:57 Labs: Short CBC 09/03/22 09/04/22 Range/Units 19:41 05:57 WBC 7.7 3.8 L (4.8-10.8) X10*3/uL Hgb 14.6 D 13.5 (12.0-16.0) g/dl Hct 41.2 D 38.7 (37.0-47.0) % Plt Count 98 L D 79 L (160-400) X10*3/uL BMP 09/03/22 09/04/22 19:41 05:57 Sodium 137 138 Potassium 3.4 3.3 Chloride 109 H 111 H Carbon Dioxide 21 L 20 L BUN 8 L D 8 L Creatinine 0.67 0.61 Calcium 8.5 D 7.9 L D Liver Function 09/03/22 Range/Units 19:41 Total Bilirubin 4.2 H (0.0-1.0) mg/dL AST 52 H (5-31) U/L ALT 31 (0-31) U/L Alkaline Phosphatase 211 H D (39-117) U/L Albumin 3.0 L (3.5-5.0) g/dL Urine 09/03/22 Range/Units 19:51 Urine Color Dark Yellow Urine Appearance Cloudy Urine pH 5.5 (5.0-9.0) Ur Specific [place] 1.025 (1.005-1.025) Urine Protein Trace (Neg-Trace) mg/dL Urine Glucose (UA) Negative (Negative) mg/dL Microbiology Microbiology Results: Microbiology 09/03/22 19:51 Urine clean catch - Urine darling top Urine Culture - Preliminary No growth to date. Assessment and Plan (1) Abdominal wall cellulitis: Status: Acute She has redness and pain right abdominal wall. This could be staph or strep She has no recurrence for almost a year. She has failed po last year and left with Vancomycin and a PICC line She has itchiness with Vancomycin but feels well with Benadryl. Plan Would give Vancomycin since this seems medication works best for her. Probable 7-10 day IV so may need PICC line. Time Spent With Patient Time: Total time managing care of this patient today ____ minutes.
--- NOTE | 2022-09-04 15:05 | P.PNIM_ITS ---
Subjective Subjective Date of Service: 09/04/22 Interval History: follow up for abd wall cellulitis Denies any chest pain or shortness of breath or abdominal pain or nausea or vomiting Review of Systems No fever or chills Denies any urinary complaints. Physical Exam Vital Signs: Vital Signs: Last Vital Signs Temp 98.2 F 09/04/22 12:44 Pulse 66 09/04/22 12:44 Resp 16 09/04/22 12:44 BP 128/75 09/04/22 12:44 Pulse Ox 97 09/04/22 12:44 O2 Del Method 09/04/22 12:44 BMI result Body Mass Index 34.9 Appearance: Alert.? Oriented X3.? not in distress.? cvs: rrr, [id number] , no murmur res: clear to auscultation ,no rhonchii or wheezing abd: no rebound or guarding ,nt, bs present,abd skin erythema somewhat improvin. ext pulses present , no cyanosis . neuro: axo3 , nonfocal. Objective Data Active Medications Acetaminophen (Acetaminophen 325 Mg Tablet) 650 mg PO Q6H PRN PRN Reason: Pain, Mild (Pain Scale 1-3) Docusate Sodium (Docusate Sodium 100 Mg Capsule) 100 mg PO DAILY PRN PRN Reason: Constipation Folic Acid (Folic Acid 1 Mg Tablet) 1 mg PO DAILY [facility] Last Admin: 09/04/22 09:40 Dose: 1 mg Documented By: REMINGTON Vancomycin HCl 1,000 mg/ (Sodium Chloride) 270 mls @ 270 mls/hr IV Q12H [facility] Last Admin: 09/04/22 13:23 Dose: 270 mls/hr Documented By: PRIMO Nadolol (Nadolol 20 Mg Tablet) 20 mg PO BEDTIME [facility]; Protocol Omeprazole (Omeprazole 20 Mg Capsule.) 20 mg PO BID@0630,1630 [facility] Last Admin: 09/04/22 09:40 Dose: 20 mg Documented By: REMINGTON Ondansetron HCl (Ondansetron Hcl 4 Mg/2 Ml Vial) 4 mg IVPUSH Q8H PRN PRN Reason: Nausea and Vomiting Pharmacy Consult (Consult Rx Vancomycin Dosing) 1 each MISCELLANE DAILY PRN PRN Reason: Consult order Sodium Chloride (0.9 % Sodium Chloride Flush 3 Ml Syringe) 3 ml IVFLUSH QSHIFT [facility] Last Admin: 09/04/22 09:40 Dose: 3 ml Documented By: REMINGTON Triamcinolone Acetonide (Triamcinolone Acet 0.025 % Cream 15 Gm Tube) 1 appl TOPICAL BID PRN PRN Reason: Itching Labs CBC & Chem 7: 09/04/22 05:57 09/04/22 05:57 Labs: Laboratory Results - last 24 hr 09/03/22 09/03/22 09/03/22 19:41 19:41 19:41 MCV 89.0 MCH 31.5 MCHC 35.4 H RDW 14.1 Plt Count 98 L D MPV 9.8 Immature Gran % (Auto) 0.3 Neut % (Auto) 72.4 Lymph % (Auto) 17.6 L [place] % (Auto) 8.4 Eos % (Auto) 1.0 Baso % (Auto) 0.3 Lymph # (Auto) 1.4 [place] # (Auto) 0.6 Eos # (Auto) 0.1 Baso # (Auto) 0.0 Abs Immat Gran (auto) 0.02 Absolute Neuts (auto) 5.6 Absolute Nucleated RBC 0.000 Nucleated RBC % (auto) 0.0 Smear Tech's Comments VERIFIED ESR 19 Anion Gap 10 L Estim Creat Clear Calc 109.5 Estimated GFR > 60 Random Glucose 98 Lactic Acid Calcium 8.5 D Total Bilirubin 4.2 H AST 52 H ALT 31 Alkaline Phosphatase 211 H D C-Reactive Protein 1.87 H Total Protein 7.1 D Albumin 3.0 L Urine Color Urine Appearance Urine pH Ur Specific [place] Urine Protein Urine Glucose (UA) Urine Ketones Urine Blood Urine Nitrite Ur Leukocyte Esterase Urine RBC Urine WBC Ur Squamous Epith Cells Urine Bacteria Hyaline Casts Influenza Type A (PCR) Influenza Type B (PCR) RSV RNA Qual (PCR) SARS-CoV-2 RNA (RT-PCR) 09/03/22 09/03/22 09/03/22 19:42 19:42 19:51 MCV MCH MCHC RDW Plt Count MPV Immature Gran % (Auto) Neut % (Auto) Lymph % (Auto) [place] % (Auto) Eos % (Auto) Baso % (Auto) Lymph # (Auto) [place] # (Auto) Eos # (Auto) Baso # (Auto) Abs Immat Gran (auto) Absolute Neuts (auto) Absolute Nucleated RBC Nucleated RBC % (auto) Smear Tech's Comments ESR Anion Gap Estim Creat Clear Calc Estimated GFR Random Glucose Lactic Acid 1.1 Calcium Total Bilirubin AST ALT Alkaline Phosphatase C-Reactive Protein Total Protein Albumin Urine Color Dark Yellow Urine Appearance Cloudy Urine pH 5.5 Ur Specific [place] 1.025 Urine Protein Trace Urine Glucose (UA) Negative Urine Ketones Trace Urine Blood Small (1+) H Urine Nitrite Negative Ur Leukocyte Esterase Small (1+) H Urine RBC 0-2 Urine WBC 6-10 H Ur Squamous Epith Cells >20 Urine Bacteria 1+ Hyaline Casts 0-2 Influenza Type A (PCR) NEGATIVE Influenza Type B (PCR) NEGATIVE RSV RNA Qual (PCR) NEGATIVE SARS-CoV-2 RNA (RT-PCR) NEGATIVE 09/04/22 09/04/22 05:57 05:57 MCV 89.4 MCH 31.2 MCHC 34.9 RDW 14.0 Plt Count 79 L MPV 10.2 Immature Gran % (Auto) 0.3 Neut % (Auto) 55.2 Lymph % (Auto) 28.5 [place] % (Auto) 12.6 H Eos % (Auto) 2.9 Baso % (Auto) 0.5 Lymph # (Auto) 1.1 L [place] # (Auto) 0.5 Eos # (Auto) 0.1 Baso # (Auto) 0.0 Abs Immat Gran (auto) 0.01 Absolute Neuts (auto) 2.1 Absolute Nucleated RBC 0.000 Nucleated RBC % (auto) 0.0 Smear Tech's Comments ESR Anion Gap 10 L Estim Creat Clear Calc 120.3 Estimated GFR > 60 Random Glucose 98 Lactic Acid Calcium 7.9 L D Total Bilirubin AST ALT Alkaline Phosphatase C-Reactive Protein Total Protein Albumin Urine Color Urine Appearance Urine pH Ur Specific [place] Urine Protein Urine Glucose (UA) Urine Ketones Urine Blood Urine Nitrite Ur Leukocyte Esterase Urine RBC Urine WBC Ur Squamous Epith Cells Urine Bacteria Hyaline Casts Influenza Type A (PCR) Influenza Type B (PCR) RSV RNA Qual (PCR) SARS-CoV-2 RNA (RT-PCR) Microbiology Microbiology Results: Microbiology 09/03/22 19:51 Urine Culture - Preliminary Urine clean catch - Urine darling top No growth to date. Assessment and Plan (1) Abdominal wall cellulitis: Status: Acute Plan 55-year-old female with past medical history of psoriasis presents to the hospital with complaints of abdominal wall redness found to have abdominal cellulites 1. abdominal wall cellulitis - recurrent , with multiple episodes in the past. - acute,diffuse continue IV vanco, plan is to put PICC line once the blood culture negative at 48 hour. PICC line placed, patient may need vanco Id eval. 2.psoriasis - continue home Tremfya 3.esophageal varices - continue nadolol and pantoprazole. DVT ppx: early ambulation. Ongoing hospitalization need: Recurrent abdominal was cellulitis need IV antibiotics and monitoring, Vanco trough as well as renal function and electrolyte monitoring. Once blood culture negative at [address] the PICC line. Time Spent With Patient Time: Total time managing care of this patient today ____ minutes. Quality Stroke Does the patient have a stroke diagnosis?: No VTE Prior VTE?: No VTE Risk Level:: Medical - low VTE Device Contraindication: Treatment Not Indicated VTE Drug Contraindication: Treatment Not Indicated
--- NOTE | 2022-09-04 15:14 | MHC.CM.PN ---
Attempted to meet with patient in regards to discharge planning. Patient is currently sleeping. No family present. Case management assessment completed using medical record. Patient had no services prior to coming to the hospital. No services anticipated to be needed because patient is not homebound. HCP verified to be on file. Patient received 1 J&J vaccine and 1 Moderna booster. Obs notice left at bedside. Patient has arranged her own transport home in the past. Continue to monitor for d/c needs.
[2022-09-04 17:57] VITALS: BP 127/66; PULSE 65; RESP 14; TEMP 36.9; O2SAT 98
[2022-09-04 20:00] VITALS: BP 142/80; PULSE 63; RESP 18; TEMP 36.9; O2SAT 95
[2022-09-04] MEDS: nadoloL 20 MG TABLET PO (21:17)
[2022-09-04 21:27] VITALS: BMI 34.9
[2022-09-04] MEDS: diphenhydrAMINE HCL 50 MG/ML VIAL 25 MG IVPUSH (23:23)
[2022-09-05 03:29] VITALS: BP 124/58; PULSE 61; RESP 18; TEMP 36.9; O2SAT 94
[2022-09-05] MEDS: Omeprazole 20 MG CAPSULE.DR PO ×2 (05:18→16:53)
[2022-09-05 07:07] VITALS: BP 137/70; PULSE 69; RESP 16; TEMP 36.6; O2SAT 95
[2022-09-05 07:09] LABS: Creatinine Clr Calc Pharmacy 112.9; Estimated Glomerular Filt Rate > 60
[2022-09-05] MEDS: Folic Acid 1 MG TABLET PO (08:42)
--- NOTE | 2022-09-05 09:32 | P.CDIC_ITS ---
CDI Concurrent Query Documentation Clarification: PHYSICIAN'S DOCUMENTATION REQUEST Date of Query: 09/05/22 0933 Patient Name: Teresa Canela Admit Date: 09/03/22 Dear Doctor, A review of the medical record indicates additional documentation may be needed. Please review below and update the documentation accordingly. Risk Factors/Clinical Indicators/Treatments Nursing notes 09/04- Height and weight noted patient to be obese class I BMI: 34.9 5' 5 in height 95.254kg If possible, please provide an associated diagnosis related to the abnormal BMI, such as: For a BMI >= 30: * Overweight * Obesity * Due to excess calories * Drug induced * Due to other cause * Other (please specify) * Unable to determine Use of terms such as suspected, likely, concern for, or probable (associated with a specific diagnosis that is being evaluated, monitored, or treated as if it exists) are acceptable and can be coded in the inpatient setting, when documented at the time of discharge. Thank you, Caroline Maldonado [facility], CDIS Extension: [phone] Please use your independent medical judgment in providing your response. THIS QUERY IS PART OF THE PERMANENT MEDICAL RECORD Provider Response: Other Other Diagnosis: obesity
[2022-09-05 10:59] LABS: Vancomycin Trough 7.2 mcg/mL (10.0-20.0)
--- NOTE | 2022-09-05 11:14 | HE.PHANOTE ---
Vancomycin Dosing Addendum Patients level came back at 7.2 mg/L. Patients dose increased to 1250mg Q12H to get level up. Predicted AUC 417 mg/L/hr. Next draw 09/06 @1000 to ensure safety vs efficacy. Renal function stable.
[2022-09-05] MEDS: diphenhydrAMINE HCL 50 MG/ML VIAL 25 MG IVPUSH ×2 (12:04→22:49)
[2022-09-05] MEDS: vancomycin HCL 1,250 MG in 0.9 % Sodium Chloride 250 ML 166.67 MG IV ×2 (12:55→23:37)
--- NOTE | 2022-09-05 14:37 | MHC.CM.PN ---
per rounds pt needs a picc line will be dcd with iv antibiotics
[2022-09-05 15:09] VITALS: BP 165/94; PULSE 66; RESP 18; TEMP 36.9; O2SAT 95
--- NOTE | 2022-09-05 15:55 | HO.PM.IMPN ---
Subjective Subjective Date of Service: 09/05/22 Interval History: follow up for abd wall cellulitis Review of Systems Denies any chest pain or shortness of breath or abdominal pain or nausea or vomiting No fever or chills Denies any urinary complaints Physical Exam Vital Signs: Vital Signs: Last Vital Signs Temp 98.5 F 09/05/22 15:09 Pulse 66 09/05/22 15:09 Resp 18 09/05/22 15:09 BP 165/94 H 09/05/22 15:09 Pulse Ox 95 09/05/22 15:09 O2 Del Method 09/05/22 15:09 BMI result Body Mass Index 34.9 ?Appearance: Alert.? Oriented X3.? not in distress.? cvs: [id number], [id number] , no murmur res: clear to auscultation ,no rhonchii or wheezing abd: no rebound or guarding ,nt, bs present,abd skin erythema somewhat improvin. ext pulses present , no cyanosis . neuro: axo3 , nonfocal. Objective Data Active Medications Acetaminophen (Acetaminophen 325 Mg Tablet) 650 mg PO Q6H PRN PRN Reason: Pain, Mild (Pain Scale 1-3) Diphenhydramine HCl (Diphenhydramine Hcl 50 Mg/Ml Vial) 25 mg IVPUSH Q6H PRN PRN Reason: Itching Last Admin: 09/05/22 12:04 Dose: 25 mg Documented By: ERIK Docusate Sodium (Docusate Sodium 100 Mg Capsule) 100 mg PO DAILY PRN PRN Reason: Constipation Folic Acid (Folic Acid 1 Mg Tablet) 1 mg PO DAILY [facility] Last Admin: 09/05/22 08:42 Dose: 1 mg Documented By: ERIK Vancomycin HCl 1,250 mg/ (Sodium Chloride) 250 mls @ 166.667 mls/hr IV Q12H [facility] Last Infusion: 09/05/22 14:48 Dose: 0 mls/hr Documented By: ERIK Nadolol (Nadolol 20 Mg Tablet) 20 mg PO BEDTIME [facility]; Protocol Last Admin: 09/04/22 21:17 Dose: 20 mg Documented By: SUSAN Omeprazole (Omeprazole 20 Mg Capsule.) 20 mg PO BID@0630,1630 [facility] Last Admin: 09/05/22 05:18 Dose: 20 mg Documented By: SUSAN Ondansetron HCl (Ondansetron Hcl 4 Mg/2 Ml Vial) 4 mg IVPUSH Q8H PRN PRN Reason: Nausea and Vomiting Pharmacy Consult (Consult Rx Vancomycin Dosing) 1 each MISCELLANE DAILY PRN PRN Reason: Consult order Sodium Chloride (0.9 % Sodium Chloride Flush 3 Ml Syringe) 3 ml IVFLUSH QSHIFT [facility] Last Admin: 09/05/22 14:50 Dose: 3 ml Documented By: ERIK Triamcinolone Acetonide (Triamcinolone Acet 0.025 % Cream 15 Gm Tube) 1 appl TOPICAL BID PRN PRN Reason: Itching Labs CBC & Chem 7: 09/04/22 05:57 09/05/22 05:56 Labs: Laboratory Results - last 24 hr 09/05/22 09/05/22 05:56 10:00 Estim Creat Clear Calc 112.9 Estimated GFR > 60 Vancomycin Trough 7.2 L Microbiology Microbiology Results: Microbiology 09/03/22 19:51 Urine Culture - Final Urine clean catch - Urine darling top 09/03/22 19:41 Blood Culture - Preliminary Blood - Venous No growth after 24 hours. 09/03/22 19:41 Blood Culture - Preliminary Blood - Venous No growth after 24 hours. Assessment and Plan (1) Abdominal wall cellulitis: Status: Acute Plan 55-year-old female with past medical history of psoriasis presents to the hospital with complaints of abdominal wall redness found to have abdominal cellulites 1. abdominal wall cellulitis - recurrent , with multiple episodes in the past. - acute,diffuse continue IV vanco day2 , blood culture neg@24hrs,plan is to put PICC line once the blood culture negative at 48hour. vanco trough 7.2,vanco dosing adjusted renal function seems fine PICC line placed, patient may need vanco Id eval apprecaited . 2.psoriasis - continue home Tremfya 3.esophageal varices - continue nadolol and pantoprazole. DVT ppx: early ambulation. Ongoing hospitalization need: Recurrent abdominal was cellulitis need IV antibiotics and monitoring, Vanco trough as well as renal function and electrolyte monitoring. Once blood culture negative at [address] the PICC line. Time Spent With Patient Time: Total time managing care of this patient today ____ minutes. Quality Stroke Does the patient have a stroke diagnosis?: No VTE Prior VTE?: No VTE Risk Level:: Medical - low VTE Device Contraindication: Treatment Not Indicated VTE Drug Contraindication: Treatment Not Indicated
[2022-09-05 17:58] VITALS: BP 162/84; PULSE 65; RESP 18; O2SAT 96
--- NOTE | 2022-09-05 18:08 | PC.NURSE ---
BP 165/94. Rechecked 162/84. Denies pain. States she feels a little anxious. Dr Chavez notified. Ok'd to give HS nadolol now. Will continue to monitor.
[2022-09-05] MEDS: nadoloL 20 MG TABLET PO (18:16)
[2022-09-05 19:01] VITALS: BP 137/65; PULSE 61; RESP 16; TEMP 37.1; O2SAT 95
[2022-09-06 04:00] VITALS: BP 130/70; PULSE 62; RESP 17; TEMP 36.6; O2SAT 95
[2022-09-06] MEDS: Omeprazole 20 MG CAPSULE.DR PO ×2 (05:48→17:53)
[2022-09-06 06:26] LABS: Estimated Glomerular Filt Rate > 60
[2022-09-06 07:49] VITALS: BP 137/73; PULSE 60; RESP 18; TEMP 36.2; O2SAT 94
[2022-09-06] MEDS: diphenhydrAMINE HCL 50 MG/ML VIAL 25 MG IVPUSH ×2 (12:43→20:19)
[2022-09-06 12:46] LABS: Vancomycin Random 8.4 mcg/mL (15-20)
--- NOTE | 2022-09-06 12:52 | HE.PHANOTE ---
RE: vanco Trough on 09/06 came back at 8.4; increased dosing to 1000mg Q8H with predicted AUC 553mg/L. Next level to be drawn 09/07 @1100
[2022-09-06] MEDS: vancomycin HCL 1,000 MG in 0.9 % Sodium Chloride 250 ML 270 MG IV ×2 (13:04→20:10)
--- NOTE | 2022-09-06 13:43 | HO.PM.IMPN ---
Subjective Subjective Date of Service: 09/07/22 Interval History: follow up for abd wall cellulitis Review of Systems [address] midline unsuccessful Abdominal erythema is improving, denies any nausea vomiting or fever or chills Physical Exam Vital Signs: Vital Signs: Last Vital Signs Temp 97.1 F 09/06/22 07:49 Pulse 60 09/06/22 07:49 Resp 18 09/06/22 07:49 BP 137/73 09/06/22 07:49 Pulse Ox 94 09/06/22 07:49 O2 Del Method 09/06/22 07:49 BMI result Body Mass Index 34.9 Appearance: Alert.? Oriented X3.? not in distress.? cvs: rrr, [id number] , no murmur res: clear to auscultation ,no rhonchii or wheezing abd: no rebound or guarding ,nt, bs present,abd skin erythema somewhat improvin. ext pulses present , no cyanosis . neuro: axo3 , nonfocal. Objective Data Active Medications Acetaminophen (Acetaminophen 325 Mg Tablet) 650 mg PO Q6H PRN PRN Reason: Pain, Mild (Pain Scale 1-3) Diphenhydramine HCl (Diphenhydramine Hcl 50 Mg/Ml Vial) 25 mg IVPUSH Q6H PRN PRN Reason: Itching Last Admin: 09/06/22 12:43 Dose: 25 mg Documented By: HAILEY Docusate Sodium (Docusate Sodium 100 Mg Capsule) 100 mg PO DAILY PRN PRN Reason: Constipation Folic Acid (Folic Acid 1 Mg Tablet) 1 mg PO DAILY [facility] Last Admin: 09/06/22 09:06 Dose: Not Given Documented By: HAILEY Non-Admin Reason: Off Unit: Surgery Vancomycin HCl 1,000 mg/ (Sodium Chloride) 270 mls @ 270 mls/hr IV Q8H [facility] Last Admin: 09/06/22 13:04 Dose: 270 mls/hr Documented By: HAILEY Nadolol (Nadolol 20 Mg Tablet) 20 mg PO BEDTIME [facility]; Protocol Last Admin: 09/05/22 18:16 Dose: 20 mg Documented By: ERIK Omeprazole (Omeprazole 20 Mg Capsule.) 20 mg PO BID@0630,1630 [facility] Last Admin: 09/06/22 05:48 Dose: 20 mg Documented By: RILEY Ondansetron HCl (Ondansetron Hcl 4 Mg/2 Ml Vial) 4 mg IVPUSH Q8H PRN PRN Reason: Nausea and Vomiting Pharmacy Consult (Consult Rx Vancomycin Dosing) 1 each MISCELLANE DAILY PRN PRN Reason: Consult order Sodium Chloride (0.9 % Sodium Chloride Flush 3 Ml Syringe) 3 ml IVFLUSH QSHIFT [facility] Last Admin: 09/06/22 09:06 Dose: Not Given Documented By: HAILEY Non-Admin Reason: Off Unit: Surgery Triamcinolone Acetonide (Triamcinolone Acet 0.025 % Cream 15 Gm Tube) 1 appl TOPICAL BID PRN PRN Reason: Itching Labs CBC & Chem 7: 09/04/22 05:57 09/07/22 05:25 Labs: Laboratory Results - last 24 hr 09/06/22 09/06/22 05:23 11:31 Estim Creat Clear Calc 108.0 Estimated GFR > 60 Random Vancomycin 8.4 L Microbiology Microbiology Results: Microbiology 09/03/22 19:41 Blood Culture - Preliminary Blood - Venous No growth after 48 hours. 09/03/22 19:41 Blood Culture - Preliminary Blood - Venous No growth after 48 hours. Assessment and Plan (1) Abdominal wall cellulitis: Status: Acute Plan 55-year-old female with past medical history of psoriasis presents to the hospital with complaints of abdominal wall redness found to have abdominal cellulites 1. abdominal wall cellulitis - recurrent , with multiple episodes in the past. - acute,diffuse continue? IV vanco day2 , blood culture neg@24hrs,plan is to put midline line once the blood culture negative at 48hour. vanco trough 8.4,cotninue adjusted vanco. renal function seems fine midline placed. 2.psoriasis - continue home Tremfya 3.esophageal varices - continue nadolol and pantoprazole. DVT ppx: early ambulation. Ongoing hospitalization need:? Recurrent abdominal was cellulitis need IV antibiotics and monitoring, Vanco trough as well as renal function and electrolyte monitoring. need midline for iv antibiotics Time Spent With Patient Time: Total time managing care of this patient today ____ minutes. Quality Stroke Does the patient have a stroke diagnosis?: No VTE Prior VTE?: No VTE Risk Level:: Medical - low VTE Device Contraindication: Treatment Not Indicated VTE Drug Contraindication: Treatment Not Indicated
--- NOTE | 2022-09-06 17:37 | HO.MIDLINE ---
Midline Insertion MIDLINE INSERTION Diagnosis: [Abdominal wall cellulitis] Indication: [ocean transportation intermediary antibiotics needed] Pertinent Labs: [reviewed] Technique: Using sterile technique including cap and mask, glove and drape, the right arm was prepped and draped in the usual sterile fashion of full barrier technique with CHG. Using ultrasound guidance, right basilic vein access was obtained twice by Aniya Vega RN and once by Kalpesh Leo RN, but unable to advance guidewire. Left arm was then prepped and draped using sterile technique as detailed above. Using ultrasound guidance, left cephalic vein was accessed by Aniya Vega RN, but unable to advance guidewire. Left basilic vein was accessed by Kalpesh Leo RN on first attempt. A 20G X 10CM ST non-PASV midline was positioned. The procedure was performed in S272. Ultrasound was used to document vein patency and for needle entry. A formal ultrasound picture was recorded. [employer] has released the line for use and it is currently dressed with a StatLock, Tegaderm, and CHG disc. Verification has been performed for blood return and line patency. Arm Circumference: 35 M Equipment: BARD PowerGlide ST Midline Catheter Type: 20G X 10CM non-PASV midline Lot #: [id number]
[2022-09-06 19:37] VITALS: BP 151/80; PULSE 69; RESP 18; TEMP 36.6; O2SAT 97
[2022-09-06] MEDS: nadoloL 20 MG TABLET PO (20:47)
[2022-09-07] MEDS: traZODone HCL 50 MG TABLET PO (01:36)
[2022-09-07 04:00] VITALS: BP 131/73; PULSE 59; RESP 18; TEMP 36.7; O2SAT 96
[2022-09-07] MEDS: diphenhydrAMINE HCL 50 MG/ML VIAL 25 MG IVPUSH ×2 (04:44→13:03)
[2022-09-07] MEDS: Omeprazole 20 MG CAPSULE.DR PO (04:45)
[2022-09-07] MEDS: vancomycin HCL 1,000 MG in 0.9 % Sodium Chloride 250 ML 270 MG IV (05:08)
[2022-09-07 06:54] LABS: Creatinine Clr Calc Pharmacy 118.3; Estimated Glomerular Filt Rate > 60
[2022-09-07 07:47] VITALS: BP 128/63; PULSE 61; RESP 19; TEMP 37.2; O2SAT 95
[2022-09-07] MEDS: Folic Acid 1 MG TABLET PO (08:43)
--- NOTE | 2022-09-07 11:03 | PM.DS ---
DS: Providers Provider Date of Service: 09/07/22 Date of admission: 09/03/22 22:11 Primary care physician: Vaishnavi Morgan MD Consults: 09/04/22 10:41 Consult to Infectious Diseases Routine Consulting Provider: Ciarra Olivo Reason for consultation: abd wall cellulitis Has provider been notified: No DS: Diagnosis Discharge Diagnosis (1) Abdominal wall cellulitis: Status: Acute DS: Summary Hospital Course Hospital Course: 56-year-old female with past medical history of recurrent cellulitis as well as recent GI bleed as well as grade 2 Varix? presents to the hospital with complaints of abdominal wall cellulitis. patient reports history of recurrent cellulitis requiring IV antibiotics.? Symptoms started the day prior, with significant increase that extended throughout her abdominal wall.? Patient reports fever, chills, denies any chest pain, shortness of breath, no cough, no abdominal pain nausea or vomiting, no diarrhea constipation, no urinary symptoms and no lower extremity edema On arrival to the ED patient hemodynamically stable no significant abnormal vitals Labs are significant for WBC count of 7.7, hemoglobin 14.6, hematocrit 41.2 normal lactic acid. Hospital course: Patient admitted for says abdominal wall cellulitis: Started on IV antibiotics seems to be improving, blood culture negative: Seen by infectious disease recommended IV vancomycin ( end date 09/14/22) since patient does not do well with p.o. antibiotics. Monitor vanco trough, BMP, LFT, ESR CRP weekly while the patient is on antibiotics. Above management discussed the patient in detail length, assessment and plan coordination time spent 40 minutes. Time Spent with Patient Time attestation: Total time managing care of this patient today ____ minutes. Discharge coordination time: Greater than 30 minutes Quality: Safe Use of Opioids Does Pt have an Active Cancer Diagnosis on the Problem List?: No Quality: Stroke Does the patient have a stroke diagnosis?: No Physical Exam Vital Signs: Vital Signs: Last Vital Signs Temp 99.0 F 09/07/22 07:47 Pulse 61 09/07/22 07:47 Resp 19 09/07/22 07:47 BP 128/63 09/07/22 07:47 Pulse Ox 95 09/07/22 07:47 O2 Del Method 09/07/22 07:47 BMI result Body Mass Index 34.9 Appearance: Alert.? Oriented X3.? not in distress.? cvs: rrr, [id number] , no murmur res: clear to auscultation ,no rhonchii or wheezing abd: no rebound or guarding ,nt, bs present,abd skin erythema seems improved. ext pulses present , no cyanosis . neuro: axo3 , nonfocal. DS: Data Data Completed and Pending Completed studies during hospitalization [Text1]: Procedures Insertion of Infusion Device into Superior Vena Cava, Percutaneous Approach (03/04/22) Ultrasonography of Superior Vena Cava, Guidance (03/04/22) Labs on day of discharge: Laboratory Results - last 24 hr 09/06/22 09/07/22 11:31 05:25 Creatinine 0.62 Estim Creat Clear Calc 118.3 Estimated GFR > 60 Random Vancomycin 8.4 L Preliminary micro results at discharge 09/03/22 19:41 Blood Culture - Preliminary Blood - Venous No growth after 48 hours. 09/03/22 19:41 Blood Culture - Preliminary Blood - Venous No growth after 48 hours. Discharge Plan Discharge Patient Disposition: Home Health Service Discharge Diagnosis: abdominal wall cellulitis Referrals: Vaishnavi Morgan MD [Primary Care Provider] - 1 Week Discharge Medications: New vancomycin in 0.9 % sodium chl 1.75 gram/250 mL solution 1.75 g IV Q12H Qty: 3000 0RF Rx Instructions: end date 09/14/22 Continued nadolol 20 mg tablet 1 tab PO BEDTIME pantoprazole 40 mg tablet,delayed release (DR/EC) 1 tab PO BID triamcinolone acetonide 0.025 % ointment 1 appl topical DIRECTED PRN (Reason: Itching) folic acid 1 mg tablet 1 tab PO DAILY Discharge Orders: Discharge Order (Routine); Ordered 09/07/22 Ordered By: Michelle Chavez Diet: Advance to usual diet Activity on Discharge: As tolerated Stand Alone Forms: Patient Portal Discharge page Care Plan Goals: Patient admitted for says abdominal wall cellulitis: Started on IV antibiotics seems to be improving, blood culture negative: Seen by infectious disease recommended 1 week of IV antibiotics since patient does not do well with p.o. antibiotics. Monitor vanco trough, BMP, LFT, ESR CRP weekly while the patient is on antibiotics-next labs draws on saturday. Above management discussed the patient in detail length Health Concerns: As above. Plan of Treatment: As above. Assessment: As above.
[2022-09-07] MEDS: Heparin Sodium,Porcine Flush 50 UNITS, 0.9 % Sodium Chloride Flush 5 ML IVFLUSH (11:19)
[2022-09-07 11:26] LABS: Vancomycin Trough 10.6 mcg/mL (10.0-20.0)
[2022-09-07] MEDS: vancomycin HCL 1,250 MG in 0.9 % Sodium Chloride 250 ML 166.67 MG IV (12:57)
--- NOTE | 2022-09-07 14:00 | MHC.CM.PN ---
PATIENT NEEDS PICC LINE. PLAN IS HOME WITH 1.75 G IV VANCO BID PATIENT CURRENTLY HAS A MIDLINE. [facility] AND [facility] AWARE PATIENT IS CAPABLE OF ADMINISTERING HER OWN ABX, SHE HAS DONE THIS IN THE PAST.
--- NOTE | 2022-09-07 14:06 | HE.PHANOTE ---
DR. GODWIN CALLED TO CHANGE VANCOMYCIN TO 1750MG Q12 PATIENT WILL BE DISCHARGED ON THIS DOSE.
--- NOTE | 2022-09-07 16:10 | HO.RADPN ---
RADIOLOGY Narrative Narrative: Left arm midline changed over wire for 4 fr single lumen PICC line. Catheter length 45 cm. Tip in SVC.
[2022-09-07 16:19] VITALS: BP 164/90; PULSE 64; RESP 18; TEMP 36.8; O2SAT 98
--- NOTE | 2022-09-07 16:38 | P.F2F_ITS ---
Service Date Service Date: 09/07/22 Encounter Date of encounter: 09/07/22 Encounter: abd wall cellulitis Reasons for Services Signs and symptoms assessed: Any abdominal pain or erythema or fever or chills Reason for alf: administration of IV, SQ, or IM injection, medication management, medication treatment and teach disease management MD Overseeing Care: Vaishnavi Morgan Homebound: Leaving the home is medically contraindicated at this time without the asist of a device and/or another person due th the listed conditions above and below. Reason homebound: weakness related to hospital stay Homebound supporting statement: Patient admitted for abdominal wall cellulitis need IV antibiotics-need help with IV antibiotic administration, monitoring labs. Certification: Based on the above findings, I certify that this patient is confined to the home and needs intermittent alf care, physical therapy and/or speech the rapy, or continues to need occupational therapy. The patient is under my care, and I have initiated the establishment of the plan of care. The patient will be followed by a physician who will periodically review the plan of care. Time Spent With Patient Time: Total time managing care of this patient today ____ minutes.
--- NOTE | 2022-09-07 16:47 | MHC.CM.PN ---
PATIENT GOING HOME TONIGHT. [facility] TO DELIVER HER ABX. [facility] WILL SEE PATIENT IN THE A.M. [facility] REMINDED TO PERFORM LABS ON SATURDAY RN AWARE OF PLAN
== END 2022-09-07 20:15 | disposition home health service (06) ==
LOC: HO.ED 22:22 → HO.EDOVER 22:23 → HO.S3 09-04 18:21
PROVIDERS: Physician Assistant; Radiology Diagnostic Radiology; Admitting Provider Internal Medicine; Emergency Provider Emergency Medicine; PCP Internal Medicine; Visit Provider Internal Medicine
DX: L03.311 Cellulitis of abdominal wall (principal); Z79.899 Other long term (current) drug therapy; Z20.828 Contact with and (suspected) exposure to other viral communicable diseases
CPT/HCPCS: 36573; 0241U; 36410; 36415; 80048; 80053; 80202; 81001; 81003; 82565; 83605; 85025; 85652; 86140; 87040; 87086; 96361; 96365; 96366; 96367; 96375; 99218; 99285; C1751; J1200; J1642; J3370

== ENCOUNTER → 2022-09-14 13:48 | Outpatient (BNVA) | payer MEDICAID, SELFPAY | PROVIDERS: PCP Internal Medicine; Visit Provider Internal Medicine | DX: Z45.2 Encounter for adjustment and management of vascular access device (principal); L03.311 Cellulitis of abdominal wall; Z90.49 Acquired absence of other specified parts of digestive tract | CPT/HCPCS: 99212 ==

== ENCOUNTER 2023-08-06 11:29 | Outpatient (REF) | payer MEDICAID, SELFPAY | END 2023-08-06 11:30 | disposition home or self-care (01) | LOC: HO.HHCLNP 11:29 | PROVIDERS: Visit Provider Nurse Practitioner Family | DX: R30.0 Dysuria (principal) | CPT/HCPCS: 87086; 87088; 87186 ==

== ENCOUNTER 2023-08-17 09:31 | Emergency (ER) | payer MEDICAID, SELFPAY ==
[2023-08-17 10:00] VITALS: BP 137/66; PULSE 52; RESP 17; TEMP 36.7; O2SAT 100; BMI 33.6
[2023-08-17 10:20] LABS: MANUAL DIFF FLAG NO
[2023-08-17 10:23] LABS: Basophils Percent Auto 0.4 % (0-2); Eosinophils Absolute Auto 0.1 X10*3/uL (0.0-0.4); Eosinophils Percent Auto 2.6 % (0-4); Hemoglobin 11.9 g/dl (12.0-16.0); Imm Gran Abs Auto 0.01 X10*3/uL (0.00-0.03); Imm Gran Pct Auto 0.2 % (0.0-0.4); Lymphocytes Percent Auto 20.2 % (20-40); Mean Corpuscular HGB Conc 33.1 g/dl (31.0-35.0); Mean Corpuscular Hemoglobin 29.2 pg (27.0-33.0); Mean Corpuscular Volume 88.5 fL (80.0-98.0); Mean Platelet Volume 9.4 fL (9.4-12.3); Monocytes Absolute Auto 0.4 X10*3/uL (0.1-1.2); Monocytes Percent Auto 8.4 % (2-11); Neutrophils Absolute Auto 3.4 x10*3/uL (2.0-8.3); Neutrophils Percent Auto 68.2 % (45-73); Red Blood Count 4.07 X10*6/uL (4.20-5.50); Red Cell Distribution Width 19.4 % (11.0-16.0)
[2023-08-17 10:24] LABS: Appearance Urine Hazy; Color Urine Orange; Glucose Urine UA 100 mg/dL (Negative); Leukocyte Esterase Urine Small (1+) (Negative); Nitrite Urine Positive (Negative); Platelet Count 95 X10*3/uL (160-400); Specific Gravity - Urine 1.025 (1.005-1.025); UMIC TRIGGER UACC YES; Urine Blood Small (1+) (Negative); Urine Ketones Negative (Negative); Urine Protein 30 (1+) mg/dL (Neg-Trace)
[2023-08-17 10:35] LABS: Alanine Aminotransferase 23 U/L (0-31); Albumin Level 2.6 g/dL (3.5-5.0); Alkaline Phosphatase 160 U/L (39-117); Anion Gap 9 (12-20); Aspartate Amino Transferase 54 U/L (5-31); Bilirubin Direct 2.2 mg/dL (0.0-0.5); Bilirubin Total 4.9 mg/dL (0.0-1.0); Blood Urea Nitrogen 12 mg/dL (9-16); C Reactive Protein 1.75 mg/dL (< or = 0.50); Calcium 8.4 mg/dL (8.4-10.2); Carbon Dioxide 23 mmol/L (22-29); Chloride 110 mmol/L (96-108); Creatinine Clr Calc Pharmacy 87.6; Estimated Glomerular Filt Rate > 60; Glucose Random 87 mg/dL (60-115); Lipase 60 U/L (8-78); Potassium 4.2 mmol/L (3.3-5.1); Sodium 138 mmol/L (135-145); Total Protein 7.6 g/dL (6.5-8.0)
[2023-08-17 10:37] LABS: Bacteria Urine 4+ (None Seen); Squamous Epithelial Cell Urine >20 /HPF (0-2); UACC Culture Trigger YES
[2023-08-17 11:19] LABS: Erythrocyte Sedimentation Rate 34 MM/HR (0-20)
--- NOTE | 2023-08-17 12:58 | ED.GENADULT ---
HPI - General Adult General Chief complaint: Abdominal Pain Stated complaint: cellulitis Time Seen by Provider: 08/17/23 11:07 History of Present Illness HPI narrative: 57-year-old female with a history of MAYS. History of liver cirrhosis. Presented today with having a lymph node that was noticed in the axillary area. Patient claims when that happens she usually get a cellulitis to her abdomen. She denies having any actual documented fever. No nausea no vomiting no diarrhea. No chest pain no shortness of breath. No diaphoresis. Patient from home. No pain on urination . Came to the emergency department for antibiotics and asking for help. Related Data Home Medications Medication Instructions Recorded Confirmed folic acid 1 mg tablet 1 tab PO DAILY 09/03/22 12/06/22 nadolol 20 mg tablet 1 tab PO BEDTIME 09/03/22 12/06/22 pantoprazole 40 mg tablet,delayed 1 tab PO BID 09/03/22 12/06/22 release triamcinolone acetonide 0.025 % 1 appl topical DIRECTED PRN 09/03/22 09/03/22 topical ointment Itching diphenhydramine HCl 25 mg capsule 25 mg PO BEDTIME PRN 09/14/22 (Benadryl) guselkumab 100 mg/mL subcutaneous 100 mg subcut Q4W 12/06/22 12/06/22 auto-injector (Tremfya) Previous Rx's Medication Instructions Recorded vancomycin 1.75 gram/250 mL in 0.9 1.75 g (250 mL) IV Q12H #3,000 mL 09/07/22 % sodium chloride intravenous soln cephalexin 500 mg capsule 500 mg PO Q8H 7 days #21 caps 08/17/23 Allergies Allergy/AdvReac Type Severity Reaction Status Date / Time Penicillins AdvReac Intermediate Unknown Verified 03/04/22 21:15 Review of Systems Review of Systems: No fever no chills no diaphoresis. No chest pain. Yes all other systems are reviewed and are negative COUNTS INCLUDE 234 BEDS AT THE [facility] Past Medical History Attestation statement: The following information was validated with the patient. Medical History Obstructive sleep apnea GERD (gastroesophageal reflux disease) Rigor Fever Psoriasis Cellulitis Surgical History Hx of breast reduction, elective History of cholecystectomy Family History Family History Other No family history of coronary artery disease Social History Social History Household Members: Family Housing: Apartment Do you presently have visiting nurse or other home services: No Alcohol intake: never Patient Tobacco Use Status: Never used Tobacco Substance Use Type: Sedatives Advance Directives: Yes Advance Directives on File: Yes Advance Directives Date on File: 11/01/21 service: No Current occupational status: employed Physical Exam ED Vital Signs: Vital Signs - 24 hr 08/17/23 10:00 Temperature 98.1 F Pulse Rate 52 Respiratory Rate 17 Blood Pressure 137/66 Pulse Oximetry 100 Oxygen Delivery Method Room Air BMI result Body Mass Index 33.6 Appearance: Alert. Oriented X3. No acute distress. Eyes: Pupils equal, round and reactive to light. ENT: Pharynx normal. Neck: Normal inspection. Neck supple. No lymph nodes noted. No crepitus CVS: Normal heart rate and rhythm. Pulses normal. Normal S1 and S2 Respiratory: No respiratory distress. Breath sounds normal. No Wheezing. No rales Abdomen: Soft and nontender. No rigidity. No distention. good BS x4 Skin: Skin warm and dry. Normal skin color. Normal skin turgor. Extremities: No lower extremity edema. Neurovascular intact to all extremities. No Lacerations. No Rash Neuro: Oriented X 3. No motor deficit. No sensory deficit. Moving all extermities. No slurred speech Medical Decision Making Medical Decision Making [facility] Narrative: Patient well appearing no acute distress. Minimal lymph node noted in the right axilla area. Lungs are clear. There is no skin rashes to the upper extremity bilaterally. There is no rash noted in the abdomen. Patient urine mostly show contamination question early infection concerning patient's history. Will give the patient a course of Keflex for empiric possible question cellulitis/urinary tract infection. Follow-up on an outpatient basis. Patient is in no distress. Differential Diagnosis Differential Diagnoses: The differential diagnosis associated with the presentation includes Urinary tract infection, cellulitis, viral illness Admission/Observation Consideration of admission/observation: Escalation of care including admission/observation considered No need to admit this patient well-appearing Lab Data [facility] Lab Attestation statement: I reviewed the patient's lab results. 08/17/23 10:16 08/17/23 10:16 Labs: Lab Results 08/17/23 Range/Units 10:16 WBC 5.0 (4.8-10.8) X10*3/uL RBC 4.07 L (4.20-5.50) X10*6/uL Hgb 11.9 L (12.0-16.0) g/dl Hct 36.0 L (37.0-47.0) % MCV 88.5 (80.0-98.0) fL MCH 29.2 (27.0-33.0) pg MCHC 33.1 (31.0-35.0) g/dl RDW 19.4 H (11.0-16.0) % Plt Count 95 L (160-400) X10*3/uL MPV 9.4 (9.4-12.3) fL Immature Gran % (Auto) 0.2 (0.0-0.4) % Neut % (Auto) 68.2 (45-73) % Lymph % (Auto) 20.2 (20-40) % [place] % (Auto) 8.4 (2-11) % Eos % (Auto) 2.6 (0-4) % Baso % (Auto) 0.4 (0-2) % Lymph # (Auto) 1.0 L (1.2-4.9) X10*3/uL [place] # (Auto) 0.4 (0.1-1.2) X10*3/uL Eos # (Auto) 0.1 (0.0-0.4) X10*3/uL Baso # (Auto) 0.0 (0.0-0.2) X10*3/uL Abs Immat Gran (auto) 0.01 (0.00-0.03) X10*3/uL Absolute Neuts (auto) 3.4 (2.0-8.3) x10*3/uL Absolute Nucleated RBC 0.000 (0.0-0.012) X10*3/uL Nucleated RBC % (auto) 0.0 (0.0-0.2) /100WBC ESR 34 H (0-20) MM/HR Sodium 138 (135-145) mmol/L Potassium 4.2 D (3.3-5.1) mmol/L Chloride 110 H (96-108) mmol/L Carbon Dioxide 23 (22-29) mmol/L Anion Gap 9 L (12-20) BUN 12 (9-16) mg/dL Creatinine 0.81 (0.5-1.4) mg/dL Estim Creat Clear Calc 87.6 Estimated GFR > 60 Random Glucose 87 (60-115) mg/dL Calcium 8.4 D (8.4-10.2) mg/dL Total Bilirubin 4.9 H (0.0-1.0) mg/dL Direct Bilirubin 2.2 H (0.0-0.5) mg/dL AST 54 H (5-31) U/L ALT 23 (0-31) U/L Alkaline Phosphatase 160 H (39-117) U/L C-Reactive Protein 1.75 H (< or = 0.50) mg/dL Total Protein 7.6 (6.5-8.0) g/dL Albumin 2.6 L (3.5-5.0) g/dL Lipase 60 (8-78) U/L Urine Color [place] Urine Appearance Hazy Urine pH 6.0 (5.0-9.0) Ur Specific [place] 1.025 (1.005-1.025) Urine Protein 30 (1+) H (Neg-Trace) mg/dL Urine Glucose (UA) 100 H (Negative) mg/dL Urine Ketones Negative (Negative) mg/dL Urine Blood Small (1+) H (Negative) Urine Nitrite Positive H (Negative) Ur Leukocyte Esterase Small (1+) H (Negative) Urine RBC 3-5 H (0-2) /HPF Urine WBC 6-10 (0-5) /HPF Ur Squamous Epith Cells >20 (0-2) /HPF Urine Bacteria 4+ (None Seen) Hyaline Casts 3-5 (0-2) /LPF External Record Review External record reviewed: Inpatient record Chronic Conditions History of [place] Discharge Plan Discharge Clinical Impression: Cellulitis Patient Disposition: Home, Self-Care Instructions: Cellulitis (ED) Prescriptions: New cephalexin 500 mg capsule 500 mg PO Q8H 7 Days Qty: 21 0RF No Action Tremfya 100 mg/mL Auto-Injector 100 mg SUBCUT Q4W nadolol 20 mg tablet 1 tab PO BEDTIME pantoprazole 40 mg tablet,delayed release (DR/EC) 1 tab PO BID triamcinolone acetonide 0.025 % ointment 1 appl topical DIRECTED PRN (Reason: Itching) folic acid 1 mg tablet 1 tab PO DAILY vancomycin in 0.9 % sodium chl 1.75 gram/250 mL solution 1.75 g IV Q12H Qty: 3000 0RF Rx Instructions: end date 09/14/22 diphenhydramine HCl [Benadryl] 25 mg capsule 25 mg PO BEDTIME PRN Referrals: Vaishnavi Morgan MD [Primary Care Provider] - 08/19/23
== END 2023-08-17 13:36 | disposition home or self-care (01) ==
PROVIDERS: Emergency Provider Emergency Medicine Emergency Medical Services; PCP Internal Medicine
DX: L03.311 Cellulitis of abdominal wall (principal); R59.9 Enlarged lymph nodes, unspecified
CPT/HCPCS: 36415; 80048; 80076; 81001; 83690; 85025; 85652; 86140; 87086; 99282; 99283

== ENCOUNTER 2024-05-23 13:02 | Inpatient (IN) | payer MEDICAID, SELFPAY ==
--- NOTE | ~2024-05-23 | US_ITS ---
EXAMINATION: US ABDOMEN LIMITED CLINICAL INFORMATION: Hyperbilirubinemia. COMPARISON: CT abdomen pelvis 03/04/2022 and 10/14/2016 TECHNIQUE: Real-time imaging of the right upper quadrant abdominal viscera. FINDINGS: PANCREAS: A 1 cm cystic lesion in the pancreatic head, previously 9 mm in 2017. Portions of the pancreas were obscured. No appreciable pancreatic duct dilatation. LIVER: Nodular hepatic contour with coarse hepatic echotexture compatible with cirrhosis. No focal hepatic lesion. There is no intrahepatic biliary duct dilatation seen. Portal vein patent with normal waveforms. Hepatic artery is patent with normal waveforms. Middle and right hepatic veins are patent with normal waveforms. The left hepatic vein with not interrogated by the tentmaker. GALLBLADDER: Surgically absent. COMMON BILE DUCT: Obscured by bowel gas. RIGHT KIDNEY: Normal. No hydronephrosis. No renal calculi or focal parenchymal lesions. The kidney measures 9.6 cm in maximum dimension. FREE FLUID: Large volume ascites. Incidental note is made of splenomegaly measuring 13.5 cm in span. US/US duplex arterial venous comp IMPRESSION: 1. Cirrhotic liver with a large volume ascites and splenomegaly suggesting portal hypertension. The left hepatic vein was not interrogated by the tentmaker. Otherwise imaged hepatic vasculature appears unremarkable. 2. A 1 cm cystic lesion in the pancreatic head, previously 9 mm in 2017. Recommend nonemergent follow-up contrast-enhanced MR/MRCP. 3. Common bile duct was obscured by bowel gas. No intrahepatic biliary duct dilatation. Electronically signed by: Pauline Reza MD 05/23/2024 05:56 PM EDT
--- NOTE | ~2024-05-23 | US_ITS ---
Ultrasound paracentesis History: Ascites. IVETH Risks and benefits and possible complications were discussed with the patient and consent form was signed. A safe pocket of ascitic fluid was identified using ultrasound guidance, and the overlying skin was marked. The abdomen prepped and draped in sterile fashion. 1% lidocaine was used as a local anesthetic. Using ultrasound guidance, a 5 fr catheter was placed into the ascitic pocket. 1.0 liters of bailey fluid was removed passively. The catheter was then removed. A few underwriting account representative images from before and after the examination were obtained. The procedure was performed by Lázaro Wen PA-C and supervised by Dr. Perez. US/US paracentesis abd w/image Impression: Ultrasound-guided paracentesis as described above. No immediate complications Electronically signed by: Sidney Peerz MD 06/04/2024 03:19 PM EDT
--- NOTE | ~2024-05-23 | XR_ITS ---
EXAMINATION: XR CHEST CLINICAL INFORMATION: Shortness of breath COMPARISON: Chest radiograph from 03/04/2022 TECHNIQUE: Frontal view of the chest was obtained. FINDINGS: Bilateral lung volumes. Stable elevation right hemidiaphragm. Streaky opacities left lateral lung base may reflect atelectasis versus trace pleural effusion. No pneumothorax. Trachea is midline. Cardiomediastinal silhouette is stable. Osseous structures are intact. Soft tissues are unremarkable. XR/XR chest 1V IMPRESSION: 1. Bilateral lung volumes. 2. Stable elevation right hemidiaphragm. 3. Streaky opacities left lateral lung base may reflect atelectasis versus trace pleural effusion. Electronically signed by: Melissa Mejia MD 05/24/2024 04:26 PM EDT
--- NOTE | ~2024-05-23 | US_ITS ---
EXAMINATION: US ABDOMEN LIMITED CLINICAL INFORMATION: Hyperbilirubinemia. COMPARISON: CT abdomen pelvis 03/04/2022 and 10/14/2016 TECHNIQUE: Real-time imaging of the right upper quadrant abdominal viscera. FINDINGS: PANCREAS: A 1 cm cystic lesion in the pancreatic head, previously 9 mm in 2017. Portions of the pancreas were obscured. No appreciable pancreatic duct dilatation. LIVER: Nodular hepatic contour with coarse hepatic echotexture compatible with cirrhosis. No focal hepatic lesion. There is no intrahepatic biliary duct dilatation seen. Portal vein patent with normal waveforms. Hepatic artery is patent with normal waveforms. Middle and right hepatic veins are patent with normal waveforms. The left hepatic vein with not interrogated by the pizza maker. GALLBLADDER: Surgically absent. COMMON BILE DUCT: Obscured by bowel gas. RIGHT KIDNEY: Normal. No hydronephrosis. No renal calculi or focal parenchymal lesions. The kidney measures 9.6 cm in maximum dimension. FREE FLUID: Large volume ascites. Incidental note is made of splenomegaly measuring 13.5 cm in span. US/US abdomen limited IMPRESSION: 1. Cirrhotic liver with a large volume ascites and splenomegaly suggesting portal hypertension. The left hepatic vein was not interrogated by the pizza maker. Otherwise imaged hepatic vasculature appears unremarkable. 2. A 1 cm cystic lesion in the pancreatic head, previously 9 mm in 2017. Recommend nonemergent follow-up contrast-enhanced MR/MRCP. 3. Common bile duct was obscured by bowel gas. No intrahepatic biliary duct dilatation. Electronically signed by: Pauline Reza MD 05/23/2024 05:56 PM EDT
--- NOTE | 2024-05-23 13:09 | ED.SKABFB ---
HPI - Skin/Abscess/Foreign Bdy General Chief complaint: General Medical Stated complaint: cellulitis Time Seen by Provider: 05/23/24 15:01 Source: patient Mode of arrival: ambulatory Limitations: no limitations History of Present Illness ED Provider: Nils Hernández PA-C HPI narrative: 58-year-old female with a history of decompensated HUNT cirrhosis with history of ascites requiring paracentesis (last 3.6L removed on 05/21), history of esophageal varices and GI bleed, MARYJANE, GERD, psoriasis not currently on any treatment, history of cholecystectomy, history of recurrent abdominal wall cellulitis, who presents to the ER for ?abdominal wall cellulitis.? She states yesterday she started developing a red and warm rash on her abdomen. Reports the last couple of days she has been feeling unwell, generalized malaise and chills. She denies any fevers. She reports decreased p.o. intake, not eating much in the last 48 hours but she has been trying to drink at least 3-5 bottles of water. She has been taking all of her medications as prescribed including her Lasix and spironolactone. She reports history of several episodes of abdominal wall cellulitis in the past that required admission for IV antibiotics. MD complaint: rash Onset (ago): day(s) (1) Severity: moderate Quality: aching Pain Consistency: intermittent Relieving factors: none Exacerbating factors: none Associated symptoms: chills and malaise Treatments prior to arrival: none Related Data Home Medications ?Medication ?Instructions ?Recorded ?Confirmed folic acid 1 mg tablet 1 tab PO DAILY 09/03/22 12/06/22 nadolol 20 mg tablet 1 tab PO BEDTIME 09/03/22 12/06/22 pantoprazole 40 mg tablet,delayed 1 tab PO BID 09/03/22 12/06/22 release triamcinolone acetonide 0.025 % 1 appl topical DIRECTED PRN 09/03/22 09/03/22 topical ointment Itching diphenhydramine HCl 25 mg capsule 25 mg PO BEDTIME PRN 09/14/22 (Benadryl) guselkumab 100 mg/mL subcutaneous 100 mg subcut Q4W 12/06/22 12/06/22 auto-injector (Tremfya) Previous Rx's ?Medication ?Instructions ?Recorded vancomycin 1.75 gram/250 mL in 0.9 1.75 g (250 mL) IV Q12H #3,000 mL 09/07/22 % sodium chloride intravenous soln cephalexin 500 mg capsule 500 mg PO Q8H 7 days #21 caps 08/17/23 Allergies Allergy/AdvReac Type Severity Reaction Status Date / Time Penicillins AdvReac Intermediate Unknown Verified 05/23/24 13:17 vancomycin AdvReac Itching Verified 05/23/24 13:17 Review of Systems Review of Systems: Yes all other systems are reviewed and are negative [facility] Past Medical History Medical History Obstructive sleep apnea GERD (gastroesophageal reflux disease) Rigor Fever Psoriasis Cellulitis Surgical History Hx of breast reduction, elective History of cholecystectomy Family History Family History Other No family history of coronary artery disease Social History Social History Household Members: Family Housing: Apartment Do you presently have visiting nurse or other home services: No Alcohol intake: never Patient Tobacco Use Status: Never used Tobacco Smoked in Last 30 Days: No Use of substances other than those prescribed or required for medical reasons: No Substance Use Type: Sedatives Advance Directives: Yes Advance Directives Information Provided: No Advance Directives on File: No Advance Directives Date on File: 11/01/21 Do you have a plan to hurt others: No Plan service: No Current occupational status: employed Physical Exam Vital Signs: Vital Signs: Last Vital Signs Temp 98.5 F 05/23/24 13:10 Pulse 70 05/23/24 13:10 Resp 18 05/23/24 13:10 BP 93/55 L 05/23/24 13:10 Pulse Ox 99 05/23/24 13:10 O2 Del Method Room Air 05/23/24 13:10 BMI result Body Mass Index 27.1 Appearance: Alert. Oriented X3. No acute distress. Head: normocephalic, atraumatic. Eyes: Icteric sclera, pupils are equal round reactive to light. Extraocular movements are intact ENT: Pharynx normal. No tonsillar swelling or exudate. Neck: Normal inspection. Neck supple. CVS: Normal heart rate and rhythm. Pulses normal. Respiratory: No respiratory distress. Breath sounds normal. Abdomen: , soft, mild diffuse tenderness throughout, there is a warm, erythematous, scaly rash across the entire upper abdomen Skin: Skin warm and dry. Mild jaundice. Normal skin turgor. Extremities: No lower extremity edema. No joint swelling. Neuro/psych: Oriented X 3. No motor deficit. No sensory deficit. CN II-XII intact. Normal speech and cognition. Course Course Course Narrative: This is an RME performed by Anna Mansfield, GEOMETRICIAN: Additional HPI, ROS, PE not included below will be deferred to primary provider. Patient is a 58 years old presenting to emergency department for evaluation of concern for cellulitis to the abdomen. She has a extensive rash over the anterior abdomen that appears to extend down towards the genitalia, erythematous and pruritic. Associated nausea but no vomiting. A dosing chills but no fever. Denies any new medications, known allergen exposure. Reports a history of similar presentation approximately 1 year ago diagnosed with abdominal wall cellulitis. Seen infectious disease as well. She does admit that December or January of this year she developed liver cirrhosis secondary to HUNT. By her account she did not have the liver disease the last time she had this cellulitis. Medical Decision Making Medical Decision Making MDM Narrative: 58-year-old female with a history of decompensated HUNT cirrhosis with history of ascites requiring paracentesis, history of esophageal varices and GI bleed, MARYJANE, GERD, psoriasis not currently on any treatment, history of cholecystectomy, history of recurrent abdominal wall cellulitis, who presents to the ER for ?abdominal wall cellulitis.? Exam with abdominal wall erythema in what appears to be the distribution of a previous psoriasis rash. The area is warm to touch. No induration. No evidence of abscess. Not consistent with an allergic reaction. She has soft blood pressure 93/55 but she has a liver patient, suspect this is near her baseline. She is afebrile and not tachycardic. Lab work showing a mild leukocytosis of 11,000. She has an acute kidney injury with new hyponatremia. This is likely multifactorial due to her poor p.o. intake, her recent paracentesis, her diuretics. She also has an elevated bilirubin of 7. Last bilirubin we have was 4.3 in August. Will attempt to get records from [facility] for her baseline liver functions. Will give 1 L of normal saline and reassess her renal function and sodium. Consider albumin given her low albumin stores. Will admit to the hospital for further evaluation and treatment. Differential Diagnosis Differential Diagnoses: The differential diagnosis associated with the presentation includes Abdominal wall cellulitis, allergic reaction, psoriasis, hypovolemic hyponatremia, IVETH due to dehydration, poor p.o. intake and diuretic use Admission/Observation Consideration of admission/observation: Escalation of care including admission/observation considered Consult Healthcare Provider Management of the patient was discussed with: Hospitalist Lab Data MDM Lab Attestation statement: I reviewed the patient's lab results. Mild leukocytosis, thrombocytopenia, IVETH with new hyponatremia, low bicarb 05/23/24 13:43 05/23/24 13:43 Labs: Lab Results 05/23/24 05/23/24 Range/Units 13:42 13:43 WBC 11.5 H (4.8-10.8) X10*3/uL RBC 3.57 L (4.20-5.50) X10*6/uL Hgb 12.2 (12.0-16.0) g/dl Hct 34.4 L (37.0-47.0) % MCV 96.4 (80.0-98.0) fL MCH 34.2 H (27.0-33.0) pg MCHC 35.5 H (31.0-35.0) g/dl RDW 14.6 (11.0-16.0) % Plt Count 64 L D (160-400) X10*3/uL MPV Not Reportable Immature Gran % (Auto) 0.3 (0.0-0.4) % Neut % (Auto) 85.1 H (45-73) % Lymph % (Auto) 5.2 L (20-40) % [place] % (Auto) 8.8 (2-11) % Eos % (Auto) 0.3 (0-4) % Baso % (Auto) 0.3 (0-2) % Lymph # (Auto) 0.6 L (1.2-4.9) X10*3/uL [place] # (Auto) 1.0 (0.1-1.2) X10*3/uL Eos # (Auto) 0.0 (0.0-0.4) X10*3/uL Baso # (Auto) 0.0 (0.0-0.2) X10*3/uL Abs Immat Gran (auto) 0.04 H (0.00-0.03) X10*3/uL Absolute Neuts (auto) 9.8 H (2.0-8.3) x10*3/uL Absolute Nucleated RBC 0.020 H (0.0-0.012) X10*3/uL Nucleated RBC % (auto) 0.2 (0.0-0.2) /100WBC Smear Tech's Comments VERIFIED ESR 62 H (0-20) MM/HR PT 25.9 H (11.1-13.3) SEC INR 2.1 H (0.9-1.1) Sodium 125 L (135-145) mmol/L Potassium 5.0 (3.3-5.1) mmol/L Chloride 99 (96-108) mmol/L Carbon Dioxide 17 L (22-29) mmol/L Anion Gap 14 (12-20) BUN 44 H (9-16) mg/dL Creatinine 2.23 H (0.5-1.4) mg/dL Estim Creat Clear Calc 28.3 Estimated GFR 23 Random Glucose 84 (60-115) mg/dL Calcium 8.9 (8.4-10.2) mg/dL Magnesium 1.8 (1.6-2.6) mg/dL Total Bilirubin 7.4 H (0.0-1.0) mg/dL AST 49 H (5-31) U/L ALT 22 (0-31) U/L Alkaline Phosphatase 140 H (39-117) U/L C-Reactive Protein 4.27 H (< or = 0.50) mg/dL Total Protein 7.4 (6.5-8.0) g/dL Albumin 2.1 L (3.5-5.0) g/dL Lipase 23 (8-78) U/L Influenza Type A (PCR) NEGATIVE (Negative) Influenza Type B (PCR) NEGATIVE (Negative) RSV RNA Qual (PCR) NEGATIVE (Negative) SARS-CoV-2 RNA (RT-PCR) NEGATIVE (Negative) S. pyogenes GrpA NARINDER Negative (Negative) External Record Review External record reviewed: Inpatient record, Outpatient record, Prior outpatient labs and Prior outpatient radiology Tests considered The following testing was considered but not selected: Considered ultrasound of the right upper quadrant and liver to assess the portal veins given her elevated bilirubin however she has no right upper quadrant pain Prescription Management I considered prescription management with: Pain Medication and Antibiotic Chronic Conditions Patient?s care impacted by: Other (Psoriasis, Hunt cirrhosis) Critical Care Time Critical Care Time Critical Care Time: Yes Total Critical Care Time: 39 Attestation: I have personally provided critical care time exclusive of time spent on separately billable procedures. Time includes review of lab data, radiology results, discussion with consultants, and monitoring for potential decompensation. Intervention performed as documented. Discharge Plan Discharge Clinical Impression: IVETH (acute kidney injury), Acute hyponatremia, Abdominal wall cellulitis Patient Disposition: Admitted As Inpatient Print Language: Kyrgyz
[2024-05-23 13:10] VITALS: BP 93/55; PULSE 70; RESP 18; TEMP 36.9; O2SAT 99; BMI 27.1
[2024-05-23 13:53] LABS: Basophils Percent Auto 0.3 % (0-2); Eosinophils Percent Auto 0.3 % (0-4); Hematocrit 34.4 % (37.0-47.0); Hemoglobin 12.2 g/dl (12.0-16.0); Imm Gran Abs Auto 0.04 X10*3/uL (0.00-0.03); Imm Gran Pct Auto 0.3 % (0.0-0.4); Lymphocytes Absolute Auto 0.6 X10*3/uL (1.2-4.9); Lymphocytes Percent Auto 5.2 % (20-40); MANUAL DIFF FLAG SCAN; Mean Corpuscular HGB Conc 35.5 g/dl (31.0-35.0); Mean Corpuscular Hemoglobin 34.2 pg (27.0-33.0); Mean Corpuscular Volume 96.4 fL (80.0-98.0); Monocytes Percent Auto 8.8 % (2-11); NRBC Pct Auto 0.2 /100WBC (0.0-0.2); Neutrophils Absolute Auto 9.8 x10*3/uL (2.0-8.3); Neutrophils Percent Auto 85.1 % (45-73); PLT CLUMP 1; Red Blood Count 3.57 X10*6/uL (4.20-5.50); Red Cell Distribution Width 14.6 % (11.0-16.0); SCAN SMEAR FLAG 1
[2024-05-23 13:56] LABS: IDNOW Serial# 08D9AD1C; Strep A Nucleic Acid Negative (Negative)
[2024-05-23 14:04] LABS: Alanine Aminotransferase 22 U/L (0-31); Albumin Level 2.1 g/dL (3.5-5.0); Alkaline Phosphatase 140 U/L (39-117); Anion Gap 14 (12-20); Aspartate Amino Transferase 49 U/L (5-31); Bilirubin Total 7.4 mg/dL (0.0-1.0); Blood Urea Nitrogen 44 mg/dL (9-16); C Reactive Protein 4.27 mg/dL (< or = 0.50); Calcium 8.9 mg/dL (8.4-10.2); Carbon Dioxide 17 mmol/L (22-29); Chloride 99 mmol/L (96-108); Creatinine Clr Calc Pharmacy 28.3; Estimated Glomerular Filt Rate 23; Glucose Random 84 mg/dL (60-115); INTERNATIONAL NORM RATIO 2.1 (0.9-1.1); Lipase 23 U/L (8-78); Magnesium 1.8 mg/dL (1.6-2.6); Prothrombin Time 25.9 SEC (11.1-13.3); Sodium 125 mmol/L (135-145); Total Protein 7.4 g/dL (6.5-8.0)
[2024-05-23 14:18] LABS: White Blood Count 11.5 X10*3/uL (4.8-10.8)
[2024-05-23 14:19] LABS: Platelet Count 64 X10*3/uL (160-400); SLIDE REVIEW VERIFIED
[2024-05-23 14:28] LABS: Influenza A PCR NEGATIVE (Negative); Influenza B PCR NEGATIVE (Negative); Resp Syncy Virus RNA Qual PCR NEGATIVE (Negative); SARS COV2 PCR INHOUSE NEGATIVE (Negative)
--- NOTE | 2024-05-23 14:36 | PC.NURSE ---
Pt presents to ED from home, reports hx of cellulitis in ABD, feels like it is back at this time. Reports generalized ABD pain, 2/10. Alert and oriented, breathing even and unlabored, skin warm and dry. Denies N/V/D.
[2024-05-23 14:46] LABS: Erythrocyte Sedimentation Rate 62 MM/HR (0-20)
[2024-05-23 15:19] VITALS: BP 94/45; PULSE 67; RESP 16; O2SAT 99
[2024-05-23] MEDS: diphenhydrAMINE HCL 25 MG CAPSULE PO (15:38)
[2024-05-23] MEDS: cefTRIAXone sodium 1 GM in 0.9 % Sodium Chloride 50 ML IV (15:40)
[2024-05-23] MEDS: 0.9 % Sodium Chloride 1,000 ML 999 ML IV (15:40)
[2024-05-23 15:49] LABS: Lactic Acid 3.2 mmol/L (0.5-2.0)
[2024-05-23 16:11] LABS: Osmolality, Serum 280 mosm/kg (281-305)
--- NOTE | 2024-05-23 16:15 | PC.NURSE ---
Pt noted to have rash on ABD. Provider aware.
--- NOTE | 2024-05-23 16:19 | PHA.MEDREC ---
Addendum entered by Anisa Abraahm RPh 05/23/24 16:38: MED REC REVIEWED BY [facility] Original Note: Pharmacy Consult ? Medication Reconciliation Pharmacy has completed the medication reconciliation. Spoke with patient to confirm medications. She takes pantoprazole once in the evening, not BID. She only took the furosemide this morning. She is no longer on Tremfya and no use of OTC.
--- NOTE | 2024-05-23 16:20 | P.HPHOSP_ITS ---
History of Present Illness Date of Service: 05/23/24 Attending physician on admission: Jose Dempsey Chief Complaint: rash, malaise 58 year old female with history of MARYJANE, GERD, psoriasis, 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 Feels the area is warm. yesterday was experiencing nausea, decreased appetite (tolerating small amoutn of fluids only), malaise and chills. She continues taking her meds including lasix and spironolactone. Denies fevers, abd pain, vomiting, diarrhea, dysuria hematuria, increased urinary frequency, decreased urinary output, shortness of breath, lightheadedness, palpitations, chest pain. Since arrival, blood pressures soft but no hypotension, otherwise stable. Mild leukocytosis of 11.5. PLT 64. Creat 2.23, baseline around 1.2, BUN 44. Sodium 125, CO2 17, lytes otherwise within normal limits. Lactic acid 3.2, likely related to liver disease. Total bilirubin 7.4, direct bili pending, AST 49, ALT 22, alkaline phosphatase 140. CRP 4.27. Albumin 2.1. Negative for influenza, COVID-19, RSV, strep pyogenes. UA pending. Urine lytes pending. RUQ u/s pending. In the ED, has been given 1 L IV NS, 1 g Rocephin, and Benadryl. Review of Systems 2 Review of Systems: Yes all other systems are reviewed and are negative [facility] Medical History Obstructive sleep apnea GERD (gastroesophageal reflux disease) Rigor Fever Psoriasis Cellulitis Family History Other No family history of coronary artery disease Surgical History Hx of breast reduction, elective History of cholecystectomy Social History Household Members: Family Housing: Apartment Do you presently have visiting nurse or other home services: No Alcohol intake: never Patient Tobacco Use Status: Never used Tobacco Smoked in Last 30 Days: No Use of substances other than those prescribed or required for medical reasons: No Substance Use Type: Sedatives Advance Directives: Yes Advance Directives Information Provided: No Advance Directives on File: No Advance Directives Date on File: 11/01/21 Do you have a plan to hurt others: No Plan service: No Current occupational status: employed Meds Allergies Allergy/AdvReac Type Severity Reaction Status Date / Time Penicillins AdvReac Intermediate Unknown Verified 05/23/24 13:17 vancomycin AdvReac Itching Verified 05/23/24 13:17 Active Medications: Current Medications Vancomycin HCl 1,000 mg/Vancomycin HCl 750 mg/ Sodium Chloride 535 mls @ 267.5 mls/hr IV ONCE ONE Stop: 05/23/24 17:09 Pharmacy Consult (Consult Rx Vancomycin Dosing) 1 each MISCELLANE DAILY PRN PRN Reason: Consult order Home Medications ?Medication ?Instructions ?Recorded ?Confirmed ?Last Taken ?Type pantoprazole 40 mg tablet,delayed 1 tab PO DAILY@1630 09/03/22 05/23/24 09/03/22 History release triamcinolone acetonide 0.025 % 1 appl topical DAILY PRN Rash 09/03/22 05/23/24 Unknown History topical ointment furosemide 40 mg tablet 40 mg PO DAILY 05/23/24 05/23/24 05/23/24 History nadolol 40 mg tablet 40 mg PO QAM 05/23/24 05/23/24 Unknown History ondansetron HCl 4 mg tablet 4 mg PO Q8H PRN nausea/vomiting 05/23/24 05/23/24 Unknown History spironolactone 100 mg tablet 100 mg PO DAILY 05/23/24 05/23/24 Unknown History Physical Exam 2 Vital Signs and Narrative: Vital Signs: Last Vital Signs Temp 98.5 F 05/23/24 13:10 Pulse 67 05/23/24 15:19 Resp 16 05/23/24 15:19 BP 94/45 L 05/23/24 15:19 Pulse Ox 99 05/23/24 15:19 O2 Del Method Room Air 05/23/24 15:19 BMI result Body Mass Index 27.1 Constitutional - Awake and Alert, No apparent distress Eyes - PERRLA, EOMI Cardiovascular - S1S2, RRR, No edema Respiratory - Normal lung expansion, Normal respiratory effort, No respiratory distress, CTA bilaterally Gastrointestinal - NT / ND; +BS; No rebound or guarding Extremities - no calf tenderness bilaterally, no swelling Skin - Warm/Dry. Erythematous maculopapular dry rash in patches covering the abd. See photo. No significant warmth or drainage. +Jaundice Neurological - Alert & oriented x3, CN II-XII in tact, 5/5 strength BUE and BLE Psychological - Appropriate affect Results Labs 05/23/24 13:43 05/23/24 13:43 Labs: Laboratory Results - last 24 hr 05/23/24 05/23/24 05/23/24 13:42 13:43 15:16 MCV 96.4 MCH 34.2 H MCHC 35.5 H RDW 14.6 Plt Count 64 L D MPV Not Reportable Immature Gran % (Auto) 0.3 Neut % (Auto) 85.1 H Lymph % (Auto) 5.2 L [place] % (Auto) 8.8 Eos % (Auto) 0.3 Baso % (Auto) 0.3 Lymph # (Auto) 0.6 L [place] # (Auto) 1.0 Eos # (Auto) 0.0 Baso # (Auto) 0.0 Abs Immat Gran (auto) 0.04 H Absolute Neuts (auto) 9.8 H Absolute Nucleated RBC 0.020 H Nucleated RBC % (auto) 0.2 Smear Tech's Comments VERIFIED ESR 62 H PT 25.9 H INR 2.1 H Anion Gap 14 Estim Creat Clear Calc 28.3 Estimated GFR 23 Random Glucose 84 Osmolality 280 L Lactic Acid 3.2 H* Calcium 8.9 Magnesium 1.8 Total Bilirubin 7.4 H AST 49 H ALT 22 Alkaline Phosphatase 140 H C-Reactive Protein 4.27 H Total Protein 7.4 Albumin 2.1 L Lipase 23 Influenza Type A (PCR) NEGATIVE Influenza Type B (PCR) NEGATIVE RSV RNA Qual (PCR) NEGATIVE SARS-CoV-2 RNA (RT-PCR) NEGATIVE S. pyogenes GrpA NARINDER Negative Assessment and Plan (1) Dermatitis: Status: Acute (2) Acute hyponatremia: Status: Acute (3) IEVTH (acute kidney injury): Status: Acute (4) Decompensated cirrhosis: Status: Acute Plan 58 year old female with history of MARYJANE, GERD, psoriasis, MAYS cirrhosis complicated by ascites requiring paracentesis (last 3.6L on 05/21)/esophageal varices, history recurrent abd wall cellulitis admitted for Acute kidney injury and decompensated cirrhosis #Acute kidney injury -Creat 2.2, baseline 1.2, BUN 44 -urine studies pending -IV albumin x2, ivNS -avoid nephrotoxins -I&O -nephro consult -hold diuretics -follow renal function/lytes #Acute hyponatremia -urine studies pending -IVF as above -nephro consult -follow lytes #Acute unspecified dermatitis -possibly contact due topicals used during paracentesis 05/21. low suspicion for cellulitis/infection -PO prednisone 40mg daily #Decompensated cirrhosis -Total bili 7.4, baseline around 4.5. MELD 37 points -RUQ us with dopplers pending -GI consult -hold diuretics due to above, hold on paracentesis for now -continue nadolol #GERD -ppi #Chronic thrombocytopenia -due to cirrhosis #Acute on chronic Coagulopathy -INR 2.1, due to decompensated cirrhosis -gi consult #Intertriginous candidiasis -nystatin powder dvt prophylaxis- SCPs given thrombocytopenia full code pt requires inpt stay at least 2 midnights for management of iveth with hyponatremia requiring ivf, expert consultation and close monitoring of renal function and lytes Quality Stroke Does the patient have a stroke diagnosis?: No VTE Prior VTE?: No VTE Risk Level:: Medical - moderate - high VTE Device Contraindication: N/A - Device Ordered VTE Drug Contraindication: Treatment Not Indicated
[2024-05-23 17:20] LABS: Reflex Lactate? Lactic Acid Added
[2024-05-23 17:27] LABS: Bilirubin Direct 2.9 mg/dL (0.0-0.5)
[2024-05-23 17:44] LABS: Appearance Urine Cloudy; Color Urine Dark Yellow; Glucose Urine UA Negative (Negative); Leukocyte Esterase Urine Large (3+) (Negative); Nitrite Urine Negative (Negative); PH 5.5 (5.0-9.0); UMIC TRIGGER UACC YES; Urine Blood Negative (Negative); Urine Ketones Negative (Negative); Urine Protein Negative (Neg-Trace)
[2024-05-23 17:47] LABS: VBG Base Excess -4.9 mmol/L; VBG HCO3 19 mmol/L (22-26); VBG pCO2 34 mmHg; VBG pH 7.36 (7.32-7.43); VBG pO2 36 mmHg
[2024-05-23 17:50] LABS: Venous Blood Gas Refer to POC result
[2024-05-23 17:55] LABS: Bacteria Urine Trace (None Seen); RBC Urine 0-2 /HPF (0-2); UACC Culture Trigger YES
[2024-05-23] MEDS: predniSONE 20 MG TABLET 40 MG PO (18:00)
[2024-05-23 18:01] LABS: Osmolality Urine 335 mosm/kg (373-1093)
[2024-05-23] MEDS: Albumin Human 25 % 100 ML IV ×2 (18:01→19:00)
[2024-05-23 18:08] LABS: ~Lactic Acid-LAB USE ONLY 3.3 mmol/L (0.5-2.0)
[2024-05-23 18:14] LABS: Cancel Lactic Acid Canceled
[2024-05-23 18:20] LABS: Creatinine Urine 57.26 mg/dL
[2024-05-23 18:51] VITALS: BP 100/53
--- NOTE | 2024-05-23 18:53 | PC.NURSE ---
Pts collin held due to BPs being low
[2024-05-23 19:44] LABS: Anion Gap 13 (12-20); Blood Urea Nitrogen 42 mg/dL (9-16); Calcium 8.7 mg/dL (8.4-10.2); Carbon Dioxide 17 mmol/L (22-29); Chloride 101 mmol/L (96-108); Creatinine Clr Calc Pharmacy 31.1; Estimated Glomerular Filt Rate 25; Glucose Random 76 mg/dL (60-115); Potassium 4.9 mmol/L (3.3-5.1); Sodium 126 mmol/L (135-145)
[2024-05-23] MEDS: 0.9 % Sodium Chloride 1,000 ML 100 ML IVCONT (19:57)
--- NOTE | 2024-05-23 20:11 | PC.NURSE ---
NS 100 mL/hr late due to pt being hard stick, only 1 IV and Albumin not capatable with NS.
[2024-05-24] VITALS (7 sets, daily range): BP systolic 91–107; BP diastolic 51–60; PULSE 56–63; RESP 14–18; TEMP 36.2–37.2; O2SAT 95–100; BMI 27.0
[2024-05-24 01:30] LABS: Sodium 129 mmol/L (135-145)
--- NOTE | 2024-05-24 01:38 | PC.NURSE ---
pt ambulated to the bathroom with a steady gait. c/o stomach itchiness but denies pain at this time. pt requested a snack, crackers and juice provided
[2024-05-24] MEDS: 0.9 % Sodium Chloride 1,000 ML 100 ML IVCONT ×2 (05:49→15:12)
[2024-05-24 07:33] LABS: Hemoglobin 9.2 g/dl (12.0-16.0); Imm Gran Abs Auto 0.02 X10*3/uL (0.00-0.03); Imm Gran Pct Auto 0.7 % (0.0-0.4); Lymphocytes Absolute Auto 0.4 X10*3/uL (1.2-4.9); Lymphocytes Percent Auto 12.7 % (20-40); Mean Corpuscular HGB Conc 35.4 g/dl (31.0-35.0); Mean Corpuscular Hemoglobin 34.2 pg (27.0-33.0); Mean Corpuscular Volume 96.7 fL (80.0-98.0); Mean Platelet Volume 9.5 fL (9.4-12.3); Monocytes Absolute Auto 0.2 X10*3/uL (0.1-1.2); Monocytes Percent Auto 5.6 % (2-11); Neutrophils Absolute Auto 2.3 x10*3/uL (2.0-8.3); Red Blood Count 2.69 X10*6/uL (4.20-5.50); Red Cell Distribution Width 14.5 % (11.0-16.0); White Blood Count 2.8 X10*3/uL (4.8-10.8)
[2024-05-24 07:35] LABS: Platelet Count 38 X10*3/uL (160-400)
[2024-05-24 07:46] LABS: Anion Gap 13 (12-20); Blood Urea Nitrogen 50 mg/dL (9-16); Calcium 8.4 mg/dL (8.4-10.2); Carbon Dioxide 18 mmol/L (22-29); Chloride 103 mmol/L (96-108); Creatinine Clr Calc Pharmacy 30.6; Estimated Glomerular Filt Rate 25; Glucose Random 120 mg/dL (60-115); Potassium 4.9 mmol/L (3.3-5.1); Sodium 129 mmol/L (135-145)
--- NOTE | 2024-05-24 07:55 | MHC.EDTECH ---
vitals was taken at 7:55 BP was low RN (Esme) was notified
[2024-05-24 07:57] LABS: MANUAL DIFF FLAG SCAN
[2024-05-24 07:58] LABS: SLIDE REVIEW VERIFIED
[2024-05-24] MEDS: Nystatin Powder 15 GM BOTTLE 1 APPL TOPICAL ×3 (08:52→20:13)
[2024-05-24] MEDS: predniSONE 20 MG TABLET 40 MG PO (08:52)
--- NOTE | 2024-05-24 10:32 | HO.PM.IMPN ---
Subjective Subjective Date of Service: 05/24/24 Review of Systems Follow up IVETH, hyponatremia feeling slightly better today no pain Physical Exam Vital Signs: Vital Signs: Last Vital Signs Temp 97.1 F 05/24/24 09:57 Pulse 61 05/24/24 09:57 Resp 16 05/24/24 09:57 BP 91/52 L 05/24/24 09:57 Pulse Ox 99 05/24/24 09:57 O2 Del Method Room Air 05/24/24 09:57 BMI result Body Mass Index 27.0 Appearing in no acute distress lung sounds are clear to auscultation heart regular rate rhythm, clear S1, S2 positive bowel sounds, abdomen is soft, nontender neuro patient is alert x3, no focal deficits Dry patchy areas to abd, no open sores or wounds Objective Data Active Medications Acetaminophen (Acetaminophen 325 Mg Tablet) 650 mg PO Q6H PRN PRN Reason: Pain, Mild (Pain Scale 1-3), fever or headache Calcium Carbonate (Calcium Carbonate 750 Mg Tab.Chew) 750 mg PO Q4H PRN PRN Reason: Heartburn Sodium Chloride (Ns) 1,000 mls @ 100 mls/hr IVCONT .Q10H NAEEM Last Admin: 05/24/24 05:49 Dose: 100 mls/hr Documented By: DINA Magnesium Hydroxide (Milk Of Magnesia 30 Ml Oral.Susp) 30 ml PO DAILY PRN PRN Reason: Constipation Melatonin (Melatonin 3 Mg Tablet) 6 mg PO BEDTIME PRN PRN Reason: Insomnia Nadolol (Nadolol 40 Mg Tablet) 40 mg PO DAILY [facility]; Protocol Last Admin: 05/24/24 08:03 Dose: Not Given Documented By: BRUNO Non-Admin Reason: Decreased Blood Pressure Nystatin (Nystatin Powder 15 Gm Bottle) 1 appl TOPICAL TID [facility]; Protocol Last Admin: 05/24/24 08:52 Dose: 1 appl Documented By: BRUNO Omeprazole (Omeprazole 20 Mg Capsule.Dr) 20 mg PO DAILY@1630 NAEEM Ondansetron HCl (Ondansetron Odt 4 Mg Tab.Rapdis) 4 mg TRANSLINGU Q8H PRN PRN Reason: nausea/vomiting Prednisone (Prednisone 20 Mg Tablet) 40 mg PO DAILY [facility] Last Admin: 05/24/24 08:52 Dose: 40 mg Documented By: BRUNO Sodium Chloride (0.9 % Sodium Chloride Flush 3 Ml Syringe) 3 ml IVFLUSH QSHIFT NAEEM Last Admin: 05/24/24 08:24 Dose: Not Given Documented By: BRUNO Non-Admin Reason: IV Running Labs 05/24/24 06:59 05/24/24 06:59 Labs: Laboratory Results - last 24 hr 05/23/24 05/23/24 05/23/24 13:42 13:43 15:16 MCV 96.4 MCH 34.2 H MCHC 35.5 H RDW 14.6 Plt Count 64 L D MPV Not Reportable Immature Gran % (Auto) 0.3 Neut % (Auto) 85.1 H Lymph % (Auto) 5.2 L Bleck[place] % (Auto) 8.8 Eos % (Auto) 0.3 Baso % (Auto) 0.3 Lymph # (Auto) 0.6 L [place] # (Auto) 1.0 Eos # (Auto) 0.0 Baso # (Auto) 0.0 Abs Immat Gran (auto) 0.04 H Absolute Neuts (auto) 9.8 H Absolute Nucleated RBC 0.020 H Nucleated RBC % (auto) 0.2 Smear Tech's Comments VERIFIED ESR 62 H PT 25.9 H INR 2.1 H VBG pH VBG pCO2 VBG pO2 VBG HCO3 VBG O2 Saturation VBG Base Excess Anion Gap 14 Estim Creat Clear Calc 28.3 Estimated GFR 23 Random Glucose 84 Osmolality 280 L Lactic Acid 3.2 H* Lactic Acid F/U @ 2Hr Calcium 8.9 Magnesium 1.8 Total Bilirubin 7.4 H Direct Bilirubin 2.9 H AST 49 H ALT 22 Alkaline Phosphatase 140 H C-Reactive Protein 4.27 H Total Protein 7.4 Albumin 2.1 L Lipase 23 Urine Color Urine Appearance Urine pH Ur Specific [place] Urine Protein Urine Glucose (UA) Urine Ketones Urine Blood Urine Nitrite Ur Leukocyte Esterase Urine RBC Urine WBC Ur Squamous Epith Cells Urine Bacteria Hyaline Casts Urine Osmolality Ur Random Sodium Urine Creatinine Influenza Type A (PCR) NEGATIVE Influenza Type B (PCR) NEGATIVE RSV RNA Qual (PCR) NEGATIVE SARS-CoV-2 RNA (RT-PCR) NEGATIVE S. pyogenes GrpA NARINDER Negative 05/23/24 05/23/24 05/23/24 17:35 17:36 17:42 MCV MCH MCHC RDW Plt Count MPV Immature Gran % (Auto) Neut % (Auto) Lymph % (Auto) Bleck[place] % (Auto) Eos % (Auto) Baso % (Auto) Lymph # (Auto) Bleckley # (Auto) Eos # (Auto) Baso # (Auto) Abs Immat Gran (auto) Absolute Neuts (auto) Absolute Nucleated RBC Nucleated RBC % (auto) Smear Tech's Comments ESR PT INR VBG pH 7.36 VBG pCO2 34 VBG pO2 36 VBG HCO3 19 L VBG O2 Saturation 54.0 VBG Base Excess -4.9 Anion Gap Estim Creat Clear Calc Estimated GFR Random Glucose Osmolality Lactic Acid Lactic Acid F/U @ 2Hr 3.3 H* Calcium Magnesium Total Bilirubin Direct Bilirubin AST ALT Alkaline Phosphatase C-Reactive Protein Total Protein Albumin Lipase Urine Color Dark Yellow Urine Appearance Cloudy Urine pH 5.5 Ur Specific [place] 1.010 Urine Protein Negative Urine Glucose (UA) Negative Urine Ketones Negative Urine Blood Negative Urine Nitrite Negative Ur Leukocyte Esterase Large (3+) H Urine RBC 0-2 Urine WBC 6-10 Ur Squamous Epith Cells 3-5 Urine Bacteria Trace Hyaline Casts 3-5 Urine Osmolality 335 L Ur Random Sodium 54.0 Urine Creatinine 57.26 Influenza Type A (PCR) Influenza Type B (PCR) RSV RNA Qual (PCR) SARS-CoV-2 RNA (RT-PCR) S. pyogenes GrpA NARINDER 05/23/24 05/24/24 19:19 06:59 MCV 96.7 MCH 34.2 H MCHC 35.4 H RDW 14.5 Plt Count 38 L D MPV 9.5 Immature Gran % (Auto) 0.7 H Neut % (Auto) 81.0 H Lymph % (Auto) 12.7 L Bleck[place] % (Auto) 5.6 Eos % (Auto) 0.0 Baso % (Auto) 0.0 Lymph # (Auto) 0.4 L Ble[place] # (Auto) 0.2 Eos # (Auto) 0.0 Baso # (Auto) 0.0 Abs Immat Gran (auto) 0.02 Absolute Neuts (auto) 2.3 Absolute Nucleated RBC 0.000 Nucleated RBC % (auto) 0.0 Smear Tech's Comments VERIFIED ESR PT INR VBG pH VBG pCO2 VBG pO2 VBG HCO3 VBG O2 Saturation VBG Base Excess Anion Gap 13 13 Estim Creat Clear Calc 31.1 30.6 Estimated GFR 25 25 Random Glucose 76 120 H Osmolality Lactic Acid Lactic Acid F/U @ 2Hr Calcium 8.7 8.4 Magnesium Total Bilirubin Direct Bilirubin AST ALT Alkaline Phosphatase C-Reactive Protein Total Protein Albumin Lipase Urine Color Urine Appearance Urine pH Ur Specific [place] Urine Protein Urine Glucose (UA) Urine Ketones Urine Blood Urine Nitrite Ur Leukocyte Esterase Urine RBC Urine WBC Ur Squamous Epith Cells Urine Bacteria Hyaline Casts Urine Osmolality Ur Random Sodium Urine Creatinine Influenza Type A (PCR) Influenza Type B (PCR) RSV RNA Qual (PCR) SARS-CoV-2 RNA (RT-PCR) S. 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 MELD 37 points INR 2.1 RUQ us with dopplers>large volume ascites and splenomegaly suggesting portal htn GI consult>rec diagnostic paracentesis, start SBP prophylaxis, urine for sodium/potassium/creatinine, IV vitamin K 10 mg x 1, albumin IV, octreotide, midodrine, IV PPI Minimize blood loss, phlebotomies, blood draws in pediatric tubes Hematology consultation for blood alternatives Acute hyponatremia IVF as above nephro consult follow lytes Acute unspecified dermatitis, ? psoriasis possibly contact due topicals used during paracentesis 05/21. low suspicion for cellulitis/infection PO prednisone 40mg daily Decompensated cirrhosis Total bili 7.4, baseline around 4.5. MELD 37 points RUQ us with dopplers pending GI consult hold diuretics due to above, hold on paracentesis for now continue nadolol GERD ppi Chronic thrombocytopenia due to cirrhosis Acute on chronic Coagulopathy INR 2.1, due to decompensated cirrhosis gi consult Intertriginous candidiasis nystatin powder dvt prophylaxis- SCPs given thrombocytopenia Attending Dr. Capellan full code Quality Stroke Does the patient have a stroke diagnosis?: No VTE Prior VTE?: No VTE Risk Level:: Medical - moderate - high VTE Device Contraindication: N/A - Device Ordered VTE Drug Contraindication: Treatment Not Indicated
--- NOTE | 2024-05-24 11:21 | P.CNGI_ITS ---
History of Present Illness Data of Consult Service Date: 05/24/24 Requesting physician: Fartun Mckeon Primary Care Provider: Vaishnavi Morgan MD HPI Reason for consult: Decomp cirrhosis This is a 58-year-old female with past medical history of psoriatic arthritis, Presybeterian, decompensated cirrhosis with variceal bleeding 02/26/2022 with fabio Hb of 3.9 requiring ICU-to-ICU transfer to [facility] for further management who presented to the hospital for abdominal pain and abdominal wall cellulitis. Gastroenterology has been consulted for further management of ascites and anemia. Patient reports longstanding hx of recurrent abd wall cellulitis. Reports flares up had become infrequent lately but 2 days prior to presentation started again with burning dull pain over her abd wall assoc with redness and some chills. Does not report any N,V, change in bowel habits. Stools are formed and brown. Her vital signs on arrival hep and with soft blood pressures. CBC with pancytopenia with left shift, Chem 7 pertinent for hyponatremia and IVETH with creatinine up to 2.06. Baseline creatinine is normal. Lactic acidosis of 3.3. Elevated LFTs with total bilirubin of 7.4 AST greater than ALT. Ultrasound with cirrhotic liver enlarged volume ascites. In terms of liver cirrhosis, reports following [place] [facility] [place] Being managed as decomp MAYS cirrhosis and currently trying to see a transplant surgeon in [place] who performs liver transplantation without the need for blood product transfusion per pt's report. Review of Systems 2 Review of Systems: Yes all other systems are reviewed and are negative [facility] Past Medical History Medical History Obstructive sleep apnea GERD (gastroesophageal reflux disease) Rigor Fever Psoriasis Cellulitis Family History Family History Other No family history of coronary artery disease Surgical History Surgical History Hx of breast reduction, elective History of cholecystectomy Social History Social History Household Members: Spouse and Family Housing: House Do you presently have visiting nurse or other home services: No Alcohol intake: never Patient Tobacco Use Status: Never used Tobacco Smoked in Last 30 Days: No Use of substances other than those prescribed or required for medical reasons: No Substance Use Type: Sedatives Currently Displaying Signs/Symptoms of Drug Intoxication Withdrawal: No Have you been hit, kicked, punched, or otherwise hurt by someone within the past year? If so, by whom?: No Do you feel safe in your current relationship?: Yes Is there a partner from a previous relationship who is making you feel unsafe now?: No Are you made to feel afraid or neglected: No Advance Directives: Yes Advance Directives Information Provided: No Advance Directives on File: No Advance Directives Date on File: 11/01/21 Do you have a plan to hurt others: No Plan Recently lost weight without trying: Yes How much weight loss: Unsure Eating poorly because of decreased appetite: Yes Nutrition screen score: 5 Nutrition Risks: No Nutritional Risk Patient : No : No Poor oral hygiene: No service: No Current occupational status: employed Meds Allergies Allergy/AdvReac Type Severity Reaction Status Date / Time Penicillins AdvReac Intermediate Unknown Verified 05/23/24 13:17 vancomycin AdvReac Itching Verified 05/23/24 13:17 Active Medications: Current Medications Acetaminophen (Acetaminophen 325 Mg Tablet) 650 mg PO Q6H PRN PRN Reason: Pain, Mild (Pain Scale 1-3), fever or headache Calcium Carbonate (Calcium Carbonate 750 Mg Tab.Chew) 750 mg PO Q4H PRN PRN Reason: Heartburn Sodium Chloride (Ns) 1,000 mls @ 100 mls/hr IVCONT .Q10H NAEEM Last Admin: 05/24/24 05:49 Dose: 100 mls/hr Magnesium Hydroxide (Milk Of Magnesia 30 Ml Oral.Susp) 30 ml PO DAILY PRN PRN Reason: Constipation Melatonin (Melatonin 3 Mg Tablet) 6 mg PO BEDTIME PRN PRN Reason: Insomnia Nadolol (Nadolol 40 Mg Tablet) 40 mg PO DAILY [facility]; Protocol Last Admin: 05/24/24 08:03 Dose: Not Given Nystatin (Nystatin Powder 15 Gm Bottle) 1 appl TOPICAL TID [facility]; Protocol Last Admin: 05/24/24 08:52 Dose: 1 appl Omeprazole (Omeprazole 20 Mg Capsule.Dr) 20 mg PO DAILY@1630 NAEEM Ondansetron HCl (Ondansetron Odt 4 Mg Tab.Rapdis) 4 mg TRANSLINGU Q8H PRN PRN Reason: nausea/vomiting Prednisone (Prednisone 20 Mg Tablet) 40 mg PO DAILY [facility] Last Admin: 05/24/24 08:52 Dose: 40 mg Sodium Chloride (0.9 % Sodium Chloride Flush 3 Ml Syringe) 3 ml IVFLUSH QSHIFT [facility] Last Admin: 05/24/24 08:24 Dose: Not Given Home Medications ?Medication ?Instructions ?Recorded ?Confirmed ?Last Taken ?Type pantoprazole 40 mg tablet,delayed 1 tab PO DAILY@1630 09/03/22 05/23/24 09/03/22 History release triamcinolone acetonide 0.025 % 1 appl topical DAILY PRN Rash 09/03/22 05/23/24 Unknown History topical ointment furosemide 40 mg tablet 40 mg PO DAILY 05/23/24 05/23/24 05/23/24 History nadolol 40 mg tablet 40 mg PO QAM 05/23/24 05/23/24 Unknown History ondansetron HCl 4 mg tablet 4 mg PO Q8H PRN nausea/vomiting 05/23/24 05/23/24 Unknown History spironolactone 100 mg tablet 100 mg PO DAILY 05/23/24 05/23/24 Unknown History Physical Exam 2 Vital Signs: Vital Signs: Last Vital Signs Temp 97.1 F 05/24/24 09:57 Pulse 61 05/24/24 09:57 Resp 16 05/24/24 09:57 BP 91/52 L 05/24/24 09:57 Pulse Ox 99 05/24/24 09:57 O2 Del Method Room Air 05/24/24 09:57 BMI result Body Mass Index 27.0 Middle aged female NAD Mildly icteric sclera No resp distress Abd soft, erythema as well as post-inflammatory hyperpigmentation on abd wall, distended Mild pitting edema BLE Results Labs 05/24/24 06:59 05/24/24 06:59 Labs: Short CBC 05/23/24 05/24/24 Range/Units 13:43 06:59 WBC 11.5 H 2.8 L (4.8-10.8) X10*3/uL Hgb 12.2 9.2 L D (12.0-16.0) g/dl Hct 34.4 L 26.0 L D (37.0-47.0) % Plt Count 64 L D 38 L D (160-400) X10*3/uL BMP 05/23/24 05/23/24 05/24/24 13:43 19:19 01:18 Sodium 125 L 126 L 129 L Potassium 5.0 4.9 Chloride 99 101 Carbon Dioxide 17 L 17 L BUN 44 H 42 H Creatinine 2.23 H 2.03 H Calcium 8.9 8.7 05/24/24 06:59 Sodium 129 L Potassium 4.9 Chloride 103 Carbon Dioxide 18 L BUN 50 H Creatinine 2.06 H Calcium 8.4 Liver Function 05/23/24 Range/Units 13:43 Total Bilirubin 7.4 H (0.0-1.0) mg/dL Direct Bilirubin 2.9 H (0.0-0.5) mg/dL AST 49 H (5-31) U/L ALT 22 (0-31) U/L Alkaline Phosphatase 140 H (39-117) U/L Albumin 2.1 L (3.5-5.0) g/dL Urine 05/23/24 Range/Units 17:36 Urine Color Dark Yellow Urine Appearance Cloudy Urine pH 5.5 (5.0-9.0) Ur Specific [place] 1.010 (1.005-1.025) Urine Protein Negative (Neg-Trace) mg/dL Urine Glucose (UA) Negative (Negative) mg/dL Assessment and Plan (1) Decompensated cirrhosis: Status: Acute (2) Acute hyponatremia: Status: Acute (3) IVETH (acute kidney injury): Status: Acute (4) Anemia: Status: Acute (5) Acute gastrointestinal bleeding: Status: Acute (6) Abdominal wall cellulitis: Status: Acute (7) Ascites: Status: Acute (8) Sepsis: Status: Resolved Plan Decomp likely MAYS related cirrhosis - MELD Na 31 - Ascites - IVETH/HRS - Hyponatremia - Anemia Sepsis SSTI and UTI as likely sources. Ddx for anemia include bleeding, inflammatory. Would recommend IV iron transfusion and EPO - may have to check with heme. Plan: - Pls obtain CXR - DIAGNOSTIC para (pls do not remove more than 1L) and send for cell count, culture, cytology, albumin and total protein - Abx for sepsis - urine and cellulitis as likely sources for now. Will also need to r/o SBP as above - Monitor CBC BID. Pls also give one dose of IV iron as pt is JW and as zoroastrian restriction to PRBC transfusion - IV Vit K 10mg once - HOLD prednisone and nadolol in the context of IVETH - Start albumin IV 25%, octreotide and midodrine - Check urine sodium, cr and potassium - Agree with nephrology consultation - Switch ppi to IV BID - Minimize blood loss/phlebotomies. Blood draws in pedi tubes only - Can check with Heme re EPO or blood alternatives such as hemopure. - Will need to review feasibility of EGD at [facility] [place] [place] with anesthesia provider as pt with low H/H and has zoroastrian restrictions to blood products. Thank you for allowing me to participate in her care. Pls do not hesitate to reach out for questions or concerns. Procedures Date of Service Date of Service: 05/25/24
[2024-05-24 11:30] LABS: Alanine Aminotransferase 17 U/L (0-31); Albumin Level 2.3 g/dL (3.5-5.0); Alkaline Phosphatase 82 U/L (39-117); Aspartate Amino Transferase 34 U/L (5-31); Bilirubin Direct 2.3 mg/dL (0.0-0.5); Total Protein 6.2 g/dL (6.5-8.0)
[2024-05-24] MEDS: cefTRIAXone sodium 1 GM in 0.9 % Sodium Chloride 50 ML IV (15:07)
[2024-05-24 15:33] LABS: Total Protein 7.1 g/dL (6.5-8.0)
[2024-05-24] MEDS: Midodrine HCl 5 MG TABLET PO ×2 (15:42→20:12)
[2024-05-24] MEDS: Pantoprazole Sodium 40 MG/10 ML VIAL IVPUSH (15:43)
[2024-05-24] MEDS: Albumin Human 25 % 100 ML IV ×2 (15:48→16:54)
--- NOTE | 2024-05-24 16:12 | MHC.CM.PN ---
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
--- NOTE | 2024-05-24 17:29 | P.CNHO_ITS ---
Subjective - Subjective Chief complaint: Consult for: Patient: new to practice Consult date: 05/24/24 Requesting Physician: Parisa Byrd. Primary Care Provider: Vaishnavi Morgan MD Family Provider: Vaishnavi Morgan MD Medical Summary: DIAGNOSIS: PANCYTOPENIA. HPI - Consult Narrative Narrative: Teresa Canela is a 58 year old lady, admitted with abd wall cellulitis which developed 2 days ago. Feels the area is warm. Couple days ago, she was experiencing nausea, decreased appetite (tolerating small amoutn of fluids only), malaise and chills. She continues taking her meds including lasix and spironolactone. Denies fevers, abd pain, vomiting, diarrhea, dysuria hematuria, increased urinary frequency, decreased urinary output, shortness of breath, lightheadedness, palpitations, chest pain. Her blood pressures soft but no hypotension, otherwise stable. DATA BASE: Mild leukocytosis of 11.5. PLT 64. Creat 2.23, baseline around 1.2, BUN 44. Sodium 125, CO2 17, lytes otherwise within normal limits. Lactic acid 3.2, likely related to liver disease. Total bilirubin 7.4, direct bili pending, AST 49, ALT 22, alkaline phosphatase 140. CRP 4.27. Albumin 2.1. Negative for influenza, COVID-19, RSV, strep pyogenes. UA pending. Urine lytes pending. RUQ u/s pending. In the ED, was given 1 L IV NS, 1 g Rocephin, and Benadryl. 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 Obstructive sleep apnea GERD (gastroesophageal reflux disease) Rigor Fever Psoriasis Cellulitis Surgical History: Hx of breast reduction, elective History of cholecystectomy Family History: Other No family history of coronary artery disease Social History: Household Members: Family Housing: Apartment Do you presently have visiting nurse or other home services: No Alcohol intake: never Patient Tobacco Use Status: Never used Tobacco Smoked in Last 30 Days: No Use of substances other than those prescribed or required for medical reasons: No Review of Systems - Constitutional Reports system reviewed and no additional complaints, except as documented, Reports anorexia, Reports fatigue, Reports fever(s), Reports lack of energy, Reports malaise, Reports weight loss - Eyes Reports system reviewed and no additional complaints, except as documented - ENT Reports system reviewed and no additional complaints, except as documented - Cardiovascular Reports system reviewed and no additional complaints, except as documented - Respiratory Reports no additional respiratory complaints - Gastrointestinal Reports system reviewed and no additional complaints, except as documented - Genitourinary Reports no additional female genitourinary complaints - Musculoskeletal Reports system reviewed and no additional complaints, except as documented - Integumentary/Breasts Skin/Breast: Reports no additional skin complaints - Neurologic Reports system reviewed and no additional complaints, except as documented - Psychiatric Reports system reviewed and no additional complaints, except as documented - Endocrine Reports no additional endocrine complaints - Hematologic/Lymphatic Reports system reviewed and no additional complaints, except as documented - Allergic/Immunologic Reports system reviewed and no additional complaints, except as documented Oncology Screenings - ECOG Performance Status ECOG Performance Status: 2 [facility] Medical History: Medical History (Last Reviewed 05/23/24 @ 16:48 by KAITLYNN Mckeon) Cellulitis Fever GERD (gastroesophageal reflux disease) Obstructive sleep apnea Psoriasis Rigor Functional capacity: wheelchair bound Patient : No Family History: Family History (Last Reviewed 05/23/24 @ 16:48 by KAITLYNN Mckeon) Other No family history of coronary artery disease Surgical History: Surgical History (Last Reviewed 05/23/24 @ 16:48 by KAITLYNN Mckeon) History of cholecystectomy Hx of breast reduction, elective Social History: Social History (Last Reviewed 05/23/24 @ 16:48 by KAITLYNN Mckeon) Living Situation History: Household Members: Spouse Household Members: Family Housing: House Do you presently have visiting nurse or other home services: No Tobacco History: Patient Tobacco Use Status: Never used Tobacco Substance Use History: Substance Use Type: Sedatives Advance Directives: Advance Directives Date on File: 11/01/21 Occupation Assessmet: service: No Current occupational status: employed Home Medications and Allergies Current Medications: Current Medications Acetaminophen (Acetaminophen 325 Mg Tablet) 650 mg PO Q6H PRN PRN Reason: Pain, Mild (Pain Scale 1-3), fever or headache Calcium Carbonate (Calcium Carbonate 750 Mg Tab.Chew) 750 mg PO Q4H PRN PRN Reason: Heartburn Sodium Chloride (Ns) 1,000 mls @ 100 mls/hr IVCONT .Q10H [facility] Last Infusion: 05/24/24 16:06 Dose: 0 mls/hr Ceftriaxone Sodium 1 gm/ (Sodium Chloride) 50 mls @ 100 mls/hr IV Q24H [facility] Last Infusion: 05/24/24 15:55 Dose: Infused Octreotide Acetate 500 mcg/ (Sodium Chloride) 501 mls @ 50.1 mls/hr IVCONT .Q10H [facility] Magnesium Hydroxide (Milk Of Magnesia 30 Ml Oral.Susp) 30 ml PO DAILY PRN PRN Reason: Constipation Melatonin (Melatonin 3 Mg Tablet) 6 mg PO BEDTIME PRN PRN Reason: Insomnia Midodrine (Midodrine Hcl 5 Mg Tablet) 5 mg PO TID [facility] Last Admin: 05/24/24 15:42 Dose: 5 mg Nystatin (Nystatin Powder 15 Gm Bottle) 1 appl TOPICAL TID [facility]; Protocol Last Admin: 05/24/24 15:17 Dose: 1 appl Ondansetron HCl (Ondansetron Odt 4 Mg Tab.Rapdis) 4 mg TRANSLINGU Q8H PRN PRN Reason: nausea/vomiting Pantoprazole Sodium (Pantoprazole Sodium 40 Mg/10 Ml Vial) 40 mg IVPUSH BID@0630,1630 [facility] Last Admin: 05/24/24 15:43 Dose: 40 mg Sodium Chloride (0.9 % Sodium Chloride Flush 3 Ml Syringe) 3 ml IVFLUSH QSHIFT [facility] Last Admin: 05/24/24 15:18 Dose: Not Given Home Medications ?Medication ?Instructions ?Recorded ?Confirmed ?Type pantoprazole 40 mg tablet,delayed 1 tab PO DAILY@1630 09/03/22 05/23/24 History release triamcinolone acetonide 0.025 % 1 appl topical DAILY PRN Rash 09/03/22 05/23/24 History topical ointment ondansetron HCl 4 mg tablet 4 mg PO Q8H PRN nausea/vomiting 05/23/24 05/23/24 History Allergies Allergy/AdvReac Type Severity Reaction Status Date / Time Penicillins AdvReac Intermediate Unknown Verified 05/23/24 13:17 vancomycin AdvReac Itching Verified 05/23/24 13:17 Physical Exam Vital signs: Vital Signs Temp 97.4 F 05/24/24 15:33 Pulse 61 05/24/24 15:33 Resp 18 05/24/24 15:33 BP 107/53 L 05/24/24 15:33 Pulse Ox 98 05/24/24 15:33 O2 Del Method Room Air 05/24/24 15:33 Intake & Output 05/23/24 05/24/24 05/24/24 18:59 06:59 18:59 Intake Total 1050 / 2250 1200 / 2250 1718.333 / 1718.333 Balance 1050 / 2250 1200 / 2250 1718.333 / 1718.333 Intake: Intake, Oral Amount 540 / 540 Intake, IV Amount 1050 / 2250 1200 / 2250 1178.333 / 1178.333 0.9 % Sodium Chloride 1,000 ml 1000 / 1000 @ 999 mls/hr IV .Q1H1M [facility] Rx#: [id number] Albumin Human 25 % 100 ml @ 100 200 / 200 100 / 100 mls/hr IV Q1H [facility] Rx#: [id number] cefTRIAXone sodium 1 gm In 0.9 50 / 50 50 / 50 % Sodium Chloride 50 ml @ 100 mls/hr IV Q24H [facility] Rx#: [id number] 0.9 % Sodium Chloride 1,000 ml 1000 / 1000 1028.333 / 1028.333 @ 100 mls/hr IVCONT .Q10H [facility] Rx#:[id number] Other: Meal Refused No NPO No Lunch % Eaten 100% Eating (Feeding) Ability Independent Number of Unmeasured Voids 1 Urine Bathroom Weight 73.8 kg 73.5 kg Weight in Grams 43401 Weight 73.5 kg - Constitutional Present: moderate distress - Routine HEENT Exam Head: Present: normal inspection, normocephalic ENT: Present: mucous membranes moist - Routine Neck Exam Present: supple - Routine Abdominal Exam Present: distended, firm, guarding, tenderness - Routine Extremities Exam Present: nontender Hem/Onc Consult Result - Labs CBC & Chem 7: 05/26/24 07:48 05/26/24 07:48 Labs: Short CBC 05/24/24 Range/Units 06:59 WBC 2.8 L (4.8-10.8) X10*3/uL Hgb 9.2 L D (12.0-16.0) g/dl Hct 26.0 L D (37.0-47.0) % Plt Count 38 L D (160-400) X10*3/uL BMP 05/23/24 05/24/24 05/24/24 19:19 01:18 06:59 Sodium 126 L 129 L 129 L Potassium 4.9 4.9 Chloride 101 103 Carbon Dioxide 17 L 18 L BUN 42 H 50 H Creatinine 2.03 H 2.06 H Calcium 8.7 8.4 Liver Function 05/24/24 Range/Units 06:59 Total Bilirubin 5.0 H (0.0-1.0) mg/dL Direct Bilirubin 2.3 H (0.0-0.5) mg/dL AST 34 H (5-31) U/L ALT 17 (0-31) U/L Alkaline Phosphatase 82 (39-117) U/L Albumin 2.3 L (3.5-5.0) g/dL Urine 05/23/24 Range/Units 17:36 Urine Color Dark Yellow Urine Appearance Cloudy Urine pH 5.5 (5.0-9.0) Ur Specific [place] 1.010 (1.005-1.025) Urine Protein Negative (Neg-Trace) mg/dL Urine Glucose (UA) Negative (Negative) mg/dL Assessment and Plan Patient Active problem list reviewed?: Yes (1) Pancytopenia Status: Acute Assessment and plan: This is a pleasant 58-year-old lady with liver cirrhosis due to MAYS. Complicated by ascites and varices. 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 Patient is a [employer]. PLAN: Proceed with diagnostic paracentesis, look for SBP. Monitor labs. But try to keep lab draws minimal and in pediatric tubes. Thank you for the consult Will follow along with you, CC: Dr. Morgan. - Time Spent With Patient Time Spent with Patient (in minutes): 30
[2024-05-24] MEDS: Phytonadione (Vit K1) 10 MG in 0.9 % Sodium Chloride 50 ML 51 MG IV (17:57)
--- NOTE | 2024-05-24 18:40 | PM.HEMONCCN ---
Subjective - Subjective Chief complaint: anemia Patient: new to practice Consult date: 05/24/24 Primary Care Provider: Vaishnavi Morgan MD HPI - Consult Narrative Reason for consult: anemia Narrative: Teresa Canela is a 58 year old female [employer] with MAYS associated cirrhosis. I received a consult for alternatives to blood transfusion. She is not bleeding. she has hypersplenism and the hematocrit has dropped to 26% Her platelets are 38,000. 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 Obstructive sleep apnea GERD (gastroesophageal reflux disease) Rigor Fever Psoriasis Cellulitis Surgical History: Hx of breast reduction, elective History of cholecystectomy Family History: Other No family history of coronary artery disease Social History: Household Members: Family Housing: Apartment Do you presently have visiting nurse or other home services: No Alcohol intake: never Patient Tobacco Use Status: Never used Tobacco Smoked in Last 30 Days: No Use of substances other than those prescribed or required for medical reasons: No Review of Systems - Constitutional Reports weakness - Cardiovascular Reports fast heart rate - Respiratory Reports dyspnea on exertion - Gastrointestinal Reports abdominal pain - Musculoskeletal Reports other - Neurologic Reports system reviewed and no additional complaints, except as documented [facility] Medical History: Medical History (Last Reviewed 05/23/24 @ 16:48 by KAITLYNN Mckeon) Cellulitis Fever GERD (gastroesophageal reflux disease) Obstructive sleep apnea Psoriasis Rigor Functional capacity: wheelchair bound Family History: Family History (Last Reviewed 05/23/24 @ 16:48 by KAITLYNN Mckeon) Other No family history of coronary artery disease Surgical History: Surgical History (Last Reviewed 05/23/24 @ 16:48 by KAITLYNN Mckeon) History of cholecystectomy Hx of breast reduction, elective Social History: Social History (Last Reviewed 05/23/24 @ 16:48 by KAITLYNN Mckeon) Living Situation History: Household Members: Spouse Household Members: Family Housing: House Do you presently have visiting nurse or other home services: No Alcohol History Details: 1. How often do you have a drink containing alcohol?: a. Never AUDIT-C Alcohol total score: 0 Tobacco History: Patient Tobacco Use Status: Never used Tobacco Smoked in Last 30 Days: No Substance Use History: Use of substances other than those prescribed or required for medical reasons: No Substance Use Type: Sedatives Domestic Abuse History: Have you been hit, kicked, punched, or otherwise hurt by someone within the past year? If so, by whom?: No Do you feel safe in your current relationship?: Yes Is there a partner from a previous relationship who is making you feel unsafe now?: No Are you made to feel afraid or neglected: No Advance Directives: Advance Directives: Yes Advance Directives Information Provided: No Advance Directives on File: No Advance Directives Date on File: 11/01/21 Homicidal Assessment: Do you have a plan to hurt others: No Plan Nutrition Assessment: Recently lost weight without trying: Yes How much weight loss: Unsure Eating poorly because of decreased appetite: Yes Nutrition screen score: 5 Nutrition Risks: No Nutritional Risk Patient : No : No Poor oral hygiene: No Occupation Assessmet: service: No Current occupational status: employed Home Medications and Allergies Current Medications: Current Medications Acetaminophen (Acetaminophen 325 Mg Tablet) 650 mg PO Q6H PRN PRN Reason: Pain, Mild (Pain Scale 1-3), fever or headache Calcium Carbonate (Calcium Carbonate 750 Mg Tab.Chew) 750 mg PO Q4H PRN PRN Reason: Heartburn Sodium Chloride (Ns) 1,000 mls @ 100 mls/hr IVCONT .Q10H [facility] Last Infusion: 05/24/24 16:06 Dose: 0 mls/hr Ceftriaxone Sodium 1 gm/ (Sodium Chloride) 50 mls @ 100 mls/hr IV Q24H [facility] Last Infusion: 05/24/24 15:55 Dose: Infused Octreotide Acetate 500 mcg/ (Sodium Chloride) 501 mls @ 50.1 mls/hr IVCONT .Q10H [facility] Magnesium Hydroxide (Milk Of Magnesia 30 Ml Oral.Susp) 30 ml PO DAILY PRN PRN Reason: Constipation Melatonin (Melatonin 3 Mg Tablet) 6 mg PO BEDTIME PRN PRN Reason: Insomnia Midodrine (Midodrine Hcl 5 Mg Tablet) 5 mg PO TID [facility] Last Admin: 05/24/24 15:42 Dose: 5 mg Nystatin (Nystatin Powder 15 Gm Bottle) 1 appl TOPICAL TID [facility]; Protocol Last Admin: 05/24/24 15:17 Dose: 1 appl Ondansetron HCl (Ondansetron Odt 4 Mg Tab.Rapdis) 4 mg TRANSLINGU Q8H PRN PRN Reason: nausea/vomiting Pantoprazole Sodium (Pantoprazole Sodium 40 Mg/10 Ml Vial) 40 mg IVPUSH BID@0630,1630 [facility] Last Admin: 05/24/24 15:43 Dose: 40 mg Sodium Chloride (0.9 % Sodium Chloride Flush 3 Ml Syringe) 3 ml IVFLUSH QSHIFT [facility] Last Admin: 05/24/24 15:18 Dose: Not Given Home Medications ?Medication ?Instructions ?Recorded ?Confirmed ?Type pantoprazole 40 mg tablet,delayed 1 tab PO DAILY@1630 09/03/22 05/23/24 History release triamcinolone acetonide 0.025 % 1 appl topical DAILY PRN Rash 09/03/22 05/23/24 History topical ointment furosemide 40 mg tablet 40 mg PO DAILY 05/23/24 05/23/24 History nadolol 40 mg tablet 40 mg PO QAM 05/23/24 05/23/24 History ondansetron HCl 4 mg tablet 4 mg PO Q8H PRN nausea/vomiting 05/23/24 05/23/24 History spironolactone 100 mg tablet 100 mg PO DAILY 05/23/24 05/23/24 History Allergies Allergy/AdvReac Type Severity Reaction Status Date / Time Penicillins AdvReac Intermediate Unknown Verified 05/23/24 13:17 vancomycin AdvReac Itching Verified 05/23/24 13:17 Physical Exam Vital signs: Vital Signs Temp 97.4 F 05/24/24 15:33 Pulse 61 05/24/24 15:33 Resp 18 05/24/24 15:33 BP 107/53 L 05/24/24 15:33 Pulse Ox 98 05/24/24 15:33 O2 Del Method Room Air 05/24/24 15:33 Intake & Output 05/23/24 05/24/24 05/24/24 18:59 06:59 18:59 Intake Total 1050 / 2250 1200 / 2250 1818.333 / 1818.333 Balance 1050 / 2250 1200 / 2250 1818.333 / 1818.333 Intake: Intake, Oral Amount 540 / 540 Intake, IV Amount 1050 / 2250 1200 / 2250 1278.333 / 1278.333 0.9 % Sodium Chloride 1,000 ml 1000 / 1000 @ 999 mls/hr IV .Q1H1M [facility] Rx#: [id number] Albumin Human 25 % 100 ml @ 100 200 / 200 200 / 200 mls/hr IV Q1H [facility] Rx#: [id number] cefTRIAXone sodium 1 gm In 0.9 50 / 50 50 / 50 % Sodium Chloride 50 ml @ 100 mls/hr IV Q24H [facility] Rx#: [id number] 0.9 % Sodium Chloride 1,000 ml 1000 / 1000 1028.333 / 1028.333 @ 100 mls/hr IVCONT .Q10H [facility] Rx#:[id number] Other: Meal Refused No NPO No Lunch % Eaten 100% Eating (Feeding) Ability Independent Number of Unmeasured Voids 1 Urine Bathroom Weight 73.8 kg 73.5 kg Weight in Grams 54717 Weight 73.5 kg - Constitutional Present: no acute distress - Routine HEENT Exam Head: Present: atraumatic, normal inspection, normocephalic - Routine Neck Exam Present: supple - Routine Respiratory Exam Present: decreased breath sounds - Routine Cardiovascular Exam Cardiovascular: Present: RRR - Routine Abdominal Exam Present: hypoactive bowel sounds, organomegaly - Routine Extremities Exam Present: full ROM - Routine Skin Exam Present: jaundice Hem/Onc Consult Result - Labs CBC & Chem 7: 05/24/24 06:59 05/24/24 06:59 Labs: Short CBC 05/24/24 Range/Units 06:59 WBC 2.8 L (4.8-10.8) X10*3/uL Hgb 9.2 L D (12.0-16.0) g/dl Hct 26.0 L D (37.0-47.0) % Plt Count 38 L D (160-400) X10*3/uL BMP 05/23/24 05/24/24 05/24/24 19:19 01:18 06:59 Sodium 126 L 129 L 129 L Potassium 4.9 4.9 Chloride 101 103 Carbon Dioxide 17 L 18 L BUN 42 H 50 H Creatinine 2.03 H 2.06 H Calcium 8.7 8.4 Liver Function 05/24/24 Range/Units 06:59 Total Bilirubin 5.0 H (0.0-1.0) mg/dL Direct Bilirubin 2.3 H (0.0-0.5) mg/dL AST 34 H (5-31) U/L ALT 17 (0-31) U/L Alkaline Phosphatase 82 (39-117) U/L Albumin 2.3 L (3.5-5.0) g/dL Assessment and Plan Patient Active problem list reviewed?: Yes (1) Anemia Status: Acute Assessment and plan: 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 She does not need blood at present . To prevent symptomatic anemis in this patient I recommend erythropoetin to stimulate erythropoesis, folic acid and multiple vitamins, minimize phlebotomy as you are doing. We should e prepared to transfer to a facility with a cell saver if bleeding occurs. I recommend she be seen and followed by hematology beginning tomorrow. - Time Spent With Patient Time Spent with Patient (in minutes): 30
[2024-05-24] MEDS: Octreotide Acetate 500 MCG in 0.9 % Sodium Chloride 500 ML 50.1 MCG IVCONT (20:12)
[2024-05-24] MEDS: Melatonin 3 MG TABLET 6 MG PO (21:01)
[2024-05-24 21:02] LABS: Potassium Urine Random 46.6 mmol/L; Sodium Urine Random < 20.0 mmol/L
--- NOTE | 2024-05-24 21:05 | PM.EVENT ---
Event Note Date of Service: 05/24/24 Event Note: 58 yr old woman with Cirrhosis with IVETH and Hyponatremia Restrict PO water intake Concur with other medical management Full consult to follow Time Spent With Patient Time: Total time managing care of this patient today ____ minutes.
[2024-05-25 03:37] VITALS: BP 113/60; PULSE 65; RESP 18; TEMP 36.2; O2SAT 93
[2024-05-25] MEDS: Octreotide Acetate 500 MCG in 0.9 % Sodium Chloride 500 ML 50.1 MCG IVCONT ×2 (06:17→17:08)
[2024-05-25] MEDS: Pantoprazole Sodium 40 MG/10 ML VIAL IVPUSH ×2 (06:17→17:05)
[2024-05-25 07:31] VITALS: BP 100/55; PULSE 66; RESP 16; TEMP 36.2; O2SAT 94
[2024-05-25] MEDS: Nystatin Powder 15 GM BOTTLE 1 APPL TOPICAL ×3 (08:01→20:43)
[2024-05-25] MEDS: Midodrine HCl 5 MG TABLET PO ×3 (08:06→20:39)
[2024-05-25 09:34] LABS: Hematocrit 27.6 % (37.0-47.0); Hemoglobin 9.7 g/dl (12.0-16.0); Mean Corpuscular HGB Conc 35.1 g/dl (31.0-35.0); Mean Corpuscular Hemoglobin 34.3 pg (27.0-33.0); Mean Corpuscular Volume 97.5 fL (80.0-98.0); Mean Platelet Volume 9.8 fL (9.4-12.3); Platelet Count 43 X10*3/uL (160-400); Red Blood Count 2.83 X10*6/uL (4.20-5.50); Red Cell Distribution Width 14.5 % (11.0-16.0)
[2024-05-25] MEDS: Lidocaine HCl 1 % MPF 5 ML VIAL SUBCUT (09:55)
--- NOTE | 2024-05-25 09:55 | HO.WOUND ---
Wound Consult: Initial 58yr old female admitted to [facility] on 05/23/24 - See progress notes and H&P for detailed history.? Wound consult placed for Abdomen.? Patient agreeable to assessment and photo documentation. Patient reports she has psoriasis and reports she has prescribed to her Triamcinolone topical cream for the affected area when itching and flares. She reports she is bothered by the peeling skin but that she does not report any other symptoms at this time. No itching reported. Provider may consider topical steroid should symptoms arrive. Patient recommended to follow up with outpt provider or dermatology for continued treatment. Abdomen Etiology: ??Psoriasis Wound Bed: generalized pink and hyperpigmented tissue - dry scaling tissue noted - some areas of desquamation noted Drainage / Odor: None - No open tissue noted Pain: denies and denies itching Goals of Treatment: ? no topical interventions needed at this time - provider may consider topical steroid Re-consult wound care Nurse for wound deterioration or wound changes.
[2024-05-25 09:58] LABS: Anion Gap 12 (12-20); Blood Urea Nitrogen 44 mg/dL (9-16); Calcium 9.3 mg/dL (8.4-10.2); Carbon Dioxide 19 mmol/L (22-29); Chloride 106 mmol/L (96-108); Creatinine Clr Calc Pharmacy 39.4; Estimated Glomerular Filt Rate 33; Glucose Random 112 mg/dL (60-115); Potassium 4.8 mmol/L (3.3-5.1); Sodium 132 mmol/L (135-145)
--- NOTE | 2024-05-25 10:15 | P.PNIM_ITS ---
Subjective Subjective Date of Service: 05/25/24 Review of Systems Follow up IVETH, decompensated liver cirrhosis with coagulopathy Denies any nausea, vomiting, diarrhea No complaints of pain Physical Exam 2 Vital Signs: Vital Signs: Last Vital Signs Temp 97.2 F 05/25/24 07:31 Pulse 66 05/25/24 07:31 Resp 16 05/25/24 07:31 BP 100/55 L 05/25/24 07:31 Pulse Ox 94 05/25/24 07:31 O2 Del Method Room Air 05/25/24 07:31 BMI result Body Mass Index 27.0 Appearing in no acute distress LSCTA heart regular rate rhythm, clear S1, S2 positive bowel sounds, abdomen is soft, nontender neuro patient is alert x3, no focal deficits Objective Data Active Medications Acetaminophen (Acetaminophen 325 Mg Tablet) 650 mg PO Q6H PRN PRN Reason: Pain, Mild (Pain Scale 1-3), fever or headache Calcium Carbonate (Calcium Carbonate 750 Mg Tab.Chew) 750 mg PO Q4H PRN PRN Reason: Heartburn Sodium Chloride (Ns) 1,000 mls @ 100 mls/hr IVCONT .Q10H [facility] Last Admin: 05/25/24 09:18 Dose: Not Given Documented By: SUNNI Non-Admin Reason: IV Running Ceftriaxone Sodium 1 gm/ (Sodium Chloride) 50 mls @ 100 mls/hr IV Q24H [facility] Last Infusion: 05/24/24 15:55 Dose: Infused Documented By: WILLIAN Octreotide Acetate 500 mcg/ (Sodium Chloride) 501 mls @ 50.1 mls/hr IVCONT .Q10H [facility] Last Admin: 05/25/24 10:08 Dose: Not Given Documented By: SUNNI Non-Admin Reason: IV Running Magnesium Hydroxide (Milk Of Magnesia 30 Ml Oral.Susp) 30 ml PO DAILY PRN PRN Reason: Constipation Melatonin (Melatonin 3 Mg Tablet) 6 mg PO BEDTIME PRN PRN Reason: Insomnia Last Admin: 05/24/24 21:01 Dose: 6 mg Documented By: SAMANTHA Midodrine (Midodrine Hcl 5 Mg Tablet) 5 mg PO TID [facility] Last Admin: 05/25/24 08:06 Dose: 5 mg Documented By: SUNNI Nystatin (Nystatin Powder 15 Gm Bottle) 1 appl TOPICAL TID [facility]; Protocol Last Admin: 05/25/24 08:01 Dose: 1 appl Documented By: SUNNI Ondansetron HCl (Ondansetron Odt 4 Mg Tab.Rapdis) 4 mg TRANSLINGU Q8H PRN PRN Reason: nausea/vomiting Pantoprazole Sodium (Pantoprazole Sodium 40 Mg/10 Ml Vial) 40 mg IVPUSH BID@0630,1630 [facility] Last Admin: 05/25/24 06:17 Dose: 40 mg Documented By: SAMANTHA Sodium Chloride (0.9 % Sodium Chloride Flush 3 Ml Syringe) 3 ml IVFLUSH QSHIFT [facility] Last Admin: 05/25/24 08:01 Dose: Not Given Documented By: SUNNI Non-Admin Reason: IV Running Labs 05/25/24 08:54 05/25/24 08:54 Labs: Laboratory Results - last 24 hr 05/24/24 05/24/24 05/24/24 06:59 15:16 20:30 MCV MCH MCHC RDW Plt Count MPV Absolute Nucleated RBC Nucleated RBC % (auto) Anion Gap Estim Creat Clear Calc Estimated GFR Random Glucose Calcium Total Bilirubin 5.0 H Direct Bilirubin 2.3 H AST 34 H ALT 17 Alkaline Phosphatase 82 Total Protein 6.2 L 7.1 Albumin 2.3 L Ur Random Sodium < 20.0 Ur Random Potassium 46.6 Urine Creatinine 158.90 05/25/24 08:54 MCV 97.5 MCH 34.3 H MCHC 35.1 H RDW 14.5 Plt Count 43 L MPV 9.8 Absolute Nucleated RBC 0.000 Nucleated RBC % (auto) 0.0 Anion Gap 12 Estim Creat Clear Calc 39.4 Estimated GFR 33 Random Glucose 112 Calcium 9.3 D Total Bilirubin Direct Bilirubin AST ALT Alkaline Phosphatase Total Protein Albumin Ur Random Sodium Ur Random Potassium Urine Creatinine Microbiology Microbiology Results: Microbiology 05/23/24 15:33 Blood Culture - Preliminary Blood - Venous No growth after 24 hours. 05/23/24 15:16 Blood Culture - Preliminary Blood - Venous No growth after 24 hours. 05/23/24 17:36 Urine Culture - Preliminary Urine clean catch - Clean Catch Midstream Culture too young to evaluate. Assessment and Plan (1) Decompensated cirrhosis: Status: Acute Plan 58 year old female with history of MARYJANE, GERD, psoriasis, MAYS cirrhosis complicated by ascites requiring paracentesis (last 3.6L on 05/21)/esophageal varices, history recurrent abd wall cellulitis admitted for Acute kidney injury and decompensated cirrhosis Acute kidney injury creat trending down Creat 1.60, baseline 1.2, BUN 44 IV albumin x2 avoid nephrotoxins I&O nephro consult> restrict water intake hold diuretics Decompensated cirrhosis with coagulopathy Total bili 5.0, baseline around 4.5. MELD 37 points INR 2.1 RUQ us with dopplers>large volume ascites and splenomegaly suggesting portal htn GI consult>rec diagnostic paracentesis, start SBP prophylaxis, urine for sodium/potassium/creatinine, IV vitamin K 10 mg x 1, albumin IV, octreotide, midodrine, IV PPI, IV iron Minimize blood loss, phlebotomies, blood draws in pediatric tubes Hematology following Acute hyponatremia trending up nephro following> fluid restriction stop IV fluids follow lytes Acute unspecified dermatitis, ? psoriasis possibly contact due topicals used during paracentesis 05/21. keep area moisturized Decompensated cirrhosis Total bili 7.4, baseline around 4.5. MELD 37 points RUQ us with dopplers pending GI consult hold diuretics due to above, hold on paracentesis for now continue nadolol GERD ppi Chronic thrombocytopenia due to cirrhosis Acute on chronic Coagulopathy INR 2.1, due to decompensated cirrhosis gi consult Intertriginous candidiasis nystatin powder for under breasts dvt prophylaxis- SCPs given thrombocytopenia Attending Dr. Frederick full code Quality Stroke Does the patient have a stroke diagnosis?: No VTE Prior VTE?: No VTE Risk Level:: Medical - moderate - high VTE Device Contraindication: N/A - Device Ordered VTE Drug Contraindication: Treatment Not Indicated
[2024-05-25 10:17] LABS: MN% 54.2 %; PMN% 45.8 %; RBC Peritoneal Fluid 0.006 X10*6/uL
--- NOTE | 2024-05-25 10:23 | PM.PROC ---
Brief Operative Note Date of procedure: 05/25/24 Pre-op diagnosis: Acites Post-op diagnosis: same Procedure: US paracentesis 1.0 L bailey fluid removed and sent for analysis. No immediate complications Anesthesia: local
--- NOTE | 2024-05-25 11:06 | MHC.CM.PN ---
Per MD rounds patient not medically cleared for dc. CM will continue to follow.
[2024-05-25 11:08] LABS: BF Shift QC OK YES; Lymphocyte Peritoneal Fl 6 %; Monocytes Peritoneal Fl 26 %; Neutrophils Peritoneal Fluid 50 %; Other Peritioneal Fl 18 %
[2024-05-25] MEDS: Iron Sucrose Complex 200 MG in 0.9 % Sodium Chloride 100 ML 440 MG IV (11:54)
[2024-05-25] MEDS: cefTRIAXone sodium 1 GM in 0.9 % Sodium Chloride 50 ML IV (14:48)
[2024-05-25 15:32] VITALS: BP 108/64; PULSE 53; RESP 18; TEMP 36; O2SAT 98
[2024-05-25 19:53] VITALS: BP 127/68; PULSE 50; RESP 16; TEMP 36.2; O2SAT 99
[2024-05-25] MEDS: Melatonin 3 MG TABLET 6 MG PO (22:51)
[2024-05-26 03:25] VITALS: BP 95/54; PULSE 56; RESP 16; TEMP 36.1; O2SAT 95
[2024-05-26] MEDS: Octreotide Acetate 500 MCG in 0.9 % Sodium Chloride 500 ML 50.1 MCG IVCONT (03:32)
[2024-05-26] MEDS: Pantoprazole Sodium 40 MG/10 ML VIAL IVPUSH ×2 (06:21→16:22)
[2024-05-26 07:18] VITALS: BP 91/57; PULSE 52; RESP 16; TEMP 36; O2SAT 92
[2024-05-26 08:25] LABS: INTERNATIONAL NORM RATIO 2.4 (0.9-1.1); Prothrombin Time 28.9 SEC (11.1-13.3)
[2024-05-26 08:26] LABS: Hematocrit 28.1 % (37.0-47.0); Mean Corpuscular HGB Conc 35.6 g/dl (31.0-35.0); Mean Corpuscular Hemoglobin 34.7 pg (27.0-33.0); Mean Corpuscular Volume 97.6 fL (80.0-98.0); Mean Platelet Volume 9.7 fL (9.4-12.3); Platelet Count 42 X10*3/uL (160-400); Red Blood Count 2.88 X10*6/uL (4.20-5.50); Red Cell Distribution Width 14.7 % (11.0-16.0); White Blood Count 3.7 X10*3/uL (4.8-10.8)
[2024-05-26] MEDS: Midodrine HCl 5 MG TABLET PO ×3 (08:34→21:43)
[2024-05-26] MEDS: Nystatin Powder 15 GM BOTTLE 1 APPL TOPICAL ×2 (08:35→21:43)
[2024-05-26 08:36] LABS: Anion Gap 10 (12-20); Blood Urea Nitrogen 32 mg/dL (9-16); Calcium 8.6 mg/dL (8.4-10.2); Carbon Dioxide 21 mmol/L (22-29); Chloride 110 mmol/L (96-108); Creatinine Clr Calc Pharmacy 58.4; Estimated Glomerular Filt Rate 52; Glucose Random 83 mg/dL (60-115); Potassium 4.5 mmol/L (3.3-5.1); Sodium 136 mmol/L (135-145)
--- NOTE | 2024-05-26 08:49 | P.PNIM_ITS ---
Subjective Subjective Date of Service: 05/26/24 Review of Systems Follow up IVETH, decompensated liver cirrhosis with coagulopathy Denies any nausea, vomiting, diarrhea No complaints of pain Physical Exam 2 Vital Signs: Vital Signs: Last Vital Signs Temp 96.8 F 05/26/24 07:18 Pulse 52 05/26/24 07:18 Resp 16 05/26/24 07:18 BP 91/57 L 05/26/24 07:18 Pulse Ox 92 05/26/24 07:18 O2 Del Method Room Air 05/26/24 07:18 BMI result Body Mass Index 27.0 Appearing in no acute distress lung sounds are clear to auscultation heart regular rate rhythm, clear S1, S2 positive bowel sounds, abdomen is soft, nontender neuro patient is alert x3, no focal deficits Objective Data Active Medications Acetaminophen (Acetaminophen 325 Mg Tablet) 650 mg PO Q6H PRN PRN Reason: Pain, Mild (Pain Scale 1-3), fever or headache Calcium Carbonate (Calcium Carbonate 750 Mg Tab.Chew) 750 mg PO Q4H PRN PRN Reason: Heartburn Ceftriaxone Sodium 1 gm/ (Sodium Chloride) 50 mls @ 100 mls/hr IV Q24H [facility] Last Infusion: 05/25/24 15:18 Dose: Infused Documented By: YUSUF Octreotide Acetate 500 mcg/ (Sodium Chloride) 501 mls @ 50.1 mls/hr IVCONT .Q10H [facility] Last Admin: 05/26/24 03:32 Dose: 50 mcg/hr, 50.1 mls/hr Documented By: MYRA Magnesium Hydroxide (Milk Of Magnesia 30 Ml Oral.Susp) 30 ml PO DAILY PRN PRN Reason: Constipation Melatonin (Melatonin 3 Mg Tablet) 6 mg PO BEDTIME PRN PRN Reason: Insomnia Last Admin: 05/25/24 22:51 Dose: 6 mg Documented By: MYRA Midodrine (Midodrine Hcl 5 Mg Tablet) 5 mg PO TID [facility] Last Admin: 05/26/24 08:34 Dose: 5 mg Documented By: YUSUF Nystatin (Nystatin Powder 15 Gm Bottle) 1 appl TOPICAL TID [facility]; Protocol Last Admin: 05/26/24 08:35 Dose: 1 appl Documented By: YUSUF Ondansetron HCl (Ondansetron Odt 4 Mg Tab.Rapdis) 4 mg TRANSLINGU Q8H PRN PRN Reason: nausea/vomiting Pantoprazole Sodium (Pantoprazole Sodium 40 Mg/10 Ml Vial) 40 mg IVPUSH BID@0630,1630 [facility] Last Admin: 05/26/24 06:21 Dose: 40 mg Documented By: MYRA Sodium Chloride (0.9 % Sodium Chloride Flush 3 Ml Syringe) 3 ml IVFLUSH QSHIFT [facility] Last Admin: 05/26/24 08:35 Dose: Not Given Documented By: YUSUF Non-Admin Reason: IV Running Labs 05/26/24 07:48 05/26/24 07:48 Labs: Laboratory Results - last 24 hr 05/25/24 05/25/24 05/26/24 08:54 09:40 07:48 MCV 97.5 97.6 MCH 34.3 H 34.7 H MCHC 35.1 H 35.6 H RDW 14.5 14.7 Plt Count 43 L 42 L MPV 9.8 9.7 Absolute Nucleated RBC 0.000 0.000 Nucleated RBC % (auto) 0.0 0.0 PT 28.9 H INR 2.4 H Anion Gap 12 10 L Estim Creat Clear Calc 39.4 58.4 Estimated GFR 33 52 Random Glucose 112 83 Calcium 9.3 D 8.6 D Peritoneal WBC 1.270 Peritoneal RBC 0.006 Periton Neutrophils 50 Periton Lymphocytes 6 Peritoneal Monocytes 26 Peritoneal Other Cells 18 Microbiology Microbiology Results: Microbiology 05/25/24 09:40 Gram Stain - Final Abdominal Fluid Routine Culture - Preliminary No growth to date. Anaerobic Culture - Preliminary No growth to date. 05/23/24 15:33 Blood Culture - Preliminary Blood - Venous No growth after 48 hours. 05/23/24 15:16 Blood Culture - Preliminary Blood - Venous No growth after 48 hours. 05/23/24 17:36 Urine Culture - Final Urine clean catch - Clean Catch Midstream Assessment and Plan (1) Decompensated cirrhosis: Status: Acute Plan 58 year old female with history of MARYJANE, GERD, psoriasis, MAYS cirrhosis complicated by ascites requiring paracentesis (last 3.6L on 05/21)/esophageal varices, history recurrent abd wall cellulitis admitted for Acute kidney injury and decompensated cirrhosis Acute kidney injury. Resolved IV albumin x2 avoid nephrotoxins I&O nephro consult> restrict water intake 1.5L, resume spironolactone 12.5 mg daily Decompensated cirrhosis with coagulopathy Total bili 5.0, baseline around 4.5. MELD 37 points INR 2.4, s/p total vitamin k IV x2 since admission RUQ us with dopplers>large volume ascites and splenomegaly suggesting portal htn GI consult>s/p diagnostic paracentesis no SBP, octreotide, midodrine,s/p IV PPI and IV iron Minimize blood loss, phlebotomies, blood draws in pediatric tubes Hematology following Acute hyponatremia. Resolved nephro following> fluid restriction 1.5L s/p IV fluids follow lytes Acute unspecified dermatitis, ? psoriasis possibly contact due topicals used during paracentesis 05/21. keep area moisturized GERD ppi Chronic thrombocytopenia due to cirrhosis Intertriginous candidiasis nystatin powder for under breasts dvt prophylaxis- SCPs given thrombocytopenia Attending Dr. Frederick full code Quality Stroke Does the patient have a stroke diagnosis?: No VTE Prior VTE?: No VTE Risk Level:: Medical - moderate - high VTE Device Contraindication: N/A - Device Ordered VTE Drug Contraindication: Treatment Not Indicated
[2024-05-26] MEDS: Phytonadione (Vit K1) 10 MG in 0.9 % Sodium Chloride 50 ML 51 MG IV (09:34)
[2024-05-26 12:21] VITALS: BP 125/73; PULSE 56; RESP 18; O2SAT 98
[2024-05-26] MEDS: Spironolactone 25 MG TABLET 12.5 MG PO (12:43)
--- NOTE | 2024-05-26 13:39 | P.CONNP_ITS ---
History of Present Illness Reason for Consult Consult date: 05/26/24 Chief Complaint Chief complaint: IVETH, hyponatremia History of Present Illness Narrative: 58 year old female with history of MARYJANE, GERD, psoriasis, 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 Feels the area is warm. yesterday was experiencing nausea, decreased appetite (tolerating small amoutn of fluids only), malaise and chills. She continues taking her meds including lasix and spironolactone. Denies fevers, abd pain, vomiting, diarrhea, dysuria hematuria, increased urinary frequency, decreased urinary output, shortness of breath, lightheadedness, palpitations, chest pain Review of Systems Constitutional: Denies fever(s) and Denies weight loss Cardiovascular: Denies chest pain Respiratory: Denies cough and Denies hemoptysis Gastrointestinal: Denies abdominal pain, Denies diarrhea and Denies nausea Musculoskeletal: Denies back pain Denies focal weakness PMFSH Past Medical History Medical History Obstructive sleep apnea GERD (gastroesophageal reflux disease) Rigor Fever Psoriasis Cellulitis Family History Family History Other No family history of coronary artery disease Surgical History Surgical History Hx of breast reduction, elective History of cholecystectomy Social History Social History Household Members: Spouse and Family Housing: House Do you presently have visiting nurse or other home services: No Alcohol intake: never Patient Tobacco Use Status: Never used Tobacco Smoked in Last 30 Days: No Use of substances other than those prescribed or required for medical reasons: No Substance Use Type: Sedatives Currently Displaying Signs/Symptoms of Drug Intoxication Withdrawal: No Have you been hit, kicked, punched, or otherwise hurt by someone within the past year? If so, by whom?: No Do you feel safe in your current relationship?: Yes Is there a partner from a previous relationship who is making you feel unsafe now?: No Are you made to feel afraid or neglected: No Advance Directives: Yes Advance Directives Information Provided: No Advance Directives on File: No Advance Directives Date on File: 11/01/21 Do you have a plan to hurt others: No Plan Recently lost weight without trying: Yes How much weight loss: Unsure Eating poorly because of decreased appetite: Yes Nutrition screen score: 5 Nutrition Risks: No Nutritional Risk Patient : No : No Poor oral hygiene: No service: No Current occupational status: employed Meds Allergies Allergy/AdvReac Type Severity Reaction Status Date / Time Penicillins AdvReac Intermediate Unknown Verified 05/23/24 13:17 vancomycin AdvReac Itching Verified 05/23/24 13:17 Active Medications: Current Medications Acetaminophen (Acetaminophen 325 Mg Tablet) 650 mg PO Q6H PRN PRN Reason: Pain, Mild (Pain Scale 1-3), fever or headache Calcium Carbonate (Calcium Carbonate 750 Mg Tab.Chew) 750 mg PO Q4H PRN PRN Reason: Heartburn Magnesium Hydroxide (Milk Of Magnesia 30 Ml Oral.Susp) 30 ml PO DAILY PRN PRN Reason: Constipation Melatonin (Melatonin 3 Mg Tablet) 6 mg PO BEDTIME PRN PRN Reason: Insomnia Last Admin: 05/25/24 22:51 Dose: 6 mg Midodrine (Midodrine Hcl 5 Mg Tablet) 5 mg PO TID [facility] Last Admin: 05/26/24 08:34 Dose: 5 mg Nystatin (Nystatin Powder 15 Gm Bottle) 1 appl TOPICAL TID [facility]; Protocol Last Admin: 05/26/24 08:35 Dose: 1 appl Ondansetron HCl (Ondansetron Odt 4 Mg Tab.Rapdis) 4 mg TRANSLINGU Q8H PRN PRN Reason: nausea/vomiting Pantoprazole Sodium (Pantoprazole Sodium 40 Mg/10 Ml Vial) 40 mg IVPUSH BID@0630,1630 [facility] Last Admin: 05/26/24 06:21 Dose: 40 mg Sodium Chloride (0.9 % Sodium Chloride Flush 3 Ml Syringe) 3 ml IVFLUSH QSHIFT [facility] Last Admin: 05/26/24 08:35 Dose: Not Given Spironolactone (Spironolactone 25 Mg Tablet) 12.5 mg PO DAILY [facility]; Protocol Last Admin: 05/26/24 12:43 Dose: 12.5 mg Home Medications ?Medication ?Instructions ?Recorded ?Confirmed ?Last Taken ?Type pantoprazole 40 mg tablet,delayed 1 tab PO DAILY@1630 09/03/22 05/23/24 09/03/22 History release triamcinolone acetonide 0.025 % 1 appl topical DAILY PRN Rash 09/03/22 05/23/24 Unknown History topical ointment furosemide 40 mg tablet 40 mg PO DAILY 05/23/24 05/23/24 05/23/24 History nadolol 40 mg tablet 40 mg PO QAM 05/23/24 05/23/24 Unknown History ondansetron HCl 4 mg tablet 4 mg PO Q8H PRN nausea/vomiting 05/23/24 05/23/24 Unknown History spironolactone 100 mg tablet 100 mg PO DAILY 05/23/24 05/23/24 Unknown History Physical Exam Vital Signs: Last Vital Signs Temp 96.8 F 05/26/24 07:18 Pulse 56 05/26/24 12:21 Resp 18 05/26/24 12:21 BP 125/73 05/26/24 12:21 Pulse Ox 98 05/26/24 12:21 O2 Del Method Room Air 05/26/24 12:21 BMI result Body Mass Index 27.0 Awake. Comfortable. Neck is supple. Mucosa moist. Lungs air entry equal. No significant rales Heart S1-S2 heard no gallop. Abdomen soft. Extremities 1+ edema. No involuntary movements. No myoclonus. Results Lab Results 05/26/24 07:48 05/26/24 07:48 Lab results: Chemistry 05/23/24 05/23/24 05/24/24 13:43 19:19 01:18 Sodium 125 L 126 L 129 L Potassium 5.0 4.9 Carbon Dioxide 17 L 17 L BUN 44 H 42 H Creatinine 2.23 H 2.03 H Calcium 8.9 8.7 05/24/24 05/25/24 05/26/24 06:59 08:54 07:48 Sodium 129 L 132 L 136 Potassium 4.9 4.8 4.5 Carbon Dioxide 18 L 19 L 21 L BUN 50 H 44 H 32 H Creatinine 2.06 H 1.60 H 1.08 Calcium 8.4 9.3 D 8.6 D Hematology 05/23/24 05/24/24 05/25/24 13:43 06:59 08:54 WBC 11.5 H 2.8 L 7.0 Hgb 12.2 9.2 L D 9.7 L Plt Count 64 L D 38 L D 43 L 05/26/24 07:48 WBC 3.7 L Hgb 10.0 L Plt Count 42 L Urinalysis 05/23/24 17:36 Urine Color Dark Yellow Urine Appearance Cloudy Urine pH 5.5 Ur Specific Elizabeth 1.010 Urine Protein Negative Urine Glucose (UA) Negative Urine Ketones Negative Urine Blood Negative Urine Nitrite Negative Ur Leukocyte Esterase Large (3+) H Urine RBC 0-2 Urine WBC 6-10 Ur Squamous Epith Cells 3-5 Hyaline Casts 3-5 Urine Studies 05/23/24 05/24/24 17:36 20:30 Urine Osmolality 335 L Urine Creatinine 57.26 158.90 Assessment and Plan (1) Ascites: Status: Acute (2) IVETH (acute kidney injury): Status: Acute Plan IVETH in the setting of cirrhosis. She probably had hypoperfusion from volume depletion. Renal function improved after holding diuretics. Recommendation hold Lasix for now. Okay to restart spironolactone at a lower dose and gradually titrate the dose as needed. Low-sodium diet Agree with abdominal paracentesis but I would avoid large volume paracentesis. She will benefit from frequent small volume paracentesis. Avoid hypotension. Procedures Date of Service Date of Service: 05/26/24
[2024-05-26 15:34] VITALS: BP 108/74; PULSE 61; RESP 18; TEMP 36; O2SAT 98
[2024-05-26] MEDS: 0.9 % Sodium Chloride Flush 3 ML SYRINGE IVFLUSH ×2 (16:22→23:29)
[2024-05-26 19:04] VITALS: BP 103/59; PULSE 60; RESP 18; TEMP 36.7; O2SAT 97
[2024-05-27 03:33] VITALS: BP 101/51; PULSE 58; RESP 20; TEMP 36.3; O2SAT 96
[2024-05-27] MEDS: Pantoprazole Sodium 40 MG/10 ML VIAL IVPUSH (06:15)
[2024-05-27 07:41] LABS: Albumin Peritoneal Fluid 0.9
[2024-05-27 07:45] VITALS: BP 102/59; PULSE 59; RESP 18; TEMP 36.6; O2SAT 97
[2024-05-27] MEDS: Midodrine HCl 5 MG TABLET PO (08:02)
[2024-05-27] MEDS: Spironolactone 25 MG TABLET 12.5 MG PO (08:02)
[2024-05-27] MEDS: Nystatin Powder 15 GM BOTTLE 1 APPL TOPICAL (08:03)
--- NOTE | 2024-05-27 09:27 | P.PNNP_ITS ---
Subjective Subjective Date of Service: 05/27/24 Interval history: hx MAYS cirrhosis with ascites requiring paracentesis (last on 05/21 removed 3.6L), admitted with abdominal rash and nausea/decreased appetite, malaise, chills. IVETH when admitted, had been taking her diuretics (lasix, spironolactone), which were held, IV albumin x2, fluid restriction and her IVETH has resolved, sodium has normalized. she has resumed her spironolactone 12.5mg daily and is tolerating well. Bilirubin is improving and close to baseline now. She reports today she continues to feel tired but her appetite has been improving. Physical Exam 2 Vital Signs: Vital Signs: Last Vital Signs Temp 98 F 05/27/24 07:45 Pulse 59 05/27/24 07:45 Resp 18 05/27/24 07:45 BP 102/59 L 05/27/24 07:45 Pulse Ox 97 05/27/24 07:45 O2 Del Method Room Air 05/27/24 07:45 BMI result Body Mass Index 27.0 Const: General: comfortable; No acute distress Orientation/consciousness: p atient oriented x3 Neck: Neck: Yes supple and Yes no JVD Resp: Effort & Inspection: normal respiratory effort and respiratory effort not decreased Auscultation: clear to auscultation bilaterally Cardio: Palpation: no palpable S3 and no palpable S4 Heart sounds: no rubs GI: Inspection: Yes normal to inspection Auscultation: normal bowel sounds : General: Yes no CVA tenderness Back/Spine/Pelvis: Back: no CVA tenderness Neuro: General: patient oriented x3 and no focal motor deficits Extrem: General: No clubbing and No edema Objective Data Labs 05/26/24 07:48 05/26/24 07:48 Labs: Laboratory Results - last 24 hr 05/25/24 09:40 Peritoneal Albumin 0.9 Microbiology Microbiology Results: Microbiology 05/25/24 09:40 Abdominal Fluid Gram Stain - Final 05/25/24 09:40 Abdominal Fluid Routine Culture - Final No growth after 2 days 05/25/24 09:40 Abdominal Fluid Anaerobic Culture - Preliminary No growth to date. 05/23/24 15:33 Blood - Venous Blood Culture - Preliminary No growth after 48 hours. 05/23/24 15:16 Blood - Venous Blood Culture - Preliminary No growth after 48 hours. 05/23/24 17:36 Urine clean catch - Clean Catch Midstream Urine Culture - Final Procedures Date of Service Date of Service: 05/27/24 Assessment & Plan Assessment and plan (1) Ascites: Status: Acute (2) IVETH (acute kidney injury): Status: Acute Plan IVETH in the setting of cirrhosis. Likely hypoperfusion from volume depletion. Renal function improved after holding diuretics, spironolactone has been re- started. Continue to hold lasix for now. Continue spironolactone 12.5mg daily. Low-sodium diet, continue 1.5L-2L fluid restriction She will benefit from frequent small volume paracentesis. Avoid hypotension. Time Spent With Patient Time: Total time managing care of this patient today ____ minutes. Progress Note: Quality Stroke Does the patient have a stroke diagnosis?: No
--- NOTE | 2024-05-27 13:19 | MHC.CM.PN ---
DP: PT HAS BEEN MEDICALLY CLEARED FOR DC HOME WITH NEW [facility]. REFERRALS SENT TO AGENCIES CONTRACTED WITH MEDICAID [facility]. AWAITING RESPONSES. FAMILY WILL TRANSPORT HOME.
--- NOTE | 2024-05-27 13:37 | MHC.CM.PN ---
DP: PT HAS BEEN MEDICALLY CLEARED FOR DC HOME WITH NEW [facility] FOR INTERMEDIATE. FAMILY WILL TRANSPORT.
[2024-05-27 13:46] VITALS: BP 107/66
--- NOTE | 2024-05-27 14:37 | PM.DS ---
DS: Providers Provider Date of Service: 05/27/24 Date of admission: 05/23/24 17:55 Primary care physician: Vaishnavi Morgan MD Consults: 05/23/24 17:42 Consult to Gastroenterology Routine Consulting Provider: Sheree Hooper Reason for consultation: decompensated cirrhosis Consult to Nephrology Routine Consulting Provider: [facility] Reason for consultation: iveth, hyponatremia 05/24/24 14:43 Consult to Hematology / Oncology Routine Consulting Provider: [facility] Reason for consultation: blood alternatives 05/24/24 17:18 Consult to Wound Care Routine Reason for consultation: abd rash DS: Diagnosis Discharge Diagnosis (1) Ascites: Status: Acute (2) IVETH (acute kidney injury): Status: Acute DS: Summary Hospital Course Hospital Course: History of presenting illness: Date of Service: 05/23/24 Attending physician on admission: Jose Dempsey Chief Complaint: rash, malaise 58 year old female with history of MARYJANE, GERD, psoriasis, 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 Feels the area is warm. yesterday was experiencing nausea, decreased appetite (tolerating small amoutn of fluids only), malaise and chills. She continues taking her meds including lasix and spironolactone. Denies fevers, abd pain, vomiting, diarrhea, dysuria hematuria, increased urinary frequency, decreased urinary output, shortness of breath, lightheadedness, palpitations, chest pain. Since arrival, blood pressures soft but no hypotension, otherwise stable. Mild leukocytosis of 11.5. PLT 64. Creat 2.23, baseline around 1.2, BUN 44. Sodium 125, CO2 17, lytes otherwise within normal limits. Lactic acid 3.2, likely related to liver disease. Total bilirubin 7.4, direct bili pending, AST 49, ALT 22, alkaline phosphatase 140. CRP 4.27. Albumin 2.1. Negative for influenza, COVID-19, RSV, strep pyogenes. UA pending. Urine lytes pending. RUQ u/s pending. In the ED, has been given 1 L IV NS, 1 g Rocephin, and Benadryl. 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 Treated with IV albumin place on 1.5 L of fluid restriction, was followed closely by Nephrology, IVETH resolved ,placed back on spironolactone low-dose 25 mg b.i.d. held Lasix. In regard to Decompensated cirrhosis with coagulopathy noted to have an elevated total bili 7.4 on admission with baseline around 4.5, INR 2.4, seen by financial service rep underwent diagnostic paracentesis, no SBP was noted also required treatment with octreotide, midodrine, IV iron and intravenous Protonix, total bili improved to 5, right upper quadrant Doppler ultrasound showed splenomegaly and large volume ascites suggesting portal hypertension, recommend outpatient follow-up with Gastroenterology resume beta-blockers as tolerated Acute hyponatremia. Resolved with fluid restriction of 1.5 L recommend to follow fluid restriction at home Acute unspecified dermatitis of abdominal wall resolved, Chronic thrombocytopenia due to cirrhosis stable platelets Intertriginous candidiasis recommend to continue nystatin powder for under breasts. Time Attestation Discharge Coordination Time (in mins): 38 Quality: Safe Use of Opioids Does Pt have an Active Cancer Diagnosis on the Problem List?: No Quality: Stroke Does the patient have a stroke diagnosis?: No Physical Exam Vital Signs: Vital Signs: Last Vital Signs Temp 98 F 05/27/24 07:45 Pulse 59 05/27/24 07:45 Resp 18 05/27/24 07:45 BP 107/66 05/27/24 13:46 Pulse Ox 97 05/27/24 07:45 O2 Del Method Room Air 05/27/24 07:45 BMI result Body Mass Index 27.0 Const: Other: General in no acute distress. Neck no JVD. CVS regular rate rhythm, Respiratory lungs clear to auscultation, no respiratory distress, no wheeze, no rhonchi. Gastrointestinal abdomen soft, non tender, bowel sounds audible, no guarding , no rigidity. Extremities mild edema. Neuro non focal Psych appropriate affect DS: Data Data Completed and Pending Completed studies during hospitalization [Text1]: Pending at discharge 05/24/24 14:32 Cytology [PTH] Routine Procedures Insertion of Infusion Device into Superior Vena Cava, Percutaneous Approach (03/04/22) Ultrasonography of Superior Vena Cava, Guidance (03/04/22) Labs on day of discharge: Laboratory Results - last 24 hr 05/25/24 09:40 Peritoneal Albumin 0.9 Preliminary micro results at discharge 05/25/24 09:40 Anaerobic Culture - Preliminary Abdominal Fluid No growth to date. 05/23/24 15:33 Blood Culture - Preliminary Blood - Venous No growth after 48 hours. 05/23/24 15:16 Blood Culture - Preliminary Blood - Venous No growth after 48 hours. Discharge Plan Discharge Anticipated Discharge Date/Time: 05/27/24 12:23 Patient Disposition: Home Health Service Discharge Diagnosis: Acute kidney injury Decompensated cirrhosis Acute hyponatremia Referrals: NIKO BATES [Other] - 1 Week (HOME SERVICES FOR SNF- A NURSE WILL CALL YOU TO SET UP FIRST VISIT.) Vaishnavi Morgan MD [Primary Care Provider] - 1 Week Discharge Medications: New spironolactone [Aldactone] 25 mg tablet 25 mg PO BID Qty: 60 0RF nystatin 100,000 unit/gram Powder 1 appl topical BID Qty: 30 0RF Protocol: Apply to: Apply to: under breasts Continued pantoprazole 40 mg tablet,delayed release (DR/EC) 1 tab PO DAILY@1630 Rx Instructions: in the evening triamcinolone acetonide 0.025 % ointment 1 appl topical DAILY PRN (Reason: Rash) ondansetron HCl 4 mg tablet 4 mg PO Q8H PRN (Reason: nausea/vomiting) Discontinued furosemide 40 mg tablet 40 mg PO DAILY spironolactone 100 mg tablet 100 mg PO DAILY nadolol 40 mg tablet 40 mg PO QAM Discharge Orders: Discharge Order (Routine); Ordered 05/27/24 Ordered By: Katia Meza Diet: 1.5 liter fluids Activity on Discharge: As tolerated Stand Alone Forms: Patient Portal Discharge page Print Language: Stateless Other Ambulatory Orders: Basic Metabolic Panel (Routine) Timeframe: 1 Week Facility: [facility] - Location: Laboratory Ordered By: Katia Meza Care Plan Goals: Hypotension , continue to hold Lasix and nadolol, recommend spironolactone 25 mg 1 tablet twice daily Use nystatin powder under breasts twice daily Continue all other home medications check bmp in 1 week Take ensure 1 can twice daily Health Concerns: Cirrhosis/pancytopenia Plan of Treatment: Outpatient follow-up with financial service rep and primary care physician call for appointment in 1 week Assessment: As above Discharge Date/Time: 05/27/24 16:18
--- NOTE | 2024-05-27 14:56 | P.F2F_ITS ---
Service Date Service Date: 05/27/24 Encounter Date of encounter: 05/27/24 Reasons for Services Signs and symptoms assessed: Shortness of breath/ hypotension/edema/blood pressure monitoring Reason for long-term: medication management and teach disease management Homebound: Leaving the home is medically contraindicated at this time without the asist of a device and/or another person due th the listed conditions above and below. Reason homebound: weakness related to hospital stay Certification: Based on the above findings, I certify that this patient is confined to the home and needs intermittent long-term care, physical therapy and/or speech therapy, or continues to need occupational therapy. The patient is under my care, and I have initiated the establishment of the plan of care. The patient will be followed by a physician who will periodically review the plan of care. Time Spent With Patient Time: Total time managing care of this patient today ____ minutes.
[2024-05-27 15:36] VITALS: BP 90/52; PULSE 54; RESP 18; TEMP 36.5; O2SAT 98
== END 2024-05-27 16:18 | disposition home health service (06) ==
LOC: HO.ED 15:03 → HO.EDOVER 17:59 → HO.S3 05-24 07:40
PROVIDERS: Nurse Practitioner Acute Care; Nurse Practitioner Family; Physician Assistant; Admitting Provider Physician Assistant; Emergency Provider Emergency Medicine; PCP Internal Medicine; Visit Provider Hospitalist
DX: K74.69 Other cirrhosis of liver (principal); D61.818 Other pancytopenia; D68.4 Acquired coagulation factor deficiency; N17.9 Acute kidney failure, unspecified; E87.21 Acute metabolic acidosis; E87.1 Hypo-osmolality and hyponatremia; R18.8 Other ascites; L25.8 Unspecified contact dermatitis due to other agents; L40.50 Arthropathic psoriasis, unspecified; D69.59 Other secondary thrombocytopenia; B37.2 Candidiasis of skin and nail; K75.81 Nonalcoholic steatohepatitis (NASH); G47.33 Obstructive sleep apnea (adult) (pediatric); K21.9 Gastro-esophageal reflux disease without esophagitis; Z20.822 Contact with and (suspected) exposure to COVID-19; Z79.899 Other long term (current) drug therapy
CPT/HCPCS: 0241U; 36415; 49083; 71045; 76705; 80048; 80053; 80076; 81001; 82042; 82248; 82570; 82803; 83605; 83690; 83735; 83930; 83935; 84133; 84155; 84295; 84300; 85025; 85027; 85610; 85652; 86140; 87040; 87070; 87073; 87086; 87205; 87651; 88112; 88305; 89051; 93975; 99285; J0696; J1756; J2354; J2470; J3430; P9047

== ENCOUNTER → 2024-05-23 13:30 | Outpatient (BNV) | payer MEDICAID, SELFPAY | PROVIDERS: Emergency Provider Emergency Medicine; PCP Internal Medicine; Visit Provider Physician Assistant | DX: K72.90 Hepatic failure, unspecified without coma (principal); K74.60 Unspecified cirrhosis of liver | CPT/HCPCS: 99223; 99232; 99239; G0180 ==

== ENCOUNTER 2024-05-23 17:55 | Outpatient (BNV) | payer MEDICAID, SELFPAY | END 2024-05-25 09:14 | PROVIDERS: Admitting Provider Physician Assistant; Emergency Provider Emergency Medicine; PCP Internal Medicine; Visit Provider Student in an Organized Health Care Education/Training Program | DX: R18.8 Other ascites (principal) | CPT/HCPCS: 49083 ==

== ENCOUNTER → 2024-05-23 17:55 | Outpatient (BNV) | payer MEDICAID, SELFPAY | PROVIDERS: Admitting Provider Physician Assistant; Emergency Provider Emergency Medicine; PCP Internal Medicine; Visit Provider Internal Medicine | DX: K72.90 Hepatic failure, unspecified without coma (principal); K74.60 Unspecified cirrhosis of liver; E87.1 Hypo-osmolality and hyponatremia; N17.9 Acute kidney failure, unspecified; D64.9 Anemia, unspecified; K92.2 Gastrointestinal hemorrhage, unspecified; L03.311 Cellulitis of abdominal wall; R18.8 Other ascites; A41.9 Sepsis, unspecified organism | CPT/HCPCS: 99223 ==

== ENCOUNTER → 2024-05-23 17:55 | Outpatient (BNV) | payer MEDICAID, SELFPAY | PROVIDERS: Admitting Provider Physician Assistant; Emergency Provider Emergency Medicine; PCP Internal Medicine; Visit Provider Internal Medicine Medical Oncology | DX: D64.9 Anemia, unspecified (principal) | CPT/HCPCS: 99222 ==

== ENCOUNTER → 2024-05-23 17:55 | Outpatient (BNV) | payer MEDICAID, SELFPAY | PROVIDERS: Admitting Provider Physician Assistant; Emergency Provider Emergency Medicine; PCP Internal Medicine; Visit Provider Internal Medicine Hypertension Specialist | DX: R18.8 Other ascites (principal); N17.9 Acute kidney failure, unspecified | CPT/HCPCS: 99223; 99232; 99499 ==

== ENCOUNTER 2024-06-24 16:32 | Emergency (ER) | payer MEDICAID, SELFPAY ==
--- NOTE | ~2024-06-24 | XR_ITS ---
EXAMINATION: XR CHEST CLINICAL INFORMATION: Chills for 2 days COMPARISON: Chest radiograph 05/24/2024 TECHNIQUE: 2 views of the chest were obtained. FINDINGS: No significant abnormality is noted involving the heart, lungs, mediastinum, bony thorax or soft tissues. Previously seen basilar opacities on the left have resolved and the lungs are much better expanded when compared to the prior study. XR/XR chest 2V IMPRESSION: Unremarkable examination. Electronically signed by: Broderick Gonzales MD 06/24/2024 08:00 PM EDT RP
[2024-06-24 16:35] VITALS: BP 128/73; PULSE 94; RESP 19; TEMP 36.6; O2SAT 100; BMI 25.8
--- NOTE | 2024-06-24 17:06 | ED.GENADULT ---
HPI - General Adult General Chief complaint: Nausea/Vomiting/Diarrhea Stated complaint: extreme chills days X2 Time Seen by Provider: 06/24/24 19:37 History of Present Illness ED Provider: Sarah NGO narrative: The patient is a 58-year-old woman with a history of liver cirrhosis I believe secondary to MAYS. She is a Druze. She has apparently hoping for a liver transplant but it is difficult to find a liver transplant service to accommodate the patient's desire not to have a blood transfusion. At the moment she is working with [facility] in [facility]. The patient says that over the last 2 days she has had intermittent chills associated with nausea. She says the symptoms were worse on Saturday night and during the day on Saturday. This morning on Saturday she felt somewhat better and had only mild chills today. Nevertheless a visiting nurse came to see her and encouraged her to come to the emergency room because of the chills. The patient is not really able to localize any site of infection. She denies any specific symptoms such as headache, sore throat, chest pain, cough, sputum, abdominal pain, diarrhea, urinary symptoms, or any skin or joint problems. No significant runny nose. Related Data Home Medications ?Medication ?Instructions ?Recorded ?Confirmed pantoprazole 40 mg tablet,delayed 1 tab PO DAILY@1630 09/03/22 05/23/24 release triamcinolone acetonide 0.025 % 1 appl topical DAILY PRN Rash 09/03/22 05/23/24 topical ointment ondansetron HCl 4 mg tablet 4 mg PO Q8H PRN nausea/vomiting 05/23/24 05/23/24 Previous Rx's ?Medication ?Instructions ?Recorded nystatin 100,000 unit/gram topical 1 appl topical BID #30 grams 05/27/24 powder spironolactone 25 mg tablet 25 mg PO BID #60 tabs 05/27/24 (Aldactone) cefpodoxime 100 mg tablet 100 mg PO BID #14 tabs 06/25/24 Allergies Allergy/AdvReac Type Severity Reaction Status Date / Time Penicillins AdvReac Intermediate Unknown Verified 06/24/24 16:38 vancomycin AdvReac Itching Verified 06/24/24 16:38 Review of Systems Review of Systems: Yes all other systems are reviewed and are negative PMFSH Past Medical History Medical History Obstructive sleep apnea GERD (gastroesophageal reflux disease) Rigor Fever Psoriasis Cellulitis Surgical History Hx of breast reduction, elective History of cholecystectomy Family History Family History Other No family history of coronary artery disease Social History Social History Household Members: Spouse and Family Housing: House Do you presently have visiting nurse or other home services: No Alcohol intake: never Patient Tobacco Use Status: Never used Tobacco Smoked in Last 30 Days: No Use of substances other than those prescribed or required for medical reasons: No Substance Use Type: Sedatives Advance Directives: Yes Advance Directives on File: Yes Advance Directives Date on File: 11/01/21 Do you have a plan to hurt others: No Plan Patient : No service: No Current occupational status: employed Physical Exam ED Vital Signs: Vital Signs - 24 hr 06/24/24 16:35 06/24/24 19:44 06/24/24 22:22 Temperature 98 F 98.6 F 98.1 F Pulse Rate 94 88 82 Respiratory Rate 19 16 16 Blood Pressure 128/73 116/64 115/61 Pulse Oximetry 100 98 98 Oxygen Delivery Method Room Air Room Air Room Air 06/25/24 01:07 06/25/24 01:35 Temperature 97.8 F 98.7 F Pulse Rate 83 82 Respiratory Rate 16 16 Blood Pressure 115/62 114/69 Pulse Oximetry 97 98 Oxygen Delivery Method Room Air Room Air BMI result Body Mass Index 25.8 Const Other: The patient is awake and alert with a normal mental status. She looks somewhat chronically ill. She does not seem obviously acutely ill. HENMT Other: Face is symmetrical. Mucous membranes moist. Pharynx is unremarkable. Eyes Other: Pupils are round and equal, conjunctivae shows significant icterus Neck Other: Neck is supple, no adenopathy Resp Effort & Inspection: normal respiratory effort Auscultation: clear to auscultation bilaterally Cardio Other: No murmur appreciated Rate: regular rate Rhythm: regular rhythm Heart sounds: S1 normal heart sound present and S2 normal heart sound present GI Other: Abdomen is protuberant and doughy. However there is no tenderness. The abdomen is soft. Skin Other: Skin is dry Neuro Other: The patient has a normal mental status. Cranial nerves are intact. She moves her extremities normally. Extrem Other: No peripheral edema Course Course Course Narrative: This is a Rapid Medical Examination (RME) performed by Rosina Ryan PA-C in triage. Full HPI, ROS, assessment and treatment plan per primary provider in the Main ED. 58 yo female w/ hx of decompensated MAYS cirrhosis w/ hx of ascites requiring paracentesis (last removed 7.5 L - cannot recall the date), esophageal varices, GI bleed, MARYJANE, GERD, psoriasis here for eval of chills and nausea w/o vomiting x2 days. denies fever. only able to tolerate jello today. Plan: labs, UA, viral serology, cxr Medications Administered Discontinued Medications Generic Name Dose Route Start Last Admin Trade Name Freq PRN Reason Stop Dose Admin Cefuroxime Axetil 500 mg 06/25/24 00:56 06/25/24 01:34 Cefuroxime Axetil 500 Mg Tablet PO 06/25/24 00:57 500 mg ONCE ONE Administration Medical Decision Making Medical Decision Making [facility] Narrative: The patient is a 58-year-old woman with a history of cirrhosis thought to be secondary to MAYS. She has a apparently explored liver transplant options. This is complicated by being a Druze. She says that currently she is in touch with [facility] in [facility] because they have a program for bloodless surgeries. The patient presents with episodes of shaking chills that she says were worst on Saturday and Saturday. They were less bad today on Saturday but her visiting nurse encouraged her to come to the emergency room. Here the patient was not found to be febrile. Her white count is 4.8 with an unremarkable differential. She has 65% neutrophils, 13% lymphocytes, and 20% monocytes. This differential seems more consistent with a viral illness rather than a bacterial illness. She has a number of metabolic abnormalities including a total bilirubin of 9.4 (direct bilirubin 3.3). Additionally her INR is 2.5 (she is not on warfarin). The patient's presenting symptoms are most concerning for the possibility of rigors although currently the patient does not seem to have a toxic appearance. Given her underlying medical problems screening blood cultures were drawn. A urinalysis is abnormal and may represent a UTI but the patient denies any definite frequency, urgency, or dysuria. Ultimately it seems that the patient does not seem septic. She will be placed on a course of cefpodoxime because of her abnormal urinalysis but it is possible she does not have a UTI. The patient has liver disease and ascites but she has no abdominal tenderness to suggest that spontaneous bacterial peritonitis would be likely. The patient was ultimately observed for many hours during which time she did not have a fever or any other significantly abnormal vital signs. The patient was started on antibiotics for a possible UTI. Otherwise she will be discharged to follow up with her PCP. Blood cultures were drawn. She should return if worse. Lab Data 06/24/24 21:03 06/24/24 18:30 Labs: Lab Results 06/24/24 06/24/24 06/24/24 Range/Units 18:30 21:03 21:36 WBC 4.8 (4.8-10.8) X10*3/uL RBC 3.35 L (4.20-5.50) X10*6/uL Hgb 11.9 L (12.0-16.0) g/dl Hct 32.8 L (37.0-47.0) % MCV 97.9 (80.0-98.0) fL MCH 35.5 H (27.0-33.0) pg MCHC 36.3 H (31.0-35.0) g/dl RDW 15.1 (11.0-16.0) % Plt Count 54 L D (160-400) X10*3/uL MPV 8.4 L (9.4-12.3) fL Immature Gran % (Auto) 0.2 (0.0-0.4) % Neut % (Auto) 64.8 (45-73) % Lymph % (Auto) 13.2 L (20-40) % [place] % (Auto) 19.7 H (2-11) % Eos % (Auto) 1.5 (0-4) % Baso % (Auto) 0.6 (0-2) % Lymph # (Auto) 0.6 L (1.2-4.9) X10*3/uL [place] # (Auto) 0.9 (0.1-1.2) X10*3/uL Eos # (Auto) 0.1 (0.0-0.4) X10*3/uL Baso # (Auto) 0.0 (0.0-0.2) X10*3/uL Abs Immat Gran (auto) 0.01 (0.00-0.03) X10*3/uL Absolute Neuts (auto) 3.1 (2.0-8.3) x10*3/uL Absolute Nucleated RBC 0.000 (0.0-0.012) X10*3/uL Nucleated RBC % (auto) 0.0 (0.0-0.2) /100WBC PT 28.9 H (10.9-12.4) SEC INR 2.5 H (0.9-1.1) Sodium 131 L (135-145) mmol/L Potassium 4.1 (3.3-5.1) mmol/L Chloride 100 (96-108) mmol/L Carbon Dioxide 20 L (22-29) mmol/L Anion Gap 15 (12-20) BUN 21 H (9-16) mg/dL Creatinine 1.30 (0.5-1.4) mg/dL Estim Creat Clear Calc 47.5 Estimated GFR 42 Random Glucose 98 (60-115) mg/dL Lactic Acid (0.5-2.0) mmol/L Lactic Acid F/U @ 2Hr (0.5-2.0) mmol/L Calcium 9.2 D (8.4-10.2) mg/dL Magnesium 1.7 (1.6-2.6) mg/dL Total Bilirubin 9.4 H (0.0-1.0) mg/dL Direct Bilirubin 3.3 H (0.0-0.5) mg/dL AST 58 H (5-31) U/L ALT 24 (0-31) U/L Alkaline Phosphatase 107 (39-117) U/L C-Reactive Protein 2.59 H (< or = 0.50) mg/dL Total Protein 7.4 (6.5-8.0) g/dL Albumin 3.0 L (3.5-5.0) g/dL Lipase 26 (8-78) U/L Urine Color [place] A Urine Appearance Cloudy Urine pH 5.0 (5.0-9.0) Ur Specific [place] 1.020 (1.005-1.025) Urine Protein Negative (Neg-Trace) mg/dL Urine Glucose (UA) Negative (Negative) mg/dL Urine Ketones Negative (Negative) mg/dL Urine Blood Negative (Negative) Urine Nitrite Positive H (Negative) Ur Leukocyte Esterase Small (1+) H (Negative) Urine RBC 0-2 (0-2) /HPF Urine WBC 11-20 H (0-5) /HPF Ur Squamous Epith Cells 11-20 (0-2) /HPF Urine Bacteria Trace (None Seen) Hyaline Casts >20 (0-2) /LPF Influenza Type A (PCR) NEGATIVE (Negative) Influenza Type B (PCR) NEGATIVE (Negative) RSV RNA Qual (PCR) NEGATIVE (Negative) SARS-CoV-2 RNA (RT-PCR) NEGATIVE (Negative) 06/24/24 06/25/24 06/25/24 Range/Units 21:48 00:10 00:32 WBC (4.8-10.8) X10*3/uL RBC (4.20-5.50) X10*6/uL Hgb (12.0-16.0) g/dl Hct (37.0-47.0) % MCV (80.0-98.0) fL MCH (27.0-33.0) pg MCHC (31.0-35.0) g/dl RDW (11.0-16.0) % Plt Count (160-400) X10*3/uL MPV (9.4-12.3) fL Immature Gran % (Auto) (0.0-0.4) % Neut % (Auto) (45-73) % Lymph % (Auto) (20-40) % [place] % (Auto) (2-11) % Eos % (Auto) (0-4) % Baso % (Auto) (0-2) % Lymph # (Auto) (1.2-4.9) X10*3/uL [place] # (Auto) (0.1-1.2) X10*3/uL Eos # (Auto) (0.0-0.4) X10*3/uL Baso # (Auto) (0.0-0.2) X10*3/uL Abs Immat Gran (auto) (0.00-0.03) X10*3/uL Absolute Neuts (auto) (2.0-8.3) x10*3/uL Absolute Nucleated RBC (0.0-0.012) X10*3/uL Nucleated RBC % (auto) (0.0-0.2) /100WBC PT (10.9-12.4) SEC INR (0.9-1.1) Sodium (135-145) mmol/L Potassium (3.3-5.1) mmol/L Chloride (96-108) mmol/L Carbon Dioxide (22-29) mmol/L Anion Gap (12-20) BUN (9-16) mg/dL Creatinine (0.5-1.4) mg/dL Estim Creat Clear Calc Estimated GFR Random Glucose (60-115) mg/dL Lactic Acid 2.7 H* (0.5-2.0) mmol/L Lactic Acid F/U @ 2Hr 2.0 (0.5-2.0) mmol/L Calcium (8.4-10.2) mg/dL Magnesium (1.6-2.6) mg/dL Total Bilirubin (0.0-1.0) mg/dL Direct Bilirubin (0.0-0.5) mg/dL AST (5-31) U/L ALT (0-31) U/L Alkaline Phosphatase (39-117) U/L C-Reactive Protein (< or = 0.50) mg/dL Total Protein (6.5-8.0) g/dL Albumin (3.5-5.0) g/dL Lipase (8-78) U/L Urine Color Dark Yellow Urine Appearance Cloudy Urine pH 5.5 (5.0-9.0) Ur Specific [place] 1.025 (1.005-1.025) Urine Protein Trace (Neg-Trace) mg/dL Urine Glucose (UA) Negative (Negative) mg/dL Urine Ketones Negative (Negative) mg/dL Urine Blood Negative (Negative) Urine Nitrite Positive H (Negative) Ur Leukocyte Esterase Small (1+) H (Negative) Urine RBC 0-2 (0-2) /HPF Urine WBC 21-50 H (0-5) /HPF Ur Squamous Epith Cells 11-20 (0-2) /HPF Urine Bacteria Trace (None Seen) Hyaline Casts 11-20 (0-2) /LPF Influenza Type A (PCR) (Negative) Influenza Type B (PCR) (Negative) RSV RNA Qual (PCR) (Negative) SARS-CoV-2 RNA (RT-PCR) (Negative) Discharge Plan Discharge Clinical Impression: Shaking chills, Abnormal urinalysis, Chronic liver disease Patient Disposition: Home, Self-Care Additional Instructions: Your urine testing suggest the possibility that you might have a urinary tract infection. You have therefore been started on a course of antibiotics. Please pick up man the antibiotic prescription in the morning and start taking the antibiotic in the morning. After that take your next dose in the evening. Continue to take the antibiotics 2 times a day, approximately every 12 hours. Drink lot of fluids. Please contact your regular doctor's office in the morning for a follow up appointment in the next several days. Return to the emergency room if significantly worse. Prescriptions: New cefpodoxime 100 mg tablet 100 mg PO BID Qty: 14 0RF Rx Instructions: must administer with a meal/food No Action pantoprazole 40 mg tablet,delayed release (DR/EC) 1 tab PO DAILY@1630 Rx Instructions: in the evening triamcinolone acetonide 0.025 % ointment 1 appl topical DAILY PRN (Reason: Rash) ondansetron HCl 4 mg tablet 4 mg PO Q8H PRN (Reason: nausea/vomiting) spironolactone [Aldactone] 25 mg tablet 25 mg PO BID Qty: 60 0RF nystatin 100,000 unit/gram Powder 1 appl topical BID Qty: 30 0RF Protocol: Apply to: Apply to: under breasts Referrals: Vaishnavi Morgan MD [Primary Care Provider] - (chills, possible UTI) Interventions: ED Discharge Assessment Last Done: 06/25/24 01:35 Discharge Date/Time: 06/25/24 01:37 Print Language: Malay
[2024-06-24 19:00] LABS: Alanine Aminotransferase 24 U/L (0-31); Alkaline Phosphatase 107 U/L (39-117); Anion Gap 15 (12-20); Aspartate Amino Transferase 58 U/L (5-31); Bilirubin Total 9.4 mg/dL (0.0-1.0); Blood Urea Nitrogen 21 mg/dL (9-16); Calcium 9.2 mg/dL (8.4-10.2); Carbon Dioxide 20 mmol/L (22-29); Chloride 100 mmol/L (96-108); Creatinine Clr Calc Pharmacy 47.5; Estimated Glomerular Filt Rate 42; Glucose Random 98 mg/dL (60-115); Lipase 26 U/L (8-78); Magnesium 1.7 mg/dL (1.6-2.6); Potassium 4.1 mmol/L (3.3-5.1); Sodium 131 mmol/L (135-145); Total Protein 7.4 g/dL (6.5-8.0)
[2024-06-24 19:15] LABS: Influenza A PCR NEGATIVE (Negative); Influenza B PCR NEGATIVE (Negative); Resp Syncy Virus RNA Qual PCR NEGATIVE (Negative); SARS COV2 PCR INHOUSE NEGATIVE (Negative)
[2024-06-24 19:31] LABS: INTERNATIONAL NORM RATIO 2.5 (0.9-1.1); Prothrombin Time 28.9 SEC (10.9-12.4)
[2024-06-24 19:44] VITALS: BP 116/64; PULSE 88; RESP 16; TEMP 37; O2SAT 98
[2024-06-24 21:10] LABS: Basophils Percent Auto 0.6 % (0-2); Eosinophils Absolute Auto 0.1 X10*3/uL (0.0-0.4); Eosinophils Percent Auto 1.5 % (0-4); Hematocrit 32.8 % (37.0-47.0); Hemoglobin 11.9 g/dl (12.0-16.0); Imm Gran Abs Auto 0.01 X10*3/uL (0.00-0.03); Imm Gran Pct Auto 0.2 % (0.0-0.4); Lymphocytes Absolute Auto 0.6 X10*3/uL (1.2-4.9); Lymphocytes Percent Auto 13.2 % (20-40); Mean Corpuscular HGB Conc 36.3 g/dl (31.0-35.0); Mean Corpuscular Hemoglobin 35.5 pg (27.0-33.0); Mean Corpuscular Volume 97.9 fL (80.0-98.0); Mean Platelet Volume 8.4 fL (9.4-12.3); Monocytes Absolute Auto 0.9 X10*3/uL (0.1-1.2); Monocytes Percent Auto 19.7 % (2-11); Neutrophils Absolute Auto 3.1 x10*3/uL (2.0-8.3); Neutrophils Percent Auto 64.8 % (45-73); Red Blood Count 3.35 X10*6/uL (4.20-5.50); Red Cell Distribution Width 15.1 % (11.0-16.0); White Blood Count 4.8 X10*3/uL (4.8-10.8)
[2024-06-24 21:12] LABS: Platelet Count 54 X10*3/uL (160-400)
[2024-06-24 21:13] LABS: MANUAL DIFF FLAG NO
[2024-06-24 21:52] LABS: Appearance Urine Cloudy; Color Urine Orange; Glucose Urine UA Negative (Negative); Leukocyte Esterase Urine Small (1+) (Negative); Nitrite Urine Positive (Negative); UMIC TRIGGER UACC YES; Urine Blood Negative (Negative); Urine Ketones Negative (Negative); Urine Protein Negative (Neg-Trace)
[2024-06-24 21:53] LABS: Bacteria Urine Trace (None Seen); Hyaline Casts Urine >20 /LPF (0-2); RBC Urine 0-2 /HPF (0-2); UACC Culture Trigger YES
[2024-06-24 21:59] LABS: Bilirubin Direct 3.3 mg/dL (0.0-0.5); C Reactive Protein 2.59 mg/dL (< or = 0.50)
[2024-06-24 22:13] LABS: Lactic Acid 2.7 mmol/L (0.5-2.0)
[2024-06-24 22:22] VITALS: BP 115/61; PULSE 82; RESP 16; TEMP 36.7; O2SAT 98
[2024-06-24 23:53] LABS: Reflex Lactate? Lactic Acid Added
[2024-06-25 00:40] LABS: Appearance Urine Cloudy; Color Urine Dark Yellow; Glucose Urine UA Negative (Negative); Leukocyte Esterase Urine Small (1+) (Negative); Nitrite Urine Positive (Negative); PH 5.5 (5.0-9.0); Specific Gravity - Urine 1.025 (1.005-1.025); UMIC TRIGGER UACC YES; Urine Blood Negative (Negative); Urine Ketones Negative (Negative); Urine Protein Trace mg/dL (Neg-Trace)
[2024-06-25 00:48] LABS: Bacteria Urine Trace (None Seen); RBC Urine 0-2 /HPF (0-2); UACC Culture Trigger YES; WBC Urine 21-50 /HPF (0-5)
[2024-06-25 01:07] VITALS: BP 115/62; PULSE 83; RESP 16; TEMP 36.6; O2SAT 97
[2024-06-25] MEDS: cefuroxime axetiL 500 MG TABLET PO (01:34)
[2024-06-25 01:35] VITALS: BP 114/69; PULSE 82; RESP 16; TEMP 37.1; O2SAT 98
== END 2024-06-25 01:37 | disposition home or self-care (01) ==
PROVIDERS: Physician Assistant Medical; Emergency Provider Emergency Medicine; PCP Internal Medicine
DX: R68.83 Chills (without fever) (principal); K74.60 Unspecified cirrhosis of liver; R82.90 Unspecified abnormal findings in urine; Z03.818 Encounter for observation for suspected exposure to other biological agents ruled out; Z79.899 Other long term (current) drug therapy
CPT/HCPCS: 0241U; 36415; 71046; 80053; 81001; 82248; 83605; 83690; 83735; 85025; 85610; 86140; 87040; 87086; 99283; 99284

== ENCOUNTER 2024-07-15 10:19 | Inpatient (IN) | payer MEDICAID, SELFPAY ==
--- NOTE | ~2024-07-15 | US_ITS ---
ULTRASOUND GUIDED PARACENTESIS HISTORY: Ascites. Therapeutic. TECHNIQUE: Risks and benefits and possible complications were discussed with the patient and consent form was signed. A safe pocket of ascitic fluid was identified using ultrasound guidance, and the overlying skin was marked. The abdomen prepped and draped in sterile fashion. 1% lidocaine was used as a local anesthetic. Using ultrasound guidance, a 5 fr catheter was placed into the ascitic pocket. 3.3 liters of yellow fluid was removed passively. The catheter was then removed. A few abrasives sales representative images from before and after the examination were obtained. The procedure was performed by Lázaro Wen PA-C and supervised by Dr. Caal. US/US paracentesis abd w/image IMPRESSION: Ultrasound-guided paracentesis as described above. No immediate complications Electronically signed by: Carlton Caal MD 07/21/2024 11:09 AM ANJELICA
[2024-07-15 10:30] VITALS: BP 120/70; BP 125/67; PULSE 104; PULSE 108; RESP 18; TEMP 36.5; O2SAT 98; O2SAT 99; BMI 28.2
[2024-07-15 11:06] LABS: MANUAL DIFF FLAG NO
[2024-07-15 11:10] LABS: Basophils Percent Auto 0.6 % (0-2); Eosinophils Percent Auto 0.3 % (0-4); Hematocrit 35.1 % (37.0-47.0); Hemoglobin 12.6 g/dl (12.0-16.0); Imm Gran Abs Auto 0.03 X10*3/uL (0.00-0.03); Imm Gran Pct Auto 0.4 % (0.0-0.4); Lymphocytes Absolute Auto 0.5 X10*3/uL (1.2-4.9); Mean Corpuscular HGB Conc 35.9 g/dl (31.0-35.0); Mean Corpuscular Hemoglobin 34.4 pg (27.0-33.0); Mean Corpuscular Volume 95.9 fL (80.0-98.0); Mean Platelet Volume 8.3 fL (9.4-12.3); Monocytes Absolute Auto 0.3 X10*3/uL (0.1-1.2); Monocytes Percent Auto 3.9 % (2-11); Neutrophils Absolute Auto 5.8 x10*3/uL (2.0-8.3); Neutrophils Percent Auto 86.8 % (45-73); Platelet Count 111 X10*3/uL (160-400); Red Blood Count 3.66 X10*6/uL (4.20-5.50); Red Cell Distribution Width 13.9 % (11.0-16.0); White Blood Count 6.7 X10*3/uL (4.8-10.8)
[2024-07-15 11:23] LABS: Alanine Aminotransferase 27 U/L (0-31); Albumin Level 2.8 g/dL (3.5-5.0); Alkaline Phosphatase 182 U/L (39-117); Anion Gap 18 (12-20); Aspartate Amino Transferase 81 U/L (5-31); Bilirubin Total 9.2 mg/dL (0.0-1.0); Blood Urea Nitrogen 29 mg/dL (9-16); Calcium 9.6 mg/dL (8.4-10.2); Carbon Dioxide 20 mmol/L (22-29); Chloride 94 mmol/L (96-108); Creatinine Clr Calc Pharmacy 34.9; Estimated Glomerular Filt Rate 28; Glucose Random 95 mg/dL (60-115); Magnesium 1.8 mg/dL (1.6-2.6); Potassium 3.4 mmol/L (3.3-5.1); Sodium 129 mmol/L (135-145); Total Protein 7.7 g/dL (6.5-8.0)
[2024-07-15 11:53] LABS: Influenza A PCR NEGATIVE (Negative); Influenza B PCR NEGATIVE (Negative); Resp Syncy Virus RNA Qual PCR NEGATIVE (Negative); SARS COV2 PCR INHOUSE NEGATIVE (Negative)
--- NOTE | 2024-07-15 12:22 | ED_ITS ---
HPI - General Adult General Chief complaint: Abdominal Pain Stated complaint: ABD PAIN,NAUSEA PER EMS Time Seen by Provider: 07/15/24 12:22 Source: patient Mode of arrival: ambulatory Limitations: no limitations History of Present Illness HPI narrative: This is a 58-year-old woman with a past medical history of MARYJANE, GERD, psoriasis, MAYS cirrhosis complicated by ascites requiring paracentesis/esophageal varices, history of recurrent abdominal wall cellulitis who presents for evaluation of abdominal pain and nausea. She states that her abdomen started hurting this morning around 4:00 a.m.. She reports associated nausea without emesis. She states no hematemesis. She states no back pain. He states no chest pain or dyspnea. She states no urinary symptoms. She states no melena or hematochezia. She states no trauma. She states no fevers or chills. Related Data Home Medications ?Medication ?Instructions ?Recorded ?Confirmed pantoprazole 40 mg tablet,delayed 1 tab PO DAILY@1630 09/03/22 05/23/24 release triamcinolone acetonide 0.025 % 1 appl topical DAILY PRN Rash 09/03/22 05/23/24 topical ointment ondansetron HCl 4 mg tablet 4 mg PO Q8H PRN nausea/vomiting 05/23/24 05/23/24 Previous Rx's ?Medication ?Instructions ?Recorded nystatin 100,000 unit/gram topical 1 appl topical BID #30 grams 05/27/24 powder spironolactone 25 mg tablet 25 mg PO BID #60 tabs 05/27/24 (Aldactone) cefpodoxime 100 mg tablet 100 mg PO BID #14 tabs 06/25/24 Allergies Allergy/AdvReac Type Severity Reaction Status Date / Time Penicillins AdvReac Intermediate Unknown Verified 07/15/24 10:36 vancomycin AdvReac Itching Verified 07/15/24 10:36 Review of Systems 2 Review of Systems: ROS as per HPI [facility] Past Medical History Medical History Obstructive sleep apnea GERD (gastroesophageal reflux disease) Rigor Fever Psoriasis Cellulitis Surgical History Hx of breast reduction, elective History of cholecystectomy Family History Family History Other No family history of coronary artery disease Social History Social History Household Members: Spouse and Family Housing: House Do you presently have visiting nurse or other home services: No Alcohol intake: never Patient Tobacco Use Status: Never used Tobacco Smoked in Last 30 Days: No Use of substances other than those prescribed or required for medical reasons: No Substance Use Type: Sedatives Advance Directives: Yes Advance Directives on File: Yes Advance Directives Date on File: 11/01/21 Do you have a plan to hurt others: No Plan Patient : No service: No Current occupational status: employed Physical Exam ED Vital Signs: Vital Signs - 24 hr 07/15/24 10:30 07/15/24 12:35 07/15/24 14:09 Temperature 97.7 F 97.9 F 97.8 F Pulse Rate 104 H 93 108 H Respiratory Rate 18 18 30 H Blood Pressure 125/67 133/69 107/60 Pulse Oximetry 99 100 91 L Oxygen Delivery Method Room Air Room Air Room Air BMI result Body Mass Index 28.2 Gen: NAD, AOx3 HEENT: NCAT, EOMI CV: RRR Pulm: CTAB, no increased work of breathing GI: Softly distended abdomen, diffusely tender to palpation Neuro: Grossly non focal Medications Administered Discontinued Medications Generic Name Dose Route Start Last Admin Trade Name Freq PRN Reason Stop Dose Admin Ceftriaxone Sodium 2 gm 07/15/24 14:12 07/15/24 14:21 Ceftriaxone Sodium 2 Gm Vial IVPUSH 07/15/24 14:13 2 gm ONCE ONE Administration Sodium Chloride 1,000 mls @ 999 mls/hr 07/15/24 12:45 07/15/24 14:22 Ns IV 07/15/24 13:45 Infused .Q1H1M NAEEM Infusion Lidocaine/Epinephrine 10 ml 07/15/24 12:36 07/15/24 12:43 Lidocaine Hcl 1%/Epi 1:100,000 10 Ml Vial INFILTRATI 07/15/24 12:37 10 ml ONCE ONE Administration Morphine Sulfate 4 mg 07/15/24 12:35 07/15/24 12:42 Morphine Sulfate 4 Mg/Ml Cartridge IVPUSH 07/15/24 12:36 4 mg ONCE ONE Administration Protocol Ondansetron HCl 4 mg 07/15/24 12:35 07/15/24 12:42 Ondansetron Hcl 4 Mg/2 Ml Vial IVPUSH 07/15/24 12:36 4 mg ONCE ONE Administration Procedures Paracentesis Time Out Performed: Yes Local Anesthetic: lidocaine 1% and with epi Amount of anesthesia used (mL): 6 Fluid: cloudy, other (50cc of ascitic fluid obtained) and sent to lab for analysis Post Procedure Exam: awake, alert, normal BP, normal HR and normal SpO2 Patient Tolerated Procedure: well and no complications Complications: none Medical Decision Making Medical Decision Making [facility] Narrative: Differential diagnosis includes, but is not limited to decompensated liver cirrhosis, spontaneous bacterial peritonitis. Patient is afebrile and hemodynamically stable on room air. Exam as above is notable for softly distended abdomen that is diffusely tender to palpation. Patient is treated supportively with morphine, Zofran and IV fluids. Consent was obtained for diagnostic paracentesis and ascitic fluid is sent for analysis, asitic fluid is consistent with a spontaneous bacterial peritonitis with WBC of 5917 and neutrophilia of 89%. For this reason, patient is treated with 2 g IV ceftriaxone. I considered CT imaging but given abdominal exam as above and findings consistent with spontaneous bacterial peritonitis I do not suspect that CT imaging is indicated at this time as this is the most likely etiology of her abdominal pain. I discussed the patient's case and management with the admitting hospitalist, Dr. Hare, and patient is admitted for further workup and management. Critical Care Time: A total of 45 minutes spent in direct patient care with coordinating critical resuscitation, procedures, reviewing records, discussing with consultants, reviewing labs, and/or managing patient. Admission/Observation Consideration of admission/observation: Escalation of care including admission/observation considered Consult Healthcare Provider Management of the patient was discussed with: Hospitalist Lab Data [facility] Lab Attestation statement: I reviewed the patient's lab results. I independently reviewed interpreted patient's labs which is notable for thrombocytopenia with platelet count 111 (previous 54), sodium 129, creatinine 1.84 (previous 1.30; which is consistent with acute kidney injury), mixed hyperbilirubinemia with total bilirubin 9.2 indirect bilirubin 3.3, AST 81, alkaline phosphatase 182. Lipase is within normal limits. Patient has tested negative for COVID-19, influenza and RSV. 07/15/24 11:00 07/15/24 10:59 Labs: Lab Results 07/15/24 07/15/24 07/15/24 Range/Units 10:59 11:00 13:28 WBC 6.7 (4.8-10.8) X10*3/uL RBC 3.66 L (4.20-5.50) X10*6/uL Hgb 12.6 (12.0-16.0) g/dl Hct 35.1 L (37.0-47.0) % MCV 95.9 (80.0-98.0) fL MCH 34.4 H (27.0-33.0) pg MCHC 35.9 H (31.0-35.0) g/dl RDW 13.9 (11.0-16.0) % Plt Count 111 L D (160-400) X10*3/uL MPV 8.3 L (9.4-12.3) fL Immature Gran % (Auto) 0.4 (0.0-0.4) % Neut % (Auto) 86.8 H (45-73) % Lymph % (Auto) 8.0 L (20-40) % [place] % (Auto) 3.9 (2-11) % Eos % (Auto) 0.3 (0-4) % Baso % (Auto) 0.6 (0-2) % Lymph # (Auto) 0.5 L (1.2-4.9) X10*3/uL [place] # (Auto) 0.3 (0.1-1.2) X10*3/uL Eos # (Auto) 0.0 (0.0-0.4) X10*3/uL Baso # (Auto) 0.0 (0.0-0.2) X10*3/uL Abs Immat Gran (auto) 0.03 (0.00-0.03) X10*3/uL Absolute Neuts (auto) 5.8 (2.0-8.3) x10*3/uL Absolute Nucleated RBC 0.000 (0.0-0.012) X10*3/uL Nucleated RBC % (auto) 0.0 (0.0-0.2) /100WBC APTT (26.0-36.8) SEC Sodium 129 L (135-145) mmol/L Potassium 3.4 (3.3-5.1) mmol/L Chloride 94 L (96-108) mmol/L Carbon Dioxide 20 L (22-29) mmol/L Anion Gap 18 (12-20) BUN 29 H (9-16) mg/dL Creatinine 1.84 H (0.5-1.4) mg/dL Estim Creat Clear Calc 34.9 Estimated GFR 28 Random Glucose 95 (60-115) mg/dL Calcium 9.6 (8.4-10.2) mg/dL Magnesium 1.8 (1.6-2.6) mg/dL Total Bilirubin 9.2 H (0.0-1.0) mg/dL Direct Bilirubin 3.3 H (0.0-0.5) mg/dL AST 81 H (5-31) U/L ALT 27 (0-31) U/L Alkaline Phosphatase 182 H (39-117) U/L Total Protein 7.7 (6.5-8.0) g/dL Albumin 2.8 L (3.5-5.0) g/dL Lipase 44 (8-78) U/L Peritoneal WBC 5.917 X10*3/uL Peritoneal RBC 0.010 X10*6/uL Periton Neutrophils 89 % Periton Lymphocytes 6 % Peritoneal Monocytes 2 % Peritoneal Other Cells 3 % Influenza Type A (PCR) NEGATIVE (Negative) Influenza Type B (PCR) NEGATIVE (Negative) RSV RNA Qual (PCR) NEGATIVE (Negative) SARS-CoV-2 RNA (RT-PCR) NEGATIVE (Negative) 07/15/24 Range/Units 13:54 WBC (4.8-10.8) X10*3/uL RBC (4.20-5.50) X10*6/uL Hgb (12.0-16.0) g/dl Hct (37.0-47.0) % MCV (80.0-98.0) fL MCH (27.0-33.0) pg MCHC (31.0-35.0) g/dl RDW (11.0-16.0) % Plt Count (160-400) X10*3/uL MPV (9.4-12.3) fL Immature Gran % (Auto) (0.0-0.4) % Neut % (Auto) (45-73) % Lymph % (Auto) (20-40) % [place] % (Auto) (2-11) % Eos % (Auto) (0-4) % Baso % (Auto) (0-2) % Lymph # (Auto) (1.2-4.9) X10*3/uL [place] # (Auto) (0.1-1.2) X10*3/uL Eos # (Auto) (0.0-0.4) X10*3/uL Baso # (Auto) (0.0-0.2) X10*3/uL Abs Immat Gran (auto) (0.00-0.03) X10*3/uL Absolute Neuts (auto) (2.0-8.3) x10*3/uL Absolute Nucleated RBC (0.0-0.012) X10*3/uL Nucleated RBC % (auto) (0.0-0.2) /100WBC APTT 26.6 (26.0-36.8) SEC Sodium (135-145) mmol/L Potassium (3.3-5.1) mmol/L Chloride (96-108) mmol/L Carbon Dioxide (22-29) mmol/L Anion Gap (12-20) BUN (9-16) mg/dL Creatinine (0.5-1.4) mg/dL Estim Creat Clear Calc Estimated GFR Random Glucose (60-115) mg/dL Calcium (8.4-10.2) mg/dL Magnesium (1.6-2.6) mg/dL Total Bilirubin (0.0-1.0) mg/dL Direct Bilirubin (0.0-0.5) mg/dL AST (5-31) U/L ALT (0-31) U/L Alkaline Phosphatase (39-117) U/L Total Protein (6.5-8.0) g/dL Albumin (3.5-5.0) g/dL Lipase (8-78) U/L Peritoneal WBC X10*3/uL Peritoneal RBC X10*6/uL Periton Neutrophils % Periton Lymphocytes % Peritoneal Monocytes % Peritoneal Other Cells % Influenza Type A (PCR) (Negative) Influenza Type B (PCR) (Negative) RSV RNA Qual (PCR) (Negative) SARS-CoV-2 RNA (RT-PCR) (Negative) Discharge Plan Discharge Clinical Impression: SBP (spontaneous bacterial peritonitis), Acute hyponatremia, Acute kidney injury, Thrombocytopenia, Hyperbilirubinemia, Elevated alkaline phosphatase level, Elevated AST (SGOT) Patient Disposition: Admitted As Inpatient Prescriptions: No Action pantoprazole 40 mg tablet,delayed release (DR/EC) 1 tab PO DAILY@1630 Rx Instructions: in the evening triamcinolone acetonide 0.025 % ointment 1 appl topical DAILY PRN (Reason: Rash) cefpodoxime 100 mg tablet 100 mg PO BID Qty: 14 0RF Rx Instructions: must administer with a meal/food ondansetron HCl 4 mg tablet 4 mg PO Q8H PRN (Reason: nausea/vomiting) spironolactone [Aldactone] 25 mg tablet 25 mg PO BID Qty: 60 0RF nystatin 100,000 unit/gram Powder 1 appl topical BID Qty: 30 0RF Protocol: Apply to: Apply to: under breasts Print Language: Greenlandic
[2024-07-15 12:35] VITALS: BP 133/69; PULSE 93; RESP 18; TEMP 36.6; O2SAT 100
[2024-07-15 12:42] LABS: Bilirubin Direct 3.3 mg/dL (0.0-0.5); Lipase 44 U/L (8-78)
[2024-07-15] MEDS: Morphine Sulfate 4 MG/ML CARTRIDGE IVPUSH (12:42)
[2024-07-15] MEDS: ondansetron HCL 4 MG/2 ML VIAL IVPUSH (12:42)
[2024-07-15] MEDS: Lidocaine HCl 1%/Epi 1:100,000 10 ML VIAL INFILTRATI (12:43)
[2024-07-15] MEDS: 0.9 % Sodium Chloride 1,000 ML 999 ML IV (12:43)
[2024-07-15 13:41] LABS: MN% 13.8 %; PMN% 86.2 %; WBC Peritoneal Fluid 5.917 X10*3/uL
[2024-07-15 14:09] VITALS: BP 107/60; PULSE 108; RESP 30; TEMP 36.6; O2SAT 91
[2024-07-15 14:10] LABS: Partial Thromboplastin Time 26.6 SEC (26.0-36.8)
[2024-07-15 14:11] LABS: Lymphocyte Peritoneal Fl 6 %; Monocytes Peritoneal Fl 2 %; Neutrophils Peritoneal Fluid 89 %
[2024-07-15 14:12] LABS: BF Shift QC OK YES; Man Diluent Bkgrd OK YES; Other Peritioneal Fl 3 %
[2024-07-15] MEDS: cefTRIAXone sodium 2 GM VIAL IVPUSH (14:21)
--- NOTE | 2024-07-15 14:50 | P.HPHOSP_ITS ---
History of Present Illness Date of Service: 07/15/24 <MEGA Su Last Filed: 07/15/24 15:47> Attending physician on admission: Fabien Capellan <MEGA Su Last Filed: 07/15/24 15:47> Chief Complaint: gen abd pain and nausea <MEGA Su Last Filed: 07/15/24 15:47> Patient is a 58-year-old female with a past medical history significant for MARYJANE, GERD, Hunt, cirrhosis/varices, with recent admission for abdominal wall cellulitis, presented to the ED today with severe 10/10 generalized abdominal pain starting at 04:00 with associated nausea. She reports that she has been very distended for quite awhile and saw her senior procurement manager, Dr. Stoner, this week who ordered labs to determine if a diuretic can be restarted. They also ordered a paracentesis with the patient reports it was 2 weeks out and she was told to go to the ED if she needs it sooner due to the discomfort. She states that they are working on getting her on the transplant list. Since having the paracentesis her pain has improved significantly, previously 10/10 now 3/10. Nausea has also improved. She reports minimal p.o. intake over the last few days due to the abdominal discomfort and nausea. <MEGA Su Last Filed: 07/15/24 15:47> Review of Systems 2 Constitutional: Constitutional: Denies chills, Denies fever(s) and Denies headache(s) <MEGA Su Last Filed: 07/15/24 15:47> Eyes: Eyes: Denies change in vision <MEGA Su Last Filed: 07/15/24 15:47> ENT: Denies headache(s), Denies nasal congestion and Denies nasal discharge <MEGA Su Last Filed: 07/15/24 15:47> Cardiovascular: Cardiovascular: Denies chest pain, Denies rapid heart rate, Denies leg edema and Denies dyspnea <MEGA Su Last Filed: 07/15/24 15:47> Respiratory: Respiratory: Denies dyspnea <DEJUAN SuNarayan Last Filed: 07/15/24 15:47> Gastrointestinal: Gastrointestinal: Denies diarrhea, Reports nausea and Denies vomiting <Mari Cotto PA-C Last Filed: 07/15/24 15:47> Genitourinary: Genitourinary: Denies dysuria <Mari Cotto PA-C - Last Filed: 07/15/24 15:47> Musculoskeletal: Musculoskeletal: Denies myalgias <DEJUAN SuNarayan Last Filed: 07/15/24 15:47> Integumentary/Breasts: Skin/Breast: Denies rash <Mari Cotto PA-C Last Filed: 07/15/24 15:47> Neurologic: Denies confusion, Denies headache(s) and Denies memory loss < Mari Cotto PA-C Last Filed: 07/15/24 15:47> Psychiatric: Psychiatric: Denies confusion and Denies memory loss < DEJUAN SuNarayan Last Filed: 07/15/24 15:47> [facility] Medical History: Medical History Obstructive sleep apnea GERD (gastroesophageal reflux disease) Rigor Fever Psoriasis Cellulitis <Mari Cotto PA-C Last Filed: 07/15/24 15:47> Functional capacity: independent ambulation <Mari Cotto PA-C Last Filed: 07/15/24 15:47> Family History: Family History Other No family history of coronary artery disease <MEGA Su Last Filed: 07/15/24 15:47> Surgical History: Surgical History Hx of breast reduction, elective History of cholecystectomy <MEGA Su Last Filed: 07/15/24 15:47> Social History: Social History Household Members: Family Housing: Apartment Do you presently have visiting nurse or other home services: Yes Alcohol intake: never Patient Tobacco Use Status: Never used Tobacco Smoked in Last 30 Days: No Use of substances other than those prescribed or required for medical reasons: No Substance Use Type: Sedatives Currently Displaying Signs/Symptoms of Drug Intoxication Withdrawal: No Have you been hit, kicked, punched, or otherwise hurt by someone within the past year? If so, by whom?: No Do you feel safe in your current relationship?: Yes Is there a partner from a previous relationship who is making you feel unsafe now?: No Are you made to feel afraid or neglected: No Advance Directives: Yes Advance Directives on File: Yes Advance Directives Date on File: 11/01/21 Do you have a plan to hurt others: No Plan Recently lost weight without trying: No How much weight loss: 14-23 pounds Eating poorly because of decreased appetite: No Nutrition screen score: 2 Nutrition Risks: Anorexia Patient : No : No Poor oral hygiene: No service: No Current occupational status: employed <Mari Cotto PA-C - Last Filed: 07/15/24 15:47> Narrative: No current alcohol, smoking or drug use. <Mari Cotto PA-C - Last Filed: 07/15/24 15:47> Meds Allergies/Adverse reactions: Allergies Allergy/AdvReac Type Severity Reaction Status Date / Time Penicillins AdvReac Intermediate Unknown Verified 07/15/24 10:36 vancomycin AdvReac Itching Verified 07/15/24 10:36 <Mari Cotto PA-C - Last Filed: 07/15/24 15:47> Home medications: Home Medications ?Medication ?Instructions ?Recorded ?Confirmed ?Last Taken ?Type pantoprazole 40 mg tablet,delayed 40 mg PO DAILY@0630 09/03/22 07/15/24 07/15/24 History release <MEGA Su Last Filed: 07/15/24 15:47> Physical Exam 2 Vital Signs and Narrative: Vital Signs: Last Vital Signs Temp 97.8 F 07/15/24 14:09 Pulse 108 H 07/15/24 14:09 Resp 30 H 07/15/24 14:09 BP 107/60 07/15/24 14:09 Pulse Ox 91 L 07/15/24 14:09 O2 Del Method Room Air 07/15/24 14:09 BMI result Body Mass Index 28.2 <Mari Cotto PA-C - Last Filed: 07/15/24 15:47> General: AOx3, no acute distress, appears uncomfortable HEENT: scleral icterus Resp: CTA bilaterally CVS: RRR, +murmur GI: tender throughout, severe distention Skin: Warm, dry Extremities: No edema Psych: Appropriate affect <Mari Cotto PA-C - Last Filed: 07/15/24 15:47> Const: General: No confusion <MEAG Su Last Filed: 07/15/24 15:47> Orientation/consciousness: No confusion <MEGA Su Last Filed: 07/15/24 15:47> Neuro: General: No confusion <Mari Cotto PA-C - Last Filed: 07/15/24 15:47> Results Labs CBC and Chem 7: 07/16/24 05:06 07/16/24 05:06 <Mari Cotto PA-C - Last Filed: 07/15/24 15:47> Labs: Laboratory Results - last 24 hr 07/15/24 07/15/24 07/15/24 10:59 11:00 13:28 MCV 95.9 MCH 34.4 H MCHC 35.9 H RDW 13.9 Plt Count 111 L D MPV 8.3 L Immature Gran % (Auto) 0.4 Neut % (Auto) 86.8 H Lymph % (Auto) 8.0 L [place] % (Auto) 3.9 Eos % (Auto) 0.3 Baso % (Auto) 0.6 Lymph # (Auto) 0.5 L [place] # (Auto) 0.3 Eos # (Auto) 0.0 Baso # (Auto) 0.0 Abs Immat Gran (auto) 0.03 Absolute Neuts (auto) 5.8 Absolute Nucleated RBC 0.000 Nucleated RBC % (auto) 0.0 APTT Anion Gap 18 Estim Creat Clear Calc 34.9 Estimated GFR 28 Random Glucose 95 Calcium 9.6 Magnesium 1.8 Total Bilirubin 9.2 H Direct Bilirubin 3.3 H AST 81 H ALT 27 Alkaline Phosphatase 182 H Total Protein 7.7 Albumin 2.8 L Lipase 44 Peritoneal WBC 5.917 Peritoneal RBC 0.010 Periton Neutrophils 89 Periton Lymphocytes 6 Peritoneal Monocytes 2 Peritoneal Other Cells 3 Influenza Type A (PCR) NEGATIVE Influenza Type B (PCR) NEGATIVE RSV RNA Qual (PCR) NEGATIVE SARS-CoV-2 RNA (RT-PCR) NEGATIVE 07/15/24 13:54 MCV MCH MCHC RDW Plt Count MPV Immature Gran % (Auto) Neut % (Auto) Lymph % (Auto) [place] % (Auto) Eos % (Auto) Baso % (Auto) Lymph # (Auto) [place] # (Auto) Eos # (Auto) Baso # (Auto) Abs Immat Gran (auto) Absolute Neuts (auto) Absolute Nucleated RBC Nucleated RBC % (auto) APTT 26.6 Anion Gap Estim Creat Clear Calc Estimated GFR Random Glucose Calcium Magnesium Total Bilirubin Direct Bilirubin AST ALT Alkaline Phosphatase Total Protein Albumin Lipase Peritoneal WBC Peritoneal RBC Periton Neutrophils Periton Lymphocytes Peritoneal Monocytes Peritoneal Other Cells Influenza Type A (PCR) Influenza Type B (PCR) RSV RNA Qual (PCR) SARS-CoV-2 RNA (RT-PCR) <Mari Cotto PA-C Last Filed: 07/15/24 15:47> Assessment and Plan (1) SBP (spontaneous bacterial peritonitis): Status: Acute <Mari Cotto PA-C Last Filed: 07/15/24 15:47> (2) Cirrhosis: Qualifiers: Ascites presence: with ascites <Mari Cotto PA-C Last Filed: 07/15/24 15:47> Status: Chronic <Mari Cotto PA-C Last Filed: 07/15/24 15:47> (3) Acute kidney injury: Status: Acute <Mari Cotto PA-C Last Filed: 07/15/24 15:47> (4) Hepatorenal syndrome: Status: Acute <MEGA Su Last Filed: 07/15/24 15:47> (5) Hyponatremia with excess extracellular fluid volume: Status: Acute <MEGA Su Last Filed: 07/15/24 15:47> (6) Hypokalemia: Status: Acute <Mari Cotto PA-C - Last Filed: 07/15/24 15:47> Patient is a 58-year-old female with a past medical history significant for MARYJANE, GERD, HUNT, cirrhosis/varices, with recent admission for abdominal wall cellulitis, presented to the ED today with severe 10/10 generalized abdominal pain starting at 04:00 with associated nausea. SBP - culture pending - small sample taken, we will arrange therapeutic paracentesis tomorrow - continue ceftriaxone 2 g QD - Zofran as needed for nausea - magnesium 1.8 - GI consult IVETH secondary to hepatorenal syndrome - creatinine 1.84, baseline 1.2, BUN 29 - given 1 L of NS in ED - 1.5 L fluid restriction - I's and O's - 25 g albumin IV q6h x3 doses - monitor BMP - nephrology consult Hypervolemic hyponatremia - 1.5 L fluid restriction - monitor BMP Hypokalemia - potassium 3.4, give 20 mEq now Chronic thrombocytopenia- secondary to cirrhosis - platelets stable GERD - continue pantoprazole daily DNR/DNI VTE prophylaxis: pneumoboots Patient with SBP complicated by IVETH secondary to hepatorenal syndrome requiring admission for IV antibiotics, paracentesis and further management for IVETH for at least 2 midnights stay. <Mari Cotto PA-C - Last Filed: 07/15/24 15:47> 58-year-old female with a past medical history significant for MARYJANE, GERD, HUNT, cirrhosis/varices, with recent admission for abdominal wall cellulitis, presented to the ED today with severe 10/10 generalized abdominal pain starting at 04:00 with associated nausea. SBP - culture pending - small sample taken, we will arrange therapeutic paracentesis tomorrow - continue ceftriaxone 2 g QD - Zofran as needed for nausea - magnesium 1.8 - GI consult IVETH secondary to hepatorenal syndrome - creatinine 1.84, baseline 1.2, BUN 29 - given 1 L of NS in ED - 1.5 L fluid restriction - I's and O's - 25 g albumin IV q6h x3 doses - monitor BMP - nephrology consult Hypervolemic hyponatremia - 1.5 L fluid restriction - monitor BMP Hypokalemia - potassium 3.4, give 20 mEq now Chronic thrombocytopenia- secondary to cirrhosis - platelets stable GERD - continue pantoprazole daily DNR/DNI VTE prophylaxis: pneumoboots Patient with SBP complicated by IVETH secondary to hepatorenal syndrome requiring admission for IV antibiotics, paracentesis and further management for IVETH for at least 2 midnights stay. <Fabien Capellan MD - Last Filed: 07/16/24 09:43> Quality Stroke Does the patient have a stroke diagnosis?: No <Mari Cotto PA-C - Last Filed: 07/15/24 15:47> VTE Prior VTE?: No <Mari Cotto PA-C - Last Filed: 07/15/24 15:47> VTE Risk Level:: Medical - moderate - high <Mari Cotto PA-C - Last Filed: 07/15/24 15:47> VTE Device Contraindication: Treatment Not Indicated <Mari Cotto PA-C - Last Filed: 07/15/24 15:47> VTE Drug Contraindication: N/A - Med Ordered <Mari Cotto PA-C - Last Filed: 07/15/24 15:47>
--- NOTE | 2024-07-15 15:02 | PHA.MEDREC ---
Addendum entered by Selene Knapp RPh 07/15/24 15:08: Med rec was reviewed by [facility]. Original Note: Pharmacy Consult ? Medication Reconciliation Pharmacy has completed the medication reconciliation. Spoke to patient to confirm med list. Patient states she is only taking Pantoprazole 40 mg. Patient says her Dr told her to stop Furosemide 20 mg, Nadolol 40 mg, Spironolactone 25 mg. patient also stopped Ondansertron 4 mg and Triamcinolone acet cream.
[2024-07-15] MEDS: Albumin Human 25 % 100 ML IV ×2 (15:35→21:48)
[2024-07-15] MEDS: Potassium Chloride ER 20 MEQ TAB.ER.PRT PO (15:35)
[2024-07-15] MEDS: 0.9 % Sodium Chloride Flush 3 ML SYRINGE IVFLUSH ×2 (15:39→21:49)
[2024-07-15 16:07] VITALS: BP 90/49; PULSE 109; RESP 16; TEMP 37; O2SAT 97
--- NOTE | 2024-07-15 16:58 | PC.NURSE ---
Patient alert and oriented x 3. Pleasant woman. Patient speaks greek and estonian. Patient had a parecentesis at bedside by Dr. Liang. Patient denies any pain. Patient states she hasn't been sleeping but because of her liver asked Dr. Capellan to order an ammonia level. polytechnic registrar in drawing blood. Patients abdomen distended. left wrist iv angio 20g. Patient going to overflow now.
[2024-07-15 17:50] LABS: Appearance Urine Turbid; Color Urine Orange; Glucose Urine UA 100 mg/dL (Negative); Leukocyte Esterase Urine Moderate (2+) (Negative); Nitrite Urine Positive (Negative); UMIC TRIGGER UACC YES; Urine Blood Small (1+) (Negative); Urine Ketones Negative (Negative); Urine Protein 30 (1+) mg/dL (Neg-Trace)
[2024-07-15 17:51] LABS: Bacteria Urine 1+ (None Seen); Hyaline Casts Urine 0-2 /LPF (0-2); RBC Urine 0-2 /HPF (0-2); Squamous Epithelial Cell Urine >20 /HPF (0-2); UACC Culture Trigger YES
[2024-07-15 17:59] LABS: INTERNATIONAL NORM RATIO 2.3 (0.9-1.1); Prothrombin Time 27.1 SEC (10.9-12.4)
[2024-07-15 18:01] LABS: Ammonia 61 umol/L (13-55); Partial Thromboplastin Time 32.9 SEC (26.0-36.8)
[2024-07-15] MEDS: oxyCODONE HCl Immed Release 5 MG TABLET PO (19:25)
[2024-07-15 20:29] VITALS: BP 113/57; PULSE 103; RESP 18; TEMP 37; O2SAT 95
[2024-07-15 21:22] VITALS: BP 110/58; PULSE 104; RESP 17; TEMP 36.2; O2SAT 92
[2024-07-15 21:29] VITALS: BMI 28.6
[2024-07-15] MEDS: Morphine Sulfate 4 MG/ML CARTRIDGE 2 MG IVPUSH (21:44)
[2024-07-16 03:52] VITALS: BP 105/61; PULSE 96; RESP 18; TEMP 37.2; O2SAT 95
[2024-07-16] MEDS: Albumin Human 25 % 100 ML IV ×4 (04:50→20:42)
[2024-07-16 06:43] LABS: Hematocrit 26.8 % (37.0-47.0); Hemoglobin 9.4 g/dl (12.0-16.0); Mean Corpuscular HGB Conc 35.1 g/dl (31.0-35.0); Mean Corpuscular Hemoglobin 34.6 pg (27.0-33.0); Mean Corpuscular Volume 98.5 fL (80.0-98.0); Mean Platelet Volume 8.8 fL (9.4-12.3); Red Blood Count 2.72 X10*6/uL (4.20-5.50); Red Cell Distribution Width 14.4 % (11.0-16.0); White Blood Count 7.1 X10*3/uL (4.8-10.8)
[2024-07-16 06:44] LABS: Platelet Count 42 X10*3/uL (160-400)
[2024-07-16 06:56] LABS: Blood Urea Nitrogen 38 mg/dL (9-16); Calcium 9.2 mg/dL (8.4-10.2); Creatinine Clr Calc Pharmacy 29.4; Estimated Glomerular Filt Rate 23; Glucose Random 69 mg/dL (60-115)
[2024-07-16 07:03] LABS: Anion Gap 19 (12-20); Carbon Dioxide 19 mmol/L (22-29); Chloride 96 mmol/L (96-108); Potassium 5.1 mmol/L (3.3-5.1); Sodium 129 mmol/L (135-145)
[2024-07-16 07:09] LABS: Band Neutrophils Percent 25 % (3-5); Lymphocytes Absolute Manual 0.1 X10*3/uL (1.2-4.9); Lymphocytes Percent Manual 2 % (20-40); Monocytes Absolute Manual 0.1 X10*3/uL (0.1-1.2); Monocytes Percent Manual 2 % (2-11); Neutrophils Absolute Manual 6.8 X10*3/uL (2.0-8.3); Neutrophils Percent Manual 71 % (45-73)
[2024-07-16 07:15] LABS: Acanthocytes 1+ (0-2) /OIF; Burr Cells 1+ (0-2) /OIF; Hypochromasia 1+ (5-14) /OIF; Platelet Estimate DECREASED (NORMAL); Platelet Morphology Comment NORMAL; RBC Morphology NOTED
[2024-07-16 07:16] LABS: Toxic Vacuolation PRESENT
[2024-07-16 08:06] VITALS: BP 114/63; PULSE 100; RESP 20; TEMP 37.2; O2SAT 96
[2024-07-16 09:05] LABS: Lactate Dehydrogenase 212 U/L (122-220)
[2024-07-16] MEDS: Lidocaine HCl 1 % 20 ML VIAL 5 ML SUBCUT (09:16)
--- NOTE | 2024-07-16 09:31 | P.CONNP_ITS ---
History of Present Illness Reason for Consult Consult date: 07/16/24 Chief Complaint Chief complaint: ABD PAIN,NAUSEA PER EMS History of Present Illness Narrative: 58 y/o female with a medical history of MAYS cirrhosis/varices, MARYJANE, GERD. came to ED 07/15 with generalized abdominal pain with nausea- she reports had for multiple days but acutely worsened 07/15 a.m. she had a recent admission in May for abdominal wall cellulitis had diagnostic paracentesis suggesting SBP, she is receiving IV abx Nephrology consulted for IVETH last creatinine on file prior to admission from 06/24 was 1.3 07/15 creatinine 1.84, 07/16 2.20 patient states she has not taken her lasix or spironolactone in several weeks, was being held [place] her [place] [facility] [place] she reports due to worsening kidney function. she reports ongoing abdominal pain today, generalized reports some dyspnea, fatigue no chest pain or dizziness no lower extremity swelling reports she is urinating regularly/comfortably denies other symptoms/concerns she would like to note she recently saw a liver transplant specialist in [place] who may do liver transplant without blood transfusion (pt is Zoroastrian), seeing them again in September. Review of Systems Constitutional: Reports fatigue, Denies headache(s) and Reports weakness Denies headache(s) Cardiovascular: Denies chest pain, Denies leg edema, Denies lightheadedness and Reports dyspnea Respiratory: Denies cough and Reports dyspnea Gastrointestinal: Reports abdominal pain, Denies constipation, Denies diarrhea, Denies nausea and Denies vomiting Genitourinary: Denies hematuria, Denies difficulty voiding, Denies dysuria and Denies flank pain Musculoskeletal: Denies arthralgias Skin/Breast: Denies rash Denies headache(s) and Reports weakness Endocrine: Reports fatigue PMFSH Past Medical History Medical History Obstructive sleep apnea GERD (gastroesophageal reflux disease) Rigor Fever Psoriasis Cellulitis Family History Family History Other No family history of coronary artery disease Surgical History Surgical History Hx of breast reduction, elective History of cholecystectomy Social History Social History Household Members: Family Housing: Apartment Do you presently have visiting nurse or other home services: Yes Alcohol intake: never Patient Tobacco Use Status: Never used Tobacco Smoked in Last 30 Days: No Use of substances other than those prescribed or required for medical reasons: No Substance Use Type: Sedatives Currently Displaying Signs/Symptoms of Drug Intoxication Withdrawal: No Have you been hit, kicked, punched, or otherwise hurt by someone within the past year? If so, by whom?: No Do you feel safe in your current relationship?: Yes Is there a partner from a previous relationship who is making you feel unsafe now?: No Are you made to feel afraid or neglected: No Advance Directives: Yes Advance Directives on File: Yes Advance Directives Date on File: 11/01/21 Do you have a plan to hurt others: No Plan Recently lost weight without trying: No How much weight loss: 14-23 pounds Eating poorly because of decreased appetite: No Nutrition screen score: 2 Nutrition Risks: Anorexia Patient : No : No Poor oral hygiene: No service: No Current occupational status: employed Meds Allergies Allergy/AdvReac Type Severity Reaction Status Date / Time Penicillins AdvReac Intermediate Unknown Verified 07/15/24 10:36 vancomycin AdvReac Itching Verified 07/15/24 10:36 Active Medications: Current Medications Acetaminophen (Acetaminophen 325 Mg Tablet) 650 mg PO Q6H PRN PRN Reason: Pain, Mild (Pain Scale 1-3), fever or headache Calcium Carbonate (Calcium Carbonate 750 Mg Tab.Chew) 750 mg PO Q4H PRN PRN Reason: Heartburn Ceftriaxone Sodium (Ceftriaxone Sodium 2 Gm Vial) 2 gm IVPUSH Q24H NAEEM Albumin Human (Kedbumin 25 %) 100 mls @ 100 mls/hr IV Q6H NAEEM Stop: 07/17/24 03:44 Magnesium Hydroxide (Milk Of Magnesia 30 Ml Oral.Susp) 30 ml PO DAILY PRN PRN Reason: Constipation Melatonin (Melatonin 3 Mg Tablet) 6 mg PO BEDTIME PRN PRN Reason: Insomnia Morphine Sulfate (Morphine Sulfate 4 Mg/Ml Cartridge) 2 mg IVPUSH Q4H PRN; Protocol PRN Reason: Pain, Severe (Pain Scale 7-10) Last Admin: 07/15/24 21:44 Dose: 2 mg Ondansetron HCl (Ondansetron Hcl 4 Mg/2 Ml Vial) 4 mg IVPUSH Q8H PRN PRN Reason: Nausea and Vomiting Oxycodone HCl (Oxycodone Hcl Immed Release 5 Mg Tablet) 5 mg PO Q6H PRN PRN Reason: Pain, Moderate(Pain Scale 4-6) Last Admin: 07/15/24 19:25 Dose: 5 mg Sodium Chloride (0.9 % Sodium Chloride Flush 3 Ml Syringe) 3 ml IVFLUSH [facility] Last Admin: 07/15/24 21:49 Dose: 3 ml Home Medications ?Medication ?Instructions ?Recorded ?Confirmed ?Last Taken ?Type pantoprazole 40 mg tablet,delayed 40 mg PO DAILY@0630 09/03/22 07/15/24 07/15/24 History release Physical Exam Vital Signs: Last Vital Signs Temp 98.9 F 07/16/24 08:06 Pulse 100 07/16/24 08:06 Resp 20 07/16/24 08:06 BP 114/63 07/16/24 08:06 Pulse Ox 96 07/16/24 08:06 O2 Del Method Room Air 07/16/24 08:06 BMI result Body Mass Index 28.6 Const General: no acute distress, alert and awake Resp Effort & Inspection: normal respiratory effort and able to speak in complete sentences Auscultation: clear to auscultation bilaterally Cardio Jugular venous distension: no JVD Rate: regular rate Rhythm: regular rhythm Heart sounds: S1 normal heart sound present, S2 normal heart sound present and Murmur heart sound present GI Inspection: Yes distended Palpation (GI): Firmness to palpation present (GI), Tenderness to palpation present (GI) and Ascites present General: Yes no CVA tenderness Back/Spine/Pelvis Back: no CVA tenderness Skin Rashes: no rashes Extrem General: No edema (no LE edema) Results Lab Results 07/16/24 05:06 07/16/24 05:06 Lab results: Chemistry 07/15/24 07/16/24 10:59 05:06 Sodium 129 L 129 L Potassium 3.4 5.1 D Carbon Dioxide 20 L 19 L BUN 29 H 38 H Creatinine 1.84 H 2.20 H Calcium 9.6 9.2 Hematology 07/15/24 07/16/24 11:00 05:06 WBC 6.7 7.1 Hgb 12.6 9.4 L D Plt Count 111 L D 42 L D Urinalysis 07/15/24 16:48 Urine Color [place] A Urine Appearance Turbid Urine pH 5.0 Ur Specific [place] 1.020 Urine Protein 30 (1+) H Urine Glucose (UA) 100 H Urine Ketones Negative Urine Blood Small (1+) H Urine Nitrite Positive H Ur Leukocyte Esterase Moderate (2+) H Urine RBC 0-2 Urine WBC 6-10 Ur Squamous Epith Cells >20 Hyaline Casts 0-2 Assessment and Plan (1) Acute kidney injury: Status: Acute (2) Cirrhosis: Qualifiers: Ascites presence: with ascites Hepatic cirrhosis type: unspecified hepatic cirrhosis Qualified Code(s): K74.60 - Unspecified cirrhosis of liver; R18.8 - Other ascites Status: Chronic (3) Hyponatremia with excess extracellular fluid volume: Status: Acute (4) SBP (spontaneous bacterial peritonitis): Status: Acute Plan IVETH in setting of decompensated liver cirrhosis, likely perfusion issue due to liver disease baseline HRS2 and development of HRS1 on differential Will check urine sodium added midodrine 5mg TID to maintain adequate blood pressure hyponatremia most likely related to cirrhosis recommend to continue volume expansion with 15gm albumin q6h for total of 100gm daily continue to monitor daily electrolytes and renal function continue supportive care will continue to follow Discussed with Dr Lázaro Holt Date of Service Date of Service: 07/16/24
--- NOTE | 2024-07-16 09:43 | P.PNIM_ITS ---
Subjective Subjective Date of Service: 07/16/24 Interval History: Follow up IVETH, decompensated liver cirrhosis with coagulopathy and SBP abdominal pain is better, renal failure is worse Physical Exam 2 Vital Signs: Vital Signs: Last Vital Signs Temp 98.9 F 07/16/24 08:06 Pulse 100 07/16/24 08:06 Resp 20 07/16/24 08:06 BP 114/63 07/16/24 08:06 Pulse Ox 96 07/16/24 08:06 O2 Del Method Room Air 07/16/24 08:06 BMI result Body Mass Index 28.6 Const: Other: General: AOx3, no acute distress, appears uncomfortable HEENT: scleral icterus Resp: CTA bilaterally CVS: RRR, +murmur GI: tender throughout, moderate distention Skin: Warm, dry Extremities: No edema Psych: Appropriate affect Objective Data Active Medications Acetaminophen (Acetaminophen 325 Mg Tablet) 650 mg PO Q6H PRN PRN Reason: Pain, Mild (Pain Scale 1-3), fever or headache Calcium Carbonate (Calcium Carbonate 750 Mg Tab.Chew) 750 mg PO Q4H PRN PRN Reason: Heartburn Ceftriaxone Sodium (Ceftriaxone Sodium 2 Gm Vial) 2 gm IVPUSH Q24H NAEEM Albumin Human (Kedbumin 25 %) 100 mls @ 100 mls/hr IV Q6H NAEEM Stop: 07/17/24 03:44 Magnesium Hydroxide (Milk Of Magnesia 30 Ml Oral.Susp) 30 ml PO DAILY PRN PRN Reason: Constipation Melatonin (Melatonin 3 Mg Tablet) 6 mg PO BEDTIME PRN PRN Reason: Insomnia Midodrine (Midodrine Hcl 5 Mg Tablet) 5 mg PO TID NAEEM Morphine Sulfate (Morphine Sulfate 4 Mg/Ml Cartridge) 2 mg IVPUSH Q4H PRN; Protocol PRN Reason: Pain, Severe (Pain Scale 7-10) Last Admin: 07/15/24 21:44 Dose: 2 mg Documented By: MAXIMILIAN Ondansetron HCl (Ondansetron Hcl 4 Mg/2 Ml Vial) 4 mg IVPUSH Q8H PRN PRN Reason: Nausea and Vomiting Oxycodone HCl (Oxycodone Hcl Immed Release 5 Mg Tablet) 5 mg PO Q6H PRN PRN Reason: Pain, Moderate(Pain Scale 4-6) Last Admin: 07/15/24 19:25 Dose: 5 mg Documented By: DINA Sodium Chloride (0.9 % Sodium Chloride Flush 3 Ml Syringe) 3 ml IVFLUSH [facility] Last Admin: 07/15/24 21:49 Dose: 3 ml Documented By: MAXIMILIAN Labs 07/16/24 05:06 07/16/24 05:06 Labs: Laboratory Results - last 24 hr 07/15/24 07/15/24 07/15/24 10:59 11:00 13:28 MCV 95.9 MCH 34.4 H MCHC 35.9 H RDW 13.9 Plt Count 111 L D MPV 8.3 L Immature Gran % (Auto) 0.4 Neut % (Auto) 86.8 H Lymph % (Auto) 8.0 L [place] % (Auto) 3.9 Eos % (Auto) 0.3 Baso % (Auto) 0.6 Lymph # (Auto) 0.5 L [place] # (Auto) 0.3 Eos # (Auto) 0.0 Baso # (Auto) 0.0 Abs Immat Gran (auto) 0.03 Absolute Neuts (auto) 5.8 Absolute Nucleated RBC 0.000 Nucleated RBC % (auto) 0.0 Neutrophils % (Manual) Band Neutrophils % Lymphocytes % (Manual) Monocytes % (Manual) Abs Neuts (Manual) Lymphocytes # (Manual) Monocytes # (Manual) Toxic Vacuolation Platelet Estimate Plt Morphology Comment RBC Morphology Hypochromasia Jose Cells Acanthocytes (Spur) PT INR APTT Anion Gap 18 Estim Creat Clear Calc 34.9 Estimated GFR 28 Random Glucose 95 Calcium 9.6 Magnesium 1.8 Total Bilirubin 9.2 H Direct Bilirubin 3.3 H AST 81 H ALT 27 Alkaline Phosphatase 182 H Ammonia Lactate Dehydrogenase Total Protein 7.7 Albumin 2.8 L Lipase 44 Urine Color Urine Appearance Urine pH Ur Specific [place] Urine Protein Urine Glucose (UA) Urine Ketones Urine Blood Urine Nitrite Ur Leukocyte Esterase Urine RBC Urine WBC Ur Squamous Epith Cells Urine Bacteria Hyaline Casts Peritoneal WBC 5.917 Peritoneal RBC 0.010 Periton Neutrophils 89 Periton Lymphocytes 6 Peritoneal Monocytes 2 Peritoneal Other Cells 3 Influenza Type A (PCR) NEGATIVE Influenza Type B (PCR) NEGATIVE RSV RNA Qual (PCR) NEGATIVE SARS-CoV-2 RNA (RT-PCR) NEGATIVE 07/15/24 07/15/24 07/15/24 13:54 16:48 17:40 MCV MCH MCHC RDW Plt Count MPV Immature Gran % (Auto) Neut % (Auto) Lymph % (Auto) [place] % (Auto) Eos % (Auto) Baso % (Auto) Lymph # (Auto) [place] # (Auto) Eos # (Auto) Baso # (Auto) Abs Immat Gran (auto) Absolute Neuts (auto) Absolute Nucleated RBC Nucleated RBC % (auto) Neutrophils % (Manual) Band Neutrophils % Lymphocytes % (Manual) Monocytes % (Manual) Abs Neuts (Manual) Lymphocytes # (Manual) Monocytes # (Manual) Toxic Vacuolation Platelet Estimate Plt Morphology Comment RBC Morphology Hypochromasia Jose Cells Acanthocytes (Spur) PT TNP 27.1 H INR TNP 2.3 H APTT 26.6 32.9 D Anion Gap Estim Creat Clear Calc Estimated GFR Random Glucose Calcium Magnesium Total Bilirubin Direct Bilirubin AST ALT Alkaline Phosphatase Ammonia 61 H Lactate Dehydrogenase Total Protein Albumin Lipase Urine Color [place] A Urine Appearance Turbid Urine pH 5.0 Ur Specific [place] 1.020 Urine Protein 30 (1+) H Urine Glucose (UA) 100 H Urine Ketones Negative Urine Blood Small (1+) H Urine Nitrite Positive H Ur Leukocyte Esterase Moderate (2+) H Urine RBC 0-2 Urine WBC 6-10 Ur Squamous Epith Cells >20 Urine Bacteria 1+ Hyaline Casts 0-2 Peritoneal WBC Peritoneal RBC Periton Neutrophils Periton Lymphocytes Peritoneal Monocytes Peritoneal Other Cells Influenza Type A (PCR) Influenza Type B (PCR) RSV RNA Qual (PCR) SARS-CoV-2 RNA (RT-PCR) 07/16/24 05:06 MCV 98.5 H MCH 34.6 H MCHC 35.1 H RDW 14.4 Plt Count 42 L D MPV 8.8 L Immature Gran % (Auto) Cancelled Neut % (Auto) Cancelled Lymph % (Auto) Cancelled [place] % (Auto) Cancelled Eos % (Auto) Cancelled Baso % (Auto) Cancelled Lymph # (Auto) Cancelled [place] # (Auto) Cancelled Eos # (Auto) Cancelled Baso # (Auto) Cancelled Abs Immat Gran (auto) Cancelled Absolute Neuts (auto) Cancelled Absolute Nucleated RBC 0.000 Nucleated RBC % (auto) 0.0 Neutrophils % (Manual) 71 Band Neutrophils % 25 H Lymphocytes % (Manual) 2 L Monocytes % (Manual) 2 Abs Neuts (Manual) 6.8 Lymphocytes # (Manual) 0.1 L Monocytes # (Manual) 0.1 Toxic Vacuolation PRESENT Platelet Estimate DECREASED Plt Morphology Comment NORMAL RBC Morphology NOTED Hypochromasia 1+ (5-14) [place] Cells 1+ (0-2) Acanthocytes (Spur) 1+ (0-2) PT INR APTT Anion Gap 19 Estim Creat Clear Calc 29.4 Estimated GFR 23 Random Glucose 69 Calcium 9.2 Magnesium Total Bilirubin Direct Bilirubin AST ALT Alkaline Phosphatase Ammonia Lactate Dehydrogenase 212 Total Protein Albumin Lipase Urine Color Urine Appearance Urine pH Ur Specific [place] Urine Protein Urine Glucose (UA) Urine Ketones Urine Blood Urine Nitrite Ur Leukocyte Esterase Urine RBC Urine WBC Ur Squamous Epith Cells Urine Bacteria Hyaline Casts Peritoneal WBC Peritoneal RBC Periton Neutrophils Periton Lymphocytes Peritoneal Monocytes Peritoneal Other Cells Influenza Type A (PCR) Influenza Type B (PCR) RSV RNA Qual (PCR) SARS-CoV-2 RNA (RT-PCR) Microbiology Microbiology Results: Microbiology 07/15/24 13:29 Gram Stain - Final Ascites Fluid Anaerobic Culture - Preliminary Culture in progress. Assessment and Plan (1) Thrombocytopenia: Status: Acute (2) Hyponatremia with excess extracellular fluid volume: Status: Acute (3) SBP (spontaneous bacterial peritonitis): Status: Acute (4) Cirrhosis: Status: Chronic Plan 58-year-old female with a past medical history significant for MARYJANE, GERD, MAYS, cirrhosis/varices, with recent admission for abdominal wall cellulitis, presented to the ED today with severe 10/10 generalized abdominal pain starting at 04:00 with associated nausea. SBP - culture pending - small sample taken, we will arrange therapeutic paracentesis tomorrow - change Ceftriaxone to vanc and zosyn per gi recommendaion pending cultues - Zofran as needed for nausea - magnesium 1.8 - GI consut IVETH secondary to hepatorenal syndrome - creatinine worse -continue albumin q6 hr -midodrine Hypervolemic hyponatremia - 1.5 L fluid restriction - monitor BMP HypOkalemia--corrected Coagulopathy with INR 2, no bleeding, monitor vit k with any sings of bleeding Chronic thrombocytopenia- secondary to cirrhosis - platelets stable Chronic hyponatremia d/t hypervolemic state from cirrhosis, stable GERD - continue pantoprazole daily DNR/DNI VTE prophylaxis: pneumoboots need for inpatient: Patient with SBP complicated by IVETH secondary to hepatorenal syndrome requiring admission for IV antibiotics, paracentesis and further management Quality Stroke Does the patient have a stroke diagnosis?: No VTE Prior VTE?: No VTE Risk Level:: Medical - moderate - high VTE Device Contraindication: N/A - Device Ordered VTE Drug Contraindication: Treatment Not Indicated
--- NOTE | 2024-07-16 09:47 | PC.NURSE ---
this RN placed a #22 g angio with Jloop ti R AC.+ blood return and flushes with ease.pt raegan well and denies pain. IV placement reported to Aniya Zamarripa RN
[2024-07-16 09:51] VITALS: BP 111/60; PULSE 97; RESP 18; TEMP 37; O2SAT 100
--- NOTE | 2024-07-16 11:33 | PM.GICN ---
History of Present Illness Data of Consult Service Date: 07/16/24 Requesting physician: Mari Cotto Primary Care Provider: Vaishnavi Morgan MD HPI Reason for consult: IVETH, SBP This is a 58-year-old female with past medical history of psoriatic arthritis, Taoist, decompensated cirrhosis with variceal bleeding 02/26/2022 with fabio Hb of 3.9 requiring ICU-to-ICU transfer to [facility] for further management who presented to the hospital for severe abdominal pain and was found to have SBP. Gastroenterology has been consulted for further management of SBP. Reports the day of admission she was woken up by severe burning abd pain that started around 4 am. Assoc with chills and nausea without vomiting. No change in bowel habits. No melena or hematemesis reported. Undocumented fevers. Her vital signs on arrival showed tachycardia and soft BP. CBC with hemoconcentration and left shift. Chem 7 pertinent for hyponatremia and IVETH with creatinine up to 2.2 today. Baseline creatinine is normal. Elevated LFTs with total bilirubin of >9. AST greater than ALT. She underwent a diagnostic paracentesis in the ER which is grossly positive for SBP with >5K PMNs. She was started on ceftriaxone 2 g IV and also provided with fluid resuscitation overnight. In terms of liver cirrhosis, reports following Dr Stoner at [facility] [place]. Being managed as decomp MAYS cirrhosis and being seen at [facility] for live donor liver transplantation without the need for blood product transfusion per pt's report. Review of Systems Review of Systems: Yes all other systems are reviewed and are negative FOR[facility]LY [facility], [facility] Past Medical History Medical History Obstructive sleep apnea GERD (gastroesophageal reflux disease) Rigor Fever Psoriasis Cellulitis Family History Family History Other No family history of coronary artery disease Surgical History Surgical History Hx of breast reduction, elective History of cholecystectomy Social History Social History Household Members: Family Housing: Apartment Do you presently have visiting nurse or other home services: Yes Alcohol intake: never Patient Tobacco Use Status: Never used Tobacco Smoked in Last 30 Days: No Use of substances other than those prescribed or required for medical reasons: No Substance Use Type: Sedatives Currently Displaying Signs/Symptoms of Drug Intoxication Withdrawal: No Have you been hit, kicked, punched, or otherwise hurt by someone within the past year? If so, by whom?: No Do you feel safe in your current relationship?: Yes Is there a partner from a previous relationship who is making you feel unsafe now?: No Are you made to feel afraid or neglected: No Advance Directives: Yes Advance Directives on File: Yes Advance Directives Date on File: 11/01/21 Do you have a plan to hurt others: No Plan Recently lost weight without trying: No How much weight loss: 14-23 pounds Eating poorly because of decreased appetite: No Nutrition screen score: 2 Nutrition Risks: Anorexia Patient : No : No Poor oral hygiene: No service: No Current occupational status: employed Meds Allergies Allergy/AdvReac Type Severity Reaction Status Date / Time Penicillins AdvReac Intermediate Unknown Verified 07/15/24 10:36 vancomycin AdvReac Itching Verified 07/15/24 10:36 Active Medications: Current Medications Acetaminophen (Acetaminophen 325 Mg Tablet) 650 mg PO Q6H PRN PRN Reason: Pain, Mild (Pain Scale 1-3), fever or headache Calcium Carbonate (Calcium Carbonate 750 Mg Tab.Chew) 750 mg PO Q4H PRN PRN Reason: Heartburn Albumin Human (Kedbumin 25 %) 100 mls @ 100 mls/hr IV Q6H [facility] Stop: 07/17/24 04:59 Last Admin: 07/16/24 10:53 Dose: 100 mls/hr Piperacillin Sod/Tazobactam (Sod 2.25 gm/ Sodium Chloride) 50 mls @ 100 mls/hr IV Q6H [facility] Magnesium Hydroxide (Milk Of Magnesia 30 Ml Oral.Susp) 30 ml PO DAILY PRN PRN Reason: Constipation Melatonin (Melatonin 3 Mg Tablet) 6 mg PO BEDTIME PRN PRN Reason: Insomnia Midodrine (Midodrine Hcl 5 Mg Tablet) 5 mg PO TID [facility] Morphine Sulfate (Morphine Sulfate 4 Mg/Ml Cartridge) 2 mg IVPUSH Q4H PRN; Protocol PRN Reason: Pain, Severe (Pain Scale 7-10) Last Admin: 07/15/24 21:44 Dose: 2 mg Ondansetron HCl (Ondansetron Hcl 4 Mg/2 Ml Vial) 4 mg IVPUSH Q8H PRN PRN Reason: Nausea and Vomiting Oxycodone HCl (Oxycodone Hcl Immed Release 5 Mg Tablet) 5 mg PO Q6H PRN PRN Reason: Pain, Moderate(Pain Scale 4-6) Last Admin: 07/15/24 19:25 Dose: 5 mg Sodium Chloride (0.9 % Sodium Chloride Flush 3 Ml Syringe) [facility] Last Admin: 07/16/24 10:58 Dose: Not Given Home Medications ?Medication ?Instructions ?Recorded ?Confirmed ?Last Taken ?Type pantoprazole 40 mg tablet,delayed 40 mg PO DAILY@0630 09/03/22 07/15/24 07/15/24 History release Physical Exam Vital Signs: Vital Signs: Last Vital Signs Temp 98.6 F 07/16/24 09:51 Pulse 97 07/16/24 09:51 Resp 18 07/16/24 09:51 BP 111/60 07/16/24 09:51 Pulse Ox 100 07/16/24 09:51 O2 Del Method Nasal Cannula 07/16/24 09:51 O2 Flow Rate 1 07/16/24 09:51 BMI result Body Mass Index 28.6 Middle aged female NAD icteric sclera No resp distress Abd soft, distended, tender, warm to touch Mild pitting edema BLE No asterixis Results Labs 07/16/24 05:06 07/16/24 05:06 Labs: Short CBC 07/16/24 Range/Units 05:06 WBC 7.1 (4.8-10.8) X10*3/uL Hgb 9.4 L D (12.0-16.0) g/dl Hct 26.8 L D (37.0-47.0) % Plt Count 42 L D (160-400) X10*3/uL BMP 07/16/24 05:06 Sodium 129 L Potassium 5.1 D Chloride 96 Carbon Dioxide 19 L BUN 38 H Creatinine 2.20 H Calcium 9.2 Liver Function 07/15/24 Range/Units 10:59 Direct Bilirubin 3.3 H (0.0-0.5) mg/dL Urine 07/15/24 Range/Units 16:48 Urine Color [place] A Urine Appearance Turbid Urine pH 5.0 (5.0-9.0) Ur Specific [place] 1.020 (1.005-1.025) Urine Protein 30 (1+) H (Neg-Trace) mg/dL Urine Glucose (UA) 100 H (Negative) mg/dL Microbiology Microbiology Results: Microbiology 07/15/24 13:29 Ascites Fluid Gram Stain - Final 07/15/24 13:29 Ascites Fluid Anaerobic Culture - Preliminary Culture in progress. Assessment and Plan (1) Decompensated cirrhosis: Status: Resolved (2) Acute hyponatremia: Status: Resolved (3) IVETH (acute kidney injury): Status: Resolved (4) Anemia: Status: Acute (5) Ascites: Status: Acute (6) Sepsis: Status: Resolved (7) Acute kidney injury: Status: Acute (8) SBP (spontaneous bacterial peritonitis): Status: Acute Plan Decomp likely MAYS related cirrhosis - MELD Na 34 - SBP - IVETH/HRS - Hyponatremia - Anemia Would recommend broadening ABx for SBP given risk of nosocomial inf in the context of frequent hospital admissions. Pt also frequently gets abd wall cellulitis and therefore would recommend adding MRSA coverage. Anemia at baseline after fluid resuscitation. No overt GIB at this time. Plan: - Broaden to Vanc and zosyn until cultures from ascitic tap available - Non-contrast CT to r/o secondary peritonitis given the sheer number of PMNs - Glucose and LDH added on to ascitic fluid - Start albumin IV 25% 100ml QID - If Cr not improved by tmrw, add octreotide and midodrine - May need repeat ascitic tap in 48h if minimal clinical improvement - Agree with nephrology consultation - Minimize blood loss/phlebotomies. Blood draws in pedi tubes only Thank you for allowing me to participate in her care. Pls do not hesitate to reach out for questions or concerns. Procedures Date of Service Date of Service: 07/16/24
--- NOTE | 2024-07-16 11:59 | PC.NURSE ---
Zosyn ordered for 1000. Penicillins listed on allergy list. Patient reports feeling itchy and like she's crawling out of her skin when she receives penicillins or vancomycin. Patient requesting benadryl to help with itching if she receives these medications. Primary care RN reviewed this information with Dr. Erick Capellan. Instructed to not administer 1000 zosyn at this time. Awaiting further instruction.
--- NOTE | 2024-07-16 12:19 | MHC.CLN ---
RE: CONSULT HT 65 WT 78KG (07/15/24) IBW 125#+/-10% PT IS 137% IBW RANGE INDICATES OBESE FOR HT. BMI 28.6 PT WITH 15% NONSIGNIFICANT WT LOSS X1 YEAR PT WITH SBP, CIRRHOSIS, AND HEPATORENAL SYNDROME MAY BE RECENT CONTRIBUTORS TO WT LOSS DIET RX: REGULAR-APPROPRIATE PT REPORTS ONLY POOR PO ONLY LAST FEW DAYS R/T NAUSEA RECOMMEND CHANGING ENSURE MAX BID TO ENSURE PLUS HIGH PROTEIN BID TO PROVIDE 700KCALS, 40G PROTEIN MONITOR PO INTAKE AND ENCOURAGE SUPPLEMENTS
[2024-07-16] MEDS: Doxycycline Hyclate 100 MG in 0.9 % Sodium Chloride 250 ML IV (13:14)
[2024-07-16] MEDS: Meropenem 500 MG VIAL IVPUSH ×2 (13:14→20:32)
[2024-07-16 15:53] VITALS: BP 104/56; PULSE 100; RESP 12; TEMP 37.2; O2SAT 98
[2024-07-16] MEDS: Midodrine HCl 5 MG TABLET PO ×2 (16:04→20:32)
--- NOTE | 2024-07-16 16:15 | MHC.CM.PN ---
CM MET WITH PT AND AT BEDSIDE PT LIVES AT HOME WITH HIM AND THEIR SON SHE REQUIRES ASSISTANCE WITH SOME CARE AND IS ACTIVE WITH [facility] FOR SN SHE HAS ONLY A SHOWER CHAIR AND GRAB BARS FOR DME, BUT FEELS SHE MAY NEED HOME O2 HCP ON FILE PCP: SALIMA ALAN DCP: HOME WITH [facility]UMPTION OF [facility] FAMILY TO TRANSPORT
[2024-07-16 19:42] VITALS: BP 99/58; PULSE 98; RESP 16; TEMP 36.8; O2SAT 95
[2024-07-16] MEDS: Morphine Sulfate 4 MG/ML CARTRIDGE 2 MG IVPUSH (20:32)
[2024-07-16] MEDS: 0.9 % Sodium Chloride Flush 3 ML SYRINGE IVFLUSH (20:51)
[2024-07-16 21:27] LABS: Sodium Urine Random < 20.0 mmol/L
[2024-07-17] MEDS: Doxycycline Hyclate 100 MG in 0.9 % Sodium Chloride 250 ML 166.67 MG IV ×2 (00:16→12:17)
[2024-07-17] MEDS: Morphine Sulfate 4 MG/ML CARTRIDGE 2 MG IVPUSH (00:17)
[2024-07-17 03:54] VITALS: BP 96/50; PULSE 86; RESP 14; TEMP 36.3; O2SAT 97
[2024-07-17] MEDS: Meropenem 500 MG VIAL IVPUSH ×3 (05:04→21:21)
[2024-07-17] MEDS: Albumin Human 25 % 100 ML IV ×4 (05:10→21:29)
[2024-07-17 06:46] LABS: Basophils Percent Auto 0.2 % (0-2); Eosinophils Absolute Auto 0.1 X10*3/uL (0.0-0.4); Eosinophils Percent Auto 0.9 % (0-4); Hematocrit 23.4 % (37.0-47.0); Hemoglobin 8.2 g/dl (12.0-16.0); Imm Gran Abs Auto 0.02 X10*3/uL (0.00-0.03); Imm Gran Pct Auto 0.3 % (0.0-0.4); Lymphocytes Absolute Auto 0.5 X10*3/uL (1.2-4.9); Lymphocytes Percent Auto 9.1 % (20-40); MANUAL DIFF FLAG NO; Mean Corpuscular Hemoglobin 34.5 pg (27.0-33.0); Mean Corpuscular Volume 98.3 fL (80.0-98.0); Mean Platelet Volume 9.6 fL (9.4-12.3); Monocytes Absolute Auto 0.7 X10*3/uL (0.1-1.2); Monocytes Percent Auto 11.7 % (2-11); Neutrophils Absolute Auto 4.5 x10*3/uL (2.0-8.3); Neutrophils Percent Auto 77.8 % (45-73); Platelet Count 41 X10*3/uL (160-400); Red Blood Count 2.38 X10*6/uL (4.20-5.50); Red Cell Distribution Width 14.2 % (11.0-16.0); White Blood Count 5.8 X10*3/uL (4.8-10.8)
[2024-07-17 06:59] LABS: Anion Gap 15 (12-20); Blood Urea Nitrogen 47 mg/dL (9-16); Carbon Dioxide 21 mmol/L (22-29); Chloride 97 mmol/L (96-108); Creatinine Clr Calc Pharmacy 32.2; Estimated Glomerular Filt Rate 26; Glucose Random 71 mg/dL (60-115); Potassium 4.2 mmol/L (3.3-5.1); Sodium 129 mmol/L (135-145)
[2024-07-17 07:07] LABS: INTERNATIONAL NORM RATIO 3.6 (0.9-1.1); Prothrombin Time 41.7 SEC (10.9-12.4)
[2024-07-17 07:41] VITALS: BP 94/52; PULSE 92; RESP 16; TEMP 36.7; O2SAT 94
[2024-07-17] MEDS: 0.9 % Sodium Chloride Flush 3 ML SYRINGE IVFLUSH (08:49)
[2024-07-17] MEDS: Midodrine HCl 5 MG TABLET PO ×3 (08:49→21:16)
--- NOTE | 2024-07-17 09:00 | P.PNNP_ITS ---
Subjective Subjective Date of Service: 07/17/24 Interval history: 58 y/o female with a medical history of MAYS cirrhosis/varices, MARYJANE, GERD. came to ED 07/15 with generalized abdominal pain with nausea- she reports had for multiple days but acutely worsened 07/15 a.m. she had a recent admission in May for abdominal wall cellulitis had diagnostic paracentesis suggesting SBP, she is receiving IV abx Nephrology consulted for IVETH last creatinine on file prior to admission from 06/24 was 1.3 07/15 creatinine 1.84, 07/16 2.20 patient states she has not taken her lasix or spironolactone in several weeks, was being held per her GI provider (Dr Stoner, [facility] – [place]), she reports due to worsening kidney function. she reports ongoing abdominal pain today, generalized reports some dyspnea, fatigue no chest pain or dizziness no lower extremity swelling reports she is urinating regularly/comfortably denies other symptoms/concerns she would like to note she recently saw a liver transplant specialist in [place] who may do liver transplant without blood transfusion (pt is Anglican), seeing them again in September. Physical Exam 2 Vital Signs: Vital Signs: Last Vital Signs Temp 98.2 F 07/17/24 11:14 Pulse 93 07/17/24 11:14 Resp 18 07/17/24 11:14 BP 106/60 07/17/24 11:14 Pulse Ox 95 07/17/24 11:14 O2 Del Method Nasal Cannula 07/17/24 11:14 O2 Flow Rate 0.5 07/17/24 11:14 BMI result Body Mass Index 28.6 Objective Data Labs 07/17/24 05:38 07/17/24 05:38 Labs: Laboratory Results - last 24 hr 07/16/24 07/17/24 20:54 05:38 WBC 5.8 RBC 2.38 L Hgb 8.2 L Hct 23.4 L MCV 98.3 H MCH 34.5 H MCHC 35.0 RDW 14.2 Plt Count 41 L MPV 9.6 Immature Gran % (Auto) 0.3 Neut % (Auto) 77.8 H Lymph % (Auto) 9.1 L Sheridan % (Auto) 11.7 H Eos % (Auto) 0.9 Baso % (Auto) 0.2 Lymph # (Auto) 0.5 L Sheridan # (Auto) 0.7 Eos # (Auto) 0.1 Baso # (Auto) 0.0 Abs Immat Gran (auto) 0.02 Absolute Neuts (auto) 4.5 Absolute Nucleated RBC 0.000 Nucleated RBC % (auto) 0.0 PT 41.7 H D INR 3.6 H Sodium 129 L Potassium 4.2 Chloride 97 Carbon Dioxide 21 L Anion Gap 15 BUN 47 H Creatinine 2.01 H Estim Creat Clear Calc 32.2 Estimated GFR 26 Random Glucose 71 Calcium 9.0 Ur Random Sodium < 20.0 Microbiology Microbiology Results: Microbiology 07/15/24 16:00 Urine clean catch - Clean Catch Midstream Urine Culture - Final 07/15/24 13:29 Ascites Fluid Gram Stain - Final 07/15/24 13:29 Ascites Fluid Routine Culture - Preliminary Gram negative lisa 07/15/24 13:29 Ascites Fluid Anaerobic Culture - Preliminary Culture in progress. 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 Progress Note: Quality Stroke Does the patient have a stroke diagnosis?: No
--- NOTE | 2024-07-17 10:17 | HO.PM.IMPN ---
Subjective Subjective Date of Service: 07/18/24 Interval History: Follow up IVETH, decompensated liver cirrhosis with coagulopathy and SBP abdominal pain is better, renal failure is better, she feels tired. Physical Exam Vital Signs: Vital Signs: Last Vital Signs Temp 98.1 F 07/17/24 07:41 Pulse 92 07/17/24 07:41 Resp 16 07/17/24 07:41 BP 94/52 L 07/17/24 07:41 Pulse Ox 94 07/17/24 07:41 O2 Del Method Nasal Cannula 07/17/24 07:41 O2 Flow Rate 0.5 07/17/24 07:41 BMI result Body Mass Index 28.6 Middle aged female NAD icteric sclera No resp distress Abd soft, less distended, mild tenderness, warm to touch Mild pitting edema BLE No asterixis, No confusion Objective Data Active Medications Acetaminophen (Acetaminophen 325 Mg Tablet) 650 mg PO Q6H PRN PRN Reason: Pain, Mild (Pain Scale 1-3), fever or headache Calcium Carbonate (Calcium Carbonate 750 Mg Tab.Chew) 750 mg PO Q4H PRN PRN Reason: Heartburn Doxycycline Hyclate 100 mg/ (Sodium Chloride) 250 mls @ 166.67 mls/hr IV Q12H [facility] Last Infusion: 07/17/24 01:53 Dose: Infused Documented By: MAXIMILIAN Albumin Human (Kedbumin 25 %) 100 mls @ 100 mls/hr IV Q6H [facility] Stop: 07/18/24 03:14 Last Infusion: 07/17/24 09:52 Dose: Infused Documented By: ERIK Magnesium Hydroxide (Milk Of Magnesia 30 Ml Oral.Susp) 30 ml PO DAILY PRN PRN Reason: Constipation Melatonin (Melatonin 3 Mg Tablet) 6 mg PO BEDTIME PRN PRN Reason: Insomnia Meropenem (Meropenem 500 Mg Vial) 500 mg IVPUSH Q8H [facility] Last Admin: 07/17/24 05:04 Dose: 500 mg Documented By: MAXIMILIAN Midodrine (Midodrine Hcl 5 Mg Tablet) 5 mg PO TID [facility] Last Admin: 07/17/24 08:49 Dose: 5 mg Documented By: ERIK Morphine Sulfate (Morphine Sulfate 4 Mg/Ml Cartridge) 2 mg IVPUSH Q4H PRN; Protocol PRN Reason: Pain, Severe (Pain Scale 7-10) Last Admin: 07/17/24 00:17 Dose: 2 mg Documented By: MAXIMILIAN Ondansetron HCl (Ondansetron Hcl 4 Mg/2 Ml Vial) 4 mg IVPUSH Q8H PRN PRN Reason: Nausea and Vomiting Oxycodone HCl (Oxycodone Hcl Immed Release 5 Mg Tablet) 5 mg PO Q6H PRN PRN Reason: Pain, Moderate(Pain Scale 4-6) Last Admin: 07/15/24 19:25 Dose: 5 mg Documented By: DINA Sodium Chloride (0.9 % Sodium Chloride Flush 3 Ml Syringe) [facility] Last Admin: 07/17/24 08:49 Dose: 3 ml Documented By: ERIK Labs 07/17/24 05:38 07/17/24 05:38 Labs: Laboratory Results - last 24 hr 07/16/24 07/17/24 20:54 05:38 MCV 98.3 H MCH 34.5 H MCHC 35.0 RDW 14.2 Plt Count 41 L MPV 9.6 Immature Gran % (Auto) 0.3 Neut % (Auto) 77.8 H Lymph % (Auto) 9.1 L Glynn % (Auto) 11.7 H Eos % (Auto) 0.9 Baso % (Auto) 0.2 Lymph # (Auto) 0.5 L Glynn # (Auto) 0.7 Eos # (Auto) 0.1 Baso # (Auto) 0.0 Abs Immat Gran (auto) 0.02 Absolute Neuts (auto) 4.5 Absolute Nucleated RBC 0.000 Nucleated RBC % (auto) 0.0 PT 41.7 H D INR 3.6 H Anion Gap 15 Estim Creat Clear Calc 32.2 Estimated GFR 26 Random Glucose 71 Calcium 9.0 Ur Random Sodium < 20.0 Microbiology Microbiology Results: Microbiology 07/15/24 13:29 Gram Stain - Final Ascites Fluid Routine Culture - Preliminary Gram negative lisa Anaerobic Culture - Preliminary Culture in progress. 07/15/24 16:00 Urine Culture - Preliminary Urine clean catch - Clean Catch Midstream Culture too young to evaluate. Assessment and Plan (1) Thrombocytopenia: Status: Acute (2) Hyponatremia with excess extracellular fluid volume: Status: Acute (3) SBP (spontaneous bacterial peritonitis): Status: Acute (4) Cirrhosis: Status: Chronic Plan 58-year-old female with a past medical history significant for MARYJANE, GERD, MAYS, cirrhosis/varices, with recent admission for abdominal wall cellulitis, presented to the ED today with severe 10/10 generalized abdominal pain starting at 04:00 with associated nausea. SBP - culture growing GNR - continue meropenem (she has pen allergy, and vanco allergy) -Follow sensitivity IVETH secondary to hepatorenal syndrome, Scr is worse - creatinine worse -continue albumin q6 hr -midodrine Ascietes s/p therapeutic paracentesis yesterday Hypervolemic hyponatremia, stable - 1.5 L fluid restriction - monitor BMP HypOkalemia--corrected Coagulopathy with INR 3. Give vitamin k Chronic thrombocytopenia- secondary to cirrhosis - platelets stable GERD - continue pantoprazole daily DNR/DNI VTE prophylaxis: pneumoboots, high inr need for inpatient: Patient with SBP complicated by IVETH secondary to hepatorenal syndrome requiring admission for IV antibiotics, paracentesis and further management Quality Stroke Does the patient have a stroke diagnosis?: No VTE Prior VTE?: No VTE Risk Level:: Medical - moderate - high VTE Device Contraindication: N/A - Device Ordered VTE Drug Contraindication: Treatment Not Indicated
[2024-07-17 11:14] VITALS: BP 106/60; PULSE 93; RESP 18; TEMP 36.8; O2SAT 95
[2024-07-17] MEDS: Phytonadione (Vit K1) Oral 10 MG/ML AMPUL PO (12:16)
--- NOTE | 2024-07-17 14:58 | MHC.CM.PN ---
OZZY MCNEAL PT REMAINS ACUTE LEVEL OF CARE DC PLAN REMAINS HOME WITH [facility]
[2024-07-17 16:00] VITALS: BP 112/67; PULSE 103; RESP 18; TEMP 37.3; O2SAT 96
[2024-07-17 19:23] VITALS: BP 120/65; PULSE 100; RESP 17; TEMP 37.3; O2SAT 94
[2024-07-17 21:16] VITALS: BP 120/65
[2024-07-17] MEDS: oxyCODONE HCl Immed Release 5 MG TABLET PO (21:16)
[2024-07-17] MEDS: diphenhydrAMINE HCL 50 MG/ML VIAL 25 MG IVPUSH (21:17)
[2024-07-18] MEDS: Doxycycline Hyclate 100 MG in 0.9 % Sodium Chloride 250 ML 166.67 MG IV (00:54)
[2024-07-18 02:28] VITALS: BP 108/64; PULSE 89; RESP 17; TEMP 36.2; O2SAT 93
[2024-07-18] MEDS: Albumin Human 25 % 100 ML IV (02:44)
[2024-07-18] MEDS: Meropenem 500 MG VIAL IVPUSH (05:14)
[2024-07-18 07:25] LABS: MANUAL DIFF FLAG NO
[2024-07-18 07:31] VITALS: BP 102/55; PULSE 89; RESP 16; TEMP 37.4; O2SAT 93
[2024-07-18 07:31] LABS: Basophils Percent Auto 0.2 % (0-2); Eosinophils Absolute Auto 0.1 X10*3/uL (0.0-0.4); Eosinophils Percent Auto 1.5 % (0-4); Hematocrit 22.2 % (37.0-47.0); Imm Gran Abs Auto 0.03 X10*3/uL (0.00-0.03); Imm Gran Pct Auto 0.6 % (0.0-0.4); Lymphocytes Absolute Auto 0.5 X10*3/uL (1.2-4.9); Lymphocytes Percent Auto 9.4 % (20-40); Mean Corpuscular Hemoglobin 35.1 pg (27.0-33.0); Mean Corpuscular Volume 97.4 fL (80.0-98.0); Mean Platelet Volume 9.5 fL (9.4-12.3); Monocytes Absolute Auto 0.7 X10*3/uL (0.1-1.2); Monocytes Percent Auto 13.1 % (2-11); Neutrophils Absolute Auto 3.9 x10*3/uL (2.0-8.3); Neutrophils Percent Auto 75.2 % (45-73); Red Blood Count 2.28 X10*6/uL (4.20-5.50); Red Cell Distribution Width 14.2 % (11.0-16.0); White Blood Count 5.2 X10*3/uL (4.8-10.8)
[2024-07-18 07:37] LABS: Platelet Count 39 X10*3/uL (160-400)
--- NOTE | 2024-07-18 07:37 | HO.PM.IMPN ---
Subjective Subjective Date of Service: 07/18/24 Interval History: Follow up IVETH, decompensated liver cirrhosis with coagulopathy and SBP abdominal pain is better, renal failure is better, and overall is feeling better Physical Exam Vital Signs: Vital Signs: Last Vital Signs Temp 99.3 F 07/18/24 07:31 Pulse 89 07/18/24 07:31 Resp 16 07/18/24 07:31 BP 102/55 L 07/18/24 07:31 Pulse Ox 93 07/18/24 07:31 O2 Del Method Nasal Cannula 07/18/24 07:31 O2 Flow Rate 2 07/18/24 07:31 BMI result Body Mass Index 28.6 Middle aged female NAD icteric sclera No resp distress Abd soft, less distended, mild tenderness, warm to touch Mild pitting edema BLE No asterixis, No confusion Objective Data Active Medications Acetaminophen (Acetaminophen 325 Mg Tablet) 650 mg PO Q6H PRN PRN Reason: Pain, Mild (Pain Scale 1-3), fever or headache Calcium Carbonate (Calcium Carbonate 750 Mg Tab.Chew) 750 mg PO Q4H PRN PRN Reason: Heartburn Diphenhydramine HCl (Diphenhydramine Hcl 50 Mg/Ml Vial) 25 mg IVPUSH Q6H PRN PRN Reason: Itching Last Admin: 07/17/24 21:17 Dose: 25 mg Documented By: RILEY Doxycycline Hyclate 100 mg/ (Sodium Chloride) 250 mls @ 166.67 mls/hr IV Q12H [facility] Last Infusion: 07/18/24 02:36 Dose: Infused Documented By: RILEY Magnesium Hydroxide (Milk Of Magnesia 30 Ml Oral.Susp) 30 ml PO DAILY PRN PRN Reason: Constipation Melatonin (Melatonin 3 Mg Tablet) 6 mg PO BEDTIME PRN PRN Reason: Insomnia Meropenem (Meropenem 500 Mg Vial) 500 mg IVPUSH Q8H [facility] Last Admin: 07/18/24 05:14 Dose: 500 mg Documented By: RILEY Midodrine (Midodrine Hcl 5 Mg Tablet) 5 mg PO TID [facility] Last Admin: 07/17/24 21:16 Dose: 5 mg Documented By: RILEY Morphine Sulfate (Morphine Sulfate 4 Mg/Ml Cartridge) 2 mg IVPUSH Q4H PRN; Protocol PRN Reason: Pain, Severe (Pain Scale 7-10) Last Admin: 07/17/24 00:17 Dose: 2 mg Documented By: MAXIMILIAN Nystatin (Nystatin Powder 15 Gm Bottle) 1 appl TOPICAL BID [facility]; Protocol Last Admin: 07/17/24 21:20 Dose: Not Given Documented By: RILEY Non-Admin Reason: Patient Refused Ondansetron HCl (Ondansetron Hcl 4 Mg/2 Ml Vial) 4 mg IVPUSH Q8H PRN PRN Reason: Nausea and Vomiting Oxycodone HCl (Oxycodone Hcl Immed Release 5 Mg Tablet) 5 mg PO Q6H PRN PRN Reason: Pain, Moderate(Pain Scale 4-6) Last Admin: 07/17/24 21:16 Dose: 5 mg Documented By: RILEY Phytonadione (Phytonadione (Vit K1) Oral 10 Mg/Ml Ampul) 10 mg PO DAILY [facility] Stop: 07/19/24 09:01 Last Admin: 07/17/24 12:16 Dose: 10 mg Documented By: ERIK Sodium Chloride (0.9 % Sodium Chloride Flush 3 Ml Syringe) 3 ml IVFLUSH QSHIFT [facility] Last Admin: 07/18/24 00:03 Dose: Not Given Documented By: RILEY Non-Admin Reason: Previously Administered Labs 07/18/24 06:31 07/18/24 06:31 Microbiology Microbiology Results: Microbiology 07/15/24 16:00 Urine Culture - Final Urine clean catch - Clean Catch Midstream 07/15/24 13:29 Gram Stain - Final Ascites Fluid Routine Culture - Preliminary Gram negative lisa Anaerobic Culture - Preliminary Culture in progress. Assessment and Plan (1) Thrombocytopenia: Status: Acute (2) Hyponatremia with excess extracellular fluid volume: Status: Acute (3) SBP (spontaneous bacterial peritonitis): Status: Acute (4) Cirrhosis: Status: Chronic Plan 58/F with MARYJANE, GERD, MAYS, cirrhosis/varices, with recent admission for abdominal wall cellulitis, presented to the ED today with severe 10/10 generalized abdominal pain, n/v and admitted for SBP, Hepatorenal syndrome SBP - culture growing Klebsiel P. sensitive to ceftriaxone - change meropenem to ceftriaxone daiy -Follow sensitivity IVETH secondary to hepatorenal syndrome, Scr improving -continue albumin q6 hr -midodrine Ascietes s/p therapeutic paracentesis on 07/16 Hypervolemic hyponatremia, stable - 1.5 L fluid restriction - monitor BMP HypOkalemia--corrected Coagulopathy with INR 3, vitamin k given Acute on chronic thrombocytopenia--Platlet trending ? related to infection, worsening liver disease -follow level, hold transfusion at this time Anemia--H/H trending down, but stable the last 2 days, continue to monitor, she is [employer] witness and would not take transfusion GERD - continue pantoprazole daily DNR/DNI VTE prophylaxis: pneumoboots, high inr need for inpatient: Patient with SBP complicated by IVETH secondary to hepatorenal syndrome requiring admission for IV antibiotics, paracentesis and further management Prognosis is guarded to poor Quality Stroke Does the patient have a stroke diagnosis?: No VTE Prior VTE?: No VTE Risk Level:: Medical - moderate - high VTE Device Contraindication: N/A - Device Ordered VTE Drug Contraindication: Treatment Not Indicated
[2024-07-18 07:38] LABS: INTERNATIONAL NORM RATIO 3.8 (0.9-1.1); Prothrombin Time 44.8 SEC (10.9-12.4)
[2024-07-18 07:47] LABS: Anion Gap 14 (12-20); Blood Urea Nitrogen 55 mg/dL (9-16); Calcium 9.1 mg/dL (8.4-10.2); Carbon Dioxide 22 mmol/L (22-29); Chloride 100 mmol/L (96-108); Creatinine Clr Calc Pharmacy 37.9; Estimated Glomerular Filt Rate 31; Glucose Random 85 mg/dL (60-115); Potassium 3.7 mmol/L (3.3-5.1); Sodium 132 mmol/L (135-145)
[2024-07-18] MEDS: Lactulose 20 GM/30 ML SOLUTION PO (08:51)
[2024-07-18] MEDS: Midodrine HCl 5 MG TABLET PO ×3 (08:52→21:03)
[2024-07-18] MEDS: Phytonadione (Vit K1) Oral 10 MG/ML AMPUL PO (08:52)
[2024-07-18] MEDS: 0.9 % Sodium Chloride Flush 3 ML SYRINGE IVFLUSH ×3 (08:53→21:03)
[2024-07-18] MEDS: Nystatin Powder 15 GM BOTTLE 1 APPL TOPICAL (08:56)
[2024-07-18] MEDS: cefTRIAXone sodium 1 GM VIAL IVPUSH (12:50)
[2024-07-18 15:33] VITALS: BP 107/60; PULSE 85; RESP 16; TEMP 37.4; O2SAT 97
[2024-07-18 19:49] VITALS: BP 107/55; PULSE 86; RESP 16; TEMP 36.9; O2SAT 98
[2024-07-18] MEDS: oxyCODONE HCl Immed Release 5 MG TABLET PO (21:02)
[2024-07-18 21:03] VITALS: BP 107/55
[2024-07-19 03:23] VITALS: BP 99/54; PULSE 78; RESP 18; TEMP 36.5; O2SAT 98
[2024-07-19 05:46] LABS: Hematocrit 26.2 % (37.0-47.0); Hemoglobin 9.3 g/dl (12.0-16.0); Mean Corpuscular HGB Conc 35.5 g/dl (31.0-35.0); Mean Corpuscular Hemoglobin 34.7 pg (27.0-33.0); Mean Corpuscular Volume 97.8 fL (80.0-98.0); Mean Platelet Volume 8.8 fL (9.4-12.3); Red Blood Count 2.68 X10*6/uL (4.20-5.50); Red Cell Distribution Width 13.9 % (11.0-16.0); White Blood Count 6.5 X10*3/uL (4.8-10.8)
[2024-07-19 05:56] LABS: Anion Gap 14 (12-20); Blood Urea Nitrogen 56 mg/dL (9-16); Calcium 8.4 mg/dL (8.4-10.2); Carbon Dioxide 21 mmol/L (22-29); Chloride 100 mmol/L (96-108); Creatinine Clr Calc Pharmacy 42.9; Estimated Glomerular Filt Rate 36; Glucose Random 94 mg/dL (60-115); Potassium 3.4 mmol/L (3.3-5.1); Sodium 132 mmol/L (135-145)
[2024-07-19 06:04] LABS: Platelet Count 50 X10*3/uL (160-400)
[2024-07-19 08:00] VITALS: BP 107/58; PULSE 75; RESP 18; TEMP 36.6; O2SAT 97
[2024-07-19] MEDS: Midodrine HCl 5 MG TABLET PO ×3 (08:08→21:18)
[2024-07-19] MEDS: Lactulose 20 GM/30 ML SOLUTION PO (08:09)
[2024-07-19] MEDS: Phytonadione (Vit K1) Oral 10 MG/ML AMPUL PO (08:09)
[2024-07-19] MEDS: 0.9 % Sodium Chloride Flush 3 ML SYRINGE IVFLUSH ×2 (08:09→15:24)
[2024-07-19] MEDS: Nystatin Powder 15 GM BOTTLE 1 APPL TOPICAL ×2 (08:12→21:23)
--- NOTE | 2024-07-19 09:26 | HO.PM.IMPN ---
Subjective Subjective Date of Service: 07/19/24 Interval History: Follow up IVETH, decompensated liver cirrhosis with coagulopathy and SBP Cr is better and she's feeling better Physical Exam Vital Signs: Vital Signs: Last Vital Signs Temp 97.9 F 07/19/24 08:00 Pulse 75 07/19/24 08:00 Resp 18 07/19/24 08:00 BP 107/58 L 07/19/24 08:00 Pulse Ox 97 07/19/24 08:00 O2 Del Method Nasal Cannula 07/19/24 08:00 O2 Flow Rate 0.5 07/19/24 08:00 BMI result Body Mass Index 28.6 Middle aged female NAD icteric sclera No resp distress Abd soft, less distended, mild tenderness, warm to touch Mild pitting edema BLE No asterixis, No confusion Objective Data Active Medications Acetaminophen (Acetaminophen 325 Mg Tablet) 650 mg PO Q6H PRN PRN Reason: Pain, Mild (Pain Scale 1-3), fever or headache Calcium Carbonate (Calcium Carbonate 750 Mg Tab.Chew) 750 mg PO Q4H PRN PRN Reason: Heartburn Ceftriaxone Sodium (Ceftriaxone Sodium 1 Gm Vial) 1 gm IVPUSH Q24H [facility] Last Admin: 07/18/24 12:50 Dose: 1 gm Documented By: MIKE Diphenhydramine HCl (Diphenhydramine Hcl 50 Mg/Ml Vial) 25 mg IVPUSH Q6H PRN PRN Reason: Itching Last Admin: 07/17/24 21:17 Dose: 25 mg Documented By: RILEY Lactulose (Lactulose 20 Gm/30 Ml Solution) 20 gm PO DAILY [facility] Last Admin: 07/19/24 08:09 Dose: 20 gm Documented By: MIKE Magnesium Hydroxide (Milk Of Magnesia 30 Ml Oral.Susp) 30 ml PO DAILY PRN PRN Reason: Constipation Melatonin (Melatonin 3 Mg Tablet) 6 mg PO BEDTIME PRN PRN Reason: Insomnia Midodrine (Midodrine Hcl 5 Mg Tablet) 5 mg PO TID [facility] Last Admin: 07/19/24 08:08 Dose: 5 mg Documented By: MIKE Morphine Sulfate (Morphine Sulfate 4 Mg/Ml Cartridge) 2 mg IVPUSH Q4H PRN; Protocol PRN Reason: Pain, Severe (Pain Scale 7-10) Last Admin: 07/17/24 00:17 Dose: 2 mg Documented By: MAXIMILIAN Nystatin (Nystatin Powder 15 Gm Bottle) 1 appl TOPICAL BID [facility]; Protocol Last Admin: 07/19/24 08:12 Dose: 1 appl Documented By: MIKE Ondansetron HCl (Ondansetron Hcl 4 Mg/2 Ml Vial) 4 mg IVPUSH Q8H PRN PRN Reason: Nausea and Vomiting Oxycodone HCl (Oxycodone Hcl Immed Release 5 Mg Tablet) 5 mg PO Q6H PRN PRN Reason: Pain, Moderate(Pain Scale 4-6) Last Admin: 07/18/24 21:02 Dose: 5 mg Documented By: RILEY Sodium Chloride (0.9 % Sodium Chloride Flush 3 Ml Syringe) 3 ml IVFLUSH QSHIFT [facility] Last Admin: 07/19/24 08:09 Dose: 3 ml Documented By: MIKE Labs 07/19/24 05:30 07/19/24 05:30 Labs: Laboratory Results - last 24 hr 07/19/24 05:30 MCV 97.8 MCH 34.7 H MCHC 35.5 H RDW 13.9 Plt Count 50 L D MPV 8.8 L Absolute Nucleated RBC 0.000 Nucleated RBC % (auto) 0.0 Anion Gap 14 Estim Creat Clear Calc 42.9 Estimated GFR 36 Random Glucose 94 Calcium 8.4 D Microbiology Microbiology Results: Microbiology 07/15/24 13:29 Gram Stain - Final Ascites Fluid Routine Culture - Final Klebsiella pneumoniae Anaerobic Culture - Preliminary Culture in progress. Assessment and Plan (1) Thrombocytopenia: Status: Acute (2) Hyponatremia with excess extracellular fluid volume: Status: Acute (3) SBP (spontaneous bacterial peritonitis): Status: Acute (4) Cirrhosis: Status: Chronic Plan 58/F with MARYJANE, GERD, MAYS, cirrhosis/varices, with recent admission for abdominal wall cellulitis, presented to the ED today with severe 10/10 generalized abdominal pain, n/v and admitted for SBP, Hepatorenal syndrome SBP - culture growing Klebsiel P. sensitive to ceftriaxone - continue Ceftriaxone, change to PO Ceftin at dc -Follow sensitivity IVETH secondary to hepatorenal syndrome, Scr improving -midodrine -monitor cr Ascietes s/p therapeutic paracentesis on 07/16 Hypervolemic hyponatremia, stable - 1.5 L fluid restriction - monitor BMP HypOkalemia--corrected Coagulopathy with INR 3, vitamin k given Acute on chronic thrombocytopenia--Platlet trending ? 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
[2024-07-19] MEDS: cefTRIAXone sodium 1 GM VIAL IVPUSH (13:18)
[2024-07-19 15:17] VITALS: BP 101/53; PULSE 86; RESP 14; TEMP 36.5; O2SAT 97
[2024-07-19 19:19] VITALS: BP 114/55; PULSE 90; RESP 16; TEMP 37; O2SAT 95
[2024-07-19 21:18] VITALS: BP 114/55
[2024-07-20] VITALS (7 sets, daily range): BP systolic 99–124; BP diastolic 58–69; PULSE 80–86; RESP 14–16; TEMP 36.4–36.9; O2SAT 94–98
[2024-07-20] MEDS: Melatonin 3 MG TABLET 6 MG PO ×2 (00:02→22:23)
[2024-07-20] MEDS: oxyCODONE HCl Immed Release 5 MG TABLET PO (00:02)
[2024-07-20] MEDS: 0.9 % Sodium Chloride Flush 3 ML SYRINGE IVFLUSH ×4 (00:03→21:13)
[2024-07-20 07:26] LABS: Anion Gap 12 (12-20); Blood Urea Nitrogen 61 mg/dL (9-16); Calcium 8.3 mg/dL (8.4-10.2); Carbon Dioxide 22 mmol/L (22-29); Chloride 99 mmol/L (96-108); Creatinine Clr Calc Pharmacy 37.5; Estimated Glomerular Filt Rate 30; Glucose Random 86 mg/dL (60-115); Potassium 3.5 mmol/L (3.3-5.1); Sodium 129 mmol/L (135-145)
[2024-07-20] MEDS: Midodrine HCl 5 MG TABLET PO ×3 (08:18→21:12)
[2024-07-20] MEDS: Lactulose 20 GM/30 ML SOLUTION PO (08:19)
[2024-07-20] MEDS: Nystatin Powder 15 GM BOTTLE 1 APPL TOPICAL ×2 (08:21→21:11)
--- NOTE | 2024-07-20 09:54 | PM.PNNEP ---
Subjective Subjective Date of Service: 07/20/24 Interval history: 58 y/o female with a medical history of MAYS cirrhosis/varices, MARYJANE, GERD. came to ED 07/15 with generalized abdominal pain with nausea had diagnostic paracentesis suggesting SBP, she is receiving IV abx Nephrology consulted for IVETH last creatinine on file prior to admission from 06/24 was 1.3 07/15 creatinine 1.84, 07/16 2.20, 07/17 2.01 07/20 1.73 had not taken her lasix or spironolactone in several weeks, was being held per her GI provider (Dr Stoner, [facility] – [place], [place]), she reports due to worsening kidney function. she reports ongoing abdominal pain but reports is mild and significantly improved ongoing fatigue denies dyspnea (reports intermittent, none currently) no chest pain or dizziness no lower extremity swelling reports she is urinating regularly/comfortably, moving her bowels denies other symptoms/concerns she would like to note she recently saw a liver transplant specialist in [place] who may do liver transplant without blood transfusion (pt is Religion), seeing them again in September. Physical Exam Vital Signs: Vital Signs: Last Vital Signs Temp 98.0 F 07/20/24 07:17 Pulse 80 07/20/24 07:17 Resp 16 07/20/24 07:17 BP 99/58 L 07/20/24 08:18 Pulse Ox 95 07/20/24 07:17 O2 Del Method Nasal Cannula 07/20/24 07:17 O2 Flow Rate 1.5 07/20/24 07:17 BMI result Body Mass Index 28.6 Const: General: no acute distress, alert and awake Resp: Effort & Inspection: normal respiratory effort and able to speak in complete sentences Auscultation: clear to auscultation bilaterally Cardio: Jugular venous distension: no JVD Rate: regular rate Rhythm: regular rhythm Heart sounds: S1 normal heart sound present and S2 normal heart sound present GI: Inspection: Yes distended Palpation (GI): Tenderness to palpation present (GI) (tender to palpation) and Ascites present : General: Yes no CVA tenderness Back/Spine/Pelvis: Back: no CVA tenderness Skin: Rashes: no rashes Extrem: General: No edema and No pedal edema Objective Data Labs 07/19/24 05:30 07/20/24 07:05 Labs: Laboratory Results - last 24 hr 07/20/24 07:05 Sodium 129 L Potassium 3.5 Chloride 99 Carbon Dioxide 22 Anion Gap 12 BUN 61 H Creatinine 1.73 H Estim Creat Clear Calc 37.5 Estimated GFR 30 Random Glucose 86 Calcium 8.3 L Microbiology Microbiology Results: Microbiology 07/15/24 13:29 Ascites Fluid Gram Stain - Final 07/15/24 13:29 Ascites Fluid Routine Culture - Final Klebsiella pneumoniae 07/15/24 13:29 Ascites Fluid Anaerobic Culture - Final NO GROWTH AFTER 5 DAYS 07/15/24 16:00 Urine clean catch - Clean Catch Midstream Urine Culture - Final Procedures Date of Service Date of Service: 07/20/24 Assessment & Plan Assessment and plan (1) Acute kidney injury: Status: Acute (2) Acute hyponatremia: Status: Acute (3) Cirrhosis: Status: Chronic (4) SBP (spontaneous bacterial peritonitis): Status: Acute Plan IVETH in setting of decompensated liver cirrhosis, likely perfusion issue due to hepatic physiology urine sodium <20 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 Progress Note: Quality Stroke Does the patient have a stroke diagnosis?: No
[2024-07-20] MEDS: ondansetron HCL 4 MG/2 ML VIAL IVPUSH (10:23)
--- NOTE | 2024-07-20 13:07 | P.DS_ITS ---
DS: Providers Provider Date of Service: 07/20/24 Date of admission: 07/15/24 15:37 Primary care physician: Vaishnavi Morgan MD Consults: 07/15/24 15:19 Consult to Nephrology Routine Consulting Provider: [facility] Reason for consultation: IVETH, hepatorenal syndrome Has provider been notified: No 07/15/24 15:20 Consult to Gastroenterology Routine Consulting Provider: Karlos Vallejo Reason for consultation: SBP Has provider been notified: No 07/16/24 08:28 Consult to Gastroenterology Routine Consulting Provider: Sheree Hooper Reason for consultation: SBP, cirrhosis Has provider been notified: No DS: Diagnosis Discharge Diagnosis (1) Acute kidney injury: Status: Acute (2) Acute hyponatremia: Status: Acute (3) Cirrhosis: Status: Chronic (4) SBP (spontaneous bacterial peritonitis): Status: Acute DS: Summary Hospital Course Hospital Course: admission hpi Chief Complaint:gen abd pain and nausea Patient is a 58-year-old female with a past medical history significant for MARYJANE, GERD, Hunt, cirrhosis/varices, with recent admission for abdominal wall cellulitis, presented to the ED today with severe 10/10 generalized abdominal pain starting at 04:00 with associated nausea. She reports that she has been very distended for quite awhile and saw her validation architect, Dr. Stoner, this week who ordered labs to determine if a diuretic can be restarted. They also ordered a paracentesis with the patient reports it was 2 weeks out and she was told to go to the ED if she needs it sooner due to the discomfort. She states that they are working on getting her on the transplant list. Since having the paracentesis her pain has improved significantly, previously 10/10 now 3/10. Nausea has also improved. She reports minimal p.o. intake over the last few days due to the abdominal discomfort and nausea Hospital course: Patient presented with abdominal pain nausea and vomiting and workup revealed acute spontaneous bacterial peritonitis and acute renal failure raising concern for hepatorenal syndrome. SBP was treated with Iv antibiotics (Ceftriaxone) for Klebsiela P. in ascietes fluid. She is clinically doing much better, she is afebril and pain is much better. She will be discharged with Cefuroxime for a total of 7 days and will start on Norfloxacin for SBP prophylaxis IVETH secondary to hepatorenal syndrome--She presented with creatine 1.84, peaked at 2.2 and has come down to 1.7 today, she was treated with albumin, midodrin and was followed by Nephrology and they recommend ongoing follow up on outpatient basis Ascietes s/p therapeutic paracentesis on 07/16 Hypervolemic hyponatremia, stable at around 129 recommend 1.5 fluid restriction HypOkalemia--corrected Coagulopathy with INR 3, vitamin k given Acute on chronic thrombocytopenia--Platlet trending ? related to infection, worsening liver disease -follow level, doesn't take transfusion on zoroastrianism ground Anemia--H/H trending down, but stable , continue to monitor, she is Jehovah witness and would not take transfusion GERD---ppi Physical Exam Vital Signs: Vital Signs: Last Vital Signs Temp 98.0 F 07/20/24 07:17 Pulse 80 07/20/24 07:17 Resp 16 07/20/24 07:17 BP 99/58 L 07/20/24 08:18 Pulse Ox 94 07/20/24 10:15 O2 Del Method Nasal Cannula 07/20/24 07:17 O2 Flow Rate 1.5 07/20/24 07:17 BMI result Body Mass Index 28.6 DS: Data Data Completed and Pending Completed studies during hospitalization [Text1]: Procedures Drainage of Peritoneal Cavity, Percutaneous Approach (05/23/24) Insertion of Infusion Device into Superior Vena Cava, Percutaneous Approach (03/04/22) Ultrasonography of Superior Vena Cava, Guidance (03/04/22) Labs on day of discharge: Laboratory Results - last 24 hr 07/20/24 07:05 Sodium 129 L Potassium 3.5 Chloride 99 Carbon Dioxide 22 Anion Gap 12 BUN 61 H Creatinine 1.73 H Estim Creat Clear Calc 37.5 Estimated GFR 30 Random Glucose 86 Calcium 8.3 L Discharge Plan Discharge Anticipated Discharge Date/Time: 07/20/24 12:41 Patient Disposition: Home, Self-Care Discharge Diagnosis: Spontaneous bacteria peritonitis, acute renal failure Referrals: [facility] [Other] Vaishnavi Morgan MD [Primary Care Provider] - 1 Week Discharge Medications: New midodrine 5 mg Tablet 5 mg PO TID Qty: 90 0RF cefuroxime axetil 500 mg tablet 500 mg PO BID 3 Days Qty: 6 0RF Continued pantoprazole 40 mg tablet,delayed release (DR/EC) 40 mg PO DAILY@0630 Diet: Advance to usual diet Activity on Discharge: As tolerated Stand Alone Forms: Patient Portal Discharge page Print Language: Romansh Care Plan Goals: Recovery from spontaneous bacteria peritonitis add renal failure from hepatorenal syndrome Health Concerns: Spontaneous bacterial peritonitis Hepatorenal syndrome Cirrhosis of the liver Chronic anemia Plan of Treatment: Take cefuroxime as directed Follow-up with your primary care doctor within a week Assessment: see above
[2024-07-20] MEDS: cefTRIAXone sodium 1 GM VIAL IVPUSH (13:21)
--- NOTE | 2024-07-20 14:42 | MHC.CM.PN ---
PT DCD TODAY [facility] NOTIFIED OF DC
--- NOTE | 2024-07-20 21:17 | P.PNIM_ITS ---
Subjective Subjective Date of Service: 07/20/24 Interval History: Follow up IVETH, decompensated liver cirrhosis with coagulopathy and SBP Cr has in general trended down but slightly worse than yesterday Physical Exam 2 Vital Signs: Vital Signs: Last Vital Signs Temp 98.4 F 07/20/24 19:41 Pulse 86 07/20/24 19:41 Resp 16 07/20/24 19:41 BP 124/69 07/20/24 21:12 Pulse Ox 96 07/20/24 19:41 O2 Del Method Nasal Cannula 07/20/24 19:41 O2 Flow Rate 0.5 07/20/24 19:41 BMI result Body Mass Index 28.6 Const: Other: General: AOx3, no acute distress, appears uncomfortable HEENT: scleral icterus Resp: CTA bilaterally CVS: RRR, +murmur GI: tender throughout, moderate distention Skin: Warm, dry Extremities: No edema Psych: Appropriate affect Objective Data Active Medications Acetaminophen (Acetaminophen 325 Mg Tablet) 650 mg PO Q6H PRN PRN Reason: Pain, Mild (Pain Scale 1-3), fever or headache Calcium Carbonate (Calcium Carbonate 750 Mg Tab.Chew) 750 mg PO Q4H PRN PRN Reason: Heartburn Ceftriaxone Sodium (Ceftriaxone Sodium 1 Gm Vial) 1 gm IVPUSH Q24H [facility] Last Admin: 07/20/24 13:21 Dose: 1 gm Documented By: CLARY Diphenhydramine HCl (Diphenhydramine Hcl 50 Mg/Ml Vial) 25 mg IVPUSH Q6H PRN PRN Reason: Itching Last Admin: 07/17/24 21:17 Dose: 25 mg Documented By: RILEY Lactulose (Lactulose 20 Gm/30 Ml Solution) 20 gm PO DAILY [facility] Last Admin: 07/20/24 08:19 Dose: 20 gm Documented By: CLARY Magnesium Hydroxide (Milk Of Magnesia 30 Ml Oral.Susp) 30 ml PO DAILY PRN PRN Reason: Constipation Melatonin (Melatonin 3 Mg Tablet) 6 mg PO BEDTIME PRN PRN Reason: Insomnia Last Admin: 07/20/24 00:02 Dose: 6 mg Documented By: DARRIN Midodrine (Midodrine Hcl 5 Mg Tablet) 5 mg PO TID [facility] Last Admin: 07/20/24 21:12 Dose: 5 mg Documented By: DARRIN Morphine Sulfate (Morphine Sulfate 4 Mg/Ml Cartridge) 2 mg IVPUSH Q4H PRN; Protocol PRN Reason: Pain, Severe (Pain Scale 7-10) Last Admin: 07/17/24 00:17 Dose: 2 mg Documented By: MAXIMILIAN Nystatin (Nystatin Powder 15 Gm Bottle) 1 appl TOPICAL BID NAEEM; Protocol Last Admin: 07/20/24 21:11 Dose: 1 appl Documented By: DARRIN Ondansetron HCl (Ondansetron Hcl 4 Mg/2 Ml Vial) 4 mg IVPUSH Q8H PRN PRN Reason: Nausea and Vomiting Last Admin: 07/20/24 10:23 Dose: 4 mg Documented By: CLARY Oxycodone HCl (Oxycodone Hcl Immed Release 5 Mg Tablet) 5 mg PO Q6H PRN PRN Reason: Pain, Moderate(Pain Scale 4-6) Last Admin: 07/20/24 00:02 Dose: 5 mg Documented By: DARRIN Sodium Chloride (0.9 % Sodium Chloride Flush 3 Ml Syringe) [facility] Last Admin: 07/20/24 21:13 Dose: 3 ml Documented By: DARRIN Labs 07/19/24 05:30 07/20/24 07:05 Labs: Laboratory Results - last 24 hr 07/20/24 07:05 Anion Gap 12 Estim Creat Clear Calc 37.5 Estimated GFR 30 Random Glucose 86 Calcium 8.3 L Microbiology Microbiology Results: Microbiology 07/15/24 13:29 Gram Stain - Final Ascites Fluid Routine Culture - Final Klebsiella pneumoniae Anaerobic Culture - Final NO GROWTH AFTER 5 DAYS Assessment and Plan (1) SBP (spontaneous bacterial peritonitis): Status: Acute Plan 58/F with MARYJANE, GERD, MAYS, cirrhosis/varices, with recent admission for abdominal wall cellulitis, presented to the ED today with severe 10/10 generalized abdominal pain, n/v and admitted for SBP, Hepatorenal syndrome SBP - culture growing Klebsiel P. sensitive to ceftriaxone - continue Ceftriaxone, change to PO Ceftin at dc -ultimatel should be prophylaxis abx with Cipro 500 mg daily or 750 weekly IVETH secondary to hepatorenal syndrome, Scr improving -midodrine -monitor cr Ascietes s/p therapeutic paracentesis on 07/16 Hypervolemic hyponatremia, stable - 1.5 L fluid restriction - monitor BMP HypOkalemia--corrected Coagulopathy with INR 3, vitamin k given Acute on chronic thrombocytopenia--Platlet trending ? related to infection, worsening liver disease -follow level, doesn't take transfusion on yazidi ground Anemia--H/H trending down, but stable the last 2 days, continue to monitor, she is Jehovah witness and would not take transfusion GERD - continue pantoprazole daily DNR/DNI VTE prophylaxis: pneumoboots, high inr need for inpatient: Patient with SBP complicated by IVETH secondary to hepatorenal syndrome requiring admission for IV antibiotics, paracentesis and further management PT eval tomorrow and likely home anticipation dc tomorrow Quality Stroke Does the patient have a stroke diagnosis?: No VTE Prior VTE?: No VTE Risk Level:: Medical - moderate - high VTE Device Contraindication: N/A - Device Ordered VTE Drug Contraindication: Treatment Not Indicated
[2024-07-21 03:50] VITALS: BP 114/64; PULSE 81; RESP 16; TEMP 37; O2SAT 94
[2024-07-21 07:23] VITALS: BP 105/55; PULSE 82; RESP 16; TEMP 36.3; O2SAT 94
[2024-07-21] MEDS: Midodrine HCl 5 MG TABLET PO (08:39)
[2024-07-21] MEDS: Lactulose 20 GM/30 ML SOLUTION PO (08:39)
[2024-07-21] MEDS: 0.9 % Sodium Chloride Flush 3 ML SYRINGE IVFLUSH (08:40)
[2024-07-21] MEDS: Nystatin Powder 15 GM BOTTLE 1 APPL TOPICAL (08:40)
--- NOTE | 2024-07-21 11:30 | MHC.CM.PN ---
Patient is discharged to home with [facility]. [facility] could not provide PT. They have discharged the patient from services. Patients spouse is providing transportation home.
--- NOTE | 2024-07-22 07:20 | PM.DS ---
DS: Providers Provider Date of Service: 07/21/24 Date of admission: 07/15/24 15:37 Date of discharge: 07/21/24 Primary care physician: Vaishnavi Morgan MD Consults: 07/15/24 15:19 Consult to Nephrology Routine Consulting Provider: [facility] Reason for consultation: IVETH, hepatorenal syndrome Has provider been notified: No 07/15/24 15:20 Consult to Gastroenterology Routine Consulting Provider: Karlos Vallejo Reason for consultation: SBP Has provider been notified: No 07/16/24 08:28 Consult to Gastroenterology Routine Consulting Provider: Sheree Hooper Reason for consultation: SBP, cirrhosis Has provider been notified: No Attending physician on discharge: Michelle Chavez Discharging clinician: Michelle Chavez DS: Diagnosis Discharge Diagnosis (1) SBP (spontaneous bacterial peritonitis): Status: Acute DS: Summary Hospital Course Hospital Course: date of service and discharge :07/21/24 admission hpi Chief Complaint:gen abd pain and nausea Patient is a 58-year-old female with a past medical history significant for MARYJANE, GERD, Hunt, cirrhosis/varices, with recent admission for abdominal wall cellulitis, presented to the ED today with severe 10/10 generalized abdominal pain starting at 04:00 with associated nausea. She reports that she has been very distended for quite awhile and saw her corporate receptionist, Dr. Stoner, this week who ordered labs to determine if a diuretic can be restarted. They also ordered a paracentesis with the patient reports it was 2 weeks out and she was told to go to the ED if she needs it sooner due to the discomfort. She states that they are working on getting her on the transplant list. Since having the paracentesis her pain has improved significantly, previously 10/10 now 3/10. Nausea has also improved. She reports minimal p.o. intake over the last few days due to the abdominal discomfort and nausea Hospital course: Patient presented with abdominal pain nausea and vomiting and workup revealed acute spontaneous bacterial peritonitis and acute renal failure raising concern for hepatorenal syndrome. SBP was treated with Iv antibiotics (Ceftriaxone) for Klebsiela P. in ascietes fluid. She is clinically doing much better, she is afebril and pain is much better. She will be discharged with Cefuroxime for 3 more days . IVETH secondary to hepatorenal syndrome--flacuating around 1.7 on 07/20/24 , hyponatremia , she was treated with albumin, midodrine and was followed by Nephrology and they recommend ongoing follow up on outpatient(moniter bmp).Ascites s/p therapeutic paracentesis on 07/16.recommend 1.5 to 2 liter fluid restriction.moniter bmp. HypOkalemia--corrected. moniter bmp. Coagulopathy with INR 3, vitamin k given , inr remain stayed above 3. Acute on chronic thrombocytopenia--Platlet trending ? related to infection vs liver disease . platlets stable in 50's range , no gross bleeding. Anemia--H/H trending down, but stable around 9.3 /26.2 range , continue to monitor, she is Jehovah witness and would not take transfusion. plan: Monitor CBC, BMP, LFTs, INR out patiently Follow-up with GI-for anemia/thrombocytopenia and liver disease.follow up GI for further need of sbp prophylax . Also patient needs to follow-up with Nephrology for hyponatremia/elevated creatinine. Assessment and plan coordination time spent 40 minute ,patient did not want to talk and left without seeing me. Time Attestation Total time managing care of this patient today: 40 mintues. Discharge Coordination Time (in mins): 40 min Quality: Safe Use of Opioids Does Pt have an Active Cancer Diagnosis on the Problem List?: No Quality: Stroke Does the patient have a stroke diagnosis?: No Physical Exam Vital Signs: Vital Signs: Last Vital Signs Temp 97.3 F 07/21/24 07:23 Pulse 82 07/21/24 07:23 Resp 16 07/21/24 07:23 BP 105/55 L 07/21/24 07:23 Pulse Ox 94 07/21/24 07:23 O2 Del Method Nasal Cannula 07/21/24 07:23 O2 Flow Rate 1.5 07/21/24 07:23 BMI result Body Mass Index 28.6 left without seeing DS: Data Data Completed and Pending Completed studies during hospitalization [Text1]: Procedures Drainage of Peritoneal Cavity, Percutaneous Approach (05/23/24) Insertion of Infusion Device into Superior Vena Cava, Percutaneous Approach (03/04/22) Ultrasonography of Superior Vena Cava, Guidance (03/04/22) Imaging Chest x-ray: Radiologist's impression: ITS Impressions Paracentesis Ultrasound 07/16/24 08:30 IMPRESSION: Ultrasound-guided paracentesis as described above. No immediate complications Electronically signed by: Carlton Caal MD 07/21/2024 11:09 [place] [facility] [facility] [place] Discharge Anticipated Discharge Date/Time: 07/20/24 12:41 Patient Disposition: Home Health Service Discharge Diagnosis: Spontaneous bacteria peritonitis, acute renal failure Referrals: [facility] [Outside] - 1 Week Vaishnavi Morgan MD [Primary Care Provider] - 1 Week Elvis Sesay MD [Physician] - 2 Weeks Discharge Medications: New midodrine 5 mg Tablet 5 mg PO TID Qty: 90 0RF cefuroxime axetil 500 mg tablet 500 mg PO BID 3 Days Qty: 6 0RF Continued pantoprazole 40 mg tablet,delayed release (DR/EC) 40 mg PO DAILY@0630 Discharge Orders: Discharge Order (Routine); Ordered 07/20/24 Ordered By: Fabien Capellan Diet: Advance to usual diet Activity on Discharge: As tolerated Stand Alone Forms: Patient Portal Discharge page, Work/School Release Print Language: Kosovan Other Ambulatory Orders: Complete Blood Count no Diff (Routine) Timeframe: 1 Week Facility: [facility] - Location: Laboratory Ordered By: Michelle Chavez Comprehensive Met. Panel (Routine) Timeframe: 1 Week Facility: [facility] - Location: Laboratory Ordered By: Michelle Chavez Care Plan Goals: Recovery from spontaneous bacteria peritonitis add renal failure from hepatorenal syndrome Health Concerns: Spontaneous bacterial peritonitis Hepatorenal syndrome Cirrhosis of the liver Chronic anemia Plan of Treatment: Take cefuroxime as directed Follow-up with your primary care doctor within a week Assessment: see above Discharge Date/Time: 07/21/24 11:51
--- NOTE | 2024-07-22 13:59 | W.MHC.F2F ---
Service Date Service Date: 07/22/24 Encounter Date of encounter: 07/22/24 Encounter: Anemia/thrombocytopenia, IVETH. Reasons for Services Signs and symptoms assessed: Any bleeding or nausea vomiting or abdominal pain. Reason for senior living: monitoring of PT/INR, medication management, medication treatment and teach disease management Reason for physical therapy: home safety and mobility, therapeutic exercises, restore joint function, gait/transfer training, assess need for DME, ADL training, energy conservation and other MD Overseeing Care: Vaishnavi Morgan Homebound: Leaving the home is medically contraindicated at this time without the asist of a device and/or another person due th the listed conditions above and below. Reason homebound: weakness related to hospital stay Homebound supporting statement: Patient is generalized weak had multiple comorbidities including liver disease, anemia/thrombocytopenia, IVETH-needs help with lab draws, medical management, senior living, PT. Certification: Based on the above findings, I certify that this patient is confined to the home and needs intermittent senior living care, physical therapy and/or speech therapy, or continues to need occupational therapy. The patient is under my care, and I have initiated the establishment of the plan of care. The patient will be followed by a physician who will periodically review the plan of care. Time Spent With Patient Time: Total time managing care of this patient today ____ minutes.
== END 2024-07-21 11:51 | disposition home health service (06) | DRG 248 ==
LOC: HO.ED 14:36 → HO.EDOVER 15:38 → HO.S3 19:29
PROVIDERS: Internal Medicine; Nurse Practitioner Family; Physician Assistant Medical; Admitting Provider Physician Assistant; Emergency Provider Emergency Medicine; PCP Internal Medicine; Visit Provider Internal Medicine
DX: K65.2 Spontaneous bacterial peritonitis (principal); K76.7 Hepatorenal syndrome; R18.8 Other ascites; E87.1 Hypo-osmolality and hyponatremia; D68.4 Acquired coagulation factor deficiency; L40.50 Arthropathic psoriasis, unspecified; Z66 Do not resuscitate; N17.9 Acute kidney failure, unspecified; K74.69 Other cirrhosis of liver; D69.59 Other secondary thrombocytopenia; K21.9 Gastro-esophageal reflux disease without esophagitis; E87.6 Hypokalemia; G47.33 Obstructive sleep apnea (adult) (pediatric); K75.81 Nonalcoholic steatohepatitis (NASH); Z20.822 Contact with and (suspected) exposure to COVID-19; Z79.899 Other long term (current) drug therapy
CPT/HCPCS: 0241U; 36415; 49083; 80048; 80053; 81001; 81003; 82140; 82248; 83615; 83690; 83735; 84300; 85007; 85025; 85027; 85610; 85730; 87070; 87073; 87077; 87086; 87116; 87186; 87205; 87206; 89051; 97162; 99285; C1729; J0696; J1200; J2003; J2004; J2185; J2270; J2405; P9047

== ENCOUNTER 2024-07-15 15:37 | Outpatient (BNV) | payer MEDICAID, SELFPAY | END 2024-07-16 15:40 | PROVIDERS: Admitting Provider Physician Assistant; Emergency Provider Emergency Medicine; PCP Internal Medicine; Visit Provider Physician Assistant Surgical | DX: R18.8 Other ascites (principal) | CPT/HCPCS: 49083 ==

== ENCOUNTER → 2024-07-15 15:37 | Outpatient (BNV) | payer MEDICAID, SELFPAY | PROVIDERS: Admitting Provider Physician Assistant; Emergency Provider Emergency Medicine; PCP Internal Medicine; Visit Provider Internal Medicine | DX: K72.90 Hepatic failure, unspecified without coma (principal); K74.60 Unspecified cirrhosis of liver; E87.1 Hypo-osmolality and hyponatremia; N17.9 Acute kidney failure, unspecified; D64.9 Anemia, unspecified; R18.8 Other ascites; A41.9 Sepsis, unspecified organism; K65.2 Spontaneous bacterial peritonitis | CPT/HCPCS: 99223 ==

== ENCOUNTER → 2024-07-15 15:37 | Outpatient (BNV) | payer MEDICAID, SELFPAY | PROVIDERS: Admitting Provider Physician Assistant; Emergency Provider Emergency Medicine; PCP Internal Medicine; Visit Provider Nurse Practitioner Family | DX: N17.9 Acute kidney failure, unspecified (principal); E87.1 Hypo-osmolality and hyponatremia; K74.60 Unspecified cirrhosis of liver; R18.8 Other ascites; K65.2 Spontaneous bacterial peritonitis | CPT/HCPCS: 99222; 99232 ==

== ENCOUNTER → 2024-07-15 15:37 | Outpatient (BNV) | payer MEDICAID, SELFPAY | PROVIDERS: Admitting Provider Physician Assistant; Emergency Provider Emergency Medicine; PCP Internal Medicine; Visit Provider Physician Assistant | DX: K65.2 Spontaneous bacterial peritonitis (principal); K74.60 Unspecified cirrhosis of liver; N17.9 Acute kidney failure, unspecified; K76.7 Hepatorenal syndrome; E87.1 Hypo-osmolality and hyponatremia; E87.6 Hypokalemia; D69.6 Thrombocytopenia, unspecified; R18.8 Other ascites | CPT/HCPCS: 99223; 99232; 99239; G0180 ==

== ENCOUNTER 2024-08-03 13:43 | Emergency (ER) | payer MEDICAID, SELFPAY ==
[2024-08-03] VITALS (9 sets, daily range): BP systolic 91–133; BP diastolic 57–80; PULSE 77–92; RESP 16–24; TEMP 36.6–36.7; O2SAT 95–99; BMI 26.9
--- NOTE | 2024-08-03 13:54 | ED.GENADULT ---
HPI - General Adult General Chief complaint: GI Bleed Stated complaint: Black Stools Nausea Time Seen by Provider: 08/03/24 16:26 Source: patient Mode of arrival: ambulatory Limitations: no limitations History of Present Illness ED Provider: Dr. Bonnie Lima HPI narrative: Patient comes to the emergency room complaining of diarrhea. Patient states that the diarrhea was black and she was concerned that this may be a GI bleed. Patient denies any bright red blood per rectum. Patient states complaining earlier today of a bit nausea, 1 time vomiting. Patient denies any abdominal pain. Patient states that the last time she was here, she was diagnosed with spontaneous bacterial peritonitis, patient currently taking at home p.o. ciprofloxacin. Patient denies fever chills, no abdominal pain. Related Data Home Medications ?Medication ?Instructions ?Recorded ?Confirmed pantoprazole 40 mg tablet,delayed 40 mg PO DAILY@0630 09/03/22 07/15/24 release Previous Rx's ?Medication ?Instructions ?Recorded cefuroxime axetil 500 mg tablet 500 mg PO BID 3 days #6 tabs 07/20/24 midodrine 5 mg tablet 5 mg PO TID #90 tabs 07/20/24 Allergies Allergy/AdvReac Type Severity Reaction Status Date / Time Penicillins AdvReac Intermediate Unknown Verified 08/03/24 13:54 vancomycin AdvReac Itching Verified 08/03/24 13:54 Review of Systems Review of Systems: Constitutional : No Weight loss, No Fever, No Chills, No Night Sweats, No Fatigue, No Malaise ENT/Mouth : No Hearing loss, No Ear Pain, No Nasal Congestion, No Sinus Pain, No Hoarseness, No sore throat, No Rhinorrhea, No Swallowing Difficulty Eyes: No Eye Pain, No Swelling, No Redness, No Foreign Body, No Discharge, No Vision Changes Cardiovascular : No Chest Pain, No SOB, No Dyspnea on Exertion, No Orthopnea, No Edema, No Palpitations Respiratory : No Cough, No Sputum, No Wheezing, No Smoke Exposure, No Dyspnea Gastrointestinal : No Nausea, No Vomiting, complaining of an episode of black diarrhea/black stool, no abdominal pain Genitourinary : no irregular bleeding, No Dysuria, No Urinary Frequency, No Hematuria, No Urinary Incontinence, No Urgency, No Flank Pain, No Urinary Flow Changes, No Hesitancy Musculoskeletal : No joint pain, No Myalgias, No Joint Swelling Skin : No Skin Lesions, No rash Neuro : No Weakness, No Numbness, No Paresthesias, No Loss of Consciousness, No Dizziness, No Headache Psych : No Anxiety/Panic, No Depression, No SI/HI/AH/VH, No Social Issues, Heme/Lymph: No Bruising, No Bleeding,No Lymphadenopathy Endocrine : No Polyuria, No Polydipsia, No Temperature Intolerance [facility] Past Medical History Medical History Hyponatremia with excess extracellular fluid volume Obstructive sleep apnea GERD (gastroesophageal reflux disease) Rigor Fever Psoriasis Cellulitis Surgical History Hx of breast reduction, elective History of cholecystectomy Family History Family History Other No family history of coronary artery disease Social History Social History Household Members: Family Housing: Apartment Do you presently have visiting nurse or other home services: Yes Alcohol intake: never Patient Tobacco Use Status: Never used Tobacco Substance Use Type: Sedatives Advance Directives: Yes Advance Directives on File: Yes Advance Directives Date on File: 11/01/21 Do you have a plan to hurt others: No Plan service: No Current occupational status: employed Physical Exam ED Vital Signs: Vital Signs - 24 hr 08/03/24 13:52 08/03/24 16:13 08/03/24 18:34 Temperature 97.9 F 97.9 F Pulse Rate 89 88 85 Respiratory Rate 18 18 24 H Blood Pressure 133/80 119/65 109/62 Pulse Oximetry 98 99 96 Oxygen Delivery Method Room Air Room Air Room Air 08/03/24 21:14 08/03/24 21:59 08/03/24 22:07 Temperature 98.0 F 98.1 F 97.9 F Pulse Rate 92 84 82 Respiratory Rate 16 16 20 Blood Pressure 122/65 121/69 125/63 Pulse Oximetry 96 95 96 Oxygen Delivery Method Room Air Room Air Room Air 08/03/24 22:17 08/03/24 22:27 08/03/24 22:38 Temperature 98.1 F 98.1 F 98.0 F Pulse Rate 78 77 82 Respiratory Rate 20 20 20 Blood Pressure 104/60 100/57 L 91/58 L Pulse Oximetry 96 98 97 Oxygen Delivery Method Room Air Room Air Room Air 08/04/24 00:18 08/04/24 03:09 08/04/24 05:45 Temperature 98.2 F 98.1 F 98.1 F Pulse Rate 85 89 88 Respiratory Rate 16 21 H 12 Blood Pressure 110/60 116/64 121/68 Pulse Oximetry 97 94 95 Oxygen Delivery Method Room Air Room Air Room Air BMI result Body Mass Index 26.9 Const Other: Appearance: Alert. Oriented X3. No acute distress. Eyes: Pupils equal, round and reactive to light. ENT: Pharynx normal. Neck: Normal inspection. Neck supple. No lymph nodes noted. No crepitus CVS: Normal heart rate and rhythm. Pulses normal. Normal S1 and S2 Respiratory: No respiratory distress. Breath sounds normal. No Wheezing. No rales Abdomen: Distended, no tenderness to palpation. Bedside ultrasound shows a significant amount of fluid. Skin: Skin warm and dry. Normal skin color. Normal skin turgor. Extremities: No lower extremity edema. No Lacerations. No Rash Neuro: Oriented X 3. No motor deficit. No sensory deficit. Moving all extremities. No slurred speech. CN 2 through 12 grossly intact Psych: calm, cooperative, normal affect Course Course Course Narrative: RME performed by Shayla Davenport PA-C. Patient is a 58 year old assigned female at presenting to the emergency department with dark stools. Patient states that she has been having looser stools that are very dark. Patient states that she has cirrhosis and varices in many places. Detailed physical exam and review of systems are deferred to the telecommunication equipment repairer. Labs ordered. Patient placed back in the waiting room pending room availability and results. Reevaluation(s) Reevaluation #1: WBC 177 doubt SBP BP responding to albumin Na 129 H/H at baseline pending gram stain this AM signed out to oncoming team Reevaluation #2: DR. Vargas's note: G stain of the ascites fluid resulted as no organisms, culture still pending, no abdominal tenderness, the puncture site appear dry and clean, no ecchymosis or hematoma at the site of paracentesis. Medications Administered Discontinued Medications Generic Name Dose Route Start Last Admin Trade Name Freq PRN Reason Stop Dose Admin Albumin Human 100 mls @ 100 mls/hr 08/03/24 23:00 08/04/24 04:39 Kedbumin 25 % IV 08/04/24 00:59 Infused Q1H NAEEM Infusion Lidocaine HCl 10 ml 08/03/24 21:24 08/03/24 22:02 Lidocaine Hcl 1 % 10 Ml Vial INFILTRATI 08/03/24 21:25 10 ml ONCE ONE Administration Morphine Sulfate 1 mg 08/03/24 21:53 08/03/24 22:01 Morphine Sulfate 2 Mg/Ml Cartridge IVPUSH 08/03/24 21:54 1 mg ONCE ONE Administration Protocol Procedures Paracentesis Time Out Performed: Yes Local Anesthetic: lidocaine 1% Amount of anesthesia used (mL): 10 Fluid: cloudy and sent to lab for analysis Post Procedure Exam: awake, alert, normal BP, normal HR and normal SpO2 Patient Tolerated Procedure: well and no complications Complications: none Medical Decision Making Medical Decision Making [facility] Narrative: My interpretation of labs: Patient is chronically anemic, today hemoglobin is 8.6, patient refuses blood due to anabaptist beliefs, patient is Jehovah Witness. Chemistry at baseline, chronic hyponatremia of 129. Patient's creatinine is slightly bumped to 2.29. Possible dehydration? Patient has decreased her p.o. fluid intake due to discharge recommendations from her previous hospital admission. -patient's abdomen is not painful to palpation, unlikely to be again SBP. -patient got a therapeutic paracentesis. 4700 mL were extracted. Patient's blood pressure dropped to the low 90s. Patient getting 2 doses of albumin. -the paracentesis fluid was sent to the lab, patient is on ciprofloxacin p.o. -patient overall feeling better -sign-out given to my colleague Dr. Skinner Differential Diagnosis Differential Diagnoses: The differential diagnosis associated with the presentation includes (Upper GI bleed, lower GI bleed, gastritis, gastroenteritis, SBP) Admission/Observation Consideration of admission/observation: Escalation of care including admission/observation considered (Given patient's extensive medical history, observation was considered.) Lab Data [facility] Lab Attestation statement: I reviewed the patient's lab results. 08/03/24 14:16 08/03/24 14:16 Labs: Lab Results 08/03/24 08/03/24 08/03/24 Range/Units 14:16 19:06 22:26 WBC 4.8 (4.8-10.8) X10*3/uL RBC 2.45 L (4.20-5.50) X10*6/uL Hgb 8.6 L (12.0-16.0) g/dl Hct 23.9 L (37.0-47.0) % MCV 97.6 (80.0-98.0) fL MCH 35.1 H (27.0-33.0) pg MCHC 36.0 H (31.0-35.0) g/dl RDW 15.9 (11.0-16.0) % Plt Count 89 L D (160-400) X10*3/uL MPV 8.6 L (9.4-12.3) fL Immature Gran % (Auto) 0.4 (0.0-0.4) % Neut % (Auto) 72.9 (45-73) % Lymph % (Auto) 12.0 L (20-40) % [place] % (Auto) 11.2 H (2-11) % Eos % (Auto) 2.9 (0-4) % Baso % (Auto) 0.6 (0-2) % Lymph # (Auto) 0.6 L (1.2-4.9) X10*3/uL [place] # (Auto) 0.5 (0.1-1.2) X10*3/uL Eos # (Auto) 0.1 (0.0-0.4) X10*3/uL Baso # (Auto) 0.0 (0.0-0.2) X10*3/uL Abs Immat Gran (auto) 0.02 (0.00-0.03) X10*3/uL Absolute Neuts (auto) 3.5 (2.0-8.3) x10*3/uL Absolute Nucleated RBC 0.000 (0.0-0.012) X10*3/uL Nucleated RBC % (auto) 0.0 (0.0-0.2) /100WBC PT 30.4 H D (10.9-12.4) SEC INR 2.6 H (0.9-1.1) APTT 52.7 H D (26.0-36.8) SEC Sodium 129 L (135-145) mmol/L Potassium 4.1 (3.3-5.1) mmol/L Chloride 96 (96-108) mmol/L Carbon Dioxide 20 L (22-29) mmol/L Anion Gap 17 (12-20) BUN 64 H (9-16) mg/dL Creatinine 2.29 H (0.5-1.4) mg/dL Estim Creat Clear Calc 27.5 Estimated GFR 22 Random Glucose 95 (60-115) mg/dL Calcium 9.2 D (8.4-10.2) mg/dL Magnesium 2.5 (1.6-2.6) mg/dL Total Bilirubin 11.4 H (0.0-1.0) mg/dL AST 66 H (5-31) U/L ALT 20 (0-31) U/L Alkaline Phosphatase 93 (39-117) U/L Total Protein 7.4 (6.5-8.0) g/dL Albumin 3.1 L (3.5-5.0) g/dL Lipase 78 (8-78) U/L Peritoneal WBC 0.177 X10*3/uL Peritoneal RBC 0.011 X10*6/uL Periton Neutrophils 2 % Periton Lymphocytes 57 % Peritoneal Monocytes 7 % Peritoneal Other Cells 34 % Stool Occult Blood NEGATIVE (NEGATIVE) Critical Care Time Critical Care Time Critical Care Time: Yes Total Critical Care Time: 60 Attestation: I have personally provided critical care time. Time includes review of lab data, radiology results, discussion with consultants, and monitoring for potential decompensation. Intervention performed as documented. Discharge Plan Discharge Clinical Impression: Diarrhea Qualifiers: Diarrhea type: unspecified type Qualified Code(s): R19.7 - Diarrhea, unspecified Ascites Qualifiers: Ascites type: other type Qualified Code(s): R18.8 - Other ascites Patient Disposition: Home, Self-Care Instructions: Acute Diarrhea (ED), Ascites (ED), Paracentesis (DC) Additional Instructions: return for any worsening symptoms or concerns monitor your symptoms return for fevers, increased pain, bleeding or any other concerns. Prescriptions: No Action pantoprazole 40 mg tablet,delayed release (DR/EC) 40 mg PO DAILY@0630 midodrine 5 mg Tablet 5 mg PO TID Qty: 90 0RF cefuroxime axetil 500 mg tablet 500 mg PO BID 3 Days Qty: 6 0RF Print Language: Upper Sorbian
[2024-08-03 14:21] LABS: MANUAL DIFF FLAG NO
[2024-08-03 14:22] LABS: Basophils Percent Auto 0.6 % (0-2); Eosinophils Absolute Auto 0.1 X10*3/uL (0.0-0.4); Eosinophils Percent Auto 2.9 % (0-4); Hematocrit 23.9 % (37.0-47.0); Hemoglobin 8.6 g/dl (12.0-16.0); Imm Gran Abs Auto 0.02 X10*3/uL (0.00-0.03); Imm Gran Pct Auto 0.4 % (0.0-0.4); Lymphocytes Absolute Auto 0.6 X10*3/uL (1.2-4.9); Mean Corpuscular Hemoglobin 35.1 pg (27.0-33.0); Mean Corpuscular Volume 97.6 fL (80.0-98.0); Mean Platelet Volume 8.6 fL (9.4-12.3); Monocytes Absolute Auto 0.5 X10*3/uL (0.1-1.2); Monocytes Percent Auto 11.2 % (2-11); Neutrophils Absolute Auto 3.5 x10*3/uL (2.0-8.3); Neutrophils Percent Auto 72.9 % (45-73); Red Blood Count 2.45 X10*6/uL (4.20-5.50); Red Cell Distribution Width 15.9 % (11.0-16.0); White Blood Count 4.8 X10*3/uL (4.8-10.8)
[2024-08-03 14:23] LABS: Platelet Count 89 X10*3/uL (160-400)
[2024-08-03 14:28] LABS: INTERNATIONAL NORM RATIO 2.6 (0.9-1.1); Prothrombin Time 30.4 SEC (10.9-12.4)
[2024-08-03 14:31] LABS: Partial Thromboplastin Time 52.7 SEC (26.0-36.8)
[2024-08-03 14:50] LABS: Alanine Aminotransferase 20 U/L (0-31); Albumin Level 3.1 g/dL (3.5-5.0); Anion Gap 17 (12-20); Aspartate Amino Transferase 66 U/L (5-31); Bilirubin Total 11.4 mg/dL (0.0-1.0); Blood Urea Nitrogen 64 mg/dL (9-16); Calcium 9.2 mg/dL (8.4-10.2); Carbon Dioxide 20 mmol/L (22-29); Chloride 96 mmol/L (96-108); Creatinine Clr Calc Pharmacy 27.5; Estimated Glomerular Filt Rate 22; Glucose Random 95 mg/dL (60-115); Lipase 78 U/L (8-78); Magnesium 2.5 mg/dL (1.6-2.6); Potassium 4.1 mmol/L (3.3-5.1); Sodium 129 mmol/L (135-145); Total Protein 7.4 g/dL (6.5-8.0)
[2024-08-03 16:21] LABS: Alkaline Phosphatase 93 U/L (39-117)
[2024-08-03 19:17] LABS: OBS Int Ctl Valid YES; OBS1 NEGATIVE (NEGATIVE)
[2024-08-03] MEDS: Morphine Sulfate 2 MG/ML CARTRIDGE 1 MG IVPUSH (22:01)
[2024-08-03] MEDS: Lidocaine HCl 1 % 10 ML VIAL INFILTRATI (22:02)
[2024-08-03 22:43] LABS: MN% 92.3 %; PMN% 7.7 %; RBC Peritoneal Fluid 0.011 X10*6/uL; WBC Peritoneal Fluid 0.177 X10*3/uL
--- NOTE | 2024-08-03 22:44 | MHC.EDTECH ---
This pct set up and assist Provider Lima with Patient Patient Paracenticis Procedure ,sample of fluids collected and sent to lab ,After each bottle of fluids collection vitals was check ,Patient was a stand by asst to bathroom ,void and was assist back to bed .
[2024-08-03] MEDS: Albumin Human 25 % 100 ML IV (22:56)
[2024-08-03 23:23] LABS: Lymphocyte Peritoneal Fl 57 %; Neutrophils Peritoneal Fluid 2 %
[2024-08-03 23:24] LABS: Monocytes Peritoneal Fl 7 %; Other Peritioneal Fl 34 %
[2024-08-04 00:18] VITALS: BP 110/60; PULSE 85; RESP 16; TEMP 36.8; O2SAT 97
[2024-08-04] MEDS: Albumin Human 25 % 100 ML IV (00:48)
[2024-08-04 03:09] VITALS: BP 116/64; PULSE 89; RESP 21; TEMP 36.7; O2SAT 94
[2024-08-04 05:45] VITALS: BP 121/68; PULSE 88; RESP 12; TEMP 36.7; O2SAT 95
[2024-08-04] MEDS: 0.9 % Sodium Chloride 1,000 ML 999 ML IV (08:48)
--- NOTE | 2024-08-04 09:13 | PHA.MEDREC ---
Pharmacy Consult ? Medication Reconciliation Pharmacy has completed the medication reconciliation. Pt had rx bottles on her and states she only takes the 3 medications (pantoprazole, ciprofloxacin, and midodrin). States she has not been able to keep anything down for a few days and the last time she took her medications was on Thursday 08/02.
[2024-08-04 10:39] VITALS: BP 121/68; PULSE 88; RESP 12; TEMP 36.7; O2SAT 95
[2024-08-05 07:19] LABS: LDH Peritoneal Fluid 55; Total Protein Peritoneal Fluid 2.3
[2024-08-05 07:20] LABS: Glucose Peritoneal Fluid 89
== END 2024-08-04 10:50 | disposition home or self-care (01) ==
PROVIDERS: Emergency Medicine; Physician Assistant Medical; Emergency Provider Emergency Medicine; PCP Internal Medicine
DX: R19.7 Diarrhea, unspecified (principal); R11.0 Nausea; L40.9 Psoriasis, unspecified; E87.1 Hypo-osmolality and hyponatremia; R18.8 Other ascites
CPT/HCPCS: 36415; 49082; 80053; 82272; 82945; 83615; 83690; 83735; 84157; 85025; 85610; 85730; 87070; 87073; 87205; 89051; 96361; 96365; 96366; 96375; 99284; 99285; J2003; J2270; P9047

== ENCOUNTER 2024-08-10 14:55 | Outpatient (AMB) | payer MEDICAID, SELFPAY ==
--- NOTE | 2024-08-10 14:56 | HO.NEPHOV ---
Vital Signs 08/10/24 14:59 Height 5 ft 5 in Weight 158 lb BMI 26.3 BP 108/52 L Blood Pressure Location Lt brachial Position Sitting Pulse 83 Pulse Source Pulse Oximeter Pulse Oximetry (%) 98 Oxygen Delivery Method Room Air Intake Visit Reasons: IVETH, HRS2, liver cirrhosis/ Conf Lease Administrator Required: No Accompanied by: Self / Same As Patient Allergies Penicillins Adverse Reaction (Intermediate, Verified 08/10/24 15:01) Unknown vancomycin Adverse Reaction (Verified 08/10/24 15:01) Itching Medication List - Last Reconciled 08/10/24 by Noel Bonilla MD ciprofloxacin HCl 500 mg PO DAILY midodrine 5 mg PO BID pantoprazole 40 mg PO BID HPI Comments Details: 58 year old female with history of MARYJANE, GERD, psoriasis, MAYS cirrhosis complicated by ascites requiring paracentesis (last 3.6L on 05/21)/esophageal varices, history recurrent abd wall cellulitis She is undergoing monthly paracentesis. She was recently seen in consultation for hyponatremia and IVETH during the hospitalization. She is here for follow-up. 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 She was being evaluated for liver transplant [facility] Medical History Hyponatremia with excess extracellular fluid volume Obstructive sleep apnea GERD (gastroesophageal reflux disease) Rigor Fever Psoriasis Cellulitis Surgical History Hx of breast reduction, elective History of cholecystectomy Family History Other No family history of coronary artery disease Social History Household Members: Family Housing: Apartment Do you presently have visiting nurse or other home services: Yes Alcohol intake: never Patient Tobacco Use Status: Never used Tobacco Substance Use Type: Sedatives Advance Directives Date on File: 11/01/21 service: No Current occupational status: employed Physical Exam Vital Signs: Last Vital Signs Pulse 83 08/10/24 14:59 BP 108/52 L 08/10/24 14:59 Pulse Ox 98 08/10/24 14:59 Oxygen Delivery Method Room Air 08/10/24 14:59 BMI result Body Mass Index 26.3 Comfortable Neck supple no JVD. Lungs entry equal no rales. Heart S1-S2 heard no gallop or rub. Abdomen soft nontender. Distended with evidence of fluid thrill Neuro alert awake oriented. No asterixis. Extremities no edema. Results Reviewed Nephrology Results: Hgb 8.6 g/dl (12.0-16.0) L 08/03/24 WBC 4.8 X10*3/uL (4.8-10.8) 08/03/24 Plt Count 89 X10*3/uL (160-400) L 08/03/24 Sodium 129 mmol/L (135-145) L 08/03/24 Potassium 4.1 mmol/L (3.3-5.1) 08/03/24 Chloride 96 mmol/L (96-108) 08/03/24 Carbon Dioxide 20 mmol/L (22-29) L 08/03/24 BUN 64 mg/dL (9-16) H 08/03/24 Creatinine 2.29 mg/dL (0.5-1.4) H 08/03/24 Calcium 9.2 mg/dL (8.4-10.2) 08/03/24 Urine Protein 30 (1+) mg/dL (Neg-Trace) H 07/15/24 Assessment & Plan Assessment & Plan (1) Cirrhosis: Code(s): K74.60 - Unspecified cirrhosis of liver Category: Medical Qualifiers: Ascites presence: with ascites Hepatic cirrhosis type: unspecified hepatic cirrhosis Qualified Code(s): K74.60 - Unspecified cirrhosis of liver; R18.8 - Other ascites (2) Anemia: Code(s): D64.9 - Anemia, unspecified Category: Medical (3) Hyponatremia: Code(s): E87.1 - Hypo-osmolality and hyponatremia Category: Medical (4) Acute kidney injury superimposed on CKD: Code(s): N17.9 - Acute kidney failure, unspecified; N18.9 - Chronic kidney disease, unspecified Category: Medical Plan 58-year-old woman with cirrhosis of the liver has chronic hyponatremia and acute kidney injury superimposed on chronic kidney disease. Recommendation restrict oral free water intake to 1.5 L per 24 hours. Continue to avoid nephrotoxic agents including NSAIDs. Maintain systolic blood pressure more than 100 mm Hg with midodrine. Concur with the frequent past and sees but would avoid large volume paracentesis and related hypotension. Orders: Orders Basic Metabolic Panel 4 Weeks K74.60 - Unspecified cirrhosis of liver, R18.8 - Other ascites Coding Level of Care Code Est Pt Level 4 (63181) Diagnoses Cirrhosis of liver with ascites, unspecified hepatic cirrhosis type K74.60; R18.8 Ascites presence: with ascites Hepatic cirrhosis type: unspecified hepatic cirrhosis Anemia D64.9 Hyponatremia E87.1 Acute kidney injury superimposed on CKD N17.9; N18.9
[2024-08-10 14:59] VITALS: BP 108/52; PULSE 83; O2SAT 98; BMI 26.3
== END 2024-08-10 15:22 | disposition home or self-care (01) ==
PROVIDERS: PCP Internal Medicine; Visit Provider Internal Medicine Hypertension Specialist
DX: K75.81 Nonalcoholic steatohepatitis (NASH) (principal); R18.8 Other ascites; N17.9 Acute kidney failure, unspecified; N18.9 Chronic kidney disease, unspecified; E87.1 Hypo-osmolality and hyponatremia; D64.9 Anemia, unspecified
CPT/HCPCS: 99214

== ENCOUNTER → 2024-08-10 14:55 | Outpatient (BNVA) | payer MEDICAID, SELFPAY | PROVIDERS: PCP Internal Medicine; Visit Provider Internal Medicine Hypertension Specialist | DX: K74.60 Unspecified cirrhosis of liver (principal); R18.8 Other ascites; E87.1 Hypo-osmolality and hyponatremia; N17.9 Acute kidney failure, unspecified; N18.9 Chronic kidney disease, unspecified; D64.9 Anemia, unspecified | CPT/HCPCS: 99212 ==

== ENCOUNTER 2024-08-11 16:05 | Outpatient (REF) | payer MEDICAID, SELFPAY ==
--- OUTSIDE RECORDS SUMMARY | 2024-08-18 15:21 | XMS_ITS | Continuity of Care Document ---
Author Organization [facility] Address [address] [place] [id number]- Care Team Providers Care Pump Operator Byproducts Name Role Phone Eddie MATTHEWS, Vaishnavi Primary Care Physician [id number] Date(s): 06/25/24 - 07/25/24 [facility] [address] [place] [address]- Encounter Type: Triage Allergies, Adverse Reactions, Alerts Substance Criticality Severity Reaction Reaction Severity Status vancomycin Active penicillin G potassium Active Medications folic acid 1 mg oral tablet 1 mg, 1, tablet, By Mouth, Daily, # 30 tablet, Refills 0, Maintenance, 10/28/23 3:58:00 PM EST, Partial fill upon patient request if the prescription is for a schedule II opioid drug. Start Date: 10/28/23 Status: Ordered Quantity: 30.0 Unit: tablet Repeat number: 1 nadolol 40 mg oral tablet 40 mg, 1, tablet, By Mouth, Daily, # 30 tablet, Refills 0, Maintenance, 10/28/23 3:57:00 PM EST, Partial fill upon patient request if the prescription is for a schedule II opioid drug. Start Date: 10/28/23 Status: Ordered Quantity: 30.0 Unit: tablet Repeat number: 1 pantoprazole 40 mg oral delayed release tablet 2 tablet = 80 mg, By Mouth, 2 times a day, # 120 tablet, 0 Refills, Maintenance, 10/28/23 3:57:00 PMEST, CR Tablet Start Date: 10/28/23 Status: Ordered Quantity: 120.0 Unit: tablet Repeat number: 1 PEG-3350 with Electrolytes Lemon-[place] (Eqv-NuLYTELY) oral powder for reconstitution 240 mL, By Mouth, Every 10 minutes, Stay on clear liquid diet ALL DAY the day BEFORE the procedure.Drink half the dose the evening before, and the other half early in the morning on the day of the procedure., # 4,000 mL, 0 Refills, Maintenance, 07/13/24 4:58:00 PM EST, REC Powder, [facility]/pharmacy #[id number], Partial fill upon patient request if the prescription is for a schedule II opioid drug., 240 mL By Mouth Every 10 minutes,Instr:Stay on clear liquid diet ALL DAY the day BEFORE the procedure. Drinkhalf the dose the evening before, and the other half early in the morning on the day of the procedure., 165, cm, 07/13/24 16:05:00 EST, Height, 90, kg, 01/07/24 11:55:00 EDT, Dry Weight Start Date: 07/13/24 Status: Ordered Quantity: 4000.0 Unit: mL Repeat number: 1 penicillin V potassium 250 mg oral tablet 1 tablet = 250 mg, By Mouth, 2 times a day, # 60 tablet, 3 Refills, Maintenance, 01/11/16 10:16:56 AMEDT, [facility] [id number] Start Date: 01/11/16 Status: Ordered Quantity: 60.0 Unit: tablet Repeat number: 4 Problem List Condition Confirmation Course Effective Dates Status Health St atus Informant Cellulitis Confirmed Active Social History Social History Type Response Smoking Status Never smoker; Tobacc o user in household: No entered on: 04/22/14 Sex Sex Representation Female (finding) Patient Care team information Care Team Personnel Name: Aden Stoner MD Position: [facility] Physician - Gastroenterology Member Role: Lifetime Consulting Physician Address: [address], [address] [facility] [place] [address]- Telecom: Name: Vaishnavi Morgan MD Position: [facility] Outreach Member Role: PCP Address: [address] [place] [address]- Telecom: Name: Gallito Woods RN Position: [facility] RN Member Role: Primary Care Nurse Care Team Related Persons Name: GABI ALBERTO Name: CATA HOOKER Name: MICHELLE ENGLE Name: MAGALI KISER Insurance Providers Guarantor name: [facility] Plan Information #: 1 Payer: [facility] Member Number: NA Policy Number: NA Group Number: NA
--- OUTSIDE RECORDS SUMMARY | 2024-08-18 15:22 | XMS_ITS | Continuity of Care Document ---
Author Organization [facility] Address [address] [place] [phone]- Care Team Providers Care Optical Fabrication Technician Name Role Phone Eddie MATTHEWS, Vaishnavi Primary Care Physician [phone] [facility] [id number] Date(s): 07/16/24 - 08/15/24 [facility] [address] [place] [address]- Encounter Type: Triage Allergies, Adverse Reactions, Alerts [...] tablet Repeat number: 1 PEG-3350 with Electrolytes Lemon-[place] (Eqv-NuLYTELY) oral powder for reconstitution 240 mL, By Mouth, Every 10 minutes, Stay on clear liquid diet ALL DAY the day BEFORE the procedure.Drink half the dose the evening before, and the other half early in the morning on the day of the procedure., # 4,000 mL, 0 Refills, Maintenance, 07/13/24 4:58:00 PM EST, REC Powder, [facility]/pharmacy #[id number], Partial fill upon patient request if [...] tablet, 3 Refills, Maintenance, 01/11/16 10:16:56 AMEDT, [facility] [id number] Start Date: 01/11/16 Status: Ordered Quantity: 60.0 Unit: tablet Repeat number: 4 Problem List Condition Confirmation Course Effective Dates Status Health St atus Informant Cellulitis Confirmed Active Social History Social History Type Response Smoking Status Never smoker; Tobacc o user in household: No entered on: 04/22/14 Sex Sex Representation Female (finding) Patient Care team information Care Team Personnel Name: Aden Stoner MD Position: [facility] Physician - Gastroenterology Member Role: Lifetime Consulting Physician Address: [address], [address] [facility] [place] [address]- Telecom: Name: Vaishnavi Morgan MD Position: [facility] Outreach Member Role: PCP Address: [address] [place] [phone]- Telecom: Name: Gallito Woods RN Position: [facility] RN Member Role: Primary Care Nurse Care Team Related Persons Name: GABI ALBERTO Name: CATA HOOKER Name: MICHELLE ENGLE Name: MAGALI KISER Insurance Providers Guarantor name: [facility] Information #: 1 Payer: [facility] Member Number: NA Policy Number: NA Group Number: NA
--- OUTSIDE RECORDS SUMMARY | 2024-08-18 15:22 | XMS_ITS ---
Author Name [facility] Organization Unknown History of Medication Use Medication Directions Dispensed Refills Start Date End Date Stat us folic acid (FOLVITE) 1 MG tablet Take 1 tablet (1 mg total) by mouth daily. 08/12/2022 active phytonadione (VITAMIN K) 1 mg/mL Take 5 mL (5 mg total) by mouth daily. Do not start before July 25, 2022. 08/12/2022 active PANTOprazole (PROTONIX) 40 MG EC tablet Take 1 tablet (40 mg total) by mouth 2 (two) times a day before meals. 08/12/2022 active nadolol (CORGARD) 20 MG tablet Take 1 tablet (20 mg total) by mouth nightly. 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
== END 2024-08-11 16:06 | disposition home or self-care (01) ==
LOC: HO.US 16:05
PROVIDERS: PCP Internal Medicine; Visit Provider Internal Medicine
DX: N93.9 Abnormal uterine and vaginal bleeding, unspecified (principal)
CPT/HCPCS: 76830; 76856

== ENCOUNTER → 2024-08-11 16:07 | Outpatient (BNV) | payer MEDICAID, SELFPAY | PROVIDERS: PCP Internal Medicine; Visit Provider Radiology Diagnostic Radiology | DX: D25.9 Leiomyoma of uterus, unspecified (principal) | CPT/HCPCS: 76830; 76856 ==

== ENCOUNTER → 2024-08-20 12:15 | Outpatient (BNV) | payer MEDICAID, SELFPAY | PROVIDERS: PCP Internal Medicine; Visit Provider Internal Medicine | DX: Z12.31 Encounter for screening mammogram for malignant neoplasm of breast (principal) | CPT/HCPCS: 77063; 77067 ==

== ENCOUNTER 2024-08-20 12:18 | Outpatient (REF) | payer MEDICAID, SELFPAY | END 2024-08-20 12:19 | disposition home or self-care (01) | LOC: HO.MAMMO 12:18 | PROVIDERS: PCP Internal Medicine; Visit Provider Internal Medicine | DX: Z12.31 Encounter for screening mammogram for malignant neoplasm of breast (principal) | CPT/HCPCS: 77063; 77067 ==

== ENCOUNTER → 2024-08-26 12:46 | Outpatient (REF) | payer MEDICAID, SELFPAY ==
--- NOTE | 2024-08-26 12:50 | CA_ITS ---
Transthoracic Echocardiogram Patient (Last, First, Middle): Teresa Canela T Gender: Female Date of : 1965 Age: 58 Procedure Date: 08/26/2024 Procedure Type: Transthoracic Echocardiogram Location: OP Height: 165.1 cm Weight: 72.58 kg BSA: 1.80 m2 Heart Rate: bpm BP: 119 / 65 mmHg X Ray Equipment Servicer: NEGRO Referring MD: Vaishnavi Morgan MD Symptoms: K75.81 PRIOR TO EVAL FOR LIVER TRANSPLANT MAYS NON ALCL STEATOHEPATITIS Study Quality: Fair ECG Rhythm: Sinus Conclusions: - The left ventricular systolic function is hyperdynamic. The visually estimated ejection fraction is >70%. - No obvious valvular pathology seen on this study. Findings Left Ventricle Normal left ventricular cavity size. The left ventricular systolic function is hyperdynamic. The visually estimated ejection fraction is >70%. There is no evidence of regional wall motion abnormalities. There is no dynamic left ventricular outflow tract obstruction. Diastolic function is normal for age. There is mild septal asymmetric hypertrophy. Resting LVOT gradient of 11mmHg; increases to 16mmHg with valsalva. Right Ventricle Normal right ventricular cavity size and systolic function. Atria The left atrium is mildly dilated. The right atrium is normal in size. Aortic Valve There is a normal trileaflet aortic valve. There is no aortic valve stenosis. There is no aortic valve regurgitation. Mitral Valve The mitral valve appears normal. There is trace mitral valve regurgitation. There is no mitral valve stenosis. Pulmonic Valve The pulmonic valve is likely normal. Tricuspid Valve There is trace tricuspid valve regurgitation. There is no evidence of pulmonary hypertension. Great Vessels The asc aorta and aortic arch are normal in size. Venous The inferior vena cava is normal in size and collapses less than 50% with inspiration. Pericardium/Pleural There is no evidence of pericardial effusion. There is a left sided pleural effusion. Exudative material noted in pleural effusion. Also suspect ascitic fluid. Prior Study Comparison No prior study available for comparison. Recommendations, Care & Conclusions No obvious valvular pathology seen on this study. Measurements 2D Linear Measurements IVSd: 1.03 0.6-0.9/0.6-1.0 cm LVIDd: 4.93 3.9-5.3/4.2-5.9 cm LVIDd Index: 2.74 2.4-3.2/2.2-3.1 cm/m2 LVIDs: 2.64 2.0-3.6 cm LVPWd: 0.91 0.7-1.1 cm Ao Root: 2.80 2.1-3.5 cm LA Diam: 3.50 2.7-3.8/3.0-4.0 cm LAIDs Index: 1.94 1.5-2.3 cm/m2 LV Mass: 212.15 67-162/88-224 g LV Mass Index: 117.86 43-95/49-115 g/m2 LVOT Diam: 2.20 3.0+(-)1.3 cm 2D Systolic Function EF 4C: 58.00 >55% EF 2C: 60.70 >55% EF BiP: 59.00 >55% Mitral Valve MV Pk E: 0.95 MV PK A: 0.85 MV Decel Time: 296.00 E/A: 1.10 E'Lateral: 13.80 E'Medial: 8.49 E/E' Med: 11.20 E/E' Lat: 6.90 PHT: 87.00 MVA PHT: 2.53 Decel [place]: 3.20 Aortic Valve AoV Pk Neeraj: 2.03 AoV Mn Neeraj: 1.37 AoV VTI: 0.43 AoV Pk Grad: 16.00 Aov Mn Grad: 8.00 JOYCE Cont.VTI: 3.30 LVOT LVOT Pk Neeraj: 1.82 LVOT Mn Neeraj: 1.14 LVOT VTI: 0.38 LVOT Pk Grad: 13.00 LVOT Mn Grad: 6.00 LVOT Diam: 2.20 LVOT Area: 3.80 Diastolic Function MV Pk E: 0.95 MV Pk A: 0.85 E/A: 1.10 E'Medial: 8.49 E/E' Med: 11.20 E' Laterial: 13.80 E/E' Lat: 6.90 Right Ventricle TAPSE (mm): 22.00 TVS' Neeraj: 13.30 Tricuspid Valve TR Pk Neeraj: 2.30 TR Pk Grad: 21.00 RA Press: 8.00 RVSP: 29.00 Great Vessels Aorta Ao Root-2D: 2.80 2.0-3.7 cm Ao Asc: 2.80 2.1-3.4 cm Ao Arch: 2.80 Updated in Other Vendor System with Status of Final Clemente Solorio MD electronically signed on 08/28/2024 11:01:57 AM with status of Final
== END ==
LOC: HO.CARD 12:46
PROVIDERS: PCP Internal Medicine; Visit Provider Internal Medicine
DX: K75.81 Nonalcoholic steatohepatitis (NASH) (principal)
CPT/HCPCS: 93306

== ENCOUNTER → 2024-08-26 12:50 | Outpatient (BNV) | payer MEDICAID, SELFPAY | PROVIDERS: PCP Internal Medicine; Visit Provider Internal Medicine | DX: I42.2 Other hypertrophic cardiomyopathy (principal); K75.81 Nonalcoholic steatohepatitis (NASH) | CPT/HCPCS: 93306 ==

== ENCOUNTER 2024-10-07 12:02 | Emergency (ER) | payer MEDICAID, SELFPAY ==
[2024-10-07] VITALS (8 sets, daily range): BP systolic 99–132; BP diastolic 48–81; PULSE 85–107; RESP 16–22; TEMP 35.8–36.7; O2SAT 98–100; BMI 24.2
--- NOTE | ~2024-10-07 | XR_ITS ---
EXAMINATION: XR CHEST CLINICAL INFORMATION: evaluate for pleural effusions COMPARISON: June 24, 2024 TECHNIQUE: Frontal view of the chest was obtained. FINDINGS: No consolidation, pleural effusion or pneumothorax. Cardiomediastinal silhouette is normal in size. Osseous structures are intact. XR/XR chest 1V IMPRESSION: No acute airspace disease. Electronically signed by: Meliton Little MD 10/07/2024 02:54 PM EST
--- NOTE | ~2024-10-07 | CT_ITS ---
EXAMINATION: CT ABDOMEN AND PELVIS WITH CONTRAST CLINICAL INFORMATION: Ascites and confusion. COMPARISON: 10/04/2021, 10/14/2016. TECHNIQUE: Multidetector volumetric images were obtained from the superior aspect of the liver through the pubic symphysis following administration 85 mL of Omnipaque 350 intravenous contrast. Sagittal and coronal reformatted images were obtained on the technologist's workstation. Oral contrast: No This CT examination was performed using dose optimization techniques as appropriate, variously including the following: *Automated exposure control *Adjustment of mA and/or kV according to patient size (this includes techniques or standardized protocols for targeted exams where dose is matched to indication/reason for exam; i.e. extremities or head) *Use of iterative reconstruction technique FINDINGS: LUNG BASES: -The side from elevated right hemidiaphragm and mild right base atelectasis, lung bases are clear. No effusions. -Probable small paraesophageal varices distally. LIVER, GALLBLADDER, AND BILIARY TREE: The liver is shrunken and diffusely cirrhotic. No focal lesion. Gallbladder is surgically absent. There is evidence of portal hypertension. There is no biliary dilatation. PANCREAS: Unremarkable. SPLEEN: Mild splenomegaly. No lesion. ADRENAL GLANDS: Unremarkable. KIDNEYS AND URETERS: The kidneys are normal in size, shape, and attenuation. No hydronephrosis, hydroureter, or calculi seen. No perinephric stranding. BLADDER: Partially collapsed around a Locke catheter. Intraluminal gas is iatrogenic. No wall thickening. GASTROINTESTINAL TRACT: -The colon demonstrates mild ascending colonic wall thickening, likely sequela of portal hypertension. There are scattered diverticula, moderate in the sigmoid region. -Normal rectum. -Appendix is normal. -There is no small bowel dilatation or abnormality. -Mildly thickened and edematous appearing stomach, possibly sequela of portal hypertension. Gastritis is a consideration. PERITONEUM: -Large volume ascites present. No peritoneal enhancement or nodularity. -No free intraperitoneal air. ABDOMINAL WALL: -No significant hernia is present. There are umbilical level, inferior epigastric small varices. LYMPH NODES: Normal. VASCULAR: -Extensive varices are present secondary to portal hypertension. These include gastric, splenic, splenorenal, mesenteric, mild esophageal, and retroperitoneal. Aorta is nonaneurysmal. PELVIC VISCERA: There are small uterine fibroids present. Largest is hypoattenuating within the distal mid uterine segment measuring 2.0 cm in diameter. The ovaries are normal. No adnexal masses. OSSEOUS STRUCTURES: -No suspicious lytic or blastic bone lesions . -There are spinal and mild hip joint degenerative changes. CT/CT abdomen pelvis w IV con IMPRESSION: 1. Advanced cirrhosis with large volume intraperitoneal ascites, and sequela of advanced portal hypertension as discussed. No peritoneal enhancement. 2. Splenomegaly. 3. Mild wall thickening of the cecum and ascending colon, most likely related to portal hypertension. Mild colitis is not excluded. There is mild colonic diverticulosis. 4. Bladder is partially collapsed around a Locke catheter. 5. Uterine fibroids. 6. Cholecystectomy. 7. Ancillary findings as discussed. Electronically signed by: Carlton Caal MD 10/07/2024 04:47 PM [facility]
--- NOTE | 2024-10-07 12:20 | ED.GENADULT ---
HPI - General Adult General Chief complaint: General Medical Stated complaint: N/V X2H,JAUNDICE,ABD DIST,NEEDS LIVER TRANSPLANT Time Seen by Provider: 10/07/24 12:17 History of Present Illness ED Provider: Broderick Claros DO HPI narrative: 58-year-old female who is a Yarsanism with past medical history of psoriatic arthritis, nonalcoholic cirrhosis with decompensation including variceal bleeding in February 2022 as well as SBP in July 2024 (has upcoming appointment for discussion of liver transplant with hepatic specialist at [facility]) and most recent paracentesis 2 weeks ago with drainage of 12 L per presents to the ED via ambulance due to 's concern for confusion that he noticed when he returned home at 10:30 this morning. He states the patient was otherwise in her normal state of health yesterday until she developed nausea and dry heaving. He states over the past couple of days she has had worsening yellowing of the eyes and increased ascites. He denies fevers, chills, black or bloody stools, chest pain or difficulty breathing. He denies falls or head trauma or staggering gait. He states the patient was walking around in circles and did not appear to know what she was doing. History is limited from the patient secondary to her condition. She denies abdominal pain or any additional symptoms. states the patient is not typically confused. Related Data Home Medications ?Medication ?Instructions ?Recorded ?Confirmed ciprofloxacin HCl 500 mg tablet 500 mg PO DAILY 08/04/24 08/10/24 midodrine 5 mg tablet 5 mg PO BID 08/10/24 08/10/24 pantoprazole 40 mg tablet,delayed 40 mg PO BID 08/10/24 08/10/24 release Allergies Allergy/AdvReac Type Severity Reaction Status Date / Time Penicillins AdvReac Intermediate Unknown Verified 10/07/24 12:22 vancomycin AdvReac Itching Verified 10/07/24 12:22 Review of Systems Review of Systems: Yes all other systems are reviewed and are negative PMFSH Past Medical History Medical History Hyponatremia with excess extracellular fluid volume Obstructive sleep apnea GERD (gastroesophageal reflux disease) Rigor Fever Psoriasis Cellulitis Surgical History Hx of breast reduction, elective History of cholecystectomy Family History Family History Other No family history of coronary artery disease Social History Social History Household Members: Family Housing: Apartment Do you presently have visiting nurse or other home services: Yes Alcohol intake: never Patient Tobacco Use Status: Never used Tobacco Smoked in Last 30 Days: No Use of substances other than those prescribed or required for medical reasons: No Substance Use Type: Sedatives Advance Directives: Yes Advance Directives on File: Yes Advance Directives Date on File: 11/01/21 Do you have a plan to hurt others: No Plan Patient : No service: No Current occupational status: employed Physical Exam ED Vital Signs: Vital Signs - 24 hr 10/07/24 12:20 10/07/24 14:34 10/07/24 14:53 Temperature 97.5 F 96.4 F L 96.6 F L Pulse Rate 107 H 90 91 Respiratory Rate 22 H 20 22 H Blood Pressure 121/68 126/76 112/74 Pulse Oximetry 100 100 100 Oxygen Delivery Method Room Air Room Air Room Air 10/07/24 15:08 10/07/24 15:43 10/07/24 17:36 Temperature 96.6 F L 97.3 F Pulse Rate 92 105 H 101 H Respiratory Rate 18 18 Blood Pressure 118/64 132/81 105/62 Pulse Oximetry 99 100 Oxygen Delivery Method Room Air Room Air 10/07/24 20:27 Temperature 97.9 F Pulse Rate 99 Respiratory Rate 16 Blood Pressure 109/59 L Pulse Oximetry 99 Oxygen Delivery Method Room Air BMI result Body Mass Index 24.2 Constitutional: ?Appears uncomfortable. Alert, oriented, speaking in full sentences. HEENT: ?Normocephalic, atraumatic. ?Moist mucous membranes, jaundice of the oropharynx Eyes: ?PERRL, EOMI, no scleral icterus Neck: ?Supple, nontender Chest: ?No chest wall tenderness Respiratory: ?Lungs clear to auscultation, no increased work of breathing Cardio: ?Regular rate and rhythm, no murmur, 2+ radial and DP pulses symmetrically GI: ?Soft, distended with fluid wave, nontender Back: ?Normal range of motion, nontender Skin: ?No rash, no lesions Neuro: ?Alert and oriented to person and place. States it is December of 2018. moves all 4 extremities, notable asterixis, otherwise no focal deficits Extremities: ?No swelling or tenderness, full range of motion Psych: ?Calm, alert and cooperative, appropriate behavior Medications Administered Discontinued Medications Generic Name Dose Route Start Last Admin Trade Name Carlq PRN Reason Stop Dose Admin Piperacillin Sod/Tazobactam 100 mls @ 200 mls/hr 10/07/24 12:40 10/07/24 14:28 Sod 4.5 gm/ Sodium Chloride IV 10/07/24 13:09 Infused ONCE ONE Infusion Sodium Chloride 500 mls @ 500 mls/hr 10/07/24 14:15 10/07/24 15:24 Ns IV 10/07/24 15:14 Infused .Q1H NAEEM Infusion Iohexol 100 ml 10/07/24 16:01 10/07/24 16:01 Iohexol 350 Mg/Ml 100 Ml Infus..Btl IV 10/07/24 16:02 85 ml ONCE ONE Administration Lactulose 20 gm 10/07/24 13:51 10/07/24 14:43 Lactulose 20 Gm/30 Ml Solution PO 10/07/24 13:52 20 gm ONCE ONE Administration Lidocaine HCl 20 ml 10/07/24 12:41 10/07/24 13:30 Lidocaine Hcl 1 % 20 Ml Vial SUBCUT 10/07/24 12:42 20 ml ONCE ONE Administration Pantoprazole Sodium 80 mg 10/07/24 14:08 10/07/24 14:43 Pantoprazole Sodium 40 Mg/10 Ml Vial IVPUSH 10/07/24 14:09 80 mg ONCE ONE Administration Procedures Paracentesis Time Out Performed: Yes Local Anesthetic: lidocaine 1% Amount of anesthesia used (mL): 3 Fluid: cloudy (Using a 18 gauge angio catheter after evaluating large fluid pocket and avoiding vessels, 50 mL of fluid was aspirated. Postprocedure dressing placed.), bloody and sent to lab for analysis Post Procedure Exam: awake, alert, normal BP, normal HR and normal SpO2 Patient Tolerated Procedure: well Complications: none Medical Decision Making Medical Decision Making MDM Narrative: This is an ill-appearing patient who is quite jaundiced and disoriented which started today. Differential diagnosis includes hepatic encephalopathy, cholangitis, recurrent SBP. The patient remove require diagnostic paracentesis and broad-spectrum antibiotics at this time. Given hepatic clearance of metronidazole but clinical concern including cholangitis, the patient will receive piperacillin tazobactam. She will be monitored as she has had a small rash of the scalp with this in the past. She is not requiring a therapeutic paracentesis at this time. Patient has a lactic acidosis of 5.2. However, although the patient meets criteria for severe sepsis, I elected to not order the 30 milliliters/kg fluid bolus and instead 500 mL of IV fluids due to high concern for decompensation with fluid overload due to the patient's decompensated cirrhosis. Of note, the patient is hemodynamically stable with maps greater than 65 mm Hg. Patient has a significant hyperbilirubinemia here and remarkably her albumin is 3.5. She does have elevated ammonia over 102 and has been provided lactulose. No history of GI bleed but coverage provided with pantoprazole. Patient tolerated paracentesis and has no evidence of SBP at this time. I feel her symptoms are largely due to hepatic encephalopathy. We will further evaluate with ultrasound imaging and CT imaging of the abdomen and pelvis for possible cholangitis. Although the patient has an IVETH on CKD with a GFR of 19, I feel the patient will benefit from IV contrast due to high consideration for cholangitis or other infectious etiology. Case is discussed with hepatology at [facility] who reviewed the patient's labs and presentation. They will likely accept transfer. CT imaging shows evidence of cirrhosis and portal hypertension, mild splenomegaly, large volume ascites, varices diffusely, uterine fibroids, no significant other abnormalities including stone of the CBD. Patient had a bowel movement with lactulose. Her condition has overall improved and she is oriented to day and year on re-evaluation. She has had no significant abnormalities of the vitals. Negative for SBP. Unable to arrange transport tonight due to weather and resources. Patient will remain in the emergency department until the morning for transport unless any acute changes occur. Of note, she does accept albumin but no other blood products. She will be signed out to the next provider for further care pending transport to at [place]. Patient and have been updated. Admission/Observation Consideration of admission/observation: Escalation of care including admission/observation considered Lab Data 10/07/24 13:24 10/07/24 13:24 Labs: Lab Results 10/07/24 10/07/24 10/07/24 Range/Units 13:24 13:25 13:40 WBC 4.6 L (4.8-10.8) X10*3/uL RBC 2.75 L (4.20-5.50) X10*6/uL Hgb 9.1 L (12.0-16.0) g/dl Hct 24.8 L (37.0-47.0) % MCV 90.2 (80.0-98.0) fL MCH 33.1 H (27.0-33.0) pg MCHC 36.7 H (31.0-35.0) g/dl RDW 15.4 (11.0-16.0) % Plt Count 86 L (160-400) X10*3/uL MPV 9.0 L (9.4-12.3) fL Immature Gran % (Auto) 0.2 (0.0-0.4) % Neut % (Auto) 85.2 H (45-73) % Lymph % (Auto) 6.1 L (20-40) % [place] % (Auto) 7.4 (2-11) % Eos % (Auto) 0.9 (0-4) % Baso % (Auto) 0.2 (0-2) % Lymph # (Auto) 0.3 L (1.2-4.9) X10*3/uL [place] # (Auto) 0.3 (0.1-1.2) X10*3/uL Eos # (Auto) 0.0 (0.0-0.4) X10*3/uL Baso # (Auto) 0.0 (0.0-0.2) X10*3/uL Abs Immat Gran (auto) 0.01 (0.00-0.03) X10*3/uL Absolute Neuts (auto) 3.9 (2.0-8.3) x10*3/uL Absolute Nucleated RBC 0.000 (0.0-0.012) X10*3/uL Nucleated RBC % (auto) 0.0 (0.0-0.2) /100WBC PT (10.9-12.4) SEC INR (0.9-1.1) APTT (26.0-36.8) SEC Sodium 129 L (135-145) mmol/L Potassium 5.0 D (3.3-5.1) mmol/L Chloride 102 (96-108) mmol/L Carbon Dioxide 15 L (22-29) mmol/L Anion Gap 17 (12-20) BUN 61 H (9-16) mg/dL Creatinine 2.66 H (0.5-1.4) mg/dL Estim Creat Clear Calc 21.3 Estimated GFR 19 Random Glucose 103 (60-115) mg/dL Lactic Acid 5.2 H* (0.5-2.0) mmol/L Lactic Acid F/U @ 2Hr (0.5-2.0) mmol/L Lactic Acid F/U @ 4Hr (0.5-2.0) mmol/L Calcium 9.6 (8.4-10.2) mg/dL Total Bilirubin 9.3 H (0.0-1.0) mg/dL Direct Bilirubin 3.6 H (0.0-0.5) mg/dL AST 65 H (5-31) U/L ALT 13 (0-31) U/L Alkaline Phosphatase 115 (39-117) U/L Ammonia 102 H (13-55) umol/L Lactate Dehydrogenase 157 (122-220) U/L Total Protein 7.5 (6.5-8.0) g/dL Albumin 3.5 (3.5-5.0) g/dL Urine Color Urine Appearance Urine pH (5.0-9.0) Ur Specific [place] (1.005-1.025) Urine Protein (Neg-Trace) mg/dL Urine Glucose (UA) (Negative) mg/dL Urine Ketones (Negative) mg/dL Urine Blood (Negative) Urine Nitrite (Negative) Ur Leukocyte Esterase (Negative) Urine RBC (0-2) /HPF Urine WBC (0-5) /HPF Ur Squamous Epith Cells (0-2) /HPF Urine Bacteria (None Seen) Hyaline Casts (0-2) /LPF Peritoneal WBC 0.145 X10*3/uL Peritoneal RBC 0.017 X10*6/uL Periton Neutrophils 4 % Periton Lymphocytes 43 % Peritoneal Monocytes 19 % Peritoneal Other Cells 34 % 10/07/24 10/07/24 10/07/24 Range/Units 14:29 15:06 16:04 WBC (4.8-10.8) X10*3/uL RBC (4.20-5.50) X10*6/uL Hgb (12.0-16.0) g/dl Hct (37.0-47.0) % MCV (80.0-98.0) fL MCH (27.0-33.0) pg MCHC (31.0-35.0) g/dl RDW (11.0-16.0) % Plt Count (160-400) X10*3/uL MPV (9.4-12.3) fL Immature Gran % (Auto) (0.0-0.4) % Neut % (Auto) (45-73) % Lymph % (Auto) (20-40) % [place] % (Auto) (2-11) % Eos % (Auto) (0-4) % Baso % (Auto) (0-2) % Lymph # (Auto) (1.2-4.9) X10*3/uL [place] # (Auto) (0.1-1.2) X10*3/uL Eos # (Auto) (0.0-0.4) X10*3/uL Baso # (Auto) (0.0-0.2) X10*3/uL Abs Immat Gran (auto) (0.00-0.03) X10*3/uL Absolute Neuts (auto) (2.0-8.3) x10*3/uL Absolute Nucleated RBC (0.0-0.012) X10*3/uL Nucleated RBC % (auto) (0.0-0.2) /100WBC PT 27.8 H (10.9-12.4) SEC INR 2.4 H (0.9-1.1) APTT 57.4 H (26.0-36.8) SEC Sodium (135-145) mmol/L Potassium (3.3-5.1) mmol/L Chloride (96-108) mmol/L Carbon Dioxide (22-29) mmol/L Anion Gap (12-20) BUN (9-16) mg/dL Creatinine (0.5-1.4) mg/dL Estim Creat Clear Calc Estimated GFR Random Glucose (60-115) mg/dL Lactic Acid (0.5-2.0) mmol/L Lactic Acid F/U @ 2Hr 5.3 H* (0.5-2.0) mmol/L Lactic Acid F/U @ 4Hr (0.5-2.0) mmol/L Calcium (8.4-10.2) mg/dL Total Bilirubin (0.0-1.0) mg/dL Direct Bilirubin (0.0-0.5) mg/dL AST (5-31) U/L ALT (0-31) U/L Alkaline Phosphatase (39-117) U/L Ammonia (13-55) umol/L Lactate Dehydrogenase (122-220) U/L Total Protein (6.5-8.0) g/dL Albumin (3.5-5.0) g/dL Urine Color Dark Yellow Urine Appearance Clear Urine pH 5.5 (5.0-9.0) Ur Specific [place] 1.020 (1.005-1.025) Urine Protein Negative (Neg-Trace) mg/dL Urine Glucose (UA) Negative (Negative) mg/dL Urine Ketones Negative (Negative) mg/dL Urine Blood Trace H (Negative) Urine Nitrite Negative (Negative) Ur Leukocyte Esterase Trace H (Negative) Urine RBC 3-5 H (0-2) /HPF Urine WBC 0-5 (0-5) /HPF Ur Squamous Epith Cells 0-2 (0-2) /HPF Urine Bacteria None Seen (None Seen) Hyaline Casts 0-2 (0-2) /LPF Peritoneal WBC X10*3/uL Peritoneal RBC X10*6/uL Periton Neutrophils % Periton Lymphocytes % Peritoneal Monocytes % Peritoneal Other Cells % 10/07/24 Range/Units 19:32 WBC (4.8-10.8) X10*3/uL RBC (4.20-5.50) X10*6/uL Hgb (12.0-16.0) g/dl Hct (37.0-47.0) % MCV (80.0-98.0) fL MCH (27.0-33.0) pg MCHC (31.0-35.0) g/dl RDW (11.0-16.0) % Plt Count (160-400) X10*3/uL MPV (9.4-12.3) fL Immature Gran % (Auto) (0.0-0.4) % Neut % (Auto) (45-73) % Lymph % (Auto) (20-40) % [place] % (Auto) (2-11) % Eos % (Auto) (0-4) % Baso % (Auto) (0-2) % Lymph # (Auto) (1.2-4.9) X10*3/uL [place] # (Auto) (0.1-1.2) X10*3/uL Eos # (Auto) (0.0-0.4) X10*3/uL Baso # (Auto) (0.0-0.2) X10*3/uL Abs Immat Gran (auto) (0.00-0.03) X10*3/uL Absolute Neuts (auto) (2.0-8.3) x10*3/uL Absolute Nucleated RBC (0.0-0.012) X10*3/uL Nucleated RBC % (auto) (0.0-0.2) /100WBC PT (10.9-12.4) SEC INR (0.9-1.1) APTT (26.0-36.8) SEC Sodium (135-145) mmol/L Potassium (3.3-5.1) mmol/L Chloride (96-108) mmol/L Carbon Dioxide (22-29) mmol/L Anion Gap (12-20) BUN (9-16) mg/dL Creatinine (0.5-1.4) mg/dL Estim Creat Clear Calc Estimated GFR Random Glucose (60-115) mg/dL Lactic Acid (0.5-2.0) mmol/L Lactic Acid F/U @ 2Hr (0.5-2.0) mmol/L Lactic Acid F/U @ 4Hr 3.9 H* (0.5-2.0) mmol/L Calcium (8.4-10.2) mg/dL Total Bilirubin (0.0-1.0) mg/dL Direct Bilirubin (0.0-0.5) mg/dL AST (5-31) U/L ALT (0-31) U/L Alkaline Phosphatase (39-117) U/L Ammonia (13-55) umol/L Lactate Dehydrogenase (122-220) U/L Total Protein (6.5-8.0) g/dL Albumin (3.5-5.0) g/dL Urine Color Urine Appearance Urine pH (5.0-9.0) Ur Specific [place] (1.005-1.025) Urine Protein (Neg-Trace) mg/dL Urine Glucose (UA) (Negative) mg/dL Urine Ketones (Negative) mg/dL Urine Blood (Negative) Urine Nitrite (Negative) Ur Leukocyte Esterase (Negative) Urine RBC (0-2) /HPF Urine WBC (0-5) /HPF Ur Squamous Epith Cells (0-2) /HPF Urine Bacteria (None Seen) Hyaline Casts (0-2) /LPF Peritoneal WBC X10*3/uL Peritoneal RBC X10*6/uL Periton Neutrophils % Periton Lymphocytes % Peritoneal Monocytes % Peritoneal Other Cells % Discharge Plan Discharge Clinical Impression: Acute hepatic encephalopathy, Ascites Patient Disposition: Still a Patient Prescriptions: No Action pantoprazole 40 mg tablet,delayed release (DR/EC) 40 mg PO BID ciprofloxacin HCl 500 mg tablet 500 mg PO DAILY midodrine 5 mg tablet 5 mg PO BID Rx Instructions: do not give last dose of day after 6PM or within 4 hrs of bedtime Print Language: Sami
[2024-10-07] MEDS: Lidocaine HCl 1 % 20 ML VIAL SUBCUT (13:30)
[2024-10-07 13:32] LABS: MANUAL DIFF FLAG NO
[2024-10-07 13:33] LABS: Basophils Percent Auto 0.2 % (0-2); Eosinophils Percent Auto 0.9 % (0-4); Hematocrit 24.8 % (37.0-47.0); Hemoglobin 9.1 g/dl (12.0-16.0); Imm Gran Abs Auto 0.01 X10*3/uL (0.00-0.03); Imm Gran Pct Auto 0.2 % (0.0-0.4); Lymphocytes Absolute Auto 0.3 X10*3/uL (1.2-4.9); Lymphocytes Percent Auto 6.1 % (20-40); Mean Corpuscular HGB Conc 36.7 g/dl (31.0-35.0); Mean Corpuscular Hemoglobin 33.1 pg (27.0-33.0); Mean Corpuscular Volume 90.2 fL (80.0-98.0); Monocytes Absolute Auto 0.3 X10*3/uL (0.1-1.2); Monocytes Percent Auto 7.4 % (2-11); Neutrophils Absolute Auto 3.9 x10*3/uL (2.0-8.3); Neutrophils Percent Auto 85.2 % (45-73); Red Blood Count 2.75 X10*6/uL (4.20-5.50); Red Cell Distribution Width 15.4 % (11.0-16.0); White Blood Count 4.6 X10*3/uL (4.8-10.8)
[2024-10-07 13:34] LABS: Platelet Count 86 X10*3/uL (160-400)
[2024-10-07 13:46] LABS: Ammonia 102 umol/L (13-55)
[2024-10-07 13:53] LABS: Lactate Dehydrogenase 157 U/L (122-220)
[2024-10-07 13:57] LABS: Lactic Acid 5.2 mmol/L (0.5-2.0)
[2024-10-07 13:58] LABS: Alanine Aminotransferase 13 U/L (0-31); Albumin Level 3.5 g/dL (3.5-5.0); Alkaline Phosphatase 115 U/L (39-117); Anion Gap 17 (12-20); Aspartate Amino Transferase 65 U/L (5-31); Bilirubin Direct 3.6 mg/dL (0.0-0.5); Bilirubin Total 9.3 mg/dL (0.0-1.0); Blood Urea Nitrogen 61 mg/dL (9-16); Calcium 9.6 mg/dL (8.4-10.2); Carbon Dioxide 15 mmol/L (22-29); Chloride 102 mmol/L (96-108); Creatinine Clr Calc Pharmacy 21.3; Estimated Glomerular Filt Rate 19; Glucose Random 103 mg/dL (60-115); Sodium 129 mmol/L (135-145); Total Protein 7.5 g/dL (6.5-8.0)
[2024-10-07] MEDS: Piperacillin Sodium/Tazobactam 4.5 GM in 0.9 % Sodium Chloride 100 ML IV (13:58)
[2024-10-07] MEDS: 0.9 % Sodium Chloride 500 ML IV (14:24)
[2024-10-07 14:38] LABS: RBC Peritoneal Fluid 0.017 X10*6/uL; WBC Peritoneal Fluid 0.145 X10*3/uL
[2024-10-07 14:38] LABS: Appearance Urine Clear; Color Urine Dark Yellow; Glucose Urine UA Negative (Negative); Leukocyte Esterase Urine Trace (Negative); Nitrite Urine Negative (Negative); PH 5.5 (5.0-9.0); UMIC TRIGGER UA YES; Urine Blood Trace (Negative); Urine Ketones Negative (Negative); Urine Protein Negative (Neg-Trace)
[2024-10-07] MEDS: Lactulose 20 GM/30 ML SOLUTION PO ×2 (14:43→22:25)
[2024-10-07] MEDS: Pantoprazole Sodium 40 MG/10 ML VIAL 80 MG IVPUSH (14:43)
[2024-10-07 14:52] LABS: Bacteria Urine None Seen (None Seen); Hyaline Casts Urine 0-2 /LPF (0-2); Squamous Epithelial Cell Urine 0-2 /HPF (0-2); WBC Urine 0-5 /HPF (0-5)
--- OUTSIDE RECORDS SUMMARY | 2024-10-07 14:56 | XMS_ITS | Encounter Summary ---
Author Organization [employer] Address [address] [place] [address] [address] [place] [address] Care Team Providers Care Personnel Training Officer Name Role Phone Vaishnavi Morgan MD Primary Care Provider [phone] Encounter Details Date Type Department Care Team ([facility] st Contact Info) Description 08/31/2024 Orders Only [facility]ED[facility] [address], [place] [id number] Vaishnavi Morgan MD [address] [place] [address] Primary insomnia (Primary Dx) Social History Tobacco Use Types Packs/Day Years Used Date Smoking Tobacco: Never Passive Smoke Exposure: Never Smokeless Tobacco: Never Housing Stability Answer Date Recorded What is your housing situation today? I have sanjuana dillard 11/28/[address] you li ve. Do you have problems with any of the following? None of the above 11/28/2023 Food Insecurity Answer Date Recorded Within the past 12 months, y ou worried that your food would run out before you got money to buy more: Never True 07/15/2023 Within the past 12 months,th e food you bought just didn't last and you didn't have enough money to get more: Never True 02/2023 Transportation Answer Date Recorded In the past 12 months, has l ack of transportation kept you from medical appts, meetings, work or from getting things needed for daily living? No 07/15/2023 Utilities Answer Date Recorded In the past 12 months, has t he electric, gas, oil or water company threatened to shut off services in your home? No 07/15/2023 Comments Unknown Sex and Gender Information Value Date Recorded Sex Assigned at Female 07/09/2022 10:15 AM EDT Legal Sex Female 10:15 AM EDT Gender Identity Female 07/09/2022 10:15 AM EDT Sexual Orientation Straight 04/24/2024 4: 18 PM EDT documented as of this encounter Plan of Treatment Upcoming Encounters Date Type Department Care Team ([facility] st Contact Info) Description 11/12/2024 9:00 AM EST Telemedicine [facility] MED & PEDS [address] [place] [address] Vaishnavi Morgan MD [address] [place] [address] documented as of this encounter Visit Diagnoses Diagnosis Primary insomnia- Primary Persistent disorder of initiating or maintaining sleep documented in this encounter Care Teams Personnel Training Officer Relationship Specialty Start Date End Date Vaishnavi Morgan MD [address] [place] [address] PCP - General Internal Medicine 07/25/22 documented as of this encounter
--- OUTSIDE RECORDS SUMMARY | 2024-10-07 14:56 | XMS_ITS | Encounter Summary ---
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 No 07/15/2023 Depression Answer Date Recorded Patient Health Questionnaire-2 Score 5 09/29/2024 Comments Unknown Sex and Gender Information Value Date Recorded Sex Assigned at Female 07/09/2022 10:15 AM EDT Legal Sex Female 10:15 AM EDT Gender Identity Female 07/09/2022 10:15 AM EDT Sexual Orientation Straight 04/24/2024 4: 18 PM EDT documented as of this encounter Progress Notes * Vaishnavi Morgan MD - 09/29/2024 2:00 PM EST Subjective Patient ID: Teresa Canela is a 58 y.o. female who presents for No chief complaint on file.. HPI Televisit scheduled for follow-up. Patient with history of liver cirrhosis. [facility] Still have her stress test pending. The earliest date can be done will be sometime in December. Patient is also scheduled for a sleep study for October 11. She will have to present herself to stay overnight in the hospital. She feels like her sleeping is worse with the current dose of hydroxyzine. Also requesting a refill on her Zofran given persistent nausea. Scheduled for paracentesis in 2 days. Last paracentesis was done 5 weeks ago. 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 FOR SBP [id number] tablet 0 hydrOXYzine (Atarax) 10 MG/5ML syrup Take 2.5 mL (5 mg) by mouth if needed at bedtime for itching or anxiety for up to 10 days. 240 mL 0 midodrine (Proamatine) 5 MG tablet Take 1 tablet (5 mg) by mouth 3 times daily. 90 tablet 0 Nutritional Supplements (Ensure Max Protein) liquid TAKE 3 CANS A DAY 240 mL 11 pantoprazole (ProtoNix) 40 MG EC tablet TAKE ONE TABLET BY MOUTH TWICE DAILY 60 tablet 5 triamcinolone (Kenalog) 0.025 % ointment Apply topically 2 times daily. 80 g 1 triamcinolone (Kenalog) 0.1 % cream Apply topically if needed in the morning and at bedtime (pain and swelling). 80 g 11 No current facility-administered medications on file prior to visit. Allergies Allergen Reactions Penicillins Unknown and Other Stuff in head crawling Vancomycin Rash and Other Need benadryl with it Stuff in head crawling Review of Systems HENT: Negative for dental problem, drooling and ear discharge. Gastrointestinal: Positive for abdominal distention and nausea. Psychiatric/Behavioral: Positive for dysphoric mood. Insomnia Objective Physical Exam Assessment/Plan Diagnoses and all orders for this visit: Adjustment insomnia Comments: Dose of hydroxyzine increased to 25 mg at bedtime Ambien 5 to 10 mg to take 30 minutes before the sleep study Orders: - hydrOXYzine pamoate (Vistaril) 25 MG capsule; Take 1 capsule (25 mg) by mouth if needed at bedtime for itching. - ondansetron (Zofran) 4 MG tablet; Take 2 tablets (8 mg) by mouth every 8 (eight) hours if needed for nausea or vomiting for up to 7 days. 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
--- OUTSIDE RECORDS SUMMARY | 2024-10-07 14:56 | XMS_ITS | Encounter Summary ---
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) Vaishnavi Morgan MD [address] [place] [address] Phone: tel: fax: Nicholas Hoff MD [address] [place] [address] Phone: tel: fax: Referral ID Status Reason Start Date Expiration Date Visits Requested Visits Authorized [id number] Pending Review Specialty Services Required 4 07/27/2025 1 1 Encounter Details Date Type Department Care Team (Late st Contact Info) Description 07/23/2024 Orders Only [facility] CHC MED & PEDS [address] [place], [place] [phone] Vaishnavi Morgan MD [address] [place] [phone] Spontaneous bacterial peritonitis (CMS/HCC) (Primary Dx); 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 Pt was called to communicate the results of the US of the pelvis. The bleeding has stopped. All questions answered. Pt already has a scheduled appointment with [facility] in August. 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 [facility] ?[address] ?[place] [address] ? Ultrasound Report ? Signed ? Patient: Rola,Amalia ?MR#: [id number] ? : 1965 ?Acct:[id number] ? Age/Sex: 58 / F ?ADM Date: 08/11/24 ? Loc: HO.US ? Attending Dr: Vaishnavi Morgan MD ? Ordering Physician: Vaishnavi Morgan MD ?? Date of Service: 08/11/24 ?? Procedure(s): US pelvic and transvaginal ?? Accession Number(s): [id number] ? cc: Vaishnavi Morgan MD ? EXAMINATION: ? US PELVIS ? CLINICAL INFORMATION: ? Postmenopausal bleeding. ? COMPARISON: ?? No prior ultrasound. ?? CT of pelvis 03/04/2022. ? TECHNIQUE: ?? Ultrasound of the pelvis is performed using both transabdominal and ?? transvaginal transducers along with Doppler. Transvaginal imaging is ?? performed due to inadequate visualization transabdominally. ? Exam submitted for review 08/24/2024 8:11 AM HOUSE VISITOR. ? FINDINGS: ?? UTERUS: ?? The uterus is anteverted and measures 7.9 x 4.2 x 5.1 cm. ??The cervix ?? appears normal. ? The endometrial stripe is poorly delineated on this exam although there ?? is no definite thickening. ? The uterus is smooth in contour and has normal myometrial echogenicity. ?There is a calcified far right fundal fibroid measuring 1.6 x 1.7 x ?? 1.2 cm. There is a central fundal fibroid measuring 2.4 x 3.1 x 2.2 cm. ?? This could be submucosal. ? ADNEXA: ?? The ovaries could not be visualized bilaterally. No adnexal masses.. ? Patient has large volume ascites, known, and has periodic drainages. ? US/US pelvic and transvaginal ?? IMPRESSION: ?? 1. There are 2 fibroids in the uterus, larger in the central fundus ?? measuring 2.4 x 3.1 x 2.2 cm, possibly submucosal. ?? 2. No definite endometrial thickening. ?? 3. Ovaries could not be definitively visualized on this exam. No ?? adnexal masses. ?? 4. Ascites, present from prior examinations. ? Electronically signed by: ??Carlton Caal MD ??08/24/2024 09:15 AM EST RP ? Dictated By: ?Carlton Caal MD ? Signed By: ?<Electronically signed by Carlton Cala MD in OV> ?08/24/24 0915 ? DD/ 1617 ? TD/TT: 08/11/24 1630 ? Pharmacist Apprentice: ? Procedure Note Kim Miller - 08/24/2024 [place] [address] Ultrasound Report Signed Patient: Teresa Canela TMR#: [id number] : 1965Acct:[id number] Age/Sex: 58 / FADM Date: 08/11/24 Loc: HO.US Attending Dr: Vaishnavi Morgan MD Ordering Physician: Vaishnavi Morgan MD Date of Service: 08/11/24 Procedure(s): US pelvic and transvaginal Accession Number(s): [id number] cc: Vaishnavi Morgan MD EXAMINATION: US PELVIS CLINICAL INFORMATION: Postmenopausal bleeding. COMPARISON: No prior ultrasound. CT of pelvis 03/04/2022. TECHNIQUE: Ultrasound of the pelvis is performed using both transabdominal and transvaginal transducers along with Doppler. Transvaginal imaging is performed due to inadequate visualization transabdominally. Exam submitted for review 08/24/2024 8:11 AM HOUSE VISITOR. FINDINGS: UTERUS: The uterus is anteverted and measures 7.9 x 4.2 x 5.1 cm. The cervix appears normal. The endometrial stripe is poorly delineated on this exam although there is no definite thickening. The uterus is smooth in contour and has normal myometrial echogenicity. There is a calcified far right fundal fibroid measuring 1.6 x 1.7 x 1.2 cm. There is a central fundal fibroid measuring 2.4 x 3.1 x 2.2 cm. This could be submucosal. ADNEXA: The ovaries could not be visualized bilaterally. No adnexal masses.. Patient has large volume ascites, known, and has periodic drainages. US/US pelvic and transvaginal IMPRESSION: 1. There are 2 fibroids in the uterus, larger in the central fundus measuring 2.4 x 3.1 x 2.2 cm, possibly submucosal. 2. No definite endometrial thickening. 3. Ovaries could not be definitively visualized on this exam. No adnexal masses. 4. Ascites, present from prior examinations. 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
--- OUTSIDE RECORDS SUMMARY | 2024-10-07 14:56 | XMS_ITS | Continuity of Care Document ---
Author Organization [facility] Address [address] [place] [address]- Care Team Providers Care Commodities Trader Name Role Phone Eddie MATTHEWS, Vaishnavi Primary Care Physician [phone] [id number] Date(s): 08/08/24 - 09/07/24 [facility] [address] [place] [address]- Encounter Type: Triage Allergies, Adverse Reactions, Alerts Substance Criticality Severity Reaction Reaction Severity Status vancomycin Active penicillin G potassium Active Medications ciprofloxacin 500 mg oral tablet = 10 mg/kg, By Mouth, Every 12 hours, # 20 tablet, 0 Refills, Maintenance, 08/27/24 12:36:00 PM EST, Tablet, Partial fill upon patient request if the prescription is for a schedule II opioid drug. Start Date: 08/27/24 Stop Date: 09/06/24 Status: Ordered Quantity: 20.0 Unit: tablet Repeat number: 1 folic acid 1 mg oral tablet 1 mg, 1, tablet, By Mouth, Daily, # 30 tablet, Refills 0, Maintenance, 10/28/23 3:58:00 PM EST, Partial fill upon patient request if the prescription is for a schedule II opioid drug. Start Date: 10/28/23 Status: Ordered Quantity: 30.0 Unit: tablet Repeat number: 1 midodrine 5 mg oral tablet 10 mg, 2, tablet, By Mouth, 3 times a day, # 180 tablet, Refills 0, Maintenance, 08/27/24 12:35:00 PM EST, Partial fill upon patient request if the prescription is for a schedule II opioid drug. Start Date: 08/27/24 Status: Ordered Quantity: 180.0 Unit: tablet Repeat number: 1 nadolol 40 [...] tablet Repeat number: 1 PEG-3350 with Electrolytes Lemon-Kaibab (Eqv-NuLYTELY) oral powder for reconstitution 240 mL, By Mouth, Every 10 minutes, Stay on clear liquid diet ALL DAY the day BEFORE the procedure.Drink half the dose the evening before, and the other half early in the morning on the day of the procedure., # 4,000 mL, 0 Refills, Maintenance, 07/13/24 4:58:00 PM EST, REC Powder, [id number], Partial fill upon patient request if [...] tablet, 3 Refills, Maintenance, 01/11/16 10:16:56 AMEDT, [facility] [address] Start Date: 01/11/16 Status: Ordered Quantity: 60.0 Unit: tablet Repeat number: 4 Problem List Condition Confirmation Course Effective Dates Status Health St atus Informant Cellulitis Confirmed Active Social History Social History Type Response Smoking Status Never smoker; Tobacc o user in household: No entered on: 04/22/14 Sex Sex Representation Female (finding) Patient Care team information Care Team Personnel Name: Aden Stoner MD Position: [facility] Physician - Gastroenterology Member Role: Lifetime Consulting Physician Address: [address] [facility], [address] [facility] [place] [address]- Telecom: Name: Vaishnavi Morgan MD Position: [facility] Outreach Member Role: PCP Address: [address] [place] [address]- Telecom: Name: Gallito Woods RN Position: [facility] RN Member Role: Primary Care Nurse Care Team Related Persons Name: GABI ALBERTO Name: CATA HOOKER Name: MICHELLE ENGLE Name: MAGALI KISER Insurance Providers Guarantor name: [facility] Information #: 1 Payer: [email or web address] Member Number: NA Policy Number: NA Group Number: NA
--- OUTSIDE RECORDS SUMMARY | 2024-10-07 14:56 | XMS_ITS | Encounter Summary ---
Author Organization [employer] Address [address] [facility] [address] 7[address] [place] [address] Care Team Providers Care Channel Worker Name Role Phone Vaishnavi Morgan MD Primary Care Provider [phone] Encounter Details Date Type Department Care Team (Latest Contact Info) Description 09/22/2024 Travel Social History Tobacco Use Types Packs/Day Years [...] Info) Description 11/12/2024 9:00 AM EST Telemedicine [facility] MED & PEDS [address] [place] [address] Vaishnavi Morgan MD [address] [place] [address] documented as of this encounter Visit Diagnoses Not on filedocumented in this encounter Care Teams Channel Worker Relationship Specialty Start Date End Date Vaishnavi Morgan MD [address] [place] [address] PCP - General Internal Medicine 07/25/22 documented as of this encounter
--- OUTSIDE RECORDS SUMMARY | 2024-10-07 14:56 | XMS_ITS | Encounter Summary ---
Author Organization [employer] Address [address] [facility] 7 [place] [address] Care Team Providers Care Vessel Slagman Name Role Phone Vaishnavi Morgan MD Primary Care Provider [phone] Reason for Visit * Reason Onset Date Comments Appointment Request 09/29/2024 Encounter Details Date Type Department Care Team ([facility] st Contact Info) Description 09/29/2024 Telephone [facility] MEDICINE [address] [place] [address] Vaishnavi Morgan MD [address] [place], [place] [phone] Appointment Request Social History Tobacco Use Types Packs/Day Years [...] as of this encounter Miscellaneous Notes * Telephone Encounter - Maggy Contreras MA - 09/29/2024 10:17 AM EST Ok per PCP; appt was changed to telehealth.Informed pt. * Telephone Encounter - Tad Byrd - 09/29/2024 8:52 AM EST Tc from pt requesting call back to change today's follow up to a telephone visit. Pt states her legs are swollen and feels like she won't be able to make it in person. Please contact pt at [phone]. documented in this encounter Plan of Treatment Upcoming Encounters Date Type Department Care Team (Late st Contact Info) Description 11/12/2024 9:00 AM EST Telemedicine [facility] MED & PEDS [address] [place] [address] Vaishnavi Morgan MD [address] [place] [address] documented as of this encounter Visit Diagnoses Not on filedocumented in this encounter Additional Health Concerns Assessment Noted Time PHQ-9 Depression Total Score: 17 025 1:01 PM EST documented as of this encounter Care Teams Vessel Slagman Relationship Specialty Start Date End Date Vaishnavi Morgan MD [address] [place] [address] PCP - General Internal Medicine 07/25/22 documented as of this encounter
--- OUTSIDE RECORDS SUMMARY | 2024-10-07 14:56 | XMS_ITS | Encounter Summary ---
Author Organization [employer] Address [address] [facility] 7 [place] [address] Care Team Providers Care Flour Worker Name Role Phone Vaishnavi Morgan MD Primary Care Provider [phone] Reason for Visit * Reason Comments Med Change Request Encounter Details Date Type Department Care Team ([facility] Contact Info) Description 09/26/2024 Refill [facility] MEDICINE [address] [place], [place] [phone] Vaishnavi Morgan MD [address] [place] [address] Social History Tobacco Use Types Packs/Day Years [...] Info) Description 11/12/2024 9:00 AM EST Telemedicine [facility] MED & PEDS [address] [place] [address] Vaishnavi Morgan MD [address] [place] [address] documented as of this encounter Visit Diagnoses Not on filedocumented in this encounter Care Teams Flour Worker Relationship Specialty Start Date End Date Vaishnavi Morgan MD [address] [place] [address] PCP - General Internal Medicine 07/25/22 documented as of this encounter
--- OUTSIDE RECORDS SUMMARY | 2024-10-07 14:57 | XMS_ITS | Encounter Summary ---
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) Social [...] Description 11/12/2024 9:00 AM EST Telemedicine [facility] MED & PEDS [address] [place] [address] Vaishnavi Morgan MD [address] [place] [address] documented as of this encounter Visit Diagnoses Diagnosis MAYS (nonalcoholic steatohepatitis) Other chronic nonalcoholic liver disease 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
--- OUTSIDE RECORDS SUMMARY | 2024-10-07 14:57 | XMS_ITS | Encounter Summary ---
Author Organization [employer] Address [address] [facility] 7t [place] [address] Care Team Providers Care Pallet Rectifier Name Role Phone Vaishnavi Morgan MD Primary Care Provider [phone] Encounter Details Date Type Department Care Team (Latest Contact Info) Description 09/29/2024 Travel Social History Tobacco Use Types Packs/Day [...] Description 11/12/2024 9:00 AM EST Telemedicine [facility] MED & PEDS [address] [place] [address] Vaishnavi Morgan MD [address] [place] [address] documented as of this encounter Visit Diagnoses Not on filedocumented in this encounter Additional Health Concerns Assessment Noted Time PHQ-9 Depression Total Score: 17 025 1:01 PM EST documented as of this encounter Care Teams Pallet Rectifier Relationship Specialty Start Date End Date Vaishnavi Morgan MD [address] [place] [address] PCP - General Internal Medicine 07/25/22 documented as of this encounter
--- OUTSIDE RECORDS SUMMARY | 2024-10-07 14:57 | XMS_ITS | Encounter Summary ---
Author Organization [facility] Address [address] [place] [address] Care Team Providers Care Brand Advisor Name Role Phone Vaishnavi Morgan MD Primary Care Provider [phone] Encounter Details Date Type Department Care Team (Late st Contact Info) Description 08/13/2022 Telephone [facility] [place] [facility]: Oncology and Hematology [address] [place] [address] Aziza Quigley [address] [place] [address] Social History Tobacco Use Types Packs/Day Years Used Date Smoking Tobacco: Never Smokeless Tobacco: Never Alcohol Use Standard Drinks/Week Comments Never 0 (1 standard drink = 0.6 oz pur e alcohol) AUDIT-C Answer Date Recorded Q1: How often do you have a drink containing alcohol? Never 07/22/2022 Q2: How many drinks containi ng alcohol do you have on a typical day when you are drinking? Patient does not drink Q3: How often do you have si x or more drinks on one occasion? Never 07/22/2022 Sex and Gender Information Value Date Recorded Sex Assigned at Female 11/20/2022 2:26 AM EDT Gender Identity Female 11/20/2022 2:26 AM EDT Sexual Orientation Heterosexual (straight) 11/20 2:26 AM EDT COVID-19 Exposure Response Date Recorded In the last 10 days, have yo u been in contact with someone who was confirmed or suspected to have Coronavirus/COVID-19? No / Unsure 07/21/2022 10:55 PM EST documented as of this encounter Miscellaneous Notes * Telephone Encounter - Nicole Zamorano MA - 08/13/2022 3:43 PM EST Pt called and was told to check My Chart for message. * Telephone Encounter - Nicole Zamorano MA - 08/13/2022 2:54 PM EST Please advise. documented in this encounter Plan of Treatment Not on file documented as of this encounter Visit Diagnoses Not on filedocumented in this encounter Care Teams Brand Advisor Relationship Specialty Start Date End Date Vaishnavi Morgan MD [address] [place] [address] PCP - General General Medicine 08/10/22 documented as of this encounter
--- OUTSIDE RECORDS SUMMARY | 2024-10-07 14:57 | XMS_ITS | Clinical Summary ---
Author Organization [employer] Address [address] [facility] [address] [place] [address] Care Team Providers Care Public Information Officer Name Role Phone Vaishnavi Morgan MD Primary Care Provider [phone] Allergies Active Allergy Reactions Criticality Noted Date Comments Penicillins Unknown,Other Medium 03/05/2022 Stuff in head crawling Vancomycin Rash,Other Low 08/05/2013 Need benadryl with it Stuff in head crawling Medications Blood Pressure kitIndications :Transient elevated blood pressure To check your blood pressure daily 1 kit 11/14/19 23 Active pantoprazole (ProtoNix) 40 MG EC tablet TAKE ONE TABLET BY MOUTH TWICE DAILY 60 tablet 5 02/19/20 24 Active triamcinolone (Kenalog) 0.025 % ointmentIndica tions:Psoriasi s Apply topically 2 times daily. 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 80 g 11 08/11/20 24 Active midodrine (Proamatine) 5 MG tablet TAKE 1 TABLET BY MOUTH 3 TIMES DAILY. 270 tablet 1 09/29/19 25 Active hydrOXYzine pamoate (Vistaril) 25 MG capsuleIndicat ions:Adjustmen t insomnia Take 1 capsule (25 mg) by mouth if needed at bedtime for itching. 30 capsule 09/29/19 25 025 Active hydrOXYzine (Atarax) 10 MG/5ML syrupIndicatio ns:Primary insomnia Take 2.5 mL (5 mg) by mouth if needed at bedtime for itching or anxiety for up to 10 days. 240 mL 08/31/20 24 025 Discontinued(I neffective) midodrine (Proamatine) 5 MG tablet Take 1 tablet (5 mg) by mouth 3 times daily. 90 tablet 09/03/20 24 025 Discontinued ciprofloxacin (Cipro) 500 MG tabletIndicati ons:SBP (spontaneous bacterial peritonitis) (CMS/HCC) TAKE 1 TABLET (500 MG) BY MOUTH ONCE DAILY. FOR SBP PROPHYLAXIS 30 tablet 09/04/20 24 025 ondansetron (Zofran) 4 MG tabletIndicati ons:Adjustment insomnia Take 2 tablets (8 mg) by mouth every 8 (eight) hours if needed for nausea or vomiting for up to 7 days. 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 07/22/2022 Overview (11/13/2022): Cirrhosis Thrombocytopenia 07/22/2022 MAYS (nonalcoholic steatohepatitis) 05/08/2022 Secondary esophageal varices without bleeding Acute blood loss anemia 03/05/2022 Psoriasis 11/15/2010 Overview (11/13/2022): Psoriasis Encounters Date Type Department Care Team Description 10/07/2024 Orders Only GENERIC EXTERNAL DATA DEPARTMENT Provider, Generic External Data 09/29/2024 2:00 PM EST Telemedicine [facility] [address] [place] [address] Vaishnavi Morgan MD Adjustment insomnia (Primary Dx); 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) 09/29/2024 Travel 09/29/[address] [address] Vaishnavi Morgan MD Appointment Request 09/26/2024 Refill [facility] [address] [place] [address] Vaishnavi Morgan MD 09/22/2024 Travel 09/04/2024 Refill [facility] [address] [place] [address] Vaishnavi Morgan MD SBP (spontaneous bacterial peritonitis) (CMS/HCC) 09/03/2024 Refill [facility] [address] [place] [phone] Susie Jean Baptiste RN 08/31/2024 Orders Only [facility] [address] [place] [address] Vaishnavi Morgan MD Primary insomnia (Primary Dx) 08/11/2024 11:15 AM EST Office Visit [facility] [address] [place] [address] Vaishnavi Morgan MD Dry skin (Primary Dx); 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 Travel 08/10/2024 Orders Only [facility] [address] [place] [address] Vaishnavi Morgan MD Decompensation of cirrhosis of liver (CMS/HCC) (Primary Dx); MAYS (nonalcoholic steatohepatitis) 08/04/2024 Telephone [facility] [address] [place] [address] Vaishnavi Morgan MD No Show 08/03/2024 Orders Only GENERIC EXTERNAL DATA DEPARTMENT Provider, Generic External Data 07/31/2024 Travel 07/31/2024 Telephone [facility] [address] [place] [address] Vaishnavi Morgan MD Durable Medical Equipment 07/30/2024 10:00 AM EST Office Visit [facility] [address] [place] [address] Vaishnavi Morgan MD SBP (spontaneous bacterial peritonitis) (CMS/HCC) (Primary Dx); Screening mammogram for breast cancer; Vaginal bleeding; Hepatorenal syndrome (CMS/HCC); Other ascites; Chronic midline low back pain without sciatica 07/30/2024 Travel 07/23/2024 Orders Only [facility] [address] [place] [address] Viashnavi Morgan MD Spontaneous bacterial peritonitis (CMS/HCC) (Primary Dx); 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); Vaginal bleeding 07/23/[address] [address] Vaishnavi Morgan MD Medication Question 07/21/2024 Patient Outreach [facility] [address] [place] [address] Vaishnavi Morgan MD Transition Of Care (Tcm) (HDF- scheduled and SDOH screening completed on 11/28/2023) 07/21/2024 Telephone [facility] [address] [place] [address] Vaishnavi Morgan MD Hospital Follow-up 07/15/2024 Orders Only [facility] External Provider, [facility] 07/15/2024 Telephone [facility] [address] [place] [address] Vaishnavi Morgan MD No Show 07/14/[address] [address] Vaishnavi Morgan MD Nurse Triage 07/14/[address] [phone] Vaishnavi Morgan MD 07/14/2024 Telephone [facility] [address] [place] [address] Vaishnavi Morgan MD Referral 07/10/2024 Telephone [facility] [address] [place] [address] Vaishnavi Morgan MD Nurse Triage from Last 3 Months Immunizations Name Administration Dates Next Due Hep A / Hep B 03/05/2011,09/18/2010,08/17/2010 Hep B, adult 03/05/2011 Influenza injectable quadriv alent preservative free 06/15/2022,06/29/2021,07/06/2020 Influenza, IIV3, injectable 09/08/2013 Influenza, Unspecified 07/01/2023 MMR 02/07/1996 Tdap 01/29/2018,07/23/2012 Social History Tobacco Use Types Packs/Day Years Used Date Smoking Tobacco: Never Passive Smoke Exposure: Never Smokeless Tobacco: Never Tobacco Cessation:Counseling Given: Not Answered Depression Answer Date Recorded Patient Health Questionnaire-9 Score 17 09/29/2024 Patient Health Questionnaire-9 Score 17 09/29/2024 Last PHQ-9: Questionnaire Data Not on file 0 09/29/2024 Housing Stability Answer Date Recorded What is your housing situation today? I have sanjuana nishant 11/28/[address] you li [...] Orientation Straight 04/24/2024 4: 18 PM EDT Last Filed Vital Signs Vital Sign Reading Time Taken Comments Blood Pressure 112/61 08/11/2024 11:24 AM EST Pulse 90 08/11/2024 11:24 AM EST Temperature 36.1 ??C (96.9 ??F) 08/11/2024 11:[address] Respiratory Rate 12 08/11/2024 11:24 AM EST Oxygen Saturation 100% 08/11/2024 11:24 AM EST Inhaled Oxygen Concentration - - Weight 70.8 kg (156 lb) 08/11/2024 11:24 AM EST Height 165.1 cm (5' 5 ) 08/11/2024 11:24 AM EST Body Mass Index 25.96 08/11/2024 11:24 AM EST Plan of Treatment Upcoming Encounters Date Type Department Care Team (Late st Contact Info) Description 11/12/2024 9:00 AM EST Telemedicine [facility] [address] [place] [address] Vaishnavi Morgan MD [address] [place] [address] Health Maintenance Due Date Last Done Comments CT Colonography 1965 Colonoscopy 1965 Colorectal Cancer Screening 1965 FIT DNA/Cologuard 1967 FIT 1967 FOBT 1965 HIV Screening 1965 Sigmoidoscopy 1965 Hepatitis C Screening 12/20/1985 Pneumococcal Vaccine: 50+ Years (1 of 2 - PCV) 12/20/1986 Pap Smear 12/20/1988 Cervical Cancer Screening 12/20/1997 HPV/Cotest 12/20/1997 Zoster Vaccines (1 of 2) 12/20/2017 COVID-19 Vaccine ( - season) 2024 06/20/2022, 09/07/2021, 11/17/2020 Influenza Vaccine (#1) 2024 3, 06/15/2022, 06/29/2021, Additional history exists SDOH Screening 11/27/2024 11/28/2023 Depression Monitoring (PHQ-9) 03/29/2025 09/29/2024, 09/29/2024 Tobacco Screening 08/11/2025 08/11/2024 Alcohol/Substance Use Screening 09/29/2025 09/29/2024 Depression Screening 09/29/2025 09/29/2024, 09/29/19 25 Mammogram 08/20/2026 08/20/2024 DTaP/Tdap/Td Vaccines (3 - Td or Tdap) 01/30/2028 01/29/2018, 07/23/2012 RSV Patients and Patients Aged 60 years or older (1 - 1-dose 75+ series) 12/20/2042 Hepatitis A Vaccines Completed 03/05/2011, 09/18/2010, 08/17/2010 Hepatitis B Vaccines Completed 03/05/2011, 03/05/2011, 09/18/2010, Additional history exists HIB Vaccines Aged Out No longer eligi ble based on patient's age to complete this topic HPV Vaccines Aged Out No longer eligi ble based on patient's age to complete this topic IPV Vaccines Aged Out No longer eligi ble based on patient's age to complete this topic Meningococcal Vaccine Aged Out No chioma saige eligible based on patient's age to complete this topic RSV under 20 months Aged Out No longe r eligible based on patient's age to complete this topic Rotavirus Vaccines Aged Out No longer eligible based on patient's age to complete this topic Procedures Procedure Name Priority Date/Time Associated Diagnosis Comments URINALYSIS, COMPLETE Routine 10/07/2024 2:29 PM EST CELL COUNT W/DIFF PERITONEAL FLUID Routine 10/07/2024 1:40 PM EST LD Routine 10/07/2024 1:25 PM EST BI MAMMOGRAM SCREENING TOMOSYNTHESIS BILATERAL Routine 08/20/2024 1:10 PM EST Screening mammogram for breast cancer US PELVIS TRANSVAGINAL Routine 4:17 PM EST GLUCOSE PERITONEAL FLUID Routine 08/03/2024 10:26 PM EST LDH PERITONEAL FLUID Routine 08/03/2024 10:26 PM EST TOTAL PROTEIN PERITONEAL FLUID Routine 08/03/2024 10:26 PM EST CELL COUNT W/DIFF PERITONEAL FLUID Routine 08/03/2024 10:26 PM EST GRAM STAIN Routine 08/03/2024 10:26 PM EST OBSX1 Routine 08/03/2024 7:06 PM EST LIPASE Routine 08/03/2024 2:16 PM EST MAGNESIUM Routine 08/03/2024 2:16 PM EST COMPREHENSIVE METABOLIC PANEL Routine 08/03/2024 2:16 PM EST APTT Routine 08/03/2024 2:16 PM EST PROTHROMBIN TIME-INR Routine 08/03/2024 2:16 PM EST CBC WITH AUTO DIFFERENTIAL Routine 08/03/2024 2:16 PM EST US GUIDED ABDOMINAL PARACENTESIS Routine 07/16/2024 8:30 AM EST from Last 3 Months Results * (ABNORMAL) Urinalysis Complete (10/07/2024 2:29 PM EST) Color Urine Dark Yellow [facility] Appearance Urine Clear [facility] PH 5.5 5.0 - 9.0 [facility] Glucose Urine UA Negative Negative mg/dL [facility] Urine Blood Trace(A) Negative [facility] Specific [place] - Urine 1.020 1.005 - 1.025 [facility] Urine Protein Negative Neg-Trace mg/dL [facility] Urine Ketones Negative Negative mg/dL [facility] Nitrite Urine Negative Negative [facility] Leukocyte Esterase Urine Trace(A) Negative [facility] RBC Urine 3-5(A) 0 - 2 /HPF [facility] Urine WBC 0-5 0 - 5 /HPF [facility] Urine Squamous Epithelial Cell 0-2 0 - 2 /HPF [facility] Urine Bacteria None Seen None Seen [facility] Hyaline Casts, Urine 0-2 0 - 2 /LPF [facility] 10/07/2024 2:29 PM EST 10/07/2024 2:34 PM EST us Generic External Data Provider LAB URINE ORDERAB LES Final Result Performing Organization Address [facility] Co de Phone Number [facility] [address] [place] [phone] * Lactate Dehydrogenase (LD) (10/07/2024 1:25 PM EST) Lactate Dehydrogenase 157 122 - 220 U/L [facility] 10/07/2024 1:25 PM EST 10/07/2024 1:30 PM EST us Generic External Data Provider LAB BLOOD ORDERAB LES Final Result Performing Organization Address [facility] de Phone Number [facility] [address] [place] [phone] * BI Mammogram Screening Tomosynthesis Bilateral (08/20/2024 1:10 PM EST) Anatomical Region Laterality Modality Breast Bilateral Mammography 08/20/2024 1:10 PM EST Narrative 08/27/2024 2:35 PM EST ? [facility] [place] ? [address] ?[place] [address] ? Mammography Report ? Signed ? Patient: Canela,Amalia ?MR#: [id number] ?? [id number] ? : 1965 ?Acct:[id number] ? Age/Sex: 58 / F ?ADM Date: 12/12/24 ? Loc: HO.MAMMO ? Attending Dr: Vaishnavi Morgan MD ? Ordering Physician: Vaishnavi Morgan MD ?Results: 1 ?? Negative ? Date of Service: 08/20/24 ?Follow Up: 1 Year From Orig ?? inal Mammogram ? Procedure(s): MM tomosynthesis screening BI ?? Accession Number(s): [id number] ? cc: Vaishnavi Morgan MD ? EXAMINATION: ?? MM SCREENING DIGITAL BREAST TOMOSYNTHESIS, BILATERAL ? CLINICAL INFORMATION: ? Screening. Asymptomatic. ? COMPARISON: ?? Mammography: Comparison is made with available priors ? TECHNIQUE: ?? Digital breast mammography with tomosynthesis is performed in both the ?? craniocaudal and mediolateral oblique views along with computer-aided ?? detection (CAD). ? FINDINGS: ?? There are scattered areas of fibroglandular density (ACR BI-RADS breast ?? composition Category b). ? There are no significant masses, abnormal calcifications, or other ?? abnormalities. ? MM/MM tomosynthesis screening BI ?? IMPRESSION: ?? No mammographic evidence of malignancy. ? ASSESSMENT: ? BI-RADS BI-RADS 1 - Negative ? RECOMMENDATION: ?? Routine annual mammography screening. ? 1 year F/U ? This examination should not preclude the clinical evaluation of a ?? suspicious palpable abnormality. ? This patient's information was entered into a reminder system with a ?? target due date for their next mammogram. ? Electronically signed by: ??Rubi Garcia DO ??08/27/2024 02:32 PM EST ?? RP ? Dictated By: ?Rubi Garcia DO ? Signed By: ?<Electronically signed by Rubi Garcia, DO in OV> ? 08/27/24 1432 ? DD/ 1310 ? TD/TT: 08/20/24 1330 ? Upholstery Cleaner: ? Procedure Note Donhollisinterpreter, Image - 08/27/2024 [facility] [address] [place] [address] Mammography Report Signed Patient: Teresa Canela TMR#: [id number] : 1965Acct:[id number] Age/Sex: 58 / FADM Date: 08/20/24 Loc: HO.MAMMO Attending Dr: Vaishnavi Morgan MD Ordering Physician: Vaishnavi Morgan MDResults: 1 Negative Date of Service: 08/20/24Follow Up: 1 Year From Orig inal Mammogram Procedure(s): MM tomosynthesis screening BI Accession Number(s): [id number] cc: Vaishnavi Morgan MD EXAMINATION: MM SCREENING DIGITAL BREAST TOMOSYNTHESIS, BILATERAL CLINICAL INFORMATION: Screening. Asymptomatic. COMPARISON: Mammography: Comparison is made with available priors TECHNIQUE: Digital breast mammography with tomosynthesis is performed in both the craniocaudal and mediolateral oblique views along with computer-aided detection (CAD). FINDINGS: There are scattered areas of fibroglandular density (ACR BI-RADS breast composition Category b). There are no significant masses, abnormal calcifications, or other abnormalities. MM/MM tomosynthesis screening BI IMPRESSION: No mammographic evidence of malignancy. ASSESSMENT: BI-RADS BI-RADS 1 - Negative RECOMMENDATION: Routine annual mammography screening. 1 year F/U This examination should not preclude the clinical evaluation of a suspicious palpable abnormality. This patient's information was entered into a reminder system with a target due date for their next mammogram. Electronically signed by: Rubi Garcia DO 08/27/2024 02:32 PM EST RP Dictated By: Rubi Garcia DO Signed By: <Electronically signed by Rubi Garcia DO in OV> 08/27/24 1432 DD/ 1310 TD/TT: 08/20/24 1330 Upholstery Cleaner: us Vaishnavi Morgan MD IMG BI PROCEDURES Final Res ult * US Pelvis Transvaginal (08/11/2024 4:17 PM EST) Anatomical Region Laterality Modality Pelvis Ultrasound 08/11/2024 4:17 PM EST Narrative 08/24/2024 9:18 AM EST ? [facility] ?[address] ?[place] [address] ? Ultrasound Report ? Signed ? Patient: Canela,Amalia ?MR#: [id number] ?? [id number] ? : 1965 ?Acct:[id number] ? Age/Sex: 58 / F ?ADM Date: 08/11/24 ? Loc: HO.US ? Attending Dr: Vaishnavi Morgan MD ? Ordering Physician: Vaishnavi Morgan MD ?? Date of Service: 08/11/24 ?? Procedure(s): US pelvic and transvaginal ?? Accession Number(s): [id number] ? cc: Vaishnavi Morgan MD ? EXAMINATION: [...] Exam submitted for review 08/24/2024 8:11 AM FORENSIC NURSE. ? FINDINGS: ?? UTERUS: ?? The uterus [...] ? Signed By: ?<Electronically signed by Carlton Caal MD in OV> ?08/24/24 0915 ? DD/ 1617 ? TD/TT: 08/11/24 1630 ? Upholstery Cleaner: ? Procedure Note Manuelmaxisvenjacinto, Image - 08/24/2024 [place] [address] Ultrasound Report Signed Patient: Teresa Canela TMR#: [id number] : 1965Acct:[id number] Age/Sex: 58 / FADM Date: 08/11/24 Loc: HO.US Attending Dr: Vaishnavi Morgan MD Ordering Physician: Vaishnavi Morgan MD Date of Service: 08/11/24 Procedure(s): US pelvic and transvaginal Accession Number(s): [id number] cc: Vaishnavi Morgan MD EXAMINATION: US PELVIS CLINICAL INFORMATION: Postmenopausal bleeding. COMPARISON: No prior ultrasound. CT of pelvis 03/04/2022. TECHNIQUE: Ultrasound of the pelvis is performed using both transabdominal and transvaginal transducers along with Doppler. Transvaginal imaging is performed due to inadequate visualization transabdominally. Exam submitted for review 08/24/2024 8:11 AM FORENSIC NURSE. FINDINGS: UTERUS: The uterus is anteverted and [...] by: Carlton Caal MD 08/24/2024 09:15 AM EST Dictated By: Carlton Caal MD Signed By: <Electronically signed by Carlton Caal MD in OV> 08/24/24 0915 DD/ 1617 TD/TT: 08/11/24 1630 Upholstery Cleaner: us Vaishnavi Morgan MD IM US PROCEDURES Edited Re sult - Final * Glucose Peritoneal Fluid (08/03/2024 10:26 PM EST) Glucose, Peritoneal Fluid 89 [facility] Comment:UNITS: MG/DLThe refe rence range and other method performancespecifications have not been established for this bodyfluid. The test result must be integrated into the clinicalcontext for interpretation.Performing Labs: [facility], [address] [place] [address], [place] [address] Dir: Jt Morales MD CLIA# [id number] For inquiries, the physician may contact Branch: [phone] Lab: [phone] 08/03/2024 10:2 6 PM EST 08/03/2024 10:32 PM EST Generic External Data Provider LAB BODY FLUIDS A ND STOOLS ORDERABLES Final Result Performing Organization Address [facility] Co de Phone Number [facility] [address] [place] [phone] * Total Protein Peritoneal Fluid (08/03/2024 10:26 PM EST) Protein, Total, Peritoneal Fluid 2.3 [facility] Comment:UNITS: GM/DLThe refe rence range and other method performancespecifications have not been established for this bodyfluid. The test result must be integrated into the clinicalcontext for interpretation.Performing Labs: [facility], [address] [place] [id number] Dir: Jt Morales MD CLIA# [id number] For inquiries, the physician may contact Branch: [phone] Lab: [phone] 08/03/2024 10:2 6 PM EST 08/03/2024 10:32 PM EST [employer]oo External Data Provider LAB BODY FLUIDS A ND STOOLS ORDERABLES Final Result Performing Organization Address [facility] Co de Phone Number [facility] [address] [place] [phone] * Cell Count w/Diff, Peritoneal Fluid (08/03/2024 10:26 PM EST) WBC Peritoneal Fluid 0.177 X10*3/uL [facility] Comment:Body Fluid WBC is a total nucleated cell count.When a differential is performed, the specimen isconcentrated by cytocentrifugation. This sometimes resultsin the number of cells in the differential being greaterthan the actual cell count performed on thenon-concentrated specimen. RBC Peritoneal Fluid 0.011 X10*6/uL [facility] Comment:The reference interv al(s) and other method performancespecifications are unavailable for this body fluid.Comparison of the result with concentration in the blood,serum, or plasma is recommended. Neutrophils Peritoneal Fluid 2 % [facility] Lymphocyte Peritoneal Fluid 57 % [facility] Monocytes Peritoneal Fluid 7 % [facility] Other Peritioneal Fluid 34 % [facility] 08/03/2024 10:2 6 PM EST 08/03/2024 10:32 PM EST us Generic External Data Provider LAB BODY FLUIDS A ND STOOLS ORDERABLES Final Result Performing Organization Address [facility] de Phone Number [facility] [address] [place] [phone] * LDH Peritoneal Fluid (08/03/2024 10:26 PM EST) LDH Peritoneal Fluid 55 [facility] Comment:UNITS: U LThe refere nce range and other method performancespecifications have not been established for this bodyfluid. The test result must be integrated into the clinicalcontext for interpretation.Performing Labs: [facility], [address] [place] [id number] Dir: Jt Morales MD CLIA# [id number] For inquiries, the physician may contact Branch: [phone] Lab: [phone] 08/03/2024 10:2 6 PM EST 08/03/2024 10:32 PM EST us Generic External Data Provider LAB BODY FLUIDS A ND STOOLS ORDERABLES Final Result Performing Organization Address [facility] Co de Phone Number [facility] [address] [place] [phone] * Gram stain (08/03/2024 10:26 PM EST) 08/03/2024 10:2 6 PM EST 08/03/2024 10:32 PM EST Comment:Abdom Fld Narrative [facility] - 08/08/2024 11:07 AM EST Gram stain results: 1+ polys 3+ red blood cells No organisms seen Routine Culture No growth after 2 days Anaerobic Culture NO GROWTH AFTER 5 DAYS Specimen Source: Abdominal Fluid us Generic External Data Provider LAB MICROBIOLOGY - GENERAL ORDERABLES Final Result Performing Organization Address [facility]/ZIP Co de Phone Number [facility] [address] [place] [phone] * OBSX1 (08/03/2024 7:06 PM EST) [facility] OBS1 NEGATIVE NEGATIVE [facility] 08/03/2024 7:06 PM EST 08/03/2024 7:09 PM EST us Generic External Data Provider LAB BLOOD ORDERAB LES Final Result Performing Organization Address [facility] de Phone Number [facility] [address] [place] [phone] * (ABNORMAL) CBC auto differential (08/03/2024 2:16 PM EST) [facility] White Blood Count 4.8 4.8 - 10.8 X10*3/uL [facility] Red Blood Count 2.45(L) 4.20 - 5.50 X10*6/uL [facility] Hemoglobin 8.6(L) 12.0 - 16.0 g/dl [facility] Hematocrit 23.9(L) 37.0 - 47.0 % [facility] Mean Corpuscular Volume 97.6 80.0 - 98.0 fL [facility] Mean Corpuscular Hemoglobin 35.1(H) 27.0 - 33.0 pg [facility] Mean Corpuscular HGB Conc 36.0(H) 31.0 - 35.0 g/dl [facility] Red Cell Distribution Width 15.9 11.0 - 16.0 % [facility] Platelet Count 89(L) 160 - 400 X10*3/uL [facility] Mean Platelet Volume 8.6(L) 9.4 - 12.3 fL [facility] Neutrophils Percent Auto 72.9 45 - 73 % [facility] LABS Imm Gran Pct Auto 0.4 0.0 - 0.4 % [facility] Lymphocytes Percent Auto 12.0(L) 20 - 40 % [facility] Monocytes Percent Auto 11.2(H) 2 - 11 % [facility] Eosinophils Percent Auto 2.9 0 - 4 % [facility] Basophils Percent Auto 0.6 0 - 2 % [facility] NRBC Pct Auto 0.0 0.0 - 0.2 /100WBC [facility] Neutrophils Absolute Auto 3.5 2.0 - 8.3 x10*3/uL [facility] Imm Gran Abs Auto 0.02 0.00 - 0.03 X10*3/uL [facility] Lymphocytes Absolute Auto 0.6(L) 1.2 - 4.9 X10*3/uL [facility] Monocytes Absolute Auto 0.5 0.1 - 1.2 X10*3/uL [facility] Eosinophils Absolute Auto 0.1 0.0 - 0.4 X10*3/uL [facility] Basophils Absolute Auto 0.0 0.0 - 0.2 X10*3/uL [facility] NRBC Abs Auto 0.000 0.0 - 0.012 X10*3/uL [facility] 08/03/2024 2:16 PM EST 08/03/2024 2:20 PM EST us Generic External Data Provider LAB BLOOD ORDERAB LES Final Result [facility] [address] [place] [phone] * (ABNORMAL) Partial Thromboplastin Time, Activated (APTT) (08/03/2024 2:16 PM EST) Partial Thromboplastin Time 52.7(H) 26.0 - 36.8 SEC [facility] Comment:For information rega rding the monitoring of direct thrombininhibitors, please refer to Pharmacy. 08/03/2024 2:16 PM EST 08/03/2024 2:20 PM EST us Generic External Data Provider LAB BLOOD ORDERAB LES Final Result Performing Organization Address [facility] Co de Phone Number [facility] [address] [place] [phone] * (ABNORMAL) Prothrombin Time-INR (08/03/2024 2:16 PM EST) Prothrombin Time 30.4(H) 10.9 - 12.4 SEC [facility] INTERNATIONAL NORM RATIO 2.6(H) 0.9 - 1.1 [facility] Comment:INTERNATIONAL NORMAL IZED RATIO (INR) REFERENCE RANGES Reference RangeFor patients not on anticoagulant therapy: 0.9 - 1.1INR ranges for oral anticoagulanttherapy:For prevention and treatment of venous thrombosis and pulmonary embolism: 2.0 - 3.0For acute myocardial infarction with aspirin therapy: 2.0 - 3.0For acute myocardial infarction without aspirin therapy: 3.0 - 4.0For patients with mechanical prosthetic heart valves: 2.5 - 3.5 08/03/2024 2:16 PM EST 08/03/2024 2:20 PM EST us Generic External Data Provider LAB BLOOD ORDERAB LES Final Result Performing Organization Address [facility] Co de Phone Number [facility] [address] [place] [phone] * Magnesium (08/03/2024 2:16 PM EST) Magnesium 2.5 1.6 - 2.6 mg/dL [facility] 08/03/2024 2:16 PM EST 08/03/2024 2:20 PM EST Generic External Data Provider LAB BLOOD ORDERAB LES Final Result Performing Organization Address [facility]/ZIP Co de Phone Number [facility] [address] [place] [phone] * Lipase (08/03/2024 2:16 PM EST) Lipase 78 8 - 78 U/L [facility] 08/03/2024 2:16 PM EST 08/03/2024 2:20 PM EST us Generic External Data Provider LAB BLOOD ORDERAB LES Final Result Performing Organization Address [facility]/ZIP Co de Phone Number [facility] [address] [place] [phone] [phone] * (ABNORMAL) Comprehensive Metabolic Panel (08/03/2024 2:16 PM EST) Sodium 129(L) 135 - 145 mmol/L [facility] Potassium 4.1 3.3 - 5.1 mmol/L [facility] Chloride 96 96 - 108 mmol/L [facility] Carbon Dioxide 20(L) 22 - 29 mmol/L [facility] Anion Gap 17 12 - 20 [facility] Urea Nitrogen (BUN) 64(H) 9 - 16 mg/dL [facility] Creatinine, Serum 2.29(H) 0.5 - 1.4 mg/dL [facility] Creatinine Clr Calc Pharmacy 27.5 [facility] Comment:Provided height and weight: 165.1 cm,73.2 kg.eGFR (calculated from the MDRD study equation) and eCrCl(calculated from the Cockcroft-Gault equation) are based ondifferent parameters and may not yield comparable results.If eCrCl result is absurd, please check patient'sheight/weight. Estimated Glomerular Filt Rate 22 [facility] Comment:Chronic Kidney Disea se: Estimated GFR < 60 mL/min/1.35h4Iusqtv Kidney Disease: Estimated GFR < 15 mL/min/1.73m2 Glucose 95 60 - 115 mg/dL [facility] Calcium 9.2 8.4 - 10.2 mg/dL [facility] Bilirubin, Total 11.4(H) 0.0 - 1.0 mg/dL [facility] Comment:Moderate Icterus. Aspartate Amino Transferase 66(H) 5 - 31 U/L [facility] Alanine Aminotransferase 20 0 - 31 U/L [facility] Total Protein 7.4 6.5 - 8.0 g/dL [facility] Albumin Level 3.1(L) 3.5 - 5.0 g/dL [facility] Alkaline Phosphatase 93 39 - 117 U/L [facility] 08/03/2024 2:16 PM EST 08/03/2024 2:20 PM EST us Generic External Data Provider LAB BLOOD ORDERAB LES Final Result [facility] [address] [place] [phone] * US guided abdominal paracentesis (07/16/2024 8:30 AM EST) Anatomical Region Laterality Modality Abdomen Ultrasound 07/16/2024 8:30 AM EST Narrative 07/21/2024 11:13 AM EST ? [facility] ?[address] ?[place] [address] ? Ultrasound Report ? Signed ? Patient: Rola,Amalia ?MR#: [id number] ?? [id number] ? : 1965 ?Acct:[id number] ? Age/Sex: 58 / F ?ADM Date: 07/15/24 ? Loc: HO.S3 ?357-1 ? Attending Dr: Michelle Chavez MD ? Ordering Physician: Mari Cotto PA-C ?? Date of Service: 07/16/24 ?? Procedure(s): US paracentesis abd w/image ?? Accession Number(s): [id number] ? cc: Vaishnavi Morgan MD; Mari Cotto PA-C ? ULTRASOUND GUIDED PARACENTESIS ? HISTORY: Ascites. Therapeutic. ? TECHNIQUE: ?? Risks and benefits and possible complications were discussed with the ?? patient and consent form was signed. A safe pocket of ascitic fluid was ?? identified using ultrasound guidance, and the overlying skin ??was ?? marked. The abdomen prepped and draped in sterile fashion. 1% lidocaine ?? was used as a local anesthetic. Using ultrasound guidance, a 5 fr ?? catheter was placed into the ascitic pocket. 3.3 liters of yellow fluid ?? was removed passively. The catheter was then removed. ? A few artist's representative images from before and after the examination were ?? obtained. ? The procedure was performed by Lázaro Wen PA-C and supervised by ?? Ten. ? US/US paracentesis abd w/image ?? IMPRESSION: Ultrasound-guided paracentesis as described above. ? No immediate complications ? Electronically signed by: ??Carlton Caal MD ??07/21/2024 11:09 AM EST RP ? Dictated By: ?Lázaro Wen ? Signed By: ?<Electronically signed by Lázaro Wen in OV> ? 07/21/24 1109 ?<Electronically signed by Carlton Caal MD in OV> ? 07/21/24 1112 ? DD/ 0830 ? TD/TT: 07/16/24 0917 ? Upholstery Cleaner: ? Procedure Note Kim Miller - 07/21/2024 [place] [address] Ultrasound Report Signed Patient: Teresa Canela TMR#: [id number] : 1965Acct:[id number] Age/Sex: 58 / FADM Date: 07/15/24 Loc: .S3 357-[address]: Michelle Chavez MD Ordering Physician: Mari Cotto PA-C Date of Service: 07/16/24 Procedure(s): US paracentesis abd w/image Accession Number(s): [id number] cc: Vaishnavi Morgan MD; Mari Cotto PA-C ULTRASOUND GUIDED PARACENTESIS HISTORY: Ascites. Therapeutic. TECHNIQUE: Risks and benefits and possible complications were discussed with the patient and consent form was signed. A safe pocket of ascitic fluid was identified using ultrasound guidance, and the overlying skin was marked. The abdomen prepped and draped in sterile fashion. 1% lidocaine was used as a local anesthetic. Using ultrasound guidance, a 5 fr catheter was placed into the ascitic pocket. 3.3 liters of yellow fluid was removed passively. The catheter was then removed. A few artist's representative images from before and after the examination were obtained. The procedure was performed by Lázaro Wen PA-C and supervised by Dr. Caal. US/US paracentesis abd w/image IMPRESSION: Ultrasound-guided paracentesis as described above. No immediate complications Electronically signed by: Carlton Caal MD 07/21/2024 11:09 AM [facility] Dictated By: Lázaro Wen Signed By: <Electronically signed by Láazro Wen in OV> 07/21/24 1109 <Electronically signed by Carlton Caal MD in OV> 07/21/24 1112 DD/ 9 TD/TT: 07/16/24 0917 Upholstery Cleaner: us [facility] External Provider IMG US PROCEDURES Final Result from Last 3 Months Insurance [facility] C3 Advance Directives Documents on File Type Date Recorded Patient Furniture Finisher Helper Expl anation Advance Directives and Tomy wayne Will 06/04/2024 8:41 AM HCP Care Teams Public Information Officer Relationship Specialty Start Date End Date Vaishnavi Morgan MD [address] [place] [phone] PCP - General Internal Medicine 07/25/22
--- OUTSIDE RECORDS SUMMARY | 2024-10-07 14:57 | XMS_ITS | Encounter Summary ---
Author Organization [employer] Address [address] [facility] 7t [place] [address] Care Team Providers Care Voip Technician Name Role Phone Vaishnavi Morgan MD Primary Care Provider [phone] Encounter Details Date Type Department Care Team (Late st Contact Info) Description 07/14/2024 Telephone [facility] MEDICINE [address] [place] [address] Vaishnavi Morgan MD [address] [place], [place] [phone] Social History Tobacco Use Types Packs/Day Years [...] Info) Description 11/12/2024 9:00 AM EST Telemedicine [facility] MED & PEDS [address] [place] [address] Vaishnavi Morgan MD [address] [place] [address] documented as of this encounter Visit Diagnoses Not on filedocumented in this encounter Care Teams Voip Technician Relationship Specialty Start Date End Date Vaishnavi Morgan MD [address] [place] [address] PCP - General Internal Medicine 07/25/22 [facility] 06/25/24 07/22/24 documented as of this encounter
--- OUTSIDE RECORDS SUMMARY | 2024-10-07 14:57 | XMS_ITS | Continuity of Care Document ---
Author Organization [facility] Address [address] [place] [address]- Care Team Providers Care Drawing In Machine Tender Name Role Phone Eddie MATTHEWS, Vaishnavi Primary Care Physician [phone] [id number] Date(s): 08/24/24 - 09/23/24 [facility] [address] [place] [address]- Encounter Type: Triage Allergies, Adverse Reactions, Alerts [...] tablet Repeat number: 1 PEG-3350 with Electrolytes Lemon-Winnebago (Eqv-NuLYTELY) oral powder for reconstitution 240 mL, [...] tablet, 3 Refills, Maintenance, 01/11/16 10:16:56 AMEDT, [facility] [address] Start Date: 01/11/16 Status: Ordered Quantity: 60.0 Unit: tablet Repeat number: 4 Problem List Condition Confirmation Course Effective Dates Status Health St atus Informant Cellulitis Confirmed Active Social History Social History Type Response Smoking Status Never smoker; Tobacc o user in household: No entered on: 04/22/14 Sex Sex Representation Female (finding) Patient Care team information Care Team Personnel Name: Aden Stoner MD Position: [facility] Physician - Gastroenterology Member Role: Lifetime Consulting Physician Address: [address] [facility], [address] [facility] [place] [address]- Telecom: Name: Vaishnavi Morgan MD Position: [facility] Outreach Member Role: PCP Address: [address] [place] [address]- Telecom: Name: Gallito Woods RN Position: [facility] RN Member Role: Primary Care Nurse Care Team Related Persons Name: GABI ALBERTO Name: CATA HOOKER Name: MICHELLE ENGLE Name: MAGALI KISER Insurance Providers Guarantor name: [facility] Plan Information #: 1 [facility] Member Number: NA Policy Number: NA Group Number: NA
--- OUTSIDE RECORDS SUMMARY | 2024-10-07 14:57 | XMS_ITS | Encounter Summary ---
Author Organization [employer] Address [address] [facility] 7 [place] [address] Care Team Providers Care Child Care Attendant Name Role Phone Vaishnavi Morgan MD Primary Care Provider [phone] Reason for Visit * Reason Onset Date Comments Hospital Follow-up 01/01/2024 Encounter Details Date Type Department Care Team ([facility] st Contact Info) Description 01/01/2024 Telephone [facility] MEDICINE [address] [place] [address] Vaishnavi Morgan MD [address] [place], [place] [phone] Hospital Follow-up Social History Tobacco Use Types Packs/Day Years Used Date Smoking Tobacco: Never Smokeless Tobacco: Never Housing Stability Answer [...] encounter Miscellaneous Notes * Telephone Encounter - Michaela Matamoros RN - 01/06/2024 11:30 AM EDT No last minute cancellations at this time. * Telephone Encounter - Aga Armenta RN - 01/01/2024 10:14 AM EDT Triage call to Pt. Pt is not in any distress at time of call. Pt is asking if possible to be seen earlier for HDF with PCP Dr. Morgan. Pt is scheduled at this time for 1000am apt with PCP 01/09/24. Advised Pt will forward this request to [facility] nursing team if any cancelations occur before then. Pt agreed with this plan and disposition. Protocol Used: Information Only Call - No Triage (Adult) Protocol-Based Disposition: Home Care Positive Triage Question: * General information question, no triage required and triager able to answer question * All higher-acuity triage questions were negative Care Advice Discussed: * Reasons To Call Back - New symptoms develop - You have more questions - You become worse * Telephone Encounter - Marcelle Holland - 01/01/2024 9:00 AM EDT Tc from pt requesting a HDF appt. Hospital: Date of admission: 12/27 Discharge date: 12/29 Diagnosed: The patient refused to share the diagnosis. documented in this encounter Plan of Treatment Upcoming Encounters Date Type Department Care Team (Late st Contact Info) Description 11/12/2024 9:00 AM EST Telemedicine [facility] MED & PEDS [address] [place] [address] Vaishnavi Morgan MD [address] [place] [address] documented as of this encounter Visit Diagnoses Not on filedocumented in this encounter Care Teams Child Care Attendant Relationship Specialty Start Date End Date Vaishnavi Morgan MD [address] [place] [address] PCP - General Internal Medicine 07/25/22 [facility] 06/25/24 07/22/24 documented as of this encounter
--- OUTSIDE RECORDS SUMMARY | 2024-10-07 14:57 | XMS_ITS | Encounter Summary ---
Author Organization [employer] Address [address] [facility] 7 [place] [address] Care Team Providers Care Special Forces Specialist Name Role Phone Vaishnavi Morgan MD Primary Care Provider [phone] Reason for Visit * Reason Onset Date Comments Nurse Triage 07/10/2024 Encounter Details Date Type Department Care Team ([facility] st Contact Info) Description 07/10/[address] [facility] MEDICINE [address] [place] [address] Vaishnavi Morgan MD [address] [place], [place] [phone] Nurse Triage Social History Tobacco Use Types Packs/Day Years [...] encounter Miscellaneous Notes * Telephone Encounter - Vaishnavi Morgan MD - 07/10/2024 4:49 PM EDT Please schedule a DERM clinic appointment at [facility] for Ms Teresa Canela * Telephone Encounter - Mariel Castellanos RN - 07/10/2024 2:49 PM EDT Called pt. She states that she has discussed a Derm referral with PCP in past and her Psoriasis is getting much worse. Pt. Has been using Triamcinolone cream but, it is not holding her under control.Pt. Is enquiring if Derm referral has been put in because insurance states pt. Has to have Psoriasis under control prior to being put on a transplant list. I see that a referral was initiated in 04/[address] [facility] Derm but pt. Has not heard anything and she is stating she [facility] I don't know what your thoughts are but pt. Says I need my Psoriasis under control priorto my appt in [place] in September 2024 [facility]. Please advise. Pt also states I worked at [facility] for 24 years and I do not want to go to the [facility] as I do not feel comfortable. I do not see any upcoming scheduled Derm appt. For pt. * Telephone Encounter - Jack Michel - 07/10/2024 2:43 PM EDT Symptom: Rash or Redness - Widespread Outcome: Talk to a nurse or provider within 15 minutes Reason: Dark blood red spots (not pink) The caller accepted this outcome. Please contact at [phone] Kyrgyz documented in this encounter Plan of Treatment Upcoming Encounters Date Type Department Care Team ([facility] st Contact Info) Description 11/12/2024 9:00 AM EST Telemedicine [facility] MED & PEDS [address] [place] [address] Vaishnavi Morgan MD [address] [place] [address] documented as of this encounter Visit Diagnoses Not on filedocumented in this encounter Care Teams Special Forces Specialist Relationship Specialty Start Date End Date Vaishnavi Morgan MD [address] [place] [address] PCP - General Internal Medicine 07/25/22 [facility] 06/25/24 07/22/24 documented as of this encounter
--- OUTSIDE RECORDS SUMMARY | 2024-10-07 14:57 | XMS_ITS | Encounter Summary ---
Author Organization [employer] Address [address] [place] [address] Care Team Providers Care Marketing Outreach Coordinator Name Role Phone Vaishnavi Morgan MD Primary Care Provider [phone] Reason for Visit * Reason Onset Date Comments requesting call back 09/07/2022 Encounter Details Date Type Department Care Team ([facility] st Contact Info) Description 09/07/2022 Telephone [facility] MEDICINE [address] [place] [address] Vaishnavi Morgan MD [address] [place] [phone] requesting call back Social History Tobacco Use Types Packs/Day Years Used Date Smoking Tobacco: Never Assessed Comments Unknown Sex and Gender Information Value Date Recorded Sex Assigned at Female 07/09/2022 10:15 AM EDT Legal Sex Female 10:15 AM EDT Gender Identity Female 07/09/2022 10:15 AM EDT Sexual Orientation Straight 04/24/2024 4: 18 PM EDT documented as of this encounter Miscellaneous Notes * Telephone Encounter - Vaishnavi Morgan MD - 09/12/2022 2:49 PM EST FYI. Pt was called. Doing well. Receiving IV antibiotics for her Cellulitis ( Reports she has been dealing w/ this for years- NO identified cause of the reoccurrence of the cellulitis.) The address of [facility] was communicated for pt to attempt to get an evaluation there to consider liver transplant. * Telephone Encounter - Mari Wills RN - 09/12/2022 9:35 AM EST Return call placed to Elle for [facility] who will like to inform PCP that pt is admitted into custodial for IV ABT. States pt is on ABT for cellulitis of the abdominal wall. Clifford states pt is being followed by ID from their end. Elle will like to know if PCP will sign on orders for VNA services. * Telephone Encounter - Mari Wills RN - 09/11/2022 3:38 PM EST Tc from [facility] requesting a call regarding pt coming home today 09/07/22 with IV Please contact pretty BATES at [phone] Return call placed to Pretty in regards to above message, no answer. LVM to return call to [facility] nurses * Telephone Encounter - Gallito Nguyễn - 09/07/2022 9:32 AM EST Tc from [facility] requesting a call regarding pt coming home today 09/07/22 with IV Please contact pretty BATES at [phone] documented in this encounter Plan of Treatment Upcoming Encounters Date Type Department Care Team (Late st Contact Info) Description 11/12/2024 9:00 AM EST Telemedicine [facility] MED & PEDS [address] [place] [address] Vaishnavi Morgan MD [address] [place] [address] documented as of this encounter Visit Diagnoses Not on filedocumented in this encounter Care Teams Marketing Outreach Coordinator Relationship Specialty Start Date End Date Vaishnavi Morgan MD [address] [place] [address] PCP - General Internal Medicine 07/25/22 [facility] 06/25/24 07/22/24 documented as of this encounter
--- OUTSIDE RECORDS SUMMARY | 2024-10-07 14:57 | XMS_ITS | Encounter Summary ---
Author Organization [employer] Address [address] [facility] 7 [place] [address] Care Team Providers Care Gas Refrigerator Servicer Name Role Phone Vaishnavi Morgan MD Primary Care Provider [phone] Reason for Visit * Reason Comments Med Change Request Encounter Details Date Type Department Care Team ([facility] Contact Info) Description 04/28/2024 Refill [facility] MED & PEDS [address] [place], [place] [phone] Vaishnavi Morgan MD [address] [place] [address] MAYS (nonalcoholic steatohepatitis); Liver cirrhosis secondary to [...] Info) Description 11/12/2024 9:00 AM EST Telemedicine [facility] MED & PEDS [address] [place] [address] Vaishnavi Morgan MD [address] [place] [address] documented as of this encounter Visit Diagnoses Diagnosis MAYS (nonalcoholic steatohepatitis) 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
--- OUTSIDE RECORDS SUMMARY | 2024-10-07 14:57 | XMS_ITS | Encounter Summary ---
Author Organization [employer] Address [address] [place] [address] [facility] [place] [address] Care Team Providers Care Long Wall Mining Machine Helper Name Role Phone Vaishnavi Morgan MD Primary Care Provider [phone] Reason for Referral * Consultation (Routine) - Authorized Specialty Diagnoses / Procedures Referred By Cate condon Referred To Contact Cardiology Diagnoses MAYS (nonalcoholic steatohepatitis) Vaishnavi Morgan MD [address] [place] [address] Phone: tel: fax: Gregorio Keen MD [address] [address] Phone: tel: fax: Referral ID Status Reason Start Date Expiration Date Visits Requested Visits Authorized [id number] Authorized Specialty Services Required 08/12/2024 08/12/2025 1 1 * Imaging (Routine) - Closed Specialty Diagnoses / Procedures Referred By Contlakeshia t Referred To Contact Cardiology Diagnoses MAYS (nonalcoholic steatohepatitis) Procedures Transthoracic Echo (TTE) Complete Vaishnavi Morgan MD [address] [place] [address] Phone: tel: fax: [address] Phone: tel: fax: Referral ID Status Reason Start Date Expiration Date V isits Requested Visits Authorized [id number] Closed Perform Procedure 08/12/2024 08/12/2025 1 1 Encounter Details Date Type Department Care Team ([facility] Contact Info) Description 08/10/2024 Orders Only [facility] MED & PEDS [address] [place] [address] Vaishnavi Morgan MD [address] [place] [address] Decompensation of cirrhosis of liver (CMS/HCC) (Primary Dx); MAYS (nonalcoholic steatohepatitis) Social History Tobacco Use Types Packs/Day Years Used Date Smoking Tobacco: Never Passive Smoke Exposure: Never Smokeless Tobacco: Never Housing Stability Answer Date Recorded What is your housing situation today? I have sanjuanaluisa dillard 11/28/[address] you [...] Encounters Date Type Department Care Team (Late Contact Info) Description 11/12/2024 9:00 AM EST Telemedicine [facility] [address] [place] [address] Vaishnavi Morgan MD [address] [place] [address] Scheduled Orders Name Type Priority Associated Diagnoses Order Schedule Transthoracic Echo (TTE) Complete Echocardiography Routine MAYS (nonalcoholic steatohepatitis) Expected: 08/12/2024 (Approximate), Expires: 08/12/2026 Scheduled Referrals Name Type Priority Associated Diagnoses Order Schedule Referral to Cardiology Outpatient Referral Routine MAYS (nonalcoholic steatohepatitis) Expected: 08/12/2024 (Approximate), Expires: 08/12/2025 documented as of this encounter Visit Diagnoses Diagnosis Decompensation of cirrhosis of liver (CMS/HCC)- Primary MAYS (nonalcoholic steatohepatitis) Other chronic nonalcoholic liver disease documented in this encounter Care Teams Long Wall Mining Machine Helper Relationship Specialty Start Date End Date Vaishnavi Morgan MD [address] [place] [address] PCP - General Internal Medicine 07/25/22 documented as of this encounter
--- OUTSIDE RECORDS SUMMARY | 2024-10-07 14:57 | XMS_ITS | Continuity of Care Document ---
Author Organization [facility] Nikunj haney [facility] Address [address] [place] [address], [address] [place] [address]- Care Team Providers Care Robotic Maintenance Technician Name Role Phone Eddie MATTHEWS, [facility] Primary Care Physician [phone] Encounter [facility] NBR [id number] Date(s): 08/10/24 - 09/09/24 [facility] [employer] [facility] [address] [facility], [address] [place], [place] [address] Encounter Type: Triage Allergies, Adverse Reactions, Alerts [...] tablet Repeat number: 1 PEG-3350 with Electrolytes [employer] (Eqv-NuLYTELY) oral powder for reconstitution 240 mL, By Mouth, Every 10 minutes, Stay on clear liquid diet ALL DAY the day BEFORE the procedure.Drink half the dose the evening before, and the other half early in the morning on the day of the procedure., # 4,000 mL, 0 Refills, Maintenance, 07/13/24 4:58:00 PM EST, REC Powder, [facility]/pharmacy #[id number], Partial fill upon patient request if [...] tablet, 3 Refills, Maintenance, 01/11/16 10:16:56 AMEDT, [facility] [id number] Start Date: 01/11/16 Status: Ordered Quantity: 60.0 Unit: tablet Repeat number: 4 Problem List Condition Confirmation Course Effective Dates Status Health St atus Informant Cellulitis Confirmed Active Social History Social History Type Response Smoking Status Never smoker; Tobacc o user in household: No entered on: 04/22/14 Sex Sex Representation Female (finding) Patient Care team information Care Team Personnel Name: Aden Stoner MD Position: [facility] Physician - Gastroenterology Member Role: Lifetime Consulting Physician Address: [address] [place] [address], [address] [facility] [place] [address]- Telecom: Name: Vaishnavi Morgan MD Position: [facility] Outreach Member Role: PCP Address: [address] [place] [address]- Telecom: Name: Gallito Woods RN Position: [facility] RN Member Role: Primary Care Nurse Care Team Related Persons Name: GABI ALBERTO Name: CATA HOOKER Name: MICHELLE ENGLE Name: MAGALI KISER Insurance Providers Guarantor name: [facility] Information #: 1 Payer: [employer] Member Number: NA Policy Number: NA Group Number: [id number]
--- OUTSIDE RECORDS SUMMARY | 2024-10-07 14:57 | XMS_ITS | Encounter Summary ---
Author Organization [employer] Address [address] [facility] 7 [place] [address] Care Team Providers Care Lease Administration Supervisor Name Role Phone Vaishnavi Morgan MD Primary Care Provider [phone] Reason for Visit * Reason Onset Date Comments Referral 07/14/2024 Encounter Details Date Type Department Care Team ([facility] st Contact Info) Description 07/14/2024 Telephone [facility]S [address] [place], [place] [phone] Vaishnavi Morgan MD [address] [place] [address] Referral Social History Tobacco Use Types Packs/Day Years [...] encounter Miscellaneous Notes * Telephone Encounter - Kaliey Marva - 07/14/2024 9:27 AM EST Tc from pt requesting a call back to go over some referral and orders she needs. States went for a liver transplant consult yesterday and they are requesting additional information. Please call pt melvin. documented in this encounter Plan of Treatment Upcoming Encounters Date Type Department Care Team (Late st Contact Info) Description 11/12/2024 9:00 AM EST Telemedicine [facility] [address] [place] [address] Vaishnavi Morgan MD [address] [place] [address] documented as of this encounter Visit Diagnoses Not on filedocumented in this encounter Care Teams Lease Administration Supervisor Relationship Specialty Start Date End Date Vaishnavi Morgan MD [address] [place] [address] PCP - General Internal Medicine 07/25/22 [facility] 06/25/24 07/22/24 documented as of this encounter
--- OUTSIDE RECORDS SUMMARY | 2024-10-07 14:57 | XMS_ITS | Encounter Summary ---
Author Organization [employer] Address [address] [facility] 7 [place] [address] Care Team Providers Care Manager International Name Role Phone Vaishnavi Morgan MD Primary Care Provider [phone] Reason for Visit * Reason Onset Date Comments Medication Question 12/12/2022 Encounter Details Date Type Department Care Team ([facility] st Contact Info) Description 12/12/2022 Telephone [facility] [address] [place] [address] Vaishnavi Morgan MD [address] [place], [place] [phone] Medication Question Social History Tobacco Use Types Packs/Day Years Used Date Smoking Tobacco: Never Smokeless Tobacco: Never Depression Answer Date [...] Orientation Straight 04/24/2024 4: 18 PM EDT COVID-19 Exposure Response Date Recorded In the last 10 days, have yo u been in contact with someone who was confirmed or suspected to have Coronavirus/COVID-19? No / Unsure 03/07/2023 2:35 PM EDT documented as of this encounter Miscellaneous Notes * Telephone Encounter - Sundeep Leary RN - 12/12/2022 3:24 PM EDT Incoming task from PCP: We did talk about prescribing ambien to take prior to the sleep study. I sent the script to [facility]. Call to pt and pt informed. Pt verbalizes understanding. Pt requesting status of the ordered sleep study. States she called [facility] centralized scheduling and was informed the order was not received. Advised will send to [place] to f/u. Pt agrees. * Telephone Encounter - Sundeep Leary RN - 12/12/2022 9:03 AM EDT No mention of Rx ambien in office note from 12/06/22. Will forward to PCP to review. Please advise. Thank you. * Telephone Encounter - Jack Michel - 12/12/2022 8:42 AM EDT Tc from pt states they are awaiting script for Ambien , stated they discussed with PCP on last office visit. Please contact at [phone] documented in this encounter Plan of Treatment Upcoming Encounters Date Type Department Care Team (Late st Contact Info) Description 11/12/2024 9:00 AM EST Telemedicine [facility] MED & PEDS [address] [place] [address] Vaishnavi Morgan MD [address] [place] [address] documented as of this encounter Visit Diagnoses Not on filedocumented in this encounter Care Teams Manager International Relationship Specialty Start Date End Date Vaishnavi Morgan MD [address] [place] [address] PCP - General Internal Medicine 07/25/22 [facility] 06/25/24 07/22/24 documented as of this encounter
--- OUTSIDE RECORDS SUMMARY | 2024-10-07 14:57 | XMS_ITS | Encounter Summary ---
Author Organization [employer] Address [address] [facility] 7[address] [place] [address] Care Team Providers Care Licensed Pharmacist Name Role Phone Vaishnavi Morgan MD Primary Care Provider [phone] Encounter Details Date Type Department Care Team (Late st Contact Info) Description 05/08/2024 Orders Only [facility] [address] [place] [address] Provider, MD Adis Social History Tobacco Use Types Packs/Day Years [...] 9:00 AM EST Telemedicine [facility]S [address] [place] [address] Vaishnavi Morgan MD [address] [place] [address] documented as of this encounter Procedures Procedure Name Priority Date/Time Associated Diagnosis Comments US ABDOMEN LIMITED FOR ASCITES Routine 05/08/2024 3:23 PM EDT documented in this encounter Results * US Abdomen Limited for Ascites (05/08/2024 3:23 PM EDT) Anatomical Region Laterality Modality Abdomen Ultrasound us Historical Provider MD LOPZE US PROCEDURES Final R esult documented in this encounter Visit Diagnoses Not on filedocumented in this encounter Care Teams Licensed Pharmacist Relationship Specialty Start Date End Date Vaishnavi Morgan MD [address] [place] [address] PCP - General Internal Medicine 07/25/22 [facility] 06/25/24 07/22/24 documented as of this encounter
--- OUTSIDE RECORDS SUMMARY | 2024-10-07 14:57 | XMS_ITS | Continuity of Care Document ---
Author Organization [facility] ter Address [address] [place] [address]- Care Team Providers Care Clinic Manager Name Role Phone Eddie MATTHEWS, [facility] Primary Care Physician [phone] [id number] Date(s): 09/11/24 - 09/11/[address] [address] Discharge Disposition: A-D/C Home Attending Physician: Aden Stoner MD Admitting Physician: Aden Stoner MD Referring Physician: Aden Stoner MD Encounter Type: Disch Daystay Allergies, Adverse Reactions, Alerts Substance Criticality Severity [...] tablet Repeat number: 1 PEG-3350 with Electrolytes Lemon-Saint Regis (Eqv-NuLYTELY) oral powder for reconstitution 240 mL, By Mouth, Every 10 minutes, Stay on clear liquid diet ALL DAY the day BEFORE the procedure.Drink half the dose the evening before, and the other half early in the morning on the day of the procedure., # 4,000 mL, 0 Refills, Maintenance, 07/13/24 4:58:00 PM EST, REC Powder, [facility]/pharmacy #[id number], Partial fill upon patient [...] tablet, 3 Refills, Maintenance, 01/11/16 10:16:56 AMEDT[facility] [id number] Start Date: 01/11/16 Status: Ordered Quantity: 60.0 Unit: tablet Repeat number: 4 Problem List Condition Confirmation Course Effective Dates Status Health St atus Informant Cellulitis Confirmed Active Vital Signs Most recent to oldest [Reference Range]: 1 2 3 Height 165 cm (09/11/24 1:26 PM) Weight 70 kg (09/11/24 1:26 PM) Oxygen Saturation [94-100 %] 99 % (09/11/24 3:19 PM) 100 % (09/11/24 2:58 PM) 100 % (09/11/24 1:26 PM) Pulse Rate [55-90 bpm] 74 bpm (09/11/24 3:19 PM) 73 bpm (09/11/24 2:58 PM) 86 bpm (09/11/24 1:26 PM) Body Mass Index [18.5-24.99 kg/m2] 25.71 kg/m2 *H* (09/11/24 1:26 PM) Blood Pressure [90-138/55-84 mm Hg] 104/47mm Hg (09/11/24 3:19 PM) 106/62mm Hg (09/11/24 2:58 PM) 133/81mm Hg (09/11/24 1:26 PM) Respiratory Rate [16-30 br/min] 15 br/min *L* (09/11/24 3:19 PM) 19 br/min (09/11/24 2:58 PM) 18 br/min (09/11/24 1:26 PM) Temperature [96.8-100.4 DegF] 97.4 DegF (09/11/24 2:58 PM) 98.9 DegF (09/11/24 1:26 PM) Liters per Minute 5 L/min (09/11/24 2:58 PM) Mode of Delivery (Oxygen) Room air (09/11/24 3:19 PM) Simple face mask (09/11/24 2:58 PM) Room air (09/11/24 1:26 PM) Blood pressure sites Arm, left (09/11/24 3:19 PM) Arm, left (09/11/24 2:58 PM) Arm, left (09/11/24 1:26 PM) Temperature Route Temporal (09/11/24 2:58 PM) Temporal (09/11/24 1:26 PM) Dry Weight 70 kg (09/11/24 1:26 PM) Dry Weight Obtained Via Patient/family s tated (09/11/24 1:26 PM) Social History Social History Type Response Smoking Status Never smoker; Tobacc o user in household: No entered on: 04/22/14 Sex Sex Representation Female (finding) Note * Varsha Arce RN: PERFORM Event Display: Discharge/Transfer Note Hospital Authored Date: [id number] Nursing Discharge Note Entered On: 09/11/2024 15:08 EST Performed On: 09/11/2024 15:07 EST by Varsha Arce RN Nursing Discharge Note 2 Discharge Time : 09/11/2024 15:40 EST Patient Left Unit Via : Wheelchair Patient Accompanied Off Unit with : Responsible adult DC Instructions Provided & Signed by Pt : Yes Patient Understands D/C Instructions : Yes Patient Instructions Discharge Signed : Yes Did Pt have Specialty Bed or Wound Vac : No Varsha Arce RN - 09/11/2024 15:40 EST Discharge Level of Care at Discharge : Home/Senior Care/Foster Care Varsha Arce RN - 09/11/2024 15:07 EST * Varsha Arce RN: PERFORM Event Display: Patient Education/Instruction Authored Date: [id number] Surgery Adult Discharge Instructions [place] [address] Name: CATA PICKETT : 1965?? Visit: 09/11/2024 13:07?? Current Date: 09/11/2024 15:08 ?? Account: [id number]?? Surgery Discharge Instructions We would like to thank you for allowing us to assist you with your healthcare needs. The following includes patient education materials and information regarding your injury/illness. Our entire staffstrives to provide an excellent experience for our patients and their families. PLEASE ENSURE YOU FOLLOW-UP PER THE INSTRUCTIONS BELOW! ?? YOUR OPINION IS IMPORTANT TO US! Please complete the survey you may receive by mail or email. Your feedback will be used to make improvements to the healthcare experiences of our patients and their families. Surveys are administered by [employer] ?? If further treatment with your primary care physician or another doctor is recommended, it is important for you to keep the appointment. Call your primary care physician or return to the Emergency Department immediately if your condition worsens, fails to improve, or new symptoms develop. If you need to find a doctor, you can call [facility] Link for a referral at [phone] or toll free at [phone]) or log in to [email or web address].. ?? [facility], in keeping with [facility] guidance, no longer requires face masks for staff, patientsor visitors in most situations. Similiar to time spent indoors at other locations, there is the chance that you were exposed to repiratory viruses during your time with us (such as flu or COVID-19). If you develop symptoms concerning for a viral respiratory infection, please seek testing (and treatment if indicated) from your medical provider or home test kit. ?? You can view and manage your care through the patient portal or by using a health care arias of your choosing. [employer] is a website that allows you to securely view your medical information including your hospital discharge summary, office visit summaries, medications and follow-up visits. You can also request appointments, renew medications, and request access to your medical information using a health care arias of your choosing, or just ask a question. You are entitled to know the individuals who participated in your treatment. This information is available within your medical record and will be provided upon your request. You can enroll at [email or web address] or register d uring your next office visit. You have been discharged from [facility], Patient Care Unit: ENDO??. If you have any questions regarding these instructions after you leave, please call us and we will be happy to assist you. [facility] Your Care Team Attending Physician Aden Stoner MD?? Reason for Admission BANDING OF ESOPHAGUS VARICES CRC SCREENING Primary Care Provider Vaishnavi Morgan MD? Advance Directive Health Care Proxy on File Yes - Health Care Proxy What to do next Instructions From Your Doctor ?? Orders?? Scheduled Follow-Up Appointments 2024 1:00 PM EST ?? Where: [facility] [address] [address]- Status: Pending Saturday 2:00 PM EST ?? Where: [facility] [address] [place] [address]- Status: Pending Saturday 1:15 PM EST ?? With: Aden Stoner MD Where: [facility] [address] [place] [address]- Status: Pending 2024 1:00 PM EST ?? Where: [facility] [address] [address]- Status: Pending 2024 1:00 PM EDT ?? Where: [address] [address]- Status: Pending 2024 1:00 PM EDT ?? Where: [address] [address]- Status: Pending 2024 1:00 PM EDT ?? Where: [address] [address]- Status: Pending You Need to Schedule the Following Appointments Follow Up with??Follow up with primary care physician as needed Follow Up with??Vaishnavi Morgan MD When:??In 0 days Where: [address] [place] [address]- Business (1) Discharge Medications CATA PICKETT :1965 Visit Date:09/11/2024 Medications: Please continue your medications until treatment is completed or stopped by your provider. You may resume your daily prescription medications. Discuss any questions related to medications with your provider. What How Much When Instructions Next Dose Unchanged Ciprofloxacin (ciprofloxacin 500 mg oral tablet) 10 Milligrams/Kilogram Oral Every 12 hours Duration: 10 Days Unchanged Folic Acid (folic acid 1 mg oral tablet) 1 tab(s) Oral Daily Unchanged Midodrine (midodrine 5 mg oral tablet) 2 tab(s) Oral 3 times a day Unchanged Nadolol (nadolol 40 mg oral tablet) 1 tab(s) Oral Daily Unchanged Pantoprazole (pantoprazole 40 mg oral delayed release tablet) 2 tab(s) Oral Twice a day Unchanged PEG Electrolyte Solution (PEG-3350 with Electrolytes Lemon-Saint Regis (Eqv- NuLYTELY) oral powder for reconstitution) 240 Milliliter Oral Every 10 minutes Stay on clear liquid diet ALL DAY the day BEFORE the procedure. ??Drink half the dose the evening before, and the other half early in the morning on the day of the procedure. ?? Unchanged penicillin V potassium (penicillin V potassium 250 mg oral tablet) 1 tab(s) Oral Twice a day Allergies (NKA means No Known Allergies) penicillin G potassium vancomycin Education Materials Below is the list of Educational Leaflet Providered with your Discharge Instructions. [employer] Patient Education - Esophageal Varices?? [employer] Patient Education - Surgery Medical Daystay Surgical Overnight Discharge Instructions?? [employer] Patient Education - Hemorrhoids Discharge Instructions?? [employer] Patient Education - Diverticulosis Discharge Instructions?? Valuables and Belongings I fully understand and agree that [facility] accepts no responsibility for all my personal property including clothing, toilet articles, radios, jewelry, dentures, hearing aids, rings, money, or any other property that is in my possession or is brought to me after admission. I understand certain valuables may be placed in a hospital safe for a short period of time. I understand that the hospital is not liable for loss or damage due to accident, fire, or other natural occurrence while said property is in the safe. I accept full responsibility for any personal property that I keep with me, and will not hold the hospital responsible in case of loss or disappearance. I acknowledge that i have been encouraged to send valuables and belongings home. ?? Review of Valuable and Belonging List: With patient Date for Pt to Sign Valuables/Belongings: 09/11/24 13:26:00 ?? Valuables & Belongings ?? Clothes Electronic devices Jewelry Monetary Items Personal devices Miscellaneous Medications (Valuables) Valuables at Bedside Coat, Pants, Shirt, Shoes, Undergarments, Other: winter hat ? Purse ? Valuables Sent Home ? Valuables Sent to Security ? Valuables Sent to Locker ? Other Discharge Information ? Case Management Discharge Plan?? Discharge Plan?? Discharge Level of Care at Discharge: Home/Senior Care/Foster Care ?? Pulmonary Rehab Status?? Pulmonary Rehab Discharge Status?? Respiratory Rate: 19 br/min ? Common Emergency Awareness Tips IS IT A STROKE? Act FAST and Check for these signs: FACE Does the face look uneven? ARM Does one arm drift down? SPEECH Does their speech sound strange? TIME Call at any sign of stroke ?? Heart Attack Signs Chest discomfort: Most heart attacks involve discomfort in the center of the chest and lasts more than a few minutes, or goes away and comes back. It can feel like uncomfortable pressure, squeezing, fullness or pain. Discomfort in upper body: Symptoms can include pain or discomfort in one or both arms, back, neck, jaw or stomach. Shortness of breath: With or without discomfort. Other signs: Breaking out in a cold sweat, nausea, or lightheaded. Remember, MINUTES DO MATTER. If you experience any of these heart attack warning signs, call to get immediate medical attention! ?? Smoking can increase your chances of developing chronic health problems and can cause harmful effects to other family members in your house. If you smoke, you are strongly encouraged to quit. Please call [facility] Link at [phone] or [phone] ([phone]) or log in to [email or web address] for referrals to smoking cessation programs. ?? The National Suicide Prevention Hotline is available 01/04 if you or someone you know needs to find a reason to keep living. By calling 6-714-[employer] (3728) you'll be connected to a skilled, trained counselor at a crisis center in your area. SURGERY DISCHARGE INSTRUCTIONS SIGNATURE PAGE CATA PICKETT Location:[facility] Registration Date and Time:09/11/2024 13:07 EST Primary Care Physician: Vaishnavi Morgan MD, Attending Physician: Aden Stoner MD, I CATA PICKETT, have received the above patient education materials/instructions and have verbalized understanding. If ambulance or transport services are being used I further acknowledge being given a choice of service. ?? If you need to contact me, please call me at this number: . Patient/Manager Lpn Name: Patient/Manager Lpn Signature: Relationship to Patient: Witness Name/Signature: Date: * Varsha Arce RN: PERFORM, SIGN, VERIFY Event Display: Patient Education Handout Authored Date: [id number] * Varsha Arce RN: PERFORM Event Display: Patient Education Leaflets Authored Date: [id number] Esophageal Varices ?? 676 Esophageal Varices ??You must carefully read the Consumer Information Use and Disclaimer below in order to understand and correctly use this information?? The Basics Written by the doctors and editors at [facility]??What are esophageal varices?Esophageal varices are swollen blood vessels in the esophagus, which is the tube that connects the mouth to the stomach (figure 1). Esophageal varices often happen in people with serious liver disease, called cirrhosis. ??What are the symptoms of esophageal varices?Esophageal varices do not causesymptoms until they leak or burst. This causes bleeding, which can be very serious. Signs of bleeding from esophageal varices include:? Vomiting blood ??? Dark-colored or black bowel movements ??? Bloody bowel movements or diarrhea ??? Feeling lightheaded ??? Passing out ??If you have liver disease and get one of more of these symptoms,??call for an ambulance (in the [place] and [place], dial 9-1-1). Do not drive yourself to the hospital or have another person drive you.??Is there a test for esophageal varices?Yes. All people who have cirrhosis should have a test called an upper endoscopy to check for esophageal varices (figure 2).??For an upper endoscopy, thedoctor puts a thin, flexible tube into your mouth down your throat and into your esophagus. The tube (called an endoscope) has a camera and a light on it. This allows the doctor to see inside your esophagus, stomach, and the first part of your intestine.??Sometimes, doctors do an endoscopy using a small capsule with a tiny camera inside. You swallow the capsule while lying on your right side and sip water every 30 seconds. The capsule sends photos of the lining of your esophagus and stomach to a device outside your body. A doctor then looks for any problems in the photos.??If you have cirrhosis, you should have an upper endoscopy every 1 to 3 years. The doctor will check to see if you have new varices or if the ones you have are getting larger.??How are esophageal varices treated?Treatments that can make varices less likely to bleed include:? Taking medicines called beta-blockers ??? These are also used to treat high blood pressure. Examples include propranolol (brand name: Inderal) and nadolol (brand name: Corgard). ??? Losing weight, if you are overweight ??? Avoiding alcohol ??If you have had bleeding from varices or are likely to have bleeding, your doctor can do a procedure during an endoscopy called variceal band ligation. This means that the doctor will place smallrubber bands around the varices to prevent bleeding. You will need to take medicines that lower theamount of acid in your stomach while the varices heal. Your doctor will tell you what medicine to take. Some of the medicines are available over the counter and include:? Omeprazole (sample brand name: Prilosec) ??? Esomeprazole (sample brand name: Nexium) ??? Lansoprazole (sample brand name: Prevacid) ??? Pantoprazole (sample brand name: Protonix) ??Variceal band ligation has to be repeatedevery 2 to 8 weeks until the varices are gone. Rarely, people who have severe bleeding need to havea procedure called a TIPS. For this procedure, a doctor inserts a thin tube through a vein in theneck and places the tube inside the liver. The tube helps blood to flow through the liver more easily. This lowers the blood pressure in the varices and helps stop bleeding.??Can esophageal varices be prevented?Treating the underlying liver disease that caused the cirrhosis might help prevent varices.??All topics are updated as new evidence becomes available and our??peer review process??is complete.This topic retrieved from [employer] on:??Feb 12, 2022.Topic 47932 Version 10.0Release: 30.2.4 - C30.156?2021??[employer] and/or its affiliates.??All rights reserved.Graphic 17786 Version 4.0Consumer Information Use and Disclaimer:This generalized information is a limited summary of diagnosis, treatment, and/or medication information. It is not meant to be comprehensive and should be used as a tool to help the user understand and/or assess potential diagnostic and treatment options. It does NOT include all information about conditions, treatments, medications, side effects, or risks that may apply to a specific patient. It is not intended to be medical advice or a substitute for the medical advice, diagnosis, or treatment of a health care provider based on the health care provider's examination and assessment of a patient's specific and unique circumstances. Patients mustspeak with a health care provider for complete information about their health, medical questions, and treatment options, including any risks or benefits regarding use of medications. This information does not endorse any treatments or medications as safe, effective, or approved for treating a specific patient. [employer] and its affiliates disclaim any warranty or liability relating to this information or the use thereof. The use of this information is governed by the Terms of Use, available at??https://www.[employer].com/en/know/jnscpxim-ygcbezoumzkal-dpwpo?2021 [employer]. and its affiliates and/or licensors. All rights reserved.Last Updated 02/14/22? * Varsha Arce RN: PERFORM Event Display: Patient Education Leaflets Authored Date: [id number] Surgery Medical Daystay Surgical Overnight Discharge Instructions ?? 295 Medical Daystay/Surgical Overnight Discharge Instructions ? Since your coordination and judgment may be altered by medication and/or anesthesia, a responsible adult must drive you home from the hospital. ? If you have received medication for pain or sedation while under our care, you should not drive, operate machinery, drink alcohol, or sign any legal documents for 24 hours.?? You should have someone with you at home tonight. ? Remain at home the day of discharge.?? You may be up and about unless otherwise instructed by your physician. ? You may resume your daily prescription medication schedule.?? Any depressant medication should be avoided for 24 hours unless otherwise instructed by your surgeon or anesthesiologist. ? Call your physician for a follow-up appointment.? If you experience unusual or severe pain not relied by your pain medication, excessive bleedingor drainage, persistent nausea and vomiting, excessive swelling or redness, foul odor from incisionsite or fever over 100.6F, you need to call your physician. ? A follow-up phone call by a nurse will be made the day after your procedure.?? If you have stayed with us over night, you will not be receiving a follow-up phone call. ? Nausea and vomiting are a common side effect of prescription pain medication.?? We recommend that pills are not taken on an empty stomach.?? While taking any prescription pain medication you should not drive or drink alcohol. ? * Varsha Arce RN: PERFORM Event Display: Patient Education Leaflets Authored Date: [id number] Hemorrhoids Discharge Instructions ?? 672 ??Hemorrhoids Discharge Instructions ??You must carefully read the Consumer Information Use and Disclaimer below in order to understand and correctly use this information?? About this topic Hemorrhoids are swollen veins in the rectum. Your rectum is where stool leaves your body. You may be able to see or feel your hemorrhoids outside of your body, but some hemorrhoids are inside of yourrectum and cannot be seen. Hemorrhoids can cause itching, pain, and bleeding. Being constipated or having hard stools can make your hemorrhoids worse.?? What care is needed at home? Ask your doctor what you need to do when you go home. Make sure??you ask questions if you do not understand what the doctor says. This??way you will know what you need to do. ??? Soak your bottomin a few inches of warm water for 10 to 15 minutes??at a time. You can do this 2 to 3 times each day. Do not add soap,??bubble bath, or anything to the water. ??? Use tnuz-fqp-klhvpem medicines to treat your hemorrhoids. These??include ointments and creams to help with pain and swelling. You can??also use a product like witch estiven to help dry out the skin in the area. ??? To help with constipation: ??? Use stool softeners when needed. ??? Eat high-fiber foods. These include whole grains, fruits, and??vegetables. ??? Drink plenty of water and other fluids each day. This helps to??keep your stools soft. ??? Set a regular schedule to try and have a bowel movement. Do??not ignore the urge to go to the bathroom. Don???t hold it in. ??? Give yourself plenty of time to have a bowel movement, but do not linger on the toilet either, by sitting and reading for a long time. ??? Do mild exercise each day like taking a walk. ??? Avoid heavy lifting or straining while the hemorrhoid is healing. ?? What follow-up care is needed? If your problem does not get better, other care may be needed. Your doctor may ask you to make visits to the office to check on your progress. Be sure to keep these visits.?? What drugs may be needed? The doctor may order drugs to: ??? Help with pain and swelling ??? Ease itching ??? Soften stools ?? Will physical activity be limited? Working out can help with digestion. It might help keep you from having hard stools. Ask your doctor about the best kind of exercise for you. ?? What problems could happen? You may have very bad bleeding. ??? Sometimes, treatments do not work. Some hemorrhoids are very??large. You might need surgery for either of these. ?? When do I need to call the doctor? You have a lot of bleeding from your rectum. ??? Your bowel movement looks like tar. ??? You are not able to pass stool because of pain from your??hemorrhoids. ??? Your pain gets worse and is nothelped by naom-enu-oiodtiv??medicines, warm water, or your home care. ??? You have a fever of 100.4??F (38??C) or higher. ?? Teach Back: Helping You Understand The Teach Back Method helps you understand the information we are giving you. After you talk with the staff, tell them in your own words what you learned. This helps to make sure the staff has described each thing clearly. It also helps to explain things that may have been confusing. Before going home, make sure you can do these: ??? I can tell you about my condition. ??? I can tell you what may help ease my pain. ??? I can tell you what I will do if I have blood in my rectum. Where can I learn more?[employer] [employer]https://familydoctor.or g/condition/hemorrhoids/National Digestive Disease Information Clearinghousehttps://www.niddk.nih.go v/health-information/digestive-diseases/hemorrhoids/definition-factsLast Reviewed Opea2614-83-91Cnxgwgus Information Use and Disclaimer:This generalized information is a limited summary of diagnosis,treatment, and/or medication information. It is not meant to be comprehensive and should be used asa tool to help the user understand and/or assess potential diagnostic and treatment options. It does NOT include all information about conditions, treatments, medications, side effects, or risks thatmay apply to a specific patient. It is not intended to be medical advice or a substitute for the medical advice, diagnosis, or treatment of a health care provider based on the health care provider's examination and assessment of a patient???s specific and unique circumstances. Patients must speak with a health care provider for complete information about their health, medical questions, and treatment options, including any risks or benefits regarding use of medications. This information does not endorse any treatments or medications as safe, effective, or approved for treating a specific patient. [employer] and its affiliates disclaim any warranty or liability relating to this information or the use thereof. The use of this information is governed by the Terms of Use, available at??htt ps://www.[employer].com/en/know/xlhsklye-hcjmlojchtqdr-kvmhqQota Updated 11/01/21? Patient Care team information Care Team Personnel Name: Aden Stoner MD Position: [facility] Physician - Gastroenterology Member Role: Lifetime Consulting Physician Address: [address] [place] [address], [address] [facility] [address] Telecom: Name: Vaishnavi Morgan MD Position: [facility] Outreach Member Role: PCP Address: [address] [place] [address]- Telecom: Name: Gallito Woods RN Position: [facility] RN Member Role: Primary Care Nurse Care Team Related Persons Name: REMY GABI Name: CATA HOOKER Name: MICHELLE ENGLE Name: MAGALI KISER Insurance Providers Guarantor name: CATA LEWISAGENA [facility] Information #: 1 Payer: [employer] Member Number: [id number] Policy Number: NA Group Number: NA Health Plan Information #: 2 Payer: [employer] Member Number: [id number] Policy Number: NA Group Number: NA
--- OUTSIDE RECORDS SUMMARY | 2024-10-07 14:57 | XMS_ITS | Clinical Summary ---
Author Organization [facility] Address [address] [place] [address] Care Team Providers Care Pantograph Engraver Name Role Phone Vaishnavi Morgan MD Primary Care Provider Allergies Active Allergy Reactions Criticality Noted Date Comments Penicillins Unknown/Patient and Family Unable to Define Medium 03/05/2022 Vancomycin Rash/Dermatitis Low 11/20/2022 Need benadryl with it Medications Medication Sig Dispensed Refills Start Date End Date Status PANTOprazole (PROTONIX) 40 MG EC tabletIndications:Sanaz er cirrhosis secondary to MAYS (HCC) Take 1 tablet (40 mg total) by mouth 2 times a day. 60 tablet 04/09/2023 Active dimenhyDRINATE (MOTION SICKNESS PO) Take 1 tablet by mouth as needed (motion sickness). Active furosemide (LASIX) 20 MG tabletIndications:Cir rhosis (HCC) Take 1 tablet (20 mg total) by mouth daily. Do not start before December 31, 2023. 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 04/08/2023 Secondary esophageal varices 04/08/2023 Gastroesophageal reflux disease without esophagi tis 04/08/2023 GI bleed 04/07/2023 Melena 02/14/2023 Acute upper GI bleed 11/20/2022 Secondary esophageal varices 11/20/2022 Hyponatremia 11/20/2022 Guaiac + stool 07/22/2022 Refusal of blood transfusion s as patient is Shinto 07/22/2022 Thrombocytopenia 07/22/2022 Gastroesophageal reflux disease without esophagi tis 07/22/2022 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 07/22/2022 Secondary esophageal varices without bleeding MAYS (nonalcoholic steatohepatitis) 05/08/2022 Secondary esophageal varices with bleeding 05/08 Upper GI bleed 03/05/2022 Acute blood loss anemia 03/05/2022 Blood transfusion declined b ecause patient is Shinto 03/05/2022 Resolved Problems Problem Noted Date Diagnosed Date Resolved Date GI bleed 07/22/2022 11/20/2022 Family History Medical History Relation Name Comments Asthma Brother Hypertension Brother Prostate cancer Father Diabetes Mother Renal Disease Mother Relation Name Status Comments Brother Father Mother Social History Tobacco Use Types Packs/Day Years Used Date Smoking Tobacco: Never Smokeless Tobacco: Never Tobacco Cessation:Counseling Given: Not Answered Alcohol Use Standard Drinks/Week Comments Not Currently 0 (1 standard drink = 0.6 oz pur e alcohol) [employer] Answer Date Recorded In the past 12 months has [employer], gas, oil, or water [employer] threatened to shut off services in your home? No 12/29/2023 AUDIT-C Answer Date Recorded Q1: How often do you have a drink containing alcohol? Never 12/29/2023 Q2: How many drinks containi ng alcohol do you have on a typical day when you are drinking? Patient does not drink Q3: How often do you have si x or more drinks on one occasion? Never 12/29/2023 Overall Financial Resource Strain (CARDIA) Answe r Date Recorded How hard is it for you to pa y for the very basics like food, housing, medical care, and heating? Not very hard 12/29/2023 PHQ-2 Answer Date Recorded PHQ-2 Total Score 6 12/29/2023 Hunger Vital Sign Answer Date Recorded Within the past 12 months, y ou worried that your food would run out before you got the money to buy more. Never true 12/29/19 24 Within the past 12 months, t he food you bought just didn't last and you didn't have money to get more. Never true 12/29/2023 PRAPARE - Transportation Answer Date Re corded In the past 12 months, has l ack of transportation kept you from medical appointments or from getting medications? No 12/09 In the past 12 months, has l ack of transportation kept you from meetings, work, or from getting things needed for daily living? No 12/29/2023 Housing Stability Vital Sign Answer Robert e Recorded In the last 12 months, was t here a time when you were not able to pay the mortgage or rent on time? No 12/29/2023 In the last 12 months, how many places have you lived? 1 12/29/2023 In the last 12 months, was t here a time when you did not have a steady place to sleep or slept in a mcfp (including now)? No 12/29/2023 Sex and Gender Information Value Date Recorded Sex Assigned at Female 11/20/2022 2:26 AM EDT Gender Identity Female 11/20/2022 2:26 AM EDT Sexual Orientation Heterosexual (straight) 11/20 2:26 AM EDT Last Filed Vital Signs Vital Sign Reading Time Taken Comments Blood Pressure 107/66 12/30/2023 4:35 PM EDT Pulse 73 12/30/2023 4:35 PM EDT Temperature 36.9 ??C (98.5 ??F) 12/30/2023 3:34 PM ED T Respiratory Rate 17 12/30/2023 3:34 PM EDT Oxygen Saturation 95% 12/30/2023 3:34 PM EDT Inhaled Oxygen Concentration - - Weight 95.3 kg (210 lb) 12/28/2023 8:56 PM EDT Height 165.1 cm (5' 5 ) 12/28/2023 8:56 PM EDT Body Mass Index 34.95 12/28/2023 8:56 PM EDT Plan of Treatment Health Maintenance Due Date Last Done Comments Pneumococcal Vaccine: Pediat yue (0-5 Years) and At-Risk Patients (6 to 49 Years) (1 of 2 - PCV) 12/20/1973 HIV Screening 12/20/1980 DTaP/Tdap/Td Vaccines (1 - Tdap) 12/20/1986 Hepatitis B Vaccines (1 of 3 - 19+ 3-dose series) 12/20/1986 Pneumococcal Vaccines 50+ (1 of 2 - PCV) 12/20/1986 Pap Smear (Ages 21-65) 12/20/1988 Mammogram 2007 Zoster (Shingles) Vaccine (1 of 2) 12/20/2017 Influenza Vaccine 04/09/2024 07/01/2023, , 06/29/2021, Additional history exists COVID-19 Vaccine (2023-2 5 season) 2024 09/07/2021, 11/17/2020 Colonoscopy 03/05/2032 03/05/2022 Hepatitis C Virus Screening Completed 03/05/2022 Procedures Procedure Name Priority Date/Time Associated Diagnosis Comments HEPATITIS C ANTIBODY REFLEX HCV RT-PCR, QUANT Routine 03/05/2022 5:40 AM EDT from Last 3 Months or Most Recently Relevant to Health Maintenance Results * Hepatitis C Antibody reflex HCV RT-PCR, Quant (03/05/2022 5:40 AM EDT) Hepatitis C Antibody 0.19 0.00 - 0.79 S/CO ratio 03/06/2022 11:32 AM EDT [facility] Hepatitis C Antibody Interpretation Nonreactive Nonreactive 03/06/2022 11:32 AM EDT [facility] Plasma/Serum 03/05/2022 5:40 AM EDT 03/05/2022 6:01 AM EDT Ariane Pettit MD LAB BLOOD [facility] [address] [place] [address] from Last 3 Months or Most Recently Relevant to Health Maintenance Advance Directives Documents on File Type Date 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 Advance Directive-Scan 06/12/2024 11:09 AM 12/28/2023 HO[facility] * Full Code (Latest Code Status on File) Date Activated Date Inactivated Comments 12/29/2023 12:27 AM Question Answer Comments Decision Thoroughly Discussed with: Patient * DNR Date Activated Date Inactivated Comments 04/08/2023 2:02 AM 12/28/2023 8:46 PM Question Answer Comments Decision thoroughly discussed with: Patient * Full Code Date Activated Date Inactivated Comments 04/08/2023 12:16 AM 04/08/2023 2:02 AM * Full Code Date Activated Date Inactivated Comments 02/14/2023 9:58 AM 04/07/2023 7:32 PM * Full Code Date Activated Date Inactivated Comments 11/20/2022 5:32 AM 02/14/2023 6:14 AM Care Teams Pantograph Engraver Relationship Specialty Start Date End Date Vaishnavi Morgan MD [address] [place] [address] PCP - General General Medicine 08/10/22
--- OUTSIDE RECORDS SUMMARY | 2024-10-07 14:57 | XMS_ITS | Encounter Summary ---
Author Organization [employer] Address [address] [place] [address] [place] [address] Care Team Providers Care Quality Assurance Coach Name Role Phone Vaishnavi Morgan MD Primary Care Provider [phone] Reason for Referral * Consultation (Routine) - Closed Specialty Diagnoses / Procedures Referred By Contlakeshia condon Referred To Contact Physical Therapy Diagnoses Lightheadedness Vaishnavi Morgan MD [address] [place] [address] Phone: tel: fax: AT [facility] [place] [address] [facility] [address] Phone: tel: fax: Referral ID Status Reason Start Date Expiration Date V isits Requested Visits Authorized [id number] Closed Specialty Services Required 06/19/2024 06/19/2025 1 1 Encounter Details Date Type Department Care Team (Late st Contact Info) Description 06/08/2024 Orders Only [facility] P[facility]S [address] [place] [address], [place] [phone] Vaishnavi Morgan MD [address] [place], [place] [phone] Lightheadedness (Primary Dx); MAYS (nonalcoholic steatohepatitis); Liver cirrhosis secondary to [...] 11/12/2024 9:00 AM EST Telemedicine [facility] [address] [place] [address] Vaishnavi Morgan MD [address] [place] [address] Scheduled Referrals Name Type Priority Associated Diagnoses Orde r Schedule Referral to Physical Therapy Outpatient Referral Routine Lightheadedness Expected: 06/19/2024 (Approximate), Expires: 06/19/2025 documented as of this encounter Visit Diagnoses Diagnosis Lightheadedness- Primary Dizziness and giddiness MAYS (nonalcoholic steatohepatitis) Other chronic nonalcoholic liver disease 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
--- OUTSIDE RECORDS SUMMARY | 2024-10-07 14:57 | XMS_ITS | Encounter Summary ---
Author Organization [employer] Address [address] [place] [address] 7 [place] [address] Care Team Providers Care X Ray Service Technician Name Role Phone Vaishnavi Morgan MD Primary Care Provider [phone] Encounter Details Date Type Department Care Team (Late Contact Info) Description 11/12/2022 Abstract [facility] [address] [place], [place] [phone] Vaishnavi Morgan MD [address] [place], [place] [phone] Social History Tobacco Use Types Packs/Day Years [...] suspected to have Coronavirus/COVID-19? No / Unsure 11/13/2022 2:41 PM EST documented as of this encounter Plan of Treatment Upcoming Encounters Date Type Department Care Team (Late Contact Info) Description 11/12/2024 9:00 AM EST Telemedicine [facility] [address] [place], [place] [phone] Vaishnavi Morgan MD [address] [place], [place] [phone] documented as of this encounter Visit Diagnoses Not on filedocumented in this encounter Care Teams X Ray Service Technician Relationship Specialty Start Date End Date Vaishnavi Morgan MD [address] [place] [address] PCP - General Internal Medicine 07/25/22 [facility] 06/25/24 07/22/24 documented as of this encounter
--- OUTSIDE RECORDS SUMMARY | 2024-10-07 14:57 | XMS_ITS | Encounter Summary ---
Author Organization [employer] Address [address] [place] [address] Care Team Providers Care Hi Teacher Name Role Phone Vaishnavi Morgan MD Primary Care Provider [phone] Encounter Details Date Type Department Care Team (Late Contact Info) Description [facility] [address] [place], [place] [phone] Vaishnavi Morgan MD [address] [place] [address] Social History Tobacco Use Types Packs/Day Years Used Date Smoking Tobacco: Never Smokeless Tobacco: Never Comments Unknown Sex and Gender Information Value Date Recorded Sex Assigned at Female 07/09/2022 10:15 AM EDT Legal Sex Female 10:15 AM EDT Gender Identity Female 07/09/2022 10:15 AM EDT Sexual Orientation Straight 04/24/2024 4: 18 PM EDT documented as of this encounter Plan of Treatment Upcoming Encounters Date Type Department Care Team (Late Contact Info) Description 11/12/2024 9:00 AM EST Telemedicine [facility] [address] [place], [place] [phone] Vaishnavi Morgan MD [address] [place] [address] documented as of this encounter Visit Diagnoses Not on filedocumented in this encounter Care Teams Hi Teacher Relationship Specialty Start Date End Date Vaishnavi Morgan MD [address] [place] [address] PCP - General Internal Medicine 07/25/22 [facility] 06/25/24 07/22/24 documented as of this encounter
[2024-10-07 15:02] LABS: BF Shift QC OK YES
[2024-10-07 15:03] LABS: Lymphocyte Peritoneal Fl 43 %; Monocytes Peritoneal Fl 19 %; Neutrophils Peritoneal Fluid 4 %; Other Peritioneal Fl 34 %
--- NOTE | 2024-10-07 15:16 | PC.NURSE ---
pt arrived via ems, upon arrival pt was alert to person only but was able to answer questions when asked. pt very difficult stick, multiple attempts to obtain iv and ultimately had ultra sound iv inserted and labs and blood cultures were drawn. pt skin and eyes jaundice , abdomen was softly decended, lungs clear- pt speaking in full sentences rr non labored. ivf were changed to 500ml bolus only, iv abx given per order, temp sensing rudd cath inserted and urine obtained pt have 400 output of dark yellow urine. pt medicated per order with protonix and lactulose, provider aspirated fluid from patients abdomen and samples sent to lab. tele monitor placed, pt denying pain, vitals have been stable, call jorge within reach, plan of of care ongoing.
[2024-10-07 15:17] LABS: INTERNATIONAL NORM RATIO 2.4 (0.9-1.1); Prothrombin Time 27.8 SEC (10.9-12.4)
[2024-10-07 15:20] LABS: Partial Thromboplastin Time 57.4 SEC (26.0-36.8)
[2024-10-07 15:30] LABS: Reflex Lactate? Lactic Acid Added
[2024-10-07] MEDS: iohexoL 350 MG/ML 100 ML INFUS..BTL IV (16:01)
[2024-10-07 16:27] LABS: ~Lactic Acid-LAB USE ONLY 5.3 mmol/L (0.5-2.0)
--- NOTE | 2024-10-07 17:38 | PC.NURSE ---
pt sleeping, wakes to verbal stimulus, equipment monitor phototypesetting [id number] on monitor, vitals stable, rudd cath patient/draining, family at bedside, provider waiting to hear back from a hospital in [facility] about transfer. plan of care ongoing.
[2024-10-07 18:07] LABS: Reflex Lactate? 2 Y
[2024-10-07 20:01] LABS: ~Lactic Acid-LAB USE ONLY 3.9 mmol/L (0.5-2.0)
--- NOTE | 2024-10-07 21:50 | PC.NURSE ---
pt is axox3 reports JALLOH, states is tolerable and does not want medication at this time, MD aware. pt had large BM. pt moved over into hospital bed, new bed linen/gown & gwen care provided. pt denies cp/sob, speaking full clear sentences. vitals as documented. awaiting transfer in AM. call jorge within reach.
[2024-10-08 00:12] VITALS: BP 113/64; PULSE 84; RESP 22; TEMP 36.6; O2SAT 100
[2024-10-08 02:14] VITALS: BP 104/57; PULSE 77; RESP 22; TEMP 36.8; O2SAT 100
--- NOTE | 2024-10-08 02:37 | PC.NURSE ---
pt had 2 BM on bedpan, cleaned gwen care provided. pt requests food, per MD can have ground texture foods, d/t availability at this time pt offered pudding or jello, requested pudding. pt ate about half, requested water which was provided. denies further needs at this time. call jorge within reach.
--- NOTE | 2024-10-08 04:33 | PC.NURSE ---
updates given to senior project coordinator Duran. requests fax to [phone]. ed fitter type bar and segment aware.
[2024-10-08 05:01] VITALS: BP 102/49; PULSE 80; RESP 19; TEMP 36.7; O2SAT 99
[2024-10-08 07:27] LABS: Albumin Peritoneal Fluid 0.9; LDH Peritoneal Fluid 39; Total Protein Peritoneal Fluid 1.9
[2024-10-08 07:28] LABS: Amylase Peritoneal Fluid 17; Glucose Peritoneal Fluid 98; pH Peritoneal Fluid 7.48
[2024-10-08 07:37] VITALS: BP 106/59; PULSE 88; TEMP 36.8; O2SAT 100
--- NOTE | 2024-10-08 08:18 | PC.NURSE ---
REPORT GIVEN TO [employer] [facility]HICLE DRIVER AT [facility]
[2024-10-08 09:00] VITALS: BP 106/59; PULSE 88; RESP 20; TEMP 36.8; O2SAT 100
--- NOTE | 2024-10-08 09:00 | PC.NURSE ---
REPORT GIVEN TO EMS, PT TRANSFERRED TO TRAM
--- NOTE | 2024-10-08 09:01 | PC.NURSE ---
BELONGINGS WITH PT AND EMS
== END 2024-10-08 09:01 | disposition still patient (30) ==
PROVIDERS: Emergency Medicine; Emergency Provider Emergency Medicine; PCP Internal Medicine
DX: K76.82 Hepatic encephalopathy (principal); D25.9 Leiomyoma of uterus, unspecified; R11.2 Nausea with vomiting, unspecified; R18.8 Other ascites; R11.0 Nausea; R41.0 Disorientation, unspecified; R10.2 Pelvic and perineal pain; E80.6 Other disorders of bilirubin metabolism; Z79.899 Other long term (current) drug therapy
CPT/HCPCS: 36415; 49082; 51702; 71045; 74177; 80048; 80076; 81001; 82042; 82140; 82150; 82945; 83605; 83615; 83986; 84157; 85025; 85610; 85730; 87040; 87070; 87073; 87205; 89051; 96361; 96365; 96375; 99285; J2003; J2470; J2543; Q9967

== ENCOUNTER → 2024-10-07 14:30 | Outpatient (BNV) | payer MEDICAID, SELFPAY | PROVIDERS: Emergency Provider Emergency Medicine; PCP Internal Medicine; Visit Provider Radiology Diagnostic Radiology | DX: K74.60 Unspecified cirrhosis of liver (principal); R16.1 Splenomegaly, not elsewhere classified; D25.9 Leiomyoma of uterus, unspecified; J90 Pleural effusion, not elsewhere classified; N32.89 Other specified disorders of bladder; Z90.49 Acquired absence of other specified parts of digestive tract | CPT/HCPCS: 71045; 74177 ==